=== PATIENT | female | born 1960 | race Caucasian/White ===

== ENCOUNTER → 2019-10-15 11:59 | Outpatient (BNVA) | payer MEDICAID, SELFPAY | PROVIDERS: Family Provider Family Medicine; PCP Family Medicine; Visit Provider Specialist | DX: G43.711 Chronic migraine without aura, intractable, with status migrainosus (principal); Z87.891 Personal history of nicotine dependence | CPT/HCPCS: 64615; 96372; J0585; J1885 ==

== ENCOUNTER 2019-10-28 08:12 | Day surgery (SDC) | payer MEDICAID, SELFPAY ==
[2019-10-27 13:31] VITALS: BMI 39.8
--- NOTE | 2019-10-28 08:26 | ANES.PREANE2 ---
Pre-Anesthetic Assessment Pre-Anesthetic Assessment: Height/Weight: Height 1.6 m Weight 102.058 kg Preop Diagnosis: screeening colonscopy Proposed Procedure: Operation Date: 10/28/19 08:45 Proposed Procedures p Colonoscopy(Not Applicable) - Zan Verma MD Last Intake: 23:00 Social: Packs per day: 1 Pack years: 40 Comment: qyut 7 y Exam: Pre-Anes Outpt Exam: alert, oriented x 3, clear to auscultation bilaterally and regular rate & rhythm Airway: Submandibular: WNL Cervical ROM: Other MP: 1 Dentition: False and Partials Pulmonary: Pulmonary: Asthma Comments: breathing feels good, last use of inhaler 2 weeks ago CV/HEM: Comments: stress test '10 equivocal, cath negative for obstructive lesion, stable angina : Comments: frequency, urgency GI: GI: GERD Comments: controlled with omeprazole Metabolic: Metabolic: Thyroid Comments: replacement 5y without recent change Musc/skel: Musc/skel: Lower Back Pain Comments: right radiculopathy Neuropsych: Neuropsych: Bipolar, Depression and AGARWAL Anesthetic Plan: ASA status: 3 Anesthesia: MAC PFSH Anesthesia PFSH: Social History Smoking and tobacco status: former smoker Second hand smoke exposure: No (quit smoking 7 years ago) Alcohol intake: never Lives independently: Yes Household members: none Current occupational status: disabled History of recent travel: No Data Anesthesia Cardiac Studies: No Data to Display
[2019-10-28 08:57] VITALS: BP 122/73; PULSE 93; RESP 18; TEMP 37; O2SAT 93
[2019-10-28] MEDS: sodium chloride 0.9% 1,000 ML 30 ML (09:02)
--- NOTE | 2019-10-28 09:13 | PM.HPUD ---
H&P update H&P Update: DATE OF SURGERY/PROCEDURE: 10/28/19 DATE H&P PERFORMED: 10/21/19 H&P UPDATE INFORMATION: H&P completed within last 30 days and No changes to prior documentation PREOP DIAGNOSIS: Screening colonoscopy PRIMARY INDICATION FOR PROCEDURE: The same. PLANNED PROCEDURE: Operation Date: 10/28/19 08:45 Proposed Procedures p Colonoscopy(Not Applicable) - Zan Verma MD Full H&P Perinent History: Medical/Surgical History: Medical History (Updated 10/22/19 @ 10:43 by Zan Verma MD) Bipolar 2 disorder (Acute) Borderline personality disorder (Acute) Chronic migraine without aura, intractable, with status migrainosus (Inactive) GERD (gastroesophageal reflux disease) (Acute) Hyperlipidemia (Acute) Hypothyroid (Acute) PTSD (post-traumatic stress disorder) (Acute) Family History: Family History (Updated 10/21/19 @ 15:54 by TALON Burch) Father Bleeding disorder CAD (coronary artery disease) Other Diabetes Hypertension Denies family history of Anesthesia complication Social History: Social History Smoking and tobacco status: former smoker Second hand smoke exposure: No (quit smoking 7 years ago) Alcohol intake: never Lives independently: Yes Household members: none Current occupational status: disabled History of recent travel: No
--- NOTE | 2019-10-28 09:29 | ANE.PACU2 ---
 Inpatient post-anesthesia follow up: Airway intact: Yes Vital signs: Temperature 98.6 F Pulse Rate 93 Respiratory Rate 18 Blood Pressure 122/73 Pulse Oximetry 93 Oxygen Delivery Me thod Room Air Oxygen Flow Rate Fraction of Inspir ed Oxygen Hydration adequate: Yes Nausea and vomiting: No Pain level: 2 Mental status: Baseline
[2019-10-28 09:31] VITALS: BP 108/77; PULSE 86; RESP 16; TEMP 36.5; O2SAT 93
[2019-10-28 09:39] VITALS: BP 110/62; PULSE 84; RESP 18; O2SAT 93
== END 2019-10-28 09:49 | disposition home or self-care (01) ==
PROVIDERS: Family Provider Family Medicine; PCP Family Medicine; Visit Provider Surgery
PROC: 0DJD8ZZ Inspection of Lower Intestinal Tract, Via Natural or Artificial Opening Endoscopic (ICD-10-PCS; CPT 45378; principal; 2019-10-28 08:45)
DX: Z12.11 Encounter for screening for malignant neoplasm of colon (principal); K21.9 Gastro-esophageal reflux disease without esophagitis; E78.5 Hyperlipidemia, unspecified; E03.9 Hypothyroidism, unspecified; Z82.49 Family history of ischemic heart disease and other diseases of the circulatory system; Z83.3 Family history of diabetes mellitus; Z87.891 Personal history of nicotine dependence; K57.30 Diverticulosis of large intestine without perforation or abscess without bleeding
CPT/HCPCS: 12345; 45378; J2704; J7030

== ENCOUNTER → 2019-11-12 07:47 | Outpatient (BNVA) | payer MEDICAID, SELFPAY | PROVIDERS: Family Provider Family Medicine; PCP Family Medicine; Visit Provider Nurse Practitioner Psychiatric/Mental Health | DX: F25.0 Schizoaffective disorder, bipolar type (principal); F43.12 Post-traumatic stress disorder, chronic; F40.01 Agoraphobia with panic disorder; Z63.4 Disappearance and death of family member | CPT/HCPCS: 99214 ==

== ENCOUNTER → 2019-11-23 13:43 | Outpatient (BNVA) | payer MEDICAID, SELFPAY | PROVIDERS: Family Provider Family Medicine; PCP Family Medicine; Visit Provider Counselor Professional | DX: F25.0 Schizoaffective disorder, bipolar type (principal); F43.12 Post-traumatic stress disorder, chronic; F40.01 Agoraphobia with panic disorder; Z63.4 Disappearance and death of family member | CPT/HCPCS: 90834 ==

== ENCOUNTER → 2019-11-30 08:50 | Outpatient (BNVA) | payer MEDICAID, SELFPAY | PROVIDERS: Family Provider Family Medicine; PCP Family Medicine; Visit Provider Nurse Practitioner Psychiatric/Mental Health | DX: F25.0 Schizoaffective disorder, bipolar type (principal); F43.12 Post-traumatic stress disorder, chronic; F40.01 Agoraphobia with panic disorder; Z63.4 Disappearance and death of family member | CPT/HCPCS: 99214 ==

== ENCOUNTER → 2019-12-11 08:27 | Outpatient (BNVA) | payer MEDICAID, SELFPAY | PROVIDERS: Family Provider Family Medicine; PCP Family Medicine; Visit Provider Counselor Professional | DX: Z63.4 Disappearance and death of family member (principal); F40.01 Agoraphobia with panic disorder; F43.12 Post-traumatic stress disorder, chronic; F25.0 Schizoaffective disorder, bipolar type | CPT/HCPCS: 90832; 90834 ==

== ENCOUNTER → 2019-12-15 08:09 | Outpatient (BNVA) | payer MEDICAID, SELFPAY | PROVIDERS: Family Provider Family Medicine; PCP Family Medicine; Visit Provider Counselor Professional | DX: Z63.4 Disappearance and death of family member (principal); F40.01 Agoraphobia with panic disorder; F43.12 Post-traumatic stress disorder, chronic; F25.0 Schizoaffective disorder, bipolar type; F43.10 Post-traumatic stress disorder, unspecified | CPT/HCPCS: 90834 ==

== ENCOUNTER → 2019-12-23 08:05 | Outpatient (BNVA) | payer MEDICAID, SELFPAY | PROVIDERS: Family Provider Family Medicine; PCP Family Medicine; Visit Provider Counselor Professional | DX: F40.01 Agoraphobia with panic disorder (principal); Z63.4 Disappearance and death of family member; F43.12 Post-traumatic stress disorder, chronic; F25.0 Schizoaffective disorder, bipolar type | CPT/HCPCS: 90834 ==

== ENCOUNTER → 2019-12-31 08:13 | Outpatient (BNVA) | payer MEDICAID, SELFPAY | PROVIDERS: Family Provider Family Medicine; PCP Family Medicine; Visit Provider Counselor Professional | DX: Z63.4 Disappearance and death of family member (principal); F40.01 Agoraphobia with panic disorder; F43.12 Post-traumatic stress disorder, chronic; F25.0 Schizoaffective disorder, bipolar type | CPT/HCPCS: 90832 ==

== ENCOUNTER → 2020-01-11 08:27 | Outpatient (BNVA) | payer MEDICAID, SELFPAY | PROVIDERS: Family Provider Family Medicine; PCP Family Medicine; Visit Provider Counselor Professional | DX: Z63.4 Disappearance and death of family member (principal); F40.01 Agoraphobia with panic disorder; F43.12 Post-traumatic stress disorder, chronic; F25.0 Schizoaffective disorder, bipolar type | CPT/HCPCS: 90834 ==

== ENCOUNTER → 2020-01-14 08:46 | Outpatient (BNVA) | payer MEDICAID, SELFPAY | PROVIDERS: Family Provider Family Medicine; PCP Family Medicine; Visit Provider Specialist | DX: G43.711 Chronic migraine without aura, intractable, with status migrainosus (principal); F43.12 Post-traumatic stress disorder, chronic; Z87.891 Personal history of nicotine dependence | CPT/HCPCS: 64615; J0585 ==

== ENCOUNTER → 2020-01-18 08:44 | Outpatient (BNVA) | payer MEDICAID, SELFPAY | PROVIDERS: Family Provider Family Medicine; PCP Family Medicine; Visit Provider Counselor Professional | DX: Z63.4 Disappearance and death of family member (principal); F40.01 Agoraphobia with panic disorder; F43.12 Post-traumatic stress disorder, chronic; F25.0 Schizoaffective disorder, bipolar type | CPT/HCPCS: 90834 ==

== ENCOUNTER → 2020-01-27 08:48 | Outpatient (BNVA) | payer MEDICAID, SELFPAY | PROVIDERS: Family Provider Family Medicine; Visit Provider Counselor Professional | DX: Z63.4 Disappearance and death of family member (principal); F40.01 Agoraphobia with panic disorder; F43.12 Post-traumatic stress disorder, chronic; F25.0 Schizoaffective disorder, bipolar type | CPT/HCPCS: 90834 ==

== ENCOUNTER → 2020-02-01 07:39 | Outpatient (BNVA) | payer MEDICAID, SELFPAY | PROVIDERS: Family Provider Family Medicine; Visit Provider Nurse Practitioner Psychiatric/Mental Health | DX: F25.0 Schizoaffective disorder, bipolar type (principal); F43.12 Post-traumatic stress disorder, chronic; F40.01 Agoraphobia with panic disorder; Z63.4 Disappearance and death of family member; F33.2 Major depressive disorder, recurrent severe without psychotic features; Z79.899 Other long term (current) drug therapy | CPT/HCPCS: 80053; 80061; 83036; 83735; 85025; 99213 ==

== ENCOUNTER → 2020-02-15 08:28 | Outpatient (BNVA) | payer MEDICAID, SELFPAY | PROVIDERS: Family Provider Family Medicine; Visit Provider Counselor Professional | DX: Z63.4 Disappearance and death of family member (principal); F40.01 Agoraphobia with panic disorder; F43.12 Post-traumatic stress disorder, chronic; F25.0 Schizoaffective disorder, bipolar type | CPT/HCPCS: 90834 ==

== ENCOUNTER 2020-02-18 09:50 | Outpatient (CLI) | payer MEDICAID, SELFPAY ==
--- NOTE | 2020-02-18 09:56 | MM_ITS ---
WS: [id number] BILATERAL SCREENING DIGITAL MAMMOGRAM WITH CAD HISTORY: SCREENING COMPARISON: 04/27/2016 and 06/27/2012 Bilateral CC and MLO views submitted. Computer aided detection analyzed. Breast composition: There are scattered areas of fibroglandular density. No suspicious masses, microc alcifications or architectural distortion. Benign calcifications in each breast. MM/[place] [id number] IMPRESSION: BI-RADS: 2-Benign FOLLOW UP: 1 Year Follow-up
== END 2020-02-18 09:51 | disposition home or self-care (01) ==
LOC: RADSHAW 09:52
PROVIDERS: PCP Internal Medicine; Visit Provider Internal Medicine
DX: Z12.31 Encounter for screening mammogram for malignant neoplasm of breast (principal)
CPT/HCPCS: 77067

== ENCOUNTER 2020-03-04 07:41 | Outpatient (CLI) | payer MEDICAID, SELFPAY ==
--- NOTE | 2020-03-04 08:09 | MR_ITS ---
WS: [id number] INDICATION: Tarsal tunnel syndrome TECHNIQUE: MR of the left foot without gadolinium enhancement. Sagittal PD, sagittal STIR, sagittal T 1, axial T1 and PD T2 and STIR imaging. Coronal PD and T2 imaging. FINDINGS: No evidence of space-occupying lesion in the tarsal tunnel. No evidence of ganglion cyst or soft tissue mass. Normal visualized posterior tibial nerve and neurovascular bundle. Tiny amount of tenosynovitis along the flexor hallucis longus. Small amount of tenosynovitis tibialis posterior and flexor digitorum longus. Distal Achilles is normal in appearance. Normal peroneal tendons. Normal extensor compartment tendons. Tiny ankle effusion. Normal tibiotalar joint. Normal medial and lateral malleolus. Talar dome is normal. No evidence of av ascular necrosis. Mild pes planus. Prominent plantar calcaneal spurring. Normal plantar aponeurosis. MR/MR foot LT wo con* [id number] IMPRESSION: 1. No evidence of space-occupying mass or ganglion cyst within the tarsal tunn el. 2. Normal posterior tibial nerve and neurovascular bundle. 3. Small amount of tenosynovitis along the tibialis posterior and flexor tendo ns. 4. Mild pes planus with prominent plantar calcaneal spurring. 5. Normal plantar aponeurosis.
== END 2020-03-04 07:42 | disposition home or self-care (01) ==
LOC: RADWPI 07:43
PROVIDERS: Family Provider Internal Medicine; PCP Internal Medicine; Visit Provider Podiatrist Foot & Ankle Surgery
DX: G57.52 Tarsal tunnel syndrome, left lower limb (principal); M65.872 Other synovitis and tenosynovitis, left ankle and foot; M21.42 Flat foot [pes planus] (acquired), left foot; M77.32 Calcaneal spur, left foot
CPT/HCPCS: 73718

== ENCOUNTER → 2020-04-07 08:23 | Outpatient (BNVA) | payer MEDICAID, SELFPAY | PROVIDERS: Family Provider Family Medicine; PCP Family Medicine; Visit Provider Specialist | DX: G43.711 Chronic migraine without aura, intractable, with status migrainosus (principal) | CPT/HCPCS: 64615; J0585 ==

== ENCOUNTER → 2020-04-25 08:07 | Outpatient (BNVA) | payer MEDICAID, SELFPAY | PROVIDERS: Family Provider Family Medicine; PCP Family Medicine; Visit Provider Nurse Practitioner Psychiatric/Mental Health | DX: F25.0 Schizoaffective disorder, bipolar type (principal); F43.12 Post-traumatic stress disorder, chronic; F40.01 Agoraphobia with panic disorder; Z63.4 Disappearance and death of family member | CPT/HCPCS: 96372; 99213 ==

== ENCOUNTER 2020-05-15 14:03 | Observation (INO) | payer MEDICAID, SELFPAY ==
[2020-05-15 14:07] VITALS: BMI 40.7
--- NOTE | 2020-05-15 14:27 | CTR_ITS ---
PROCEDURE INFORMATION: Exam: CT Cervical Spine Without Contrast Exam date and time: 05/15/2020 2:55 PM Age: 59 years old Clinical indication: Injury or trauma; Fall; Initial encounter; Blunt trauma; Patient HX: Stood up - fell down hitting coffee table; Additional info: Fall, weakness TECHNIQUE: Imaging protocol: Computed tomography images of the cervical spine without contrast. Radiation optimization: All CT scans at this facility use at least one of these dose optimization techniques: automated exposure control; mA and/or kV adjustment per patient size (includes targeted exams where dose is matched to clinical indication); or iterative reconstruction. COMPARISON: MRI Cervical Spine w/o* [id number] 06/04/2014 3:50 PM RADIATION DOSE METRICS: Total DLP (mGy-cm): 898.56 FINDINGS: Vertebrae: Bilateral temporomandibular joint primary osteoarthritis. Discs/Spinal canal/Neural foramina: Mild right C3-C4 primary facet osteoarthritis. Moderately severe left, severe right C5-C6 and C5-C6 neural foraminal narrowing. Soft tissues: Unremarkable. Sinuses: Mild posterior right sphenoid sinus mucosal thickening. Trachea: C5-6 and C6-7 degenerative disc disease with moderate spondylosis. Thyroid: Small bilateral thyroid lobes (status post ablative therapy?). Lungs: Right apical pulmonary subsegmental atelectasis/scarring. CT/CT cervical spin wo con* [id number] IMPRESSION: 1. Degenerative changes as above. 2. No acute cervical spinal bony injury identified. 3. Incidental paranasal sinus mucosal disease as above. Radiation Dose CTDIVOL = (mGy): DLP = 898.56 (mGy-cm)
--- NOTE | 2020-05-15 14:28 | CTR_ITS ---
PROCEDURE INFORMATION: Exam: CT Head Without Contrast Exam date and time: 05/15/2020 2:55 PM Age: 59 years old Clinical indication: Injury or trauma; Fall; Initial encounter; Blunt trauma (contusions or hematomas); Consciousness not specified; Patient HX: Stood up - fell down hitting coffee table unk loc; Additional info: Fall, weakness TECHNIQUE: Imaging protocol: Computed tomography of the head without contrast. Radiation optimization: All CT scans at this facility use at least one of these dose optimization techniques: automated exposure control; mA and/or kV adjustment per patient size (includes targeted exams where dose is matched to clinical indication); or iterative reconstruction. COMPARISON: No relevant prior studies available. RADIATION DOSE METRICS: Total DLP (mGy-cm): 779.58 FINDINGS: Brain: Normal. No hemorrhage. Unremarkable white matter. No mass effect. Ventricles: Normal. No ventriculomegaly. Bones/joints: Unremarkable. No acute fracture. Sinuses: Visualized sinuses are unremarkable. No fluid levels. Mastoid air cells: Visualized mastoid air cells are well aerated. Orbits: Bilateral prior cataract surgery with lens replacements. Vasculature: Atherosclerotic calcifications are present involving the carotid artery siphons bilaterally. Soft tissues: Unremarkable. CT/CT head wo con* [id number] IMPRESSION: No acute intracranial injury identified. Radiation Dose CTDIVOL = (mGy): DLP = 779.58 (mGy-cm)
--- NOTE | 2020-05-15 14:29 | XRR_ITS ---
PROCEDURE INFORMATION: Exam: XR Chest, 1 View Exam date and time: 05/15/2020 3:10 PM Age: 59 years old Clinical indication: Other: Weakness TECHNIQUE: Imaging protocol: XR of the chest Views: 1 view. COMPARISON: CR Chest 2 views* [id number] 09/01/2016 10:46 AM FINDINGS: Lungs: The lungs are clear bilaterally. Pulmonary vasculature within normal limits. Pleural space: No visible pneumothorax or pleural effusion. Heart/Mediastinum: Cardiomediastinal silhouette contour within normal limits. Bones/joints: No emergent findings identified. XR/XR chest 1V portable [id number] IMPRESSION: 1. No radiographic findings of acute cardiopulmonary disease.
[2020-05-15 14:31] VITALS: BP 131/69; PULSE 109; RESP 16; TEMP 37; O2SAT 93
[2020-05-15 14:46] LABS: Basophils # 0.1 10^3/uL (0.0-0.1); Basophils % 0.6 %; Eosinophils # 0.3 10^3/uL (0.0-0.8); Hematocrit 42.2 % (37.0-47.0); Hemoglobin 13.1 g/dL (11.5-15.3); Lymphocytes # 2.2 10^3/uL (0.8-4.8); Lymphocytes % 25.3 %; Mean Corpuscular Hemoglobin 28.7 pg (28.0-34.0); Mean Corpuscular Volume 92.5 fL (81-99); Monocytes # 0.7 10^3/uL (0.2-0.9); Monocytes % 7.8 %; Neutrophils # 5.27 10^3/uL (1.8-7.7); Neutrophils % 61.5 %; Nucleated Red Blood Cells % 0 %; Platelet Count 349 10^3/cmm (130-400); Red Blood Count 4.56 10^6/uL (4.1-5.3); Red Cell Distribution Width 14.2 % (12.1-15.1); White Blood Count 8.6 10^3/uL (4.0-10.0)
[2020-05-15 14:58] LABS: INR 1.06 (0.8-1.2)
[2020-05-15 15:07] LABS: Lactic Sepsis W/Reflex 1.2 mmol/L (0.5-2.2)
[2020-05-15 15:08] LABS: Alanine Aminotransferase 32 U/L (0-33); Albumin Level 3.9 g/dL (3.5-5.2); Alkaline Phosphatase 132 IU/L (35-105); Anion Gap 13.2 (5-19); Aspartate Amino Transferase 19 U/L (0-32); Blood Urea Nitrogen 9 mg/dL (8-23); Calcium 9.8 mg/dL (8.5-10.5); Carbon Dioxide 26 mmol/L (22-29); Chloride 102 mmol/L (98-107); Globulin 3.1 g/dL (1.3-4.6); Glomerular Filtration Rate 73.2 mL/min (90-130); Glucose 127 mg/dL (65-115); Osmolality Calculated 282 mOsm/kg (285-295); Potassium 4.2 mmol/L (3.5-5.1); Sodium 137 mmol/L (136-145); Total Bilirubin 0.3 mg/dL (0.15-1.2)
--- NOTE | 2020-05-15 17:03 | ED_ITS ---
Documented by User: Kiana Beckham MD 05/18/20 18:26 HPI - Altered Mental Status General: Chief Complaint: Altered Mental Status Stated Complaint: HEADACHE; WEAKNESS Time Seen by Provider: 05/15/20 14:10 History of Present Illness: HPI narrative: This patient is a 59-year-old female who presents today with dizziness and a fall. She said she has had dizziness for 2 days. She also feels extremely weak. Today she was going to a nswer the door and became dizzy. She stumbled and fell against her coffee table. She hit her head and her shoulder. She thinks that she had a loss of consciousness. She thinks she fell because of the dizziness. She denies chest pain or palpitations. She says that she is so weak she cannot move her arms or legs. She is complaining of pain in her head and neck. She has pain that goes down into the right arm. She denies history of stroke. She does have a history of hypothyroidism and psychiatric disorder. She has chronic migraines treated with Botox. She notes that she was started on gabapentin about a month ago and the dose has been recently increased. complaint: weakness (Since falling and hitting her head) Onset (ago): day(s) (Dizzy for 2 days, gradually increasing weakness to the point where she cannot move today) Severity: moderate Associated symptoms: Reports no associated symptoms Review of Systems General: Reports: 10 or more systems reviewed and unremarkable except in HPI and below Const: Reports: fatigue; Denies: fever(s), chills or malaise Eyes: Denies: change in vision ENMT: Denies: odynophagia Card: Denies: chest pain or swelling of feet/ankles Resp: Denies: dyspnea, productive cough or non-productive cough GI: Denies: abdominal pain, nausea or vomiting : Denies: flank pain or difficulty voiding Musc: Denies: neck pain or back pain Skin/Breast: Denies: rash Neuro: Reports: headache(s), weakness in extremities, difficulty walking and dizziness; Denies: numbness in extremities Panchito/Lymph: Denies: easy bruising or easy bleeding PFSH ED PFSH: Medical History Bereavement Bipolar 2 disorder Borderline personality disorder Chronic migraine without aura, intractable, with status migrainosus Chronic post-traumatic stress disorder GERD (gastroesophageal reflux disease) Hyperlipidemia Hypothyroid Panic disorder with agoraphobia PTSD (post-traumatic stress disorder) Schizoaffective disorder, bipolar type Tarsal tunnel syndrome, left lower limb Surgical History H/O arthroscopic knee surgery History of appendectomy History of arthroscopy of left shoulder History of bilateral tubal ligation Family History Father Bleeding disorder CAD (coronary artery disease) Other Diabetes Hypertension Denies family history of Anesthesia complication Social History Smoking and tobacco status: former smoker Second hand smoke exposure: No (quit smoking 7 years ago) Alcohol intake: never Lives independently: Yes Household members: none Current occupational status: disabled History of recent travel: No Physical Exam Const: COMMON NORMALS: no acute distress and patient oriented x3 GENERAL APPEARANCE: cooperative and lethargic ORIENTATION/CONSCIOUSNESS: Yes oriented to person, Yes oriented to place, Yes oriented to time and Yes lethargic HENMT: HEAD & SCALP: normal to inspection FACE & SINUS: normal facial exam Eye: GENERAL EYE: appearance normal, both eyes and all related structures Neck/C-Spine: COMMON NORMALS: supple, no meningeal signs and no JVD Chest: COMMONS NORMALS: normal inspection of the chest Resp: COMMON NORMALS: normal respiratory effort, No use of accessory muscles and clear to auscultation bilaterally AUSCULTATION: clear to auscultation bilaterally Cardio: COMMON NORMALS: no JVD, regular rate, regular rhythm and No murmurs present (Cardio) RATE: regular rate RHYTHM: regular rhythm GI: COMMON NORMALS: Normal to inspection, nondistended, normoactive bowel sounds present, Soft to palpation and non-tender INSPECTION: Yes normal to inspection AUSCULTATION: Yes normoactive bowel sounds PALPATION: Yes Soft to palpation Back/Pelvis: COMMON NORMALS: thoracic and lumbar spine normal to inspection Extremity: COMMON NORMALS: normal to inspection Neuro: COMMON NORMALS: patient oriented x3 and no focal motor deficits SENSORIUM/ORIENTATION: Yes oriented to person, Yes oriented to place, Yes oriented to time and Yes lethargic MENINGEAL SIGNS: Yes no meningeal signs CRANIAL NERVES: Yes CN normal except as noted GAIT: Yes Unable to assess gait SENSORY EXAM: Yes sensory level loss detected (Below the knee Sensation decreased bilaterally) MOTOR EXAM: 5/5 motor strength present throughout (Patient says that she is unable to move her arms or legs. She can wiggle her toes and fingers. This remained unchanged) Psych: COMMON NORMALS: mental status grossly normal, cooperative and normal affect Skin: COMMON NORMALS: no rashes or lesions noted and turgor normal GENERAL SKIN EXAM: no rashes or lesions noted and turgor normal Course ED course: This patient fell after a few days of dizziness. She has been on increasing doses of gabapentin and this could be the cause of her dizziness. She has had a neck pain after the fall but CT head and neck were negative for acute injury. Her exam is not really anatomical considering her weakness. She was able to sit up but feels like she cannot move her arms or legs. I do not think this could be a stroke given the distribution of her symptoms and preservation of vision, speech, swallowing. She may need to be admitted due to her dizziness. She does have a psychiatric history and is on multiple medications that potentially could cause dizziness. Reevaluation(s): Reevaluation #1: I called Dr. Eason for admission for this patient. As he has another admission and is close to shift change he asked me to wait for Dr. Granado. I will pass her over to Dr. Ponce to complete the admission. Vital Signs: Vital signs: Vital Signs Temperature 98.5 F 05/17/20 09:34 Pulse Rate 85 05/17/20 09:34 Respiratory Rate 18 05/17/20 09:34 Blood Pressure 136/84 05/17/20 09:34 Pulse Oximetry 94 05/17/20 09:34 MDM - Altered Mental Status Lab Data: Labs: Lab Results 05/15/20 05/15/20 05/15/20 Range/Units 14:39 14:39 14:39 WBC 8.6 (4.0-10.0) 10^3/ uL RBC 4.56 (4.1-5.3) 10^6/u L Hgb 13.1 (11.5-15.3) g/dL Hct 42.2 (37.0-47.0) % MCV 92.5 (81-99) fL MCH 28.7 (28.0-34.0) pg MCHC 31.0 (30.0-36.0) g/dL RDW 14.2 (12.1-15.1) % Plt Count 349 (130-400) 10^3/c mm MPV 9.0 (7.4-10.4) fL Neut % (Auto) 61.5 % Lymph % (Auto) 25.3 % [place] % (Auto) 7.8 % Eos % (Auto) 4.0 % Baso % (Auto) 0.6 % Neut # (Auto) 5.27 (1.8-7.7) 10^3/u L Lymph # (Auto) 2.2 (0.8-4.8) 10^3/u L [place] # (Auto) 0.7 (0.2-0.9) 10^3/u L Eos # (Auto) 0.3 (0.0-0.8) 10^3/u L Baso # (Auto) 0.1 (0.0-0.1) 10^3/u L Nucleated RBC % (a uto) 0 % Nucleated RBCs # 0.0 /100WBC PT (12.1-14.9) SECO NDS INR (0.8-1.2) D-Dimer (0-0.59) ug/mIFE U Sodium 137 (136-145) mmol/L Potassium 4.2 (3.5-5.1) mmol/L Chloride 102 (98-107) mmol/L Carbon Dioxide 26 (22-29) mmol/L Anion Gap 13.2 (5-19) BUN 9 (8-23) mg/dL Creatinine 0.8 (0.5-0.9) mg/dL GFR Calculation 73.2 L (90-130) mL/min Glucose 127 H (65-115) mg/dL Calculated Osmolal ity 282 L (285-295) mOsm/k g Lactic Acid 1.2 (0.5-2.2) mmol/L Calcium 9.8 (8.5-10.5) mg/dL Total Bilirubin 0.3 (0.15-1.2) mg/dL AST 19 (0-32) U/L ALT 32 (0-33) U/L Alkaline Phosphata se 132 H (35-105) IU/L Total Protein 7.0 (6.6-8.7) g/dL Albumin 3.9 (3.5-5.2) g/dL Globulin 3.1 (1.3-4.6) g/dL TSH (0.27-4.20) uIU/ mL Urine Color (Yellow) Urine Appearance (CLEAR) Urine pH (5-7) Ur Specific Gravit y (1.005-1.030) Urine Protein (Negative) Urine Glucose (UA) (Normal) Urine Ketones (Negative) Urine Blood (Negative) Urine Nitrate (Negative) Urine Bilirubin (NEGATIVE) Urine Urobilinogen (Negative) mg/dL Ur Leukocyte Alethea ase (Negative) 05/15/20 05/15/20 05/15/20 Range/Units 14:39 14:39 14:39 WBC (4.0-10.0) 10^3/ uL RBC (4.1-5.3) 10^6/u L Hgb (11.5-15.3) g/dL Hct (37.0-47.0) % MCV (81-99) fL MCH (28.0-34.0) pg MCHC (30.0-36.0) g/dL RDW (12.1-15.1) % Plt Count (130-400) 10^3/c mm MPV (7.4-10.4) fL Neut % (Auto) % Lymph % (Auto) % [place] % (Auto) % Eos % (Auto) % Baso % (Auto) % Neut # (Auto) (1.8-7.7) 10^3/u L Lymph # (Auto) (0.8-4.8) 10^3/u L [place] # (Auto) (0.2-0.9) 10^3/u L Eos # (Auto) (0.0-0.8) 10^3/u L Baso # (Auto) (0.0-0.1) 10^3/u L Nucleated RBC % (a uto) % Nucleated RBCs # /100WBC PT 14.20 (12.1-14.9) SECO NDS INR 1.06 (0.8-1.2) D-Dimer 0.73 H (0-0.59) ug/mIFE U Sodium (136-145) mmol/L Potassium (3.5-5.1) mmol/L Chloride (98-107) mmol/L Carbon Dioxide (22-29) mmol/L Anion Gap (5-19) BUN (8-23) mg/dL Creatinine (0.5-0.9) mg/dL GFR Calculation (90-130) mL/min Glucose (65-115) mg/dL Calculated Osmolal ity (285-295) mOsm/k g Lactic Acid (0.5-2.2) mmol/L Calcium (8.5-10.5) mg/dL Total Bilirubin (0.15-1.2) mg/dL AST (0-32) U/L ALT (0-33) U/L Alkaline Phosphata se (35-105) IU/L Total Protein (6.6-8.7) g/dL Albumin (3.5-5.2) g/dL Globulin (1.3-4.6) g/dL TSH 1.61 (0.27-4.20) uIU/ mL Urine Color (Yellow) Urine Appearance (CLEAR) Urine pH (5-7) Ur Specific Gravit y (1.005-1.030) Urine Protein (Negative) Urine Glucose (UA) (Normal) Urine Ketones (Negative) Urine Blood (Negative) Urine Nitrate (Negative) Urine Bilirubin (NEGATIVE) Urine Urobilinogen (Negative) mg/dL Ur Leukocyte Alethea ase (Negative) 05/15/20 Range/Units 16:00 WBC (4.0-10.0) 10^3/ uL RBC (4.1-5.3) 10^6/u L Hgb (11.5-15.3) g/dL Hct (37.0-47.0) % MCV (81-99) fL MCH (28.0-34.0) pg MCHC (30.0-36.0) g/dL RDW (12.1-15.1) % Plt Count (130-400) 10^3/c mm MPV (7.4-10.4) fL Neut % (Auto) % Lymph % (Auto) % [place] % (Auto) % Eos % (Auto) % Baso % (Auto) % Neut # (Auto) (1.8-7.7) 10^3/u L Lymph # (Auto) (0.8-4.8) 10^3/u L [place] # (Auto) (0.2-0.9) 10^3/u L Eos # (Auto) (0.0-0.8) 10^3/u L Baso # (Auto) (0.0-0.1) 10^3/u L Nucleated RBC % (a uto) % Nucleated RBCs # /100WBC PT (12.1-14.9) SECO NDS INR (0.8-1.2) D-Dimer (0-0.59) ug/mIFE U Sodium (136-145) mmol/L Potassium (3.5-5.1) mmol/L Chloride (98-107) mmol/L Carbon Dioxide (22-29) mmol/L Anion Gap (5-19) BUN (8-23) mg/dL Creatinine (0.5-0.9) mg/dL GFR Calculation (90-130) mL/min Glucose (65-115) mg/dL Calculated Osmolal ity (285-295) mOsm/k g Lactic Acid (0.5-2.2) mmol/L Calcium (8.5-10.5) mg/dL Total Bilirubin (0.15-1.2) mg/dL AST (0-32) U/L ALT (0-33) U/L Alkaline Phosphata se (35-105) IU/L Total Protein (6.6-8.7) g/dL Albumin (3.5-5.2) g/dL Globulin (1.3-4.6) g/dL TSH (0.27-4.20) uIU/ mL Urine Color Straw (Yellow) Urine Appearance Clear (CLEAR) Urine pH 6.5 (5-7) Ur Specific Gravit y 1.005 (1.005-1.030) Urine Protein Neg (Negative) Urine Glucose (UA) Norm (Normal) Urine Ketones Negative (Negative) Urine Blood Neg (Negative) Urine Nitrate Negative (Negative) Urine Bilirubin Neg (NEGATIVE) Urine Urobilinogen Norm (Negative) mg/dL Ur Leukocyte Alethea ase Negative (Negative) Discharge Plan Discharge Admit Provider: Badlev Granado Condition: Stable Discharge Orders: Discharge Order (Routine); Ordered 05/17/20 Ordered By: Eleanor Lockhart Discharge Diet: Regular Discharge Activity: Increase activity as tolerated Discharge Date/Time: 05/15/20 20:24 Coding Level of Care Code ED Director Of Placement for Chg Fwd Exam Comprehensive Documented by User: Addison Ponce, 05/15/20 19:55 HPI - Altered Mental Status General: Chief Complaint: Altered Mental Status Stated Complaint: HEADACHE; WEAKNESS Time Seen by Provider: 05/15/20 14:10 PFSH ED PFSH: Medical History Bereavement Bipolar 2 disorder Borderline personality disorder Chronic migraine without aura, intractable, with status migrainosus Chronic post-traumatic stress disorder GERD (gastroesophageal reflux disease) Hyperlipidemia Hypothyroid Panic disorder with agoraphobia PTSD (post-traumatic stress disorder) Schizoaffective disorder, bipolar type Tarsal tunnel syndrome, left lower limb Surgical History H/O arthroscopic knee surgery History of appendectomy History of arthroscopy of left shoulder History of bilateral tubal ligation Family History Father Bleeding disorder CAD (coronary artery disease) Other Diabetes Hypertension Denies family history of Anesthesia complication Social History Smoking and tobacco status: former smoker Second hand smoke exposure: No (quit smoking 7 years ago) Alcohol intake: never Lives independently: Yes Household members: none Current occupational status: disabled History of recent travel: No Course Vital Signs: Vital signs: Vital Signs Temperature 98.5 F 05/17/20 09:34 Pulse Rate 85 05/17/20 09:34 Respiratory Rate 18 05/17/20 09:34 Blood Pressure 136/84 05/17/20 09:34 Pulse Oximetry 94 05/17/20 09:34 MDM - Altered Mental Status MDM Narrative: Medical decision making narrative: 59-year-old female checked out to me by Dr. Beckham at shift change. I spoke to Dr. Granado about this patient. He is willing to take the admission. She will be observed on the floor. Lab Data: Labs: Lab Results 05/15/20 05/15/20 05/15/20 Range/Units 14:39 14:39 14:39 WBC 8.6 (4.0-10.0) 10^3/ uL RBC 4.56 (4.1-5.3) 10^6/u L Hgb 13.1 (11.5-15.3) g/dL Hct 42.2 (37.0-47.0) % MCV 92.5 (81-99) fL MCH 28.7 (28.0-34.0) pg MCHC 31.0 (30.0-36.0) g/dL RDW 14.2 (12.1-15.1) % Plt Count 349 (130-400) 10^3/c mm MPV 9.0 (7.4-10.4) fL Neut % (Auto) 61.5 % Lymph % (Auto) 25.3 % [place] % (Auto) 7.8 % Eos % (Auto) 4.0 % Baso % (Auto) 0.6 % Neut # (Auto) 5.27 (1.8-7.7) 10^3/u L Lymph # (Auto) 2.2 (0.8-4.8) 10^3/u L [place] # (Auto) 0.7 (0.2-0.9) 10^3/u L Eos # (Auto) 0.3 (0.0-0.8) 10^3/u L Baso # (Auto) 0.1 (0.0-0.1) 10^3/u L Nucleated RBC % (a uto) 0 % Nucleated RBCs # 0.0 /100WBC PT (12.1-14.9) SECO NDS INR (0.8-1.2) D-Dimer (0-0.59) ug/mIFE U Sodium 137 (136-145) mmol/L Potassium 4.2 (3.5-5.1) mmol/L Chloride 102 (98-107) mmol/L Carbon Dioxide 26 (22-29) mmol/L Anion Gap 13.2 (5-19) BUN 9 (8-23) mg/dL Creatinine 0.8 (0.5-0.9) mg/dL GFR Calculation 73.2 L (90-130) mL/min Glucose 127 H (65-115) mg/dL Calculated Osmolal ity 282 L (285-295) mOsm/k g Lactic Acid 1.2 (0.5-2.2) mmol/L Calcium 9.8 (8.5-10.5) mg/dL Total Bilirubin 0.3 (0.15-1.2) mg/dL AST 19 (0-32) U/L ALT 32 (0-33) U/L Alkaline Phosphata se 132 H (35-105) IU/L Total Protein 7.0 (6.6-8.7) g/dL Albumin 3.9 (3.5-5.2) g/dL Globulin 3.1 (1.3-4.6) g/dL TSH (0.27-4.20) uIU/ mL Urine Color (Yellow) Urine Appearance (CLEAR) Urine pH (5-7) Ur Specific Gravit y (1.005-1.030) Urine Protein (Negative) Urine Glucose (UA) (Normal) Urine Ketones (Negative) Urine Blood (Negative) Urine Nitrate (Negative) Urine Bilirubin (NEGATIVE) Urine Urobilinogen (Negative) mg/dL Ur Leukocyte Alethea ase (Negative) 05/15/20 05/15/20 05/15/20 Range/Units 14:39 14:39 14:39 WBC (4.0-10.0) 10^3/ uL RBC (4.1-5.3) 10^6/u L Hgb (11.5-15.3) g/dL Hct (37.0-47.0) % MCV (81-99) fL MCH (28.0-34.0) pg MCHC (30.0-36.0) g/dL RDW (12.1-15.1) % Plt Count (130-400) 10^3/c mm MPV (7.4-10.4) fL Neut % (Auto) % Lymph % (Auto) % [place] % (Auto) % Eos % (Auto) % Baso % (Auto) % Neut # (Auto) (1.8-7.7) 10^3/u L Lymph # (Auto) (0.8-4.8) 10^3/u L [place] # (Auto) (0.2-0.9) 10^3/u L Eos # (Auto) (0.0-0.8) 10^3/u L Baso # (Auto) (0.0-0.1) 10^3/u L Nucleated RBC % (a uto) % Nucleated RBCs # /100WBC PT 14.20 (12.1-14.9) SECO NDS INR 1.06 (0.8-1.2) D-Dimer 0.73 H (0-0.59) ug/mIFE U Sodium (136-145) mmol/L Potassium (3.5-5.1) mmol/L Chloride (98-107) mmol/L Carbon Dioxide (22-29) mmol/L Anion Gap (5-19) BUN (8-23) mg/dL Creatinine (0.5-0.9) mg/dL GFR Calculation (90-130) mL/min Glucose (65-115) mg/dL Calculated Osmolal ity (285-295) mOsm/k g Lactic Acid (0.5-2.2) mmol/L Calcium (8.5-10.5) mg/dL Total Bilirubin (0.15-1.2) mg/dL AST (0-32) U/L ALT (0-33) U/L Alkaline Phosphata se (35-105) IU/L Total Protein (6.6-8.7) g/dL Albumin (3.5-5.2) g/dL Globulin (1.3-4.6) g/dL TSH 1.61 (0.27-4.20) uIU/ mL Urine Color (Yellow) Urine Appearance (CLEAR) Urine pH (5-7) Ur Specific Gravit y (1.005-1.030) Urine Protein (Negative) Urine Glucose (UA) (Normal) Urine Ketones (Negative) Urine Blood (Negative) Urine Nitrate (Negative) Urine Bilirubin (NEGATIVE) Urine Urobilinogen (Negative) mg/dL Ur Leukocyte Alethea ase (Negative) 05/15/ Range/Units 16:00 WBC (4.0-10.0) 10^3/ uL RBC (4.1-5.3) 10^6/u L Hgb (11.5-15.3) g/dL Hct (37.0-47.0) % MCV (81-99) fL MCH (28.0-34.0) pg MCHC (30.0-36.0) g/dL RDW (12.1-15.1) % Plt Count (130-400) 10^3/c mm MPV (7.4-10.4) fL Neut % (Auto) % Lymph % (Auto) % [place] % (Auto) % Eos % (Auto) % Baso % (Auto) % Neut # (Auto) (1.8-7.7) 10^3/u L Lymph # (Auto) (0.8-4.8) 10^3/u L [place] # (Auto) (0.2-0.9) 10^3/u L Eos # (Auto) (0.0-0.8) 10^3/u L Baso # (Auto) (0.0-0.1) 10^3/u L Nucleated RBC % (a uto) % Nucleated RBCs # /100WBC PT (12.1-14.9) SECO NDS INR (0.8-1.2) D-Dimer (0-0.59) ug/mIFE U Sodium (136-145) mmol/L Potassium (3.5-5.1) mmol/L Chloride (98-107) mmol/L Carbon Dioxide (22-29) mmol/L Anion Gap (5-19) BUN (8-23) mg/dL Creatinine (0.5-0.9) mg/dL GFR Calculation (90-130) mL/min Glucose (65-115) mg/dL Calculated Osmolal ity (285-295) mOsm/k g Lactic Acid (0.5-2.2) mmol/L Calcium (8.5-10.5) mg/dL Total Bilirubin (0.15-1.2) mg/dL AST (0-32) U/L ALT (0-33) U/L Alkaline Phosphata se (35-105) IU/L Total Protein (6.6-8.7) g/dL Albumin (3.5-5.2) g/dL Globulin (1.3-4.6) g/dL TSH (0.27-4.20) uIU/ mL Urine Color Straw (Yellow) Urine Appearance Clear (CLEAR) Urine pH 6.5 (5-7) Ur Specific Gravit y 1.005 (1.005-1.030) Urine Protein Neg (Negative) Urine Glucose (UA) Norm (Normal) Urine Ketones Negative (Negative) Urine Blood Neg (Negative) Urine Nitrate Negative (Negative) Urine Bilirubin Neg (NEGATIVE) Urine Urobilinogen Norm (Negative) mg/dL Ur Leukocyte Alethea ase Negative (Negative) Discharge Plan Discharge Admit Provider: Baldev Granado Condition: Stable Discharge Orders: Discharge Order (Routine); Ordered 05/17/20 Ordered By: Eleanor Lockhart Discharge Diet: Regular Discharge Activity: Increase activity as tolerated Discharge Date/Time: 05/15/20 20:24 Coding Level of Care Code ED Director Of Placement for [place] Fwd Exam Comprehensive
[2020-05-15] MEDS: meclizine 25 mg tablet PO (17:07)
[2020-05-15] MEDS: sodium chloride 0.9% 1,000 ML 999 ML IV (17:07)
[2020-05-15 17:31] LABS: Add Urine Microscopic? NO
[2020-05-15 17:32] LABS: Thyroid Stimulating Hormone 1.61 uIU/mL (0.27-4.20)
[2020-05-15 17:34] LABS: Bilirubin Urine Neg (NEGATIVE); Blood Urine Neg (Negative); Glucose Urine UA Norm (Normal); Ketones Urine Negative (Negative); Leukocyte Esterase Urine Negative (Negative); Nitrate Urine Negative (Negative); Protein Urine Neg (Negative); Specific Gravity, Urine 1.005 (1.005-1.030); Urine Appearance Clear (CLEAR); Urine Color Straw (Yellow); Urobilinogen Urine Norm (Negative); pH Urine 6.5 (5-7)
[2020-05-15 17:37] VITALS: BP 106/62; BP 117/78; BP 118/74; PULSE 102; PULSE 106; PULSE 110
[2020-05-15 19:00] VITALS: BP 138/58; PULSE 93; RESP 20; O2SAT 92
--- NOTE | 2020-05-15 19:31 | PC.NURSE ---
ASSUMED CARE OF PT AT 1900. PT UP TO COMMODE AT THIS TIME WITH ONE ASSIST. TOLERATES WELL.
--- NOTE | 2020-05-15 19:32 | PM.HP ---
Providers/Chief Complaint Chief Complaint: HEADACHE; WEAKNESS History of Present Illness Elaine Montano is a 59 year old female who presented to the hospital with chief complaint of syncopal event. Patient is stating that this morning she was going towards her front door when she felt nauseous and had 1 syncopal event, she is not sure for how long she stayed on the floor, when she got up she called EMS. She did not experience chest pain, palpitations, recent diarrhea, vomiting, shortness of breath. Patient is endorsing that recently her antipsychotics and anxiolytics medications have been adjusted and few of the medications have been added. She is feeling very tired and lethargic right now to think about the name of the medications. Today when she fell she hit her head and shoulder on the coffee table. She did not notice any weakness of arms or leg but endorsing generalized fatigue and myalgia. No recent fever. She has been compliant with her medications. She is getting Botox injections for chronic migraines. Recently she has started gabapentin and dose has been increased to 900 mg. Patient is stating that she gets home health services every day but manages to carry out her daily activities. She is denying any history of DE, stroke, CHF, coronary disease or previous syncopal events. Diagnostics in the ER revealed normal CBC, BMP, normal hemodynamics, patient did not reveal any acute pathology, urinalysis unremarkable, she is afebrile, heart rate 90, sinus rhythm, she has been given normal saline 1 L and meclizine 25 mg in the ER Review of Systems Const: Reports: body aches and fatigue; Denies: fever(s) or chills Eyes: Denies: change in vision ENMT: Denies: throat pain Card: Reports: lightheadedness; Denies: chest pain, palpitations, edema, swelling of feet/ankles, dyspnea on exertion or orthopnea Resp: Denies: dyspnea GI: Denies: abdominal pain, nausea or vomiting : Denies: flank pain Musc: Denies: neck pain Skin/Breast: Denies: rash Neuro: Denies: headache(s) Psych: Reports: anxiety and depression Endo: Denies: polyuria Panchito/Lymph: Denies: easy bruising All/Imm: Denies: urticaria Medications/Allergies Home Medications Medication Instructions Recorded Confirmed Last Taken Type albuterol sulfate 2.5 mg INHALATION Q4H PRN 10/07/19 05/15/20 10/26/19 History ipratropium 20 mcg-albuterol 100 1 puff INHALATION Q6H 10/07/19 05/15/20 Unknown History mcg/actuation mist for inhalation loratadine 10 mg capsule 10 mg PO DAILY 10/20/19 05/15/20 10/27/19 History nitroglycerin 0.4 mg sublingual 0.4 mg SUBLINGUAL Q5M PRN tab 10/20/19 05/15/20 Unknown History tablet omeprazole 40 mg capsule,delayed 40 mg PO DAILY 10/20/19 05/15/20 10/27/19 History release onabotulinumtoxinA 100 unit See Rx Instructions .ROUTE 10/20/19 05/15/20 10/13/19 History solution for injection .COMPLEX each paliperidone palm (3-month) 546 546 mg IM .Q3rprsmg #1.75 ml 11/12/19 05/15/20 Unknown Rx mg/1.75 mL intramuscular syringe atorvastatin 40 mg tablet 40 mg PO DAILY 90 Days #90 tab 12/18/19 05/15/20 Unknown Rx levothyroxine 100 mcg capsule 100 mcg PO DAILY #30 cap 12/18/19 05/15/20 Unknown Rx gabapentin 300 mg capsule 300 mg PO TID 30 Days #90 cap 04/14/20 05/15/20 Unknown Rx benztropine 1 mg tablet 1 mg PO BID #60 tab 04/25/20 05/15/20 Unknown Rx clonazepam 0.5 mg tablet 0.5 mg PO TID #90 tab 04/25/20 05/15/20 Unknown Rx lamotrigine 200 mg tablet 200 mg PO BID #60 tab 04/25/20 05/15/20 Unknown Rx paliperidone 6 mg tablet,extended 6 mg PO QAM PRN #30 tab 04/25/20 05/15/20 Unknown Rx release 24 hr Tylenol Arthritis Pain 650 mg PO PRN 05/15/20 05/15/20 Unknown History mirtazapine 45 mg PO BEDTIME 05/15/20 05/15/20 Unknown History sulfamethoxazole-trimethoprim 1 tab PO BID 05/15/20 05/15/20 Unknown History Allergies Allergy/AdvReac Type Severity Reaction Status Date / Time codeine Allergy rash Verified 04/14/20 13:04 Penicillins Allergy rash Verified 04/14/20 13:04 Tetanus Vaccines and Toxoid Allergy rash Verified 04/14/20 13:04 Seafood Allergy shimp Uncoded 01/14/20 13:45 PFSH Acute PFSH: Medical History Bereavement Bipolar 2 disorder Borderline personality disorder Chronic migraine without aura, intractable, with status migrainosus Chronic post-traumatic stress disorder GERD (gastroesophageal reflux disease) Hyperlipidemia Hypothyroid Panic disorder with agoraphobia PTSD (post-traumatic stress disorder) Schizoaffective disorder, bipolar type Tarsal tunnel syndrome, left lower limb Surgical History H/O arthroscopic knee surgery History of appendectomy History of arthroscopy of left shoulder History of bilateral tubal ligation Family History Father Bleeding disorder CAD (coronary artery disease) Other Diabetes Hypertension Denies family history of Anesthesia complication Social History Smoking and tobacco status: former smoker Second hand smoke exposure: No (quit smoking 7 years ago) Alcohol intake: never Lives independently: Yes Household members: none Current occupational status: disabled History of recent travel: No Vitals/I&O/Wt Last Vital Signs Temp 98.6 F 05/15/20 14:31 Pulse 93 05/15/20 19:00 Resp 20 H 05/15/20 19:00 BP 138/58 05/15/20 19:00 Pulse Ox 92 05/15/20 19:00 Weight last 48 hrs Weight 104.326 kg Physical Exam Narrative: EXAM NARRATIVE: elderly female was injured lethargic and tired in her bed Sinus rhythm heart rate 90 Systolic blood pressure in the 140s blood pressure S1, S2 no tachycardia heart failure Abdomen distended, visceral obesity, nontender, soft Neurologically no focal exam Lower extremity no edema gangrene ulcer Extremely tired and lethargic No neurological deficit EOMI, PERRLA Depressed mood Data : 05/15/20 14:39 05/15/20 14:39 A&P Assessment and plan (1) Syncope: Status: Acute (2) Polypharmacy: Status: Acute (3) Chronic migraine without aura, intractable, with status migrainosus: Status: Acute (4) Chronic post-traumatic stress disorder: Status: Chronic Additional A&P Information Syncopal event Currently heart rate in 90s, sinus rhythm, systolic blood pressure in normal range No active chest pain, no strokelike symptoms, very tired and lethargic TSH normal urine analysis normal No previous history of DE, CHF or stroke or syncopal events, last A1c 6, lactic acid 1.2, glucose 127 I do suspect polypharmacy to be the cause of the syncopal event, I would hold her antipsychotics and anxiolytics at this time, she has been taking benzodiazepine and mirtazapine's along with gabapentin which can cause sedation and dizziness We will follow-up with echo in the morning to rule out wall motion abnormality, will request baseline troponin Physical therapy to see her in the morning Polypharmacy: Currently review her antipsychotics and anxiolytics in a.m. especially the one with sedating side effect to avoid recurrent symptoms PTSD, migraine Currently following up with [facility] and Dr. Bennett for Botox injections respectively No acute decompensation Full code DVT prophylaxis Lovenox Cardiac diet Attestations Medical Necessity Statement*: Anticipating discharge in less than 48 hours currently need echo to rule out wall motion abnormality to rule out the cause of syncopal event most likely this is polypharmacy related Time Spent in Patient Care: (>than 50% of time spent in counselling and/or direct pt care on unit). 35mins Coding Level of Care Code Acute Smelting Engineer for Samaria Israeld Diagnoses Syncope R55 Polypharmacy Z79.899 Chronic migraine without aura, intractable, with status migrainosus G43.711 Chronic post-traumatic stress disorder F43.12
[2020-05-15 20:41] VITALS: BP 124/67; PULSE 87; RESP 17; TEMP 36.7; O2SAT 92
[2020-05-15] MEDS: enoxaparin 40 mg/0.4 mL Syringe SUBCUT (21:00)
[2020-05-15] MEDS: sodium chloride 0.9% 1,000 ML 75 ML IV (21:00)
[2020-05-15 21:35] LABS: D Dimer 0.73 ug/mIFEU (0-0.59)
[2020-05-15 22:09] LABS: Troponin T (5th) Once 10 ng/L (0-10)
[2020-05-16] VITALS: BP 117/81; PULSE 86; RESP 18; TEMP 36.8; O2SAT 91
[2020-05-16 04:00] VITALS: BP 114/69; PULSE 85; RESP 18; TEMP 36.6; O2SAT 92
[2020-05-16 04:36] LABS: Blood Urea Nitrogen 9 mg/dL (8-23); Calcium 9.4 mg/dL (8.5-10.5); Carbon Dioxide 28 mmol/L (22-29); Chloride 106 mmol/L (98-107); Glomerular Filtration Rate 73.2 mL/min (90-130); Glucose 115 mg/dL (65-115); Osmolality Calculated 291 mOsm/kg (285-295); Sodium 142 mmol/L (136-145)
--- NOTE | 2020-05-16 07:00 | ECG_ITS ---
[facility] Test Date: 2020-05-15 Pat Name: Elaine Montano Department: Room: 250 Gender: Female [employer]: : 1960 Requested By: Baldev Granado Order Number: [id number] Annita MD: Estefania Garcia M.D. Measurements Intervals [place] Rate: 87 P: 41 MA: 163 QRS: 31 QRSD: 94 T: 3 QT: 354 QTc: 427 Interpretive Statements SINUS RHYTHM NONSPECIFIC T-WAVE ABNORMALITY INTERPRETATION BASED ON A DEFAULT AGE OF 40 YEARS Compared to ECG 02/05/2018 15:07:46 Possible ischemia no longer present T-wave abnormality still present Electronically Signed On 05-16-2020 0:44:27 CDT by Estefania Garcia M.D. [id number] f
[2020-05-16 07:42] VITALS: BP 133/83; PULSE 78; RESP 18; TEMP 36.6; O2SAT 92
[2020-05-16] MEDS: atorvastatin 40 mg Tablet PO (09:59)
[2020-05-16] MEDS: lamoTRIgine 100 mg Tablet 200 MG PO ×2 (09:59→17:02)
[2020-05-16] MEDS: levothyroxine 100 mcg Tablet PO (09:59)
[2020-05-16] MEDS: pantoprazole DR 40 mg Tablet PO (10:00)
[2020-05-16 11:20] VITALS: BP 138/81; PULSE 71; RESP 22; TEMP 36.4; O2SAT 94
[2020-05-16] MEDS: sodium chloride 0.9% 1,000 ML 75 ML IV (11:24)
[2020-05-16 15:24] VITALS: BP 140/85; PULSE 79; RESP 18; TEMP 36.6; O2SAT 96
[2020-05-16 19:30] VITALS: BP 136/77; PULSE 86; RESP 22; TEMP 36.5; O2SAT 94
--- NOTE | 2020-05-16 20:37 | USCV_ITS ---
Elaine Montano Age: 59 Gender: F : 1960 Exam Date: 05/16/2020 13:15 Ordering Phys: Baldev Granado MD Technologist: Orion Pinto [place] [facility] [place]: syncope BP: 142 / 84 HR: 87 Rhythm: Sinus Technical Quality: Fair MEASUREMENTS (Male / Female) Normal Values 2D ECHO LV Diastolic Diameter PLAX 3.7 cm 4.2 - 5.9 / 3.9 - 5.3 cm LV Systolic Diameter PLAX 2.6 cm IVS Diastolic Thickness 0.8 cm 0.6 - 1.0 / 0.6 - 0.9 cm IVS Systolic Thickness 1.3 cm LVPW Diastolic Thickness 1.2 cm 0.6 - 1.0 / 0.6 - 0.9 cm LVPW Systolic Thickness 1.3 cm LVOT Diameter 2.0 cm LV Ejection Fraction 2D Teich 57.0 % LV Ejection Fraction MOD 2C 74.7 % LV Ejection Fraction 2C AL 74.3 % LA Diameter 4.0 cm LA Width 4.8 cm LA Height 5.4 cm RA Width 4.0 cm RA Height 4.3 cm Aorta at Sinotubular Diameter 0.7 cm M-MODE LV Diastolic Diameter MM 5.0 cm 4.2 - 5.9 / 3.9 - 5.3 cm LV Systolic Diameter MM 3.2 cm LV Ejection Fraction MM Teich 65.0 % IVS Diastolic Thickness MM 1.0 cm 0.6 - 1.0 / 0.6 - 0.9 cm IVS Systolic Thickness MM 1.3 cm LVPW Diastolic Thickness MM 1.1 cm 0.6 - 1.0 / 0.6 - 0.9 cm LVPW Systolic Thickness MM 1.4 cm RV Diastolic Diameter MM 1.7 cm Aortic Annulus Diameter 3.0 cm LA Ao Ratio MM 1.3 MV E Point Septal Separation 0.8 cm DOPPLER AV Peak Velocity 155.0 cm/s LVOT Peak Velocity 106.0 cm/s AV Area Cont Eq vti 1.9 cm squared AV Area Cont Eq pk 2.3 cm squared MV Area PHT 5.6 cm squared Mitral E to A Ratio 1.0 MV E' Velocity 13.0 cm/s Mitral E to MV E' Ratio 8.7 Mitral E to LV E' Lateral Ratio 7.0 Mitral E to LV E' Septal Ratio 11.6 TR Peak Velocity 251.0 cm/s TR Peak Gradient 25.1 mmHg TV Peak E Velocity 146.0 cm/s Right Atrial Pressure 3.0 mmHg Pulmonary Artery Systolic Pressu 28.2 mmHg PV Peak Velocity 86.0 cm/s FINDINGS Left Ventricle Normal left ventricular size, systolic function and wall thickness, with no regional wall motion abnormalities. Left ventricular ejection fraction is estimated at 60 %. Normal diastolic function. Right Ventricle Normal right ventricular size and systolic function. Right ventricular systolic pressure 28.2 mmHg. Right Atrium Right atrium not well visualized. Left Atrium Mildly increased left atrial size. Mitral Valve Structurally normal mitral valve. Trace mitral valve regurgitation. Aortic Valve Structurally normal trileaflet aortic valve. No aortic valve stenosis. No aortic valve regurgitation. Tricuspid Valve Structurally normal tricuspid valve. No tricuspid valve stenosis. Trace tricuspid valve regurgitation. Pulmonic Valve Pulmonic valve not well visualized. Trace pulmonary valve regurgitation. Pericardium No pericardial effusion. Aorta Normal size aortic root and proximal ascending aorta. CONCLUSIONS 1. Normal left ventricular size, systolic function and wall thickness, with no regional wall motion abnormalities. Left ventricular ejection fraction is estimated at 60 %. Normal diastolic function. 2. Normal right ventricular size and systolic function. 3. No significant valvular abnormality. 4. Pulmonary artery pressure estimated at 28 mm Hg. 5. No prior similar studies to compare. Kalyani Camacho MD (Electronically Signed) Final Date: 16 May 2020 21:00 S
[2020-05-16] MEDS: enoxaparin 40 mg/0.4 mL Syringe SUBCUT (20:57)
--- NOTE | 2020-05-16 21:08 | P.PN_ITS ---
Subjective Subjective: Interval history: Chart reviewed, resting comfortably in recliner by bedside, no complaints currently. Reports that she would like to be discharged tomorrow before noon when transportation is available for her. Medications: Reviewed: Yes Medication Review Details: Active Medications Generic Name Dose Route Start Last Admin Trade Name Freq PRN Reason Stop Dose Admin Acetaminophen 650 mg 05/15/20 20:37 Tylenol PO PRN PRN PRN Albuterol Sulfate 2.5 mg 05/15/20 20:37 Albuterol INHALATION Q4H.RESPIRATORY P RN unknown Albuterol/Ipratrop ium 1 puff 05/15/20 20:37 Combivent Respim at INHALATION Q6H DELPHINE Atorvastatin Calci um 40 mg 05/16/20 09:00 05/16/20 09:59 Lipitor PO 40 mg DAILY DELPHINE Administration Enoxaparin Sodium 40 mg 05/15/20 21:00 05/16/20 20:57 Lovenox SUBCUT 40 mg Q24H DELPHINE Administration Sodium Chloride 1,000 mls @ 75 ml s/hr 05/15/20 20:37 05/16/20 20:57 Sodium Chloride 0.9% IV Not Given .[id number] DELPHINE Lamotrigine 200 mg 05/16/20 09:00 05/16/20 17:02 Lamictal PO 200 mg BID DELPHINE Administration Levothyroxine Sodi um 100 mcg 05/16/20 09:00 05/16/20 09:59 Synthroid PO 100 mcg DAILY DELPHINE Administration Pantoprazole Sodiu m 40 mg 05/16/20 09:00 05/16/20 10:00 Protonix PO 40 mg DAILY DELPHINE Administration codeine Allergy (Verified 04/14/20 13:04) rash Penicillins Allergy (Verified 04/14/20 13:04) rash Tetanus Vaccines and Toxoid Allergy (Verified 04/14/20 13:04) rash Seafood Allergy (Uncoded 01/14/20 13:45) shimp Vitals/I&O/Wt Last Vital Signs Temp 97.7 F 05/16/20 19:30 Pulse 86 05/16/20 19:30 Resp 22 H 05/16/20 19:30 BP 136/77 05/16/20 19:30 Pulse Ox 94 05/16/20 19:30 05/16/20 05/16/20 05/16/20 06:59 14:59 22:59 Intake Total 1480 / 1480 240 / 1720 Output Total 600 / 600 1800 / 2400 Balance 880 / 880 -1560 / -680 Weight last 48 hrs Weight 104.326 kg Physical Exam Const: COMMON NORMALS: no acute distress, patient oriented x3 and alert GENERAL APPEARANCE: cooperative and comfortable NUTRITIONAL APPEARANCE: obese morbidly obese ORIENTATION/CONSCIOUSNESS: Yes awake HENMT: COMMON NORMALS: normocephalic, atraumatic, hearing grossly normal bilaterally and moist oral mucous membranes HEAD & SCALP: normocephalic and atraumatic Eye: COMMON NORMALS: Equal, round and reactive pupils present, EOMs intact bilaterally and conjunctivae normal CONJUNCTIVA: Yes conjunctivae normal PUPIL: Yes Equal, round and reactive pupils present Neck/C-Spine: COMMON NORMALS: full ROM GENERAL: Yes normal visual inspection and Yes trachea midline Resp: COMMON NORMALS: normal respiratory effort, No retractions, No use of accessory muscles and clear to auscultation bilaterally EFFORT & INSPECTION: Yes able to speak in complete sentences, Yes symmetric chest movement and No tachypneic AUSCULTATION: clear to auscultation bilaterally Cardio: COMMON NORMALS: regular rate, regular rhythm, S1 normal heart sound present, S2 normal heart sound present and No murmurs present (Cardio) RATE: regular rate RHYTHM: regular rhythm HEART SOUNDS: S1 normal heart sound present and S2 normal heart sound present GI: COMMON NORMALS: Normal to inspection, nondistended, normoactive bowel sounds present, Soft to palpation and non-tender PALPATION: Yes Soft to palpation Extremity: COMMON NORMALS: normal to inspection, full ROM and no clubbing, cyanosis or edema; negative for no pedal edema Neuro: COMMON NORMALS: patient oriented x3, moves all extremities, no focal motor deficits, no sensory deficits noted and gait normal SENSORIUM/ORIENTATION: Yes alert Psych: COMMON NORMALS: mental status grossly normal, Normal thought process present, cooperative, normal affect and speech normal SPEECH: Yes normal speech THOUGHT PROCESS: Normal thought process present Skin: COMMON NORMALS: no rashes or lesions noted, no jaundice, no petechiae and no mottling GENERAL SKIN EXAM: no rashes or lesions noted Data : 05/15/20 14:39 05/16/20 03:21 A&P Assessment and plan (1) Syncope: -Unclear etiology but suspicious for polypharmacy as she is on anxiolytic, antipsychotics which may precipitate sedation; meds on hold -Vital signs stable, continue to monitor -Telemetry monitoring -CT head unremarkable; noted DJD on CT C-spine -Chest x-ray negative -Echo: EF=60%, no RWMA, trace MR, trace TR, trace MA -gentle IVF hydration, good oral intake so d/c -PT evaluation appreciated; discharge home recommended Status: Acute Qualifiers: Syncope type: unspecified Qualified Code(s): R55 - Syncope and collapse (2) Chronic migraine without aura, intractable, with status migrainosus: -pain control as needed Status: Chronic (3) PTSD (post-traumatic stress disorder): Status: Chronic (4) Polypharmacy: -as noted above Status: Acute Additional A&P Information -Hypothyroidism: on levothyroxine -Morbid obesity: BMI-41 kg/m2 -cardiac diet as tolerated -GI ppx with PPI -DVT ppx with Lovenox -Dispo: home; has in-home services -Code status: FULL code Attestations Medical Necessity Statement*: Patient requires hospitalization for continued monitoring of hemodynamic status, gradual resumption of home medications in anticipation of discharge. Time Spent in Patient Care: Greater than 35 minutes (>than 50% of time spent in counselling and/or direct pt care on unit) . Coding Level of Care Code Acute Compensation Vice President for Samaria Canas Diagnoses Syncope R55 Syncope type: unspecified Chronic migraine without aura, intractable, with status migrainosus G43.711 PTSD (post-traumatic stress disorder) F43.10 Polypharmacy Z79.899
[2020-05-17] VITALS: BP 125/65; PULSE 85; RESP 20; TEMP 36.7; O2SAT 92
[2020-05-17 04:00] VITALS: BP 106/71; PULSE 80; RESP 18; TEMP 36.6; O2SAT 91
[2020-05-17 07:00] VITALS: BP 136/84; PULSE 85; RESP 18; TEMP 36.9; O2SAT 94
[2020-05-17] MEDS: pantoprazole DR 40 mg Tablet PO (08:53)
[2020-05-17] MEDS: gabapentin 300 mg Capsule PO (08:53)
[2020-05-17] MEDS: atorvastatin 40 mg Tablet PO (08:53)
[2020-05-17] MEDS: lamoTRIgine 100 mg Tablet 200 MG PO (08:53)
[2020-05-17] MEDS: benztropine 1 mg Tablet PO (08:53)
[2020-05-17] MEDS: levothyroxine 100 mcg Tablet PO (08:53)
--- NOTE | 2020-05-17 09:09 | PM.DCS ---
Discharge Providers Date of Admission: 05/15/20 19:37 Date of Discharge: May 17, 2020 Attending Provider at Admission: Baldev Granado MD Attending Provider at Discharge: Eleanor Lockhart MD Consults: None Primary Care Provider: Rayne Bowers Diagnoses at Discharge Discharge Diagnosis (1) Syncope: Status: Acute Problem details: -Unclear etiology but suspicious for polypharmacy as she is on anxiolytic, antipsychotics which may precipitate sedation; meds on hold -Vital signs stable, continue to monitor -Telemetry monitoring -CT head unremarkable; noted DJD on CT C-spine -Chest x-ray negative -Echo: EF=60%, no RWMA, trace MR, trace TR, trace LA -gentle IVF hydration, good oral intake so d/c -PT evaluation appreciated; discharge home recommended Qualifiers: Syncope type: unspecified Qualified Code(s): R55 - Syncope and collapse (2) Chronic migraine without aura, intractable, with status migrainosus: Status: Chronic Problem details: -pain control as needed -continue to follow up with Dr. Bennett for Botox injections (3) PTSD (post-traumatic stress disorder): Status: Chronic Problem details: -continue to f/u at [facility] (4) Polypharmacy: Status: Acute Other Information Additional DC diagnoses/information: -Hypothyroidism: on levothyroxine -Morbid obesity: BMI-41 kg/m2 Reason for Visit Reason for Visit: HEADACHE; WEAKNESS Hospital Course Hospital Course: Patient was admitted to the medical surgical floor and placed on telemetry monitoring secondary to syncopal event that she had had prior to admission. Work-up including labs, imaging were negative, and she has had no syncopal or presyncopal episodes while hospitalized. Vital signs have been stable and she has been maintained on room air. Echo was done with noted ejection fraction of 60% with minimal valvular abnormalities as noted above. She was evaluated by physical therapy particularly due to concern for complaints of weakness and cleared for discharge home. She is to follow-up with her primary care provider within 1 week and to continue to follow-up with Dr. Bennett and at the behavioral health clinic. There is concern for potential polypharmacy having contributed to her syncopal episodes as she is on multiple antipsychotics and anxiolytics. Will defer decision on appropriate adjustment versus discontinuation of some of these agents to her behavioral health clinic provider. She has been voiding appropriately and tolerating oral intake without difficulty. She will be discharged home today with continued in-home services. She is counseled on need to seek medical attention should any of her symptoms recur. Discharge Summary: -Patient to follow-up with her primary care provider within 1 week -Patient to continue to follow-up with Dr. Bennett and at the behavioral health clinic as scheduled Physical Exam Const: COMMON NORMALS: no acute distress, patient oriented x3 and alert GENERAL APPEARANCE: cooperative and comfortable NUTRITIONAL APPEARANCE: obese morbidly obese ORIENTATION/CONSCIOUSNESS: Yes awake HENMT: COMMON NORMALS: normocephalic, atraumatic, hearing grossly normal bilaterally and moist oral mucous membranes HEAD & SCALP: normocephalic and atraumatic Eye: COMMON NORMALS: Equal, round and reactive pupils present, EOMs intact bilaterally and conjunctivae normal CONJUNCTIVA: Yes conjunctivae normal PUPIL: Yes Equal, round and reactive pupils present Neck/C-Spine: COMMON NORMALS: full ROM GENERAL: Yes normal visual inspection and Yes trachea midline Resp: COMMON NORMALS: normal respiratory effort, No retractions, No use of accessory muscles and clear to auscultation bilaterally EFFORT & INSPECTION: Yes able to speak in complete sentences, Yes symmetric chest movement and No tachypneic AUSCULTATION: clear to auscultation bilaterally Cardio: COMMON NORMALS: regular rate, regular rhythm, S1 normal heart sound present, S2 normal heart sound present and No murmurs present (Cardio) RATE: regular rate RHYTHM: regular rhythm HEART SOUNDS: S1 normal heart sound present and S2 normal heart sound present GI: COMMON NORMALS: Normal to inspection, nondistended, normoactive bowel sounds present, Soft to palpation and non-tender PALPATION: Yes Soft to palpation Extremity: COMMON NORMALS: normal to inspection, full ROM and no clubbing, cyanosis or edema; negative for no pedal edema Neuro: COMMON NORMALS: patient oriented x3, moves all extremities, no focal motor deficits, no sensory deficits noted and gait normal SENSORIUM/ORIENTATION: Yes alert Psych: COMMON NORMALS: mental status grossly normal, Normal thought process present, cooperative, normal affect and speech normal SPEECH: Yes normal speech THOUGHT PROCESS: Normal thought process present Skin: COMMON NORMALS: no rashes or lesions noted, no jaundice, no petechiae and no mottling GENERAL SKIN EXAM: no rashes or lesions noted Discharge Data Data Completed and Pending: Completed Studies During Hospitalization Category Date Time Status CT cervical spin wo con* 87090 Urge nt Cat Scan 05/15/20 14:[address] head wo con* 7 0450 Stat Cat Scan 05/15/20 14:28 Completed XR chest 1V mary ble [id number] Stat Exams 05/15/20 14:29 Completed CV echo complete* [id number] Routine Ultrasound 05/16/20 20:37 Completed Vitals: Last Vital Signs Temp 98.5 F 05/17/20 07:00 Pulse 85 05/17/20 07:00 Resp 18 05/17/20 07:00 BP 136/84 05/17/20 07:00 Pulse Ox 94 05/17/20 07:00 Discharge Plan Discharge Patient Disposition: Home Condition: Stable Prescriptions: Continued Combivent Respimat 20-100 mcg/actuation mist 1 puff INHALATION Q6H RF: 0 albuterol sulfate 2.5 mg /3 mL (0.083 %) solution for nebulization 2.5 mg INHALATION Q4H PRN (Reason: unknown) RF: 0 gabapentin 300 mg capsule 300 mg PO TID 30 Days Qty: 90 RF: 0 Invega Trinza 546 mg/1.75 mL syringe 546 mg IM .[id number] Qty: 1.75 RF: 8 loratadine 10 mg capsule 10 mg PO DAILY RF: 0 omeprazole 40 mg capsule,delayed release(DR/EC) 40 mg PO DAILY RF: 0 nitroglycerin 0.4 mg tablet, sublingual 0.4 mg SUBLINGUAL Q5M PRN (Reason: unknown) RF: 0 Botox 100 unit recon soln See Rx Instructions .ROUTE .COMPLEX RF: 0 benztropine 1 mg tablet 1 mg PO BID Qty: 60 RF: 4 clonazepam 0.5 mg tablet 0.5 mg PO TID Qty: 90 RF: 3 lamotrigine [Lamictal] 200 mg tablet 200 mg PO BID Qty: 60 RF: 4 paliperidone [Invega] 6 mg tablet extended release 24hr 6 mg PO QAM PRN (Reason: psychosis) Qty: 30 RF: 2 levothyroxine 100 mcg capsule 100 mcg PO DAILY Qty: 30 RF: 1 atorvastatin 40 mg tablet 40 mg PO DAILY 90 Days Qty: 90 RF: 1 Tylenol Arthritis Pain 650 mg tablet extended release 650 mg PO PRN RF: 0 Discontinued sulfamethoxazole-trimethoprim 800-160 mg tablet 1 tab PO BID RF: 0 No Action mirtazapine 45 mg tablet 45 mg PO BEDTIME RF: 0 Discharge Orders: Discharge Order (Routine); Ordered 05/17/20 Ordered By: Eleanor Lockhart Referrals: Rayne Bowers FNP [Referring] - 4-7 days (Post hospital discharge follow up) Discharge Diet: Regular Discharge Activity: Increase activity as tolerated Discharge Attestations Time Spent in Discharge Care*: less than 30 min Specific Discharge Activities: Specific discharge activities: educating patient, discussing with casework specialist/social workers/dc planners, documenting/other paperwork and evaluating patient/reviewing data Status at Discharge: Cognitive status at discharge: cognitively intact, Behavioral status at discharge: cooperative, Functional status at discharge: independent ambulation Overall status at discharge: patient is progressing back to baseline Quality Metrics Clinical Quality Measures During this hospital stay, did patient experience: None Coding Level of Care Code Acute Stripe Matcher for g Fwd Diagnoses Syncope R55 Syncope type: unspecified Chronic migraine without aura, intractable, with status migrainosus G43.711 PTSD (post-traumatic stress disorder) F43.10 Polypharmacy Z79.899
[2020-05-17 09:34] VITALS: BP 136/84; PULSE 85; RESP 18; TEMP 36.9; O2SAT 94
== END 2020-05-17 10:45 | disposition home or self-care (01) ==
LOC: ER 19:31 → MEDSURG 20:01
PROVIDERS: Emergency Medicine; Admitting Provider Internal Medicine; Visit Provider Family Medicine
DX: R55 Syncope and collapse (principal); G43.711 Chronic migraine without aura, intractable, with status migrainosus; E78.5 Hyperlipidemia, unspecified; F43.12 Post-traumatic stress disorder, chronic; Z79.899 Other long term (current) drug therapy; Z87.891 Personal history of nicotine dependence; Z88.0 Allergy status to penicillin; Z88.5 Allergy status to narcotic agent
CPT/HCPCS: 12345; 36415; 70450; 71045; 72125; 80048; 80053; 81003; 83605; 84443; 84484; 85025; 85378; 85610; 93005; 93306; 96360; 96361; 96372; 97116; 97161; 99283; 99285; G0378; J1650; J7030; J8597

== ENCOUNTER → 2020-07-19 07:31 | Outpatient (BNVA) | payer MEDICAID, SELFPAY | PROVIDERS: Visit Provider Nurse Practitioner Psychiatric/Mental Health | DX: F25.0 Schizoaffective disorder, bipolar type (principal); F43.12 Post-traumatic stress disorder, chronic; F40.01 Agoraphobia with panic disorder; Z63.4 Disappearance and death of family member | CPT/HCPCS: 96372; 99214 ==

== ENCOUNTER 2020-07-24 02:45 | Emergency (ER) | payer MEDICAID, SELFPAY ==
[2020-07-24 02:52] VITALS: BP 113/81; PULSE 96; RESP 16; TEMP 36.8; O2SAT 94; BMI 40.7
--- NOTE | 2020-07-24 02:57 | XRR_ITS ---
PROCEDURE INFORMATION: Exam: XR Right Forearm Exam date and time: 07/24/2020 3:20 AM Age: 59 years old Clinical indication: Injury or trauma; Fall; Blunt trauma (contusions or hematomas); Arm, lower; Right; Additional info: Fall/injury TECHNIQUE: Imaging protocol: XR Right forearm. Views: 2 views. COMPARISON: No relevant prior studies available. FINDINGS: Bones/joints: Normal. Soft tissues: Normal. XR/XR forearm RT 2V [id number] IMPRESSION: No acute findings.
--- NOTE | 2020-07-24 02:57 | XRR_ITS ---
PROCEDURE INFORMATION: Exam: XR Right Elbow Exam date and time: 07/24/2020 3:20 AM Age: 59 years old Clinical indication: Injury or trauma; Fall; Blunt trauma (contusions or hematomas); Elbow; Right; Additional info: Fall/injury TECHNIQUE: Imaging protocol: XR Right elbow. Views: 3 or more views. COMPARISON: No relevant prior studies available. FINDINGS: Bones/joints: Normal. Soft tissues: Normal. XR/XR elbow RT min 3V* [id number] IMPRESSION: No acute findings.
--- NOTE | 2020-07-24 02:57 | XRR_ITS ---
PROCEDURE INFORMATION: Exam: XR Right Wrist Exam date and time: 07/24/2020 3:20 AM Age: 59 years old Clinical indication: Injury or trauma; Fall; Blunt trauma (contusions or hematomas); Wrist; Right; Additional info: Fall/injury TECHNIQUE: Imaging protocol: XR Right wrist. Views: 3 or more views. COMPARISON: CR Wrist 3 views, RIGHT* [id number] 02/04/2019 1:32 PM FINDINGS: Bones/joints: Normal. Soft tissues: Normal. XR/XR wrist RT min 3V* 11439 IMPRESSION: No acute findings.
--- NOTE | 2020-07-24 02:57 | XRR_ITS ---
PROCEDURE INFORMATION: Exam: XR Right Shoulder Exam date and time: 07/24/2020 3:24 AM Age: 59 years old Clinical indication: Injury or trauma; Fall; Blunt trauma (contusions or hematomas); Shoulder; Right; Additional info: Fall/injury TECHNIQUE: Imaging protocol: XR Right shoulder. Views: 2 or more views. COMPARISON: No relevant prior studies available. FINDINGS: Bones/joints: Normal. Soft tissues: Normal. XR/XR shoulder RT min 2V* [id number] IMPRESSION: No acute findings.
--- NOTE | 2020-07-24 02:59 | W.ED.FALL ---
HPI - Fall General: Chief Complaint: Fall Stated Complaint: fall, extremity injury, right arm Time Seen by Provider: 07/24/20 02:56 Source: patient Mode of arrival: ambulatory Limitations: no limitations History of Present Illness: HPI Narrative: Elaine is a very nice 59-year-old female who comes in complaining of right arm pain after falling. She had a mechanical fall at home and took injury to her right shoulder, right elbow, right forearm and right wrist. Patient denies any injury to her head or neck. She denies numbness or weakness of her hand. He just has pain of the right arm. She denies being on any blood thinners or injury. Associated symptoms-after fall: Denies abdominal pain, chest pain, confusion, difficulty walking, headache(s), hematuria, lightheadedness, neck pain or vertigo Review of Systems Const: Denies: fever(s), chills, body aches, fatigue, malaise or diaphoresis Eyes: Denies: change in vision, blurry vision, photophobia, eye discomfort, eye discharge, eye redness or yellow eyes ENMT: Denies: throat pain, odynophagia, hoarseness, swelling of lips/tongue, ear or mastoid pain, ear discharge, change in hearing or nasal discharge Card: Denies: chest pain, palpitations, irregular heart rhythm, edema, lightheadedness, syncope, pre-syncope, dyspnea on exertion or orthopnea Resp: Denies: dyspnea, productive cough, non-productive cough, wheezing, hemoptysis or chest congestion GI: Denies: abdominal pain, nausea, vomiting, hematemesis, coffee ground emesis, heartburn, diarrhea, constipation, GI cramping, hematochezia or melena : Denies: flank pain, dysuria, urinary frequency, urinary urgency or hematuria Musc: Reports: extremity pain; Denies: neck pain, back pain, extremity swelling, joint pain, joint swelling, joint redness, joint warmth or joint stiffness Skin/Breast: Denies: rash, pruritus, erythema, skin pain or skin tenderness Neuro: Denies: headache(s), numbness in extremities, weakness in extremities, sensory changes, lack of coordination, difficulty walking, dizziness, vertigo, confusion, Slurred speech present or seizure-like activity Panchito/Lymph: Denies: easy bruising, easy bleeding, petechiae, purpura or enlarged lymph nodes All/Imm: Denies: urticaria, throat swelling, tongue swelling, facial swelling or acute wheezing PFSH ED PFSH: Medical History Bereavement Bipolar 2 disorder Borderline personality disorder Chronic migraine without aura, intractable, with status migrainosus Chronic migraine without aura, intractable, with status migrainosus -pain control as needed -continue to follow up with Dr. Bennett for Botox injections Chronic post-traumatic stress disorder GERD (gastroesophageal reflux disease) Hyperlipidemia Hypothyroid Panic disorder with agoraphobia PTSD (post-traumatic stress disorder) -continue to f/u at [facility] [place] Schizoaffective disorder, bipolar type Tarsal tunnel syndrome, left lower limb Surgical History H/O arthroscopic knee surgery History of appendectomy History of arthroscopy of left shoulder History of bilateral tubal ligation Family History Father Bleeding disorder CAD (coronary artery disease) Other Diabetes Hypertension Denies family history of Anesthesia complication Social History Smoking and tobacco status: former smoker Second hand smoke exposure: No (quit smoking 7 years ago) Alcohol intake: never Lives independently: Yes Household members: none Current occupational status: disabled History of recent travel: No Physical Exam Const: COMMON NORMALS: no acute distress, patient oriented x3, no limitations and alert GENERAL APPEARANCE: cooperative HENMT: COMMON NORMALS: normocephalic, atraumatic, external ears normal, EAC's normal and Normal external nose present HEAD & SCALP: normal to inspection, normocephalic and atraumatic FACE & SINUS: normal facial exam and face symmetric NOSE: Normal external nose present and Normal nares present EXTERNAL EAR: Yes external ears normal EXTERNAL AUDITORY CANAL: EAC's normal MOUTH: Normal oral and palatal mucosa present, lip normal and tongue normal Eye: COMMON NORMALS: Equal, round and reactive pupils present and conjunctivae normal GENERAL EYE: appearance normal, both eyes and all related structures ALIGNMENT: Yes alignment normal PERIORBITAL: periorbital findings normal EYELID: eyelids normal CONJUNCTIVA: Yes conjunctivae normal SCLERA: sclerae normal PUPIL: Yes Equal, round and reactive pupils present Neck/C-Spine: COMMON NORMALS: full ROM, no lymphadenopathy, supple, no meningeal signs and no JVD GENERAL: Yes normal visual inspection and Yes trachea midline Chest: COMMONS NORMALS: normal inspection of the chest and normal palpation of entire chest wall Resp: COMMON NORMALS: normal respiratory effort, No retractions, No use of accessory muscles and clear to auscultation bilaterally EFFORT & INSPECTION: Yes able to speak in complete sentences and Yes symmetric chest movement AUSCULTATION: clear to auscultation bilaterally, no crackles, no rales, no rhonchi and no wheezes Cardio: COMMON NORMALS: no JVD, regular rate, regular rhythm, S1 normal heart sound present and S2 normal heart sound present RATE: regular rate RHYTHM: regular rhythm HEART SOUNDS: S1 normal heart sound present, S2 normal heart sound present, no click, no gallops, no murmurs and no rubs GI: COMMON NORMALS: Soft to palpation and No hepatosplenomegaly present PALPATION: Yes Soft to palpation, No Tenderness to palpation present (GI), No Guarding due to palpation present (GI), No Rigid due to palpation, Yes No hepatosplenomegaly present, No Hernia present, No Palpable mass present and No Pulsatile mass present : COMMON NORMALS: Yes no CVA tenderness BLADDER/KIDNEY EXAM: Yes no CVA tenderness EXTERNAL FEMALE EXAM: No Hernia present Back/Pelvis: COMMON NORMALS: no CVA tenderness, thoracic and lumbar spine normal to inspection, no thoracic nor lumbar tenderness and thoraco-lumbar ROM normal Extremity: COMMON NORMALS: capillary refill normal, no joint enlargement, no clubbing, cyanosis or edema and no calf tenderness NARRATIVE EXTREMITY EXAM: Right upper extremity with tenderness to palpation at the shoulder no and wrist. Mild contusions noted. Neurovascular intact distal. Neuro: COMMON NORMALS: patient oriented x3, CN's II-XII intact bilaterally, moves all extremities, no focal motor deficits and no sensory deficits noted SENSORIUM/ORIENTATION: Yes alert MENINGEAL SIGNS: Yes no meningeal signs SPEECH: speech normal Psych: COMMON NORMALS: mental status grossly normal, Normal thought process present, cooperative, normal affect, speech normal and activity/motor behavior normal SPEECH: Yes normal speech THOUGHT PROCESS: Normal thought process present Skin: COMMON NORMALS: no rashes or lesions noted, turgor normal, no jaundice, no petechiae and no mottling GENERAL SKIN EXAM: no rashes or lesions noted and turgor normal Course Vital Signs: Vital signs: Vital Signs Temperature 98.3 F 07/24/20 02:52 Pulse Rate 96 07/24/20 02:52 Respiratory Rate 16 07/24/20 02:52 Blood Pressure 113/81 07/24/20 02:52 Pulse Oximetry 94 07/24/20 02:52 MDM - Fall MDM Narrative: Medical decision making narrative: Patient's x-rays were negative for any acute fracture. Her wrist did look suspicious to me so I had the radiologist look at this but felt there was no acute findings. The patient is point tender at the wrist so I am going to go ahead and splint her as a precaution and have her use a sling until she can be reevaluated by Dr. Sanders. I will give her instructions on how to treat her pain at home and medicine until she can be seen by Dr. Sanders. Imaging Data^: XR Right Shoulder: Attestation: I personally reviewed and interpreted this imaging study as follows: My impression: No acute fractures dislocations XR Right Elbow: Attestation: I personally reviewed and interpreted this imaging study as follows: My impression: No acute fractures or dislocations XR Right Forearm: Attestation: I personally reviewed and interpreted this imaging study as follows: My impression: No acute fractures or dislocations XR Right Wrist: Radiologist's impression: [address] [address] XRay Report Signed Patient: Elaine Montano Unit #: [id number] : 1960 Age/Sex: 59 / F ADM Date: 07/24/20 Loc: ER Room/Bed: Attending Dr: Ordering Provider/Ordering MD: Snow Hunter DO Date of Service: 07/24/20 Procedure(s): XR wrist RT min 3V* [id number] Accession Number(s): [id number] Report Number: [id number] PROCEDURE INFORMATION: Exam: XR Right Wrist Exam date and time: 07/24/2020 3:20 AM Age: 59 years old Clinical indication: Injury or trauma; Fall; Blunt trauma (contusions or hematomas); Wrist; Right; Additional info: Fall/injury TECHNIQUE: Imaging protocol: XR Right wrist. Views: 3 or more views. COMPARISON: CR Wrist 3 views, RIGHT* [id number] 02/04/2019 1:32 PM FINDINGS: Bones/joints: Normal. Soft tissues: Normal. XR/XR wrist RT min 3V* 11312 IMPRESSION: No acute findings. Dictated By: Elaine Boogie Signed By: Elaine Boogie Signed Date/Time: 07/24/20354 DD/ 3 Discharge Plan Discharge Patient Disposition: Home Clinical Impression: Contusion Qualifiers: Encounter type: initial encounter Contusion area: wrist Laterality: right Qualified Code(s): S60.211A - Contusion of right wrist, initial encounter Condition: Stable Prescriptions: [place] 5-325 mg tablet 1 tab PO Q6H PRN (Reason: pain) 5 Days Qty: 12 RF: 0 No Action Combivent Respimat 20-100 mcg/actuation mist 1 puff INHALATION Q6H RF: 0 albuterol sulfate 2.5 mg /3 mL (0.083 %) solution for nebulization 2.5 mg INHALATION Q4H PRN (Reason: unknown) RF: 0 gabapentin 300 mg capsule 300 mg PO TID 30 Days Qty: 90 RF: 0 Invega Trinza 546 mg/1.75 mL syringe 546 mg IM .[id number] Qty: 1.75 RF: 8 loratadine 10 mg capsule 10 mg PO DAILY RF: 0 omeprazole 40 mg capsule,delayed release(DR/EC) 40 mg PO DAILY RF: 0 nitroglycerin 0.4 mg tablet, sublingual 0.4 mg SUBLINGUAL Q5M PRN (Reason: unknown) RF: 0 Botox 100 unit recon soln See Rx Instructions .ROUTE .COMPLEX RF: 0 clonazepam 0.5 mg tablet 0.5 mg PO TID Qty: 90 RF: 3 benztropine 1 mg tablet 1 mg PO BID Qty: 60 RF: 4 lamotrigine [Lamictal] 200 mg tablet 200 mg PO BID Qty: 60 RF: 4 mirtazapine [Remeron] 30 mg tablet 30 mg PO .bedtime Qty: 30 RF: 3 paliperidone [Invega] 3 mg tablet extended release 24hr 3 mg PO DAILY PRN (Reason: psychosis) Qty: 30 RF: 3 levothyroxine 100 mcg capsule 100 mcg PO DAILY Qty: 30 RF: 1 atorvastatin 40 mg tablet 40 mg PO DAILY 90 Days Qty: 90 RF: 1 Tylenol Arthritis Pain 650 mg tablet extended release 650 mg PO PRN RF: 0 Discharge Orders: Discharge Order (Routine); Ordered 07/24/20 Ordered By: Snow Hunter Referrals: Eva Velazquez MD [Physician] - 1-3 days Discharge Diet: Usual diet Discharge Activity: Limit activity as instructed Patient Instructions: Contusion in Adults (ED) Activity Restrictions/Additional Instructions: Please return to the ER immediately for any of the signs or symptoms listed on your discharge instruction sheets, worsening/changing of your symptoms, you are not getting better as quickly as expected, or for ANY other cause or concerns. Use your splint and sling until seen and evaluated by Dr. Velazquez. If your pain worsens or you develop numbness, tingling or weakness of your hand please return to the ER immediately. You can use ice packs to the outside of your splint and wrapping for 20 minutes at a time up to 6 times a day as needed for pain. A injury missed by x-ray is still possible so be certain to follow-up with Dr. Velazquez as directed. Coding Level of Care Code ED Offshore [employer] Turbine Technician for Samaria Canas Exam Comprehensive
[2020-07-24] MEDS: ibuprofen 200 mg Tablet 400 MG PO (04:36)
[2020-07-24 04:55] VITALS: BP 121/76; PULSE 84; O2SAT 95
--- NOTE | 2020-07-25 09:50 | DCPLANNER ---
audio visual manager had message to schedule a follow up appointment for patient with ortho. audio visual manager called the ortho clinic, spoke with Pat, gave clinic patients information. audio visual manager was told that patients information would be printed and reviewed. Clinic will call patient with appointment information.
--- NOTE | 2020-07-28 15:39 | DCPLANNER ---
Patient had a follow up appointment scheduled for 07.28.20 with ortho - patient did attend appointment.
== END 2020-07-24 04:55 | disposition home or self-care (01) ==
PROVIDERS: Emergency Provider Emergency Medicine
DX: S60.211A Contusion of right wrist, initial encounter (principal); E78.5 Hyperlipidemia, unspecified; Z87.891 Personal history of nicotine dependence; W19.XXXA Unspecified fall, initial encounter
CPT/HCPCS: 12345; 29125; 73030; 73080; 73090; 73110; 99281; 99283

== ENCOUNTER → 2020-07-25 08:24 | Outpatient (BNVA) | payer MEDICAID, SELFPAY | PROVIDERS: Visit Provider Counselor Professional | DX: F25.0 Schizoaffective disorder, bipolar type (principal); F40.01 Agoraphobia with panic disorder; Z63.4 Disappearance and death of family member | CPT/HCPCS: 90832 ==

== ENCOUNTER → 2020-07-28 09:55 | Outpatient (BNVA) | payer MEDICAID, SELFPAY | PROVIDERS: Referring Provider Emergency Medicine; Visit Provider Specialist | DX: G43.711 Chronic migraine without aura, intractable, with status migrainosus (principal); Z87.891 Personal history of nicotine dependence; S69.91XA Unspecified injury of right wrist, hand and finger(s), initial encounter; S59.901A Unspecified injury of right elbow, initial encounter; W19.XXXA Unspecified fall, initial encounter | CPT/HCPCS: 64615; 73080; 73110; J0585 ==

== ENCOUNTER → 2020-08-01 08:23 | Outpatient (BNVA) | payer MEDICAID, SELFPAY | PROVIDERS: Visit Provider Counselor Professional | DX: F40.01 Agoraphobia with panic disorder (principal); Z63.4 Disappearance and death of family member; F25.0 Schizoaffective disorder, bipolar type | CPT/HCPCS: 90832 ==

== ENCOUNTER → 2020-08-08 13:21 | Outpatient (BNVA) | payer MEDICAID, SELFPAY | PROVIDERS: Visit Provider Specialist | DX: S49.91XA Unspecified injury of right shoulder and upper arm, initial encounter (principal); M25.531 Pain in right wrist; X58.XXXA Exposure to other specified factors, initial encounter | CPT/HCPCS: 73080; 73110 ==

== ENCOUNTER → 2020-09-05 12:51 | Outpatient (BNVA) | payer MEDICAID, SELFPAY | PROVIDERS: Visit Provider Counselor Professional | DX: F40.01 Agoraphobia with panic disorder (principal); Z63.4 Disappearance and death of family member; F25.0 Schizoaffective disorder, bipolar type | CPT/HCPCS: 90832 ==

== ENCOUNTER 2020-09-23 20:21 | Emergency (ER) | payer MEDICAID, SELFPAY ==
[2020-09-23 20:40] VITALS: BP 132/84; PULSE 86; RESP 18; TEMP 36.3; O2SAT 96; BMI 40.7
--- NOTE | 2020-09-23 22:46 | W.ED.EXTPRO ---
HPI - Extremity Problem General: Chief complaint: Extremity Injury, Lower Stated complaint: right hip pain Time Seen by Provider: 09/23/20 22:42 Source: patient Mode of arrival: ambulatory Limitations: no limitations History of Present Illness: HPI Narrative: Patient comes in with low back pain going into the right hip and down her right leg. Patient also reports some numbness in the lower extremity. Patient appears well. Patient appears no acute distress. Patient denies any problems with bowel or bladder. Patient denies any fever. Review of Systems General: Reports: 10 or more systems reviewed and unremarkable except in HPI and below Musc: Reports: other (Right hip with radiation of pain down the right leg.) PFS ED PFS: Medical History (Updated 09/23/20 @ 22:52 by KATHY Fontanez) Bereavement Bipolar 2 disorder Borderline personality disorder Chronic migraine without aura, intractable, with status migrainosus Chronic migraine without aura, intractable, with status migrainosus -pain control as needed -continue to follow up with Dr. Bennett for Botox injections Chronic post-traumatic stress disorder GERD (gastroesophageal reflux disease) Hyperlipidemia Hypothyroid Panic disorder with agoraphobia PTSD (post-traumatic stress disorder) -continue to f/u at [facility] [place] Schizoaffective disorder, bipolar type Tarsal tunnel syndrome, left lower limb Surgical History H/O arthroscopic knee surgery History of appendectomy History of arthroscopy of left shoulder History of bilateral tubal ligation Family History Father Bleeding disorder CAD (coronary artery disease) Other Diabetes Hypertension Denies family history of Anesthesia complication Social History Smoking and tobacco status: former smoker Second hand smoke exposure: No (quit smoking 7 years ago) Alcohol intake: never Lives independently: Yes Household members: none Current occupational status: disabled History of recent travel: No Physical Exam Const: COMMON NORMALS: no acute distress and patient oriented x3 GENERAL APPEARANCE: cooperative HENMT: COMMON NORMALS: normocephalic and Normal external nose present HEAD & SCALP: normal to inspection and normocephalic NOSE: Normal external nose present MOUTH: Normal oral and palatal mucosa present Eye: GENERAL EYE: appearance normal, both eyes and all related structures Neck/C-Spine: COMMON NORMALS: full ROM Chest: COMMONS NORMALS: normal inspection of the chest Resp: COMMON NORMALS: normal respiratory effort EFFORT & INSPECTION: Yes able to speak in complete sentences Cardio: COMMON NORMALS: regular rate and regular rhythm RATE: regular rate RHYTHM: regular rhythm GI: COMMON NORMALS: non-tender Back/Pelvis: OTHER: L5-S1 lumbar tenderness with muscle pain on the right side and muscle tightness. Positive leg lift test on the right. Extremity: COMMON NORMALS: normal to inspection Neuro: COMMON NORMALS: patient oriented x3 and moves all extremities Psych: COMMON NORMALS: mental status grossly normal and cooperative Skin: COMMON NORMALS: no rashes or lesions noted GENERAL SKIN EXAM: no rashes or lesions noted Course Vital Signs: Vital signs: Vital Signs Temperature 97.3 F L 09/23/20 20:40 Pulse Rate 80 09/23/20 22:47 Respiratory Rate 18 09/23/20 22:47 Blood Pressure 127/70 09/23/20 22:47 Pulse Oximetry 96 09/23/20 22:47 MDM - Extremity (Nontraumatic) MDM Narrative: Medical decision making narrative: Patient comes in with right lower extremity pain and discomfort. Patient reports it starts at her hip and radiates all the way down her leg. Patient is able ambulate with some discomfort. Exam notes muscle tenderness and L5-S1 vertebral tenderness. Differential diagnosis includes sciatica, intervertebral disc disease, facet arthropathy. Reviewed exam with patient with recommendations for treatment of acute on chronic back pain. Patient reported understanding and agreed to plan. Discharge Plan Discharge Patient Disposition: Home Clinical Impression: Sciatica Qualifiers: Laterality: right Qualified Code(s): M54.31 - Sciatica, right side Condition: Stable Prescriptions: New hydrocodone-acetaminophen 5-325 mg tablet 1 tab PO Q8H PRN (Reason: pain) Qty: 10 RF: 0 celecoxib 200 mg capsule 200 mg PO BID Qty: 20 RF: 0 No Action Combivent Respimat 20-100 mcg/actuation mist 1 puff INHALATION Q6H RF: 0 albuterol sulfate 2.5 mg /3 mL (0.083 %) solution for nebulization 2.5 mg INHALATION Q4H PRN (Reason: unknown) RF: 0 gabapentin 300 mg capsule 300 mg PO TID 30 Days Qty: 90 RF: 0 loratadine 10 mg capsule 10 mg PO DAILY RF: 0 omeprazole 40 mg capsule,delayed release(DR/EC) 40 mg PO DAILY RF: 0 nitroglycerin 0.4 mg tablet, sublingual 0.4 mg SUBLINGUAL Q5M PRN (Reason: unknown) RF: 0 Botox 100 unit recon soln See Rx Instructions .ROUTE .COMPLEX RF: 0 clonazepam 0.5 mg tablet 0.5 mg PO TID Qty: 90 RF: 3 paliperidone [Invega] 3 mg tablet extended release 24hr 3 mg PO DAILY PRN (Reason: psychosis) Qty: 30 RF: 3 levothyroxine 100 mcg capsule 100 mcg PO DAILY Qty: 30 RF: 1 atorvastatin 40 mg tablet 40 mg PO DAILY 90 Days Qty: 90 RF: 1 lamotrigine [Lamictal] 200 mg tablet 200 mg PO BID Qty: 60 RF: 4 mirtazapine [Remeron] 30 mg tablet 30 mg PO .bedtime Qty: 30 RF: 4 propranolol 10 mg tablet 10 mg PO DAILY Qty: 30 RF: 3 Invega Trinza 546 mg/1.75 mL syringe 546 mg IM .[id number] Qty: 1.75 RF: 8 Tylenol Arthritis Pain 650 mg tablet extended release 650 mg PO PRN RF: 0 Discharge Orders: Discharge ED (Routine); Ordered 09/23/20 Ordered By: Arian Knowles Referrals: Shannan Novoa DO [Primary Care Provider] - Discharge Diet: Usual diet Discharge Activity: Increase activity as tolerated Patient Instructions: Back Pain (ED) Activity Restrictions/Additional Instructions: Activity as tolerated. Gentle stretching and range of motion exercises. Drink plenty of fluids. Follow-up with primary care for further care. Return to the emergency department for new concerns. Coding Level of Care Code ED Transportation Planner for Samaria Canas Exam Comprehensive
[2020-09-23 22:47] VITALS: BP 127/70; PULSE 80; RESP 18; O2SAT 96
[2020-09-23] MEDS: orphenadrine 30 mg/mL Inj 2 mL 60 MG IM (22:56)
[2020-09-23] MEDS: ketorolac 30 mg/mL INJ IM (22:57)
[2020-09-23 23:10] VITALS: BP 119/69; PULSE 79; RESP 16; O2SAT 96
== END 2020-09-23 23:09 | disposition home or self-care (01) ==
PROVIDERS: Emergency Provider Nurse Practitioner Family; PCP Internal Medicine
DX: M54.31 Sciatica, right side (principal)
CPT/HCPCS: 12345; 96372; 99281; 99283; J1885; J2360

== ENCOUNTER → 2020-09-29 09:46 | Outpatient (BNVA) | payer MEDICAID, SELFPAY | PROVIDERS: PCP Internal Medicine; Visit Provider Specialist | DX: R68.89 Other general symptoms and signs (principal); R56.9 Unspecified convulsions; G43.711 Chronic migraine without aura, intractable, with status migrainosus; Z87.891 Personal history of nicotine dependence | CPT/HCPCS: 95816 ==

== ENCOUNTER → 2020-10-12 08:50 | Outpatient (BNVA) | payer MEDICAID, SELFPAY | PROVIDERS: PCP Internal Medicine; Visit Provider Nurse Practitioner Psychiatric/Mental Health | DX: F25.0 Schizoaffective disorder, bipolar type (principal); F43.12 Post-traumatic stress disorder, chronic; F40.01 Agoraphobia with panic disorder; Z63.4 Disappearance and death of family member; G24.9 Dystonia, unspecified; G25.71 Drug induced akathisia | CPT/HCPCS: 96372; 99214 ==

== ENCOUNTER → 2020-10-20 15:35 | Outpatient (BNVA) | payer MEDICAID, SELFPAY | PROVIDERS: PCP Internal Medicine; Visit Provider Specialist | DX: G43.711 Chronic migraine without aura, intractable, with status migrainosus (principal); Z87.891 Personal history of nicotine dependence | CPT/HCPCS: 64615; J0585 ==

== ENCOUNTER → 2020-11-02 07:19 | Outpatient (BNVA) | payer MEDICAID, SELFPAY | PROVIDERS: PCP Internal Medicine; Visit Provider Nurse Practitioner Psychiatric/Mental Health | DX: F25.0 Schizoaffective disorder, bipolar type (principal); F43.12 Post-traumatic stress disorder, chronic; F40.01 Agoraphobia with panic disorder; Z63.4 Disappearance and death of family member; G24.9 Dystonia, unspecified; Z79.899 Other long term (current) drug therapy; G25.71 Drug induced akathisia | CPT/HCPCS: 99215 ==

== ENCOUNTER → 2020-11-30 07:20 | Outpatient (BNVA) | payer MEDICAID, SELFPAY | PROVIDERS: PCP Internal Medicine; Visit Provider Nurse Practitioner Psychiatric/Mental Health | DX: F25.0 Schizoaffective disorder, bipolar type (principal); F43.12 Post-traumatic stress disorder, chronic; F40.01 Agoraphobia with panic disorder; Z63.4 Disappearance and death of family member; G24.9 Dystonia, unspecified; G25.71 Drug induced akathisia | CPT/HCPCS: 99214 ==

== ENCOUNTER 2020-12-08 15:21 | Outpatient (CLI) | payer MEDICAID, SELFPAY ==
--- NOTE | 2020-12-08 | XR_ITS ---
WS: [id number] Exam: XR shoulder RT min 2V* [id number] Date/Time of Exam: 12/08/2020 3:48 PM Reason For Exam: SHOULDER PAIN Comparison 07/24/2020. The projections of the shoulder reveal no fractures, anomalies, soft tissue swelling, or calcificatio ns. There is normal bony alignment. No irregularity of the bony architecture is noted. XR/XR shoulder RT min 2V* [id number] IMPRESSION: Negative right shoulder.
== END 2020-12-08 15:22 | disposition home or self-care (01) ==
PROVIDERS: PCP Internal Medicine; Visit Provider Nurse Practitioner Family
DX: M25.511 Pain in right shoulder (principal)
CPT/HCPCS: 73030

== ENCOUNTER → 2020-12-13 08:46 | Outpatient (BNVA) | payer MEDICAID, SELFPAY | PROVIDERS: PCP Internal Medicine; Visit Provider Counselor Professional | DX: F25.0 Schizoaffective disorder, bipolar type (principal); F40.01 Agoraphobia with panic disorder; Z63.4 Disappearance and death of family member; F43.12 Post-traumatic stress disorder, chronic; G25.71 Drug induced akathisia | CPT/HCPCS: 90832 ==

== ENCOUNTER → 2020-12-27 09:44 | Outpatient (BNVA) | payer MEDICAID, SELFPAY | PROVIDERS: PCP Internal Medicine; Visit Provider Counselor Professional | DX: F25.0 Schizoaffective disorder, bipolar type (principal); F40.01 Agoraphobia with panic disorder; Z63.4 Disappearance and death of family member; F43.12 Post-traumatic stress disorder, chronic; G25.71 Drug induced akathisia | CPT/HCPCS: 90832 ==

== ENCOUNTER → 2021-01-12 08:16 | Outpatient (BNVA) | payer MEDICAID, SELFPAY | PROVIDERS: PCP Internal Medicine; Visit Provider Nurse Practitioner Psychiatric/Mental Health | DX: F25.0 Schizoaffective disorder, bipolar type (principal); F40.01 Agoraphobia with panic disorder; F43.12 Post-traumatic stress disorder, chronic; G24.9 Dystonia, unspecified; Z79.899 Other long term (current) drug therapy; Z63.4 Disappearance and death of family member; G25.71 Drug induced akathisia | CPT/HCPCS: 99214 ==

== ENCOUNTER → 2021-01-17 11:28 | Outpatient (BNVA) | payer MEDICAID, SELFPAY | PROVIDERS: PCP Internal Medicine; Visit Provider Counselor Professional | DX: F25.0 Schizoaffective disorder, bipolar type (principal); F40.01 Agoraphobia with panic disorder; Z63.4 Disappearance and death of family member; F43.12 Post-traumatic stress disorder, chronic; G25.71 Drug induced akathisia | CPT/HCPCS: 90834; 80053; 80061; 83036 ==

== ENCOUNTER → 2021-01-19 12:18 | Outpatient (BNVA) | payer MEDICAID, SELFPAY | PROVIDERS: PCP Internal Medicine; Visit Provider Specialist | DX: G43.711 Chronic migraine without aura, intractable, with status migrainosus (principal); Z87.891 Personal history of nicotine dependence | CPT/HCPCS: 64615; J0585 ==

== ENCOUNTER → 2021-02-09 07:55 | Outpatient (BNVA) | payer MEDICAID, SELFPAY | PROVIDERS: PCP Internal Medicine; Visit Provider Nurse Practitioner Psychiatric/Mental Health | DX: F25.0 Schizoaffective disorder, bipolar type (principal); F43.12 Post-traumatic stress disorder, chronic; F40.01 Agoraphobia with panic disorder; G24.9 Dystonia, unspecified; Z79.899 Other long term (current) drug therapy; G25.71 Drug induced akathisia; Z63.4 Disappearance and death of family member | CPT/HCPCS: 99214 ==

== ENCOUNTER 2021-02-22 16:36 | Emergency (ER) | payer MEDICAID, SELFPAY ==
[2021-02-22 17:10] VITALS: BP 133/78; PULSE 79; RESP 18; TEMP 36.3; O2SAT 94; BMI 41.3
--- NOTE | 2021-02-22 18:30 | ECG_ITS ---
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 Measurements Intervals [place] Rate: 70 P: 7 [place]: 149 QRS: 24 QRSD: 90 T: -1 QT: 392 QTc: 423 Interpretive Statements SINUS RHYTHM ST DEVIATION AND MODERATE T-WAVE ABNORMALITY, CONSIDER ANTERIOR ISCHEMIA [-0.1+ mV T WAVE IN V3/V4] Compared to ECG 05/15/2020 21:43:04 Possible ischemia now present T-wave abnormality still present Electronically Signed On 02-23-2021 17:06:12 CDT by Ronny Hebert M.D. [id number]
--- NOTE | 2021-02-22 18:30 | XRR_ITS ---
PROCEDURE INFORMATION: Exam: XR Chest Exam date and time: 02/22/2021 6:31 PM Age: 60 years old Clinical indication: Shortness of breath; Additional info: Cp TECHNIQUE: Imaging protocol: XR of the chest. Views: 1 view. COMPARISON: CR XR chest 1V portable [id number] 05/15/2020 2:42 PM FINDINGS: Lungs: Unremarkable. No consolidation. Pleural spaces: Unremarkable. No pleural effusion. No pneumothorax. Heart/Mediastinum: Unremarkable. No cardiomegaly. Bones/joints: Unremarkable. XR/XR chest 1V portable [id number] IMPRESSION: No acute findings.
--- NOTE | 2021-02-22 18:51 | ED_ITS ---
HPI - General Adult General: Chief complaint: General Medical Stated complaint: panic attack Time Seen by Provider: 02/22/21 18:37 Source: patient Mode of arrival: ambulatory Limitations: no limitations History of Present Illness: HPI narrative: 60-year-old female states that today at 2 she believes she had an anxiety attack. States she started having very fast breathing and palpitations and started having sweating and chest pain. States she had many panic attacks in the past and states this is very similar. States she went to come up just to make sure her heart was okay. States her symptoms are since resolved and she has no chest pain currently. She states she does have a migraine headache and has a history of migraines. Her headaches a 5 out of 10. Denies any cough or fever. Associated symptoms: Reports chest pain and dyspnea; Deny headache(s), nausea, rash or vomiting Review of Systems Const: Denies: fever(s), chills, body aches or change in appetite Eyes: Denies: blurry vision or eye discomfort ENMT: Denies: throat pain or dental pain Card: Reports: chest pain Resp: Reports: dyspnea GI: Denies: abdominal pain, nausea, vomiting or diarrhea : Denies: dysuria Musc: Denies: neck pain or back pain Skin/Breast: Denies: rash Neuro: Denies: headache(s) Psych: Reports: anxiety Panchito/Lymph: Denies: easy bruising All/Imm: Denies: urticaria PFSH ED PFSH: Medical History Bereavement Borderline personality disorder Chronic migraine without aura, intractable, with status migrainosus Chronic migraine without aura, intractable, with status migrainosus -pain control as needed -continue to follow up with Dr. Bennett for Botox injections Chronic post-traumatic stress disorder Drug induced akathisia GERD (gastroesophageal reflux disease) Hyperlipidemia Hypothyroid Panic disorder with agoraphobia PTSD (post-traumatic stress disorder) -continue to f/u at [facility] Schizoaffective disorder, bipolar type Tarsal tunnel syndrome, left lower limb Surgical History H/O arthroscopic knee surgery History of appendectomy History of arthroscopy of left shoulder History of bilateral tubal ligation Family History Father Bleeding disorder CAD (coronary artery disease) Other Diabetes Hypertension Denies family history of Anesthesia complication Social History Smoking and tobacco status: former smoker Second hand smoke exposure: No (quit smoking 7 years ago) Alcohol intake: never Lives independently: Yes Household members: none Current occupational status: disabled History of recent travel: No Physical Exam Const: COMMON NORMALS: no acute distress, patient oriented x3 and healthy appearing HENMT: COMMON NORMALS: normocephalic and atraumatic HEAD & SCALP: normocephalic and atraumatic Eye: COMMON NORMALS: Equal, round and reactive pupils present and EOMs intact bilaterally PUPIL: Yes Equal, round and reactive pupils present Neck/C-Spine: COMMON NORMALS: full ROM and supple Chest: COMMONS NORMALS: normal inspection of the chest and normal palpation of entire chest wall Resp: COMMON NORMALS: normal respiratory effort, No retractions, No use of accessory muscles and clear to auscultation bilaterally AUSCULTATION: clear to auscultation bilaterally Cardio: COMMON NORMALS: regular rate, regular rhythm and No murmurs present (Cardio) RATE: regular rate RHYTHM: regular rhythm GI: COMMON NORMALS: Normal to inspection, nondistended, normoactive bowel sounds present, Soft to palpation, non-tender and no masses PALPATION: Yes Soft to palpation Extremity: COMMON NORMALS: normal to inspection and full ROM Neuro: COMMON NORMALS: patient oriented x3, moves all extremities and no focal motor deficits Psych: COMMON NORMALS: mental status grossly normal, Normal thought process present and cooperative THOUGHT PROCESS: Normal thought process present Skin: COMMON NORMALS: no rashes or lesions noted and no wounds GENERAL SKIN EXAM: no rashes or lesions noted Course Vital Signs: Vital signs: Vital Signs Temperature 97.3 F L 02/22/21 17:10 Pulse Rate 79 02/22/21 17:10 Respiratory Rate 18 02/22/21 17:10 Blood Pressure 133/78 02/22/21 17:10 Pulse Oximetry 94 02/22/21 17:10 MDM - General Adult MDM Narrative: Medical decision making narrative: Patient presents with an anxiety attack. Patient's blood work including troponin here negative. She has no signs of acute coronary syndrome or pulmonary embolism. She is stable for discharge and is to follow-up with PCP and return if worsening. Lab Data: Labs: Lab Results 02/22/21 02/22/21 02/22/21 Range/Units 18:43 18:43 18:43 WBC 8.3 (4.0-10.0) 10^3/ uL RBC 4.95 (4.1-5.3) 10^6/u L Hgb 14.3 (11.5-15.3) g/dL Hct 44.3 (37.0-47.0) % MCV 89.5 (81-99) fL MCH 28.9 (28.0-34.0) pg MCHC 32.3 (30.0-36.0) g/dL RDW 14.3 (12.1-15.1) % Plt Count 345 (130-400) 10^3/c mm MPV 9.0 (7.4-10.4) fL Neut % (Auto) 61.3 % Lymph % (Auto) 26.6 % [place] % (Auto) 8.2 % Eos % (Auto) 2.5 % Baso % (Auto) 1.0 % Neut # (Auto) 5.11 (1.8-7.7) 10^3/u L Lymph # (Auto) 2.2 (0.8-4.8) 10^3/u L [place] # (Auto) 0.7 (0.2-0.9) 10^3/u L Eos # (Auto) 0.2 (0.0-0.8) 10^3/u L Baso # (Auto) 0.1 (0.0-0.1) 10^3/u L Nucleated RBC % (a uto) 0 % Nucleated RBCs # 0.0 /100WBC Sodium 137 (136-145) mmol/L Potassium 4.0 (3.5-5.1) mmol/L Chloride 97 L (98-107) mmol/L Carbon Dioxide 30 H (22-29) mmol/L Anion Gap 14.0 (5-19) BUN 7 L (8-23) mg/dL Creatinine 0.6 (0.5-0.9) mg/dL GFR Calculation 101.6 (90-130) mL/min Glucose 101 (65-115) mg/dL Calculated Osmolal ity 282 L (285-295) mOsm/k g Calcium 9.4 (8.5-10.5) mg/dL Total Bilirubin 0.2 (0.15-1.2) mg/dL AST 22 (0-32) U/L ALT 27 (0-33) U/L Alkaline Phosphata se 125 H (35-105) IU/L Troponin T Baselin e 6 (0-10) ng/L Total Protein 6.8 (6.6-8.7) g/dL Albumin 4.1 (3.5-5.2) g/dL Globulin 2.7 (1.3-4.6) g/dL Imaging Data^: CXR: Attestation: I personally reviewed and interpreted this imaging study as follows: Radiologist's impression: [address] [address] XRay Report Signed Patient: Elaine Montano Unit #: [id number] : 1960 Age/Sex: 60 / F ADM Date: 02/22/21 Loc: ER Room/Bed: Attending Dr: Ordering Provider/Ordering MD: Gilles Reyes MD Date of Service: 02/22/21 Procedure(s): XR chest 1V portable [id number] Accession Number(s): [id number] Report Number: [id number] PROCEDURE INFORMATION: Exam: XR Chest Exam date and time: 02/22/2021 6:31 PM Age: 60 years old Clinical indication: Shortness of breath; Additional info: Cp TECHNIQUE: Imaging protocol: XR of the chest. Views: 1 view. COMPARISON: CR XR chest 1V portable [id number] 05/15/2020 2:42 PM FINDINGS: Lungs: Unremarkable. No consolidation. Pleural spaces: Unremarkable. No pleural effusion. No pneumothorax. Heart/Mediastinum: Unremarkable. No cardiomegaly. Bones/joints: Unremarkable. XR/XR chest 1V portable [id number] IMPRESSION: No acute findings. EKG Data^: EKG 1: Attestation: I personally reviewed and interpreted this EKG as follows: EKG interpretation date: 02/22/21 EKG interpretation time: 19:13 Interpretation: nsr hr [address] or t wave abnormalities qrs 90 qtc 412 Computer generated interpretation: Chest X-Ray 02/22/21 18:30 IMPRESSION: No acute findings. Discharge Plan Discharge Patient Disposition: Home Clinical Impression: Anxiety attack Condition: Stable Prescriptions: No Action Combivent Respimat 20-100 mcg/actuation mist 1 puff INHALATION Q6H RF: 0 loratadine 10 mg capsule 10 mg PO DAILY RF: 0 omeprazole 40 mg capsule,delayed release(DR/EC) 40 mg PO DAILY RF: 0 nitroglycerin 0.4 mg tablet, sublingual 0.4 mg SUBLINGUAL Q5M PRN (Reason: Chest Pain) RF: 0 clonazepam 0.5 mg tablet 0.25 mg PO TID Qty: 45 RF: 1 atorvastatin 40 mg tablet 40 mg PO DAILY 90 Days Qty: 90 RF: 1 acetaminophen [Tylenol Arthritis Pain] 650 mg tablet extended release 650 mg PO PRN RF: 0 levothyroxine 125 mcg tablet 125 mcg PO DAILY RF: 0 benztropine 1 mg tablet 1 mg PO BEDTIME RF: 0 Lamictal 200 mg tablet 200 mg PO BID RF: 0 haloperidol 1 mg tablet 1 mg PO DAILY RF: 0 propranolol 10 mg tablet 10 mg PO DAILY RF: 0 Remeron 30 mg tablet 30 mg PO BEDTIME RF: 0 Pristiq 50 mg tablet extended release 24 hr 50 mg PO DAILY RF: 0 Discharge Orders: Discharge ED (Routine); Ordered 02/22/21 Ordered By: Gilles Reyes Referrals: Shannan Novoa DO [Primary Care Provider] - 1-3 days Discharge Diet: Advance as tolerated Discharge Activity: Resume usual activity Patient Instructions: Anxiety (ED) Coding Level of Care Code ED Inspector Cold Working for Dilang Fwd Exam Comprehensive
[2021-02-22] MEDS: ketorolac 30 mg/mL INJ 15 MG IVP (19:04)
[2021-02-22 19:19] LABS: Basophils # 0.1 10^3/uL (0.0-0.1); Eosinophils # 0.2 10^3/uL (0.0-0.8); Eosinophils % 2.5 %; Hematocrit 44.3 % (37.0-47.0); Hemoglobin 14.3 g/dL (11.5-15.3); Lymphocytes # 2.2 10^3/uL (0.8-4.8); Lymphocytes % 26.6 %; Mean Corpuscular HGB Conc 32.3 g/dL (30.0-36.0); Mean Corpuscular Hemoglobin 28.9 pg (28.0-34.0); Mean Corpuscular Volume 89.5 fL (81-99); Monocytes # 0.7 10^3/uL (0.2-0.9); Monocytes % 8.2 %; Neutrophils # 5.11 10^3/uL (1.8-7.7); Neutrophils % 61.3 %; Nucleated Red Blood Cells % 0 %; Platelet Count 345 10^3/cmm (130-400); Red Blood Count 4.95 10^6/uL (4.1-5.3); Red Cell Distribution Width 14.3 % (12.1-15.1); White Blood Count 8.3 10^3/uL (4.0-10.0)
[2021-02-22 19:55] LABS: Troponin(5th) Baseline 6 ng/L (0-10)
[2021-02-22 19:57] LABS: Alanine Aminotransferase 27 U/L (0-33); Albumin Level 4.1 g/dL (3.5-5.2); Alkaline Phosphatase 125 IU/L (35-105); Aspartate Amino Transferase 22 U/L (0-32); Blood Urea Nitrogen 7 mg/dL (8-23); Calcium 9.4 mg/dL (8.5-10.5); Carbon Dioxide 30 mmol/L (22-29); Chloride 97 mmol/L (98-107); Globulin 2.7 g/dL (1.3-4.6); Glomerular Filtration Rate 101.6 mL/min (90-130); Glucose 101 mg/dL (65-115); Osmolality Calculated 282 mOsm/kg (285-295); Sodium 137 mmol/L (136-145); Total Bilirubin 0.2 mg/dL (0.15-1.2); Total Protein 6.8 g/dL (6.6-8.7)
[2021-02-22 21:14] VITALS: BP 105/73; PULSE 69; RESP 17; TEMP 36.3; O2SAT 94
== END 2021-02-22 21:16 | disposition home or self-care (01) ==
PROVIDERS: Emergency Provider Emergency Medicine; PCP Internal Medicine
DX: F41.9 Anxiety disorder, unspecified (principal); E78.5 Hyperlipidemia, unspecified; Z87.891 Personal history of nicotine dependence
CPT/HCPCS: 71045; 80053; 84484; 85025; 93005; 96374; 99283; J1885

== ENCOUNTER → 2021-03-28 09:45 | Outpatient (BNVA) | payer MEDICAID, SELFPAY | PROVIDERS: PCP Internal Medicine; Visit Provider Nurse Practitioner Psychiatric/Mental Health | DX: F25.0 Schizoaffective disorder, bipolar type (principal); F40.01 Agoraphobia with panic disorder; G24.9 Dystonia, unspecified; Z79.899 Other long term (current) drug therapy; Z63.4 Disappearance and death of family member; F43.12 Post-traumatic stress disorder, chronic | CPT/HCPCS: 99214 ==

== ENCOUNTER → 2021-04-13 12:36 | Outpatient (BNVA) | payer MEDICAID, SELFPAY | PROVIDERS: PCP Internal Medicine; Visit Provider Specialist | DX: G43.709 Chronic migraine without aura, not intractable, without status migrainosus (principal); Z87.891 Personal history of nicotine dependence | CPT/HCPCS: 64615; J0585 ==

== ENCOUNTER 2021-04-18 14:02 | Outpatient (CLI) | payer MEDICAID, SELFPAY ==
--- NOTE | 2021-04-18 14:23 | XR_ITS ---
WS: [id number] Pelvis, AP view, AP views of both hips, 04/18/2021 Clinical Data: FALL, CONCERN FOR FRACTURE Comparison: Pelvis and right hip, 08/14/2017. Findings: No fractures or dislocations are seen. The SI joints and pubic symphysis are intact. The soft tissues are not remarkable. There are spurs of both femoral heads. There is a small right acetabular lip. XR/XR pelvis min 3V [id number] Impression: 1. Negative for hip fracture. 2. Minimal osteoarthritic change of both hips.
== END 2021-04-18 14:03 | disposition home or self-care (01) ==
PROVIDERS: PCP Internal Medicine; Visit Provider Internal Medicine
DX: S79.912A Unspecified injury of left hip, initial encounter (principal); S79.911A Unspecified injury of right hip, initial encounter; W19.XXXA Unspecified fall, initial encounter
CPT/HCPCS: 72190

== ENCOUNTER → 2021-04-20 09:52 | Outpatient (BNVA) | payer MEDICAID, SELFPAY | PROVIDERS: PCP Internal Medicine; Visit Provider Nurse Practitioner Psychiatric/Mental Health | DX: F25.0 Schizoaffective disorder, bipolar type (principal); F40.01 Agoraphobia with panic disorder; G24.9 Dystonia, unspecified; Z79.899 Other long term (current) drug therapy; Z63.4 Disappearance and death of family member; F43.12 Post-traumatic stress disorder, chronic | CPT/HCPCS: 99214 ==

== ENCOUNTER → 2021-05-18 08:44 | Outpatient (BNVA) | payer MEDICAID, SELFPAY | PROVIDERS: PCP Internal Medicine; Visit Provider Nurse Practitioner Psychiatric/Mental Health | DX: F43.12 Post-traumatic stress disorder, chronic (principal); F25.0 Schizoaffective disorder, bipolar type; F40.01 Agoraphobia with panic disorder; G24.9 Dystonia, unspecified; Z79.899 Other long term (current) drug therapy; Z63.4 Disappearance and death of family member | CPT/HCPCS: 99214 ==

== ENCOUNTER 2021-06-15 22:17 | Emergency (ER) | payer MEDICAID, SELFPAY ==
[2021-06-15 22:26] VITALS: BP 146/84; PULSE 89; RESP 18; TEMP 36.8; O2SAT 96; BMI 42.0
--- NOTE | 2021-06-15 22:35 | XRR_ITS ---
PROCEDURE INFORMATION: Exam: XR Left Shoulder Exam date and time: 06/15/2021 10:35 PM Age: 60 years old Clinical indication: Injury or trauma; Fall; Blunt trauma (contusions or hematomas); Shoulder; Left; Additional info: Fall injury TECHNIQUE: Imaging protocol: XR Left shoulder. Views: 2 or more views. COMPARISON: CR XR chest 1V portable [id number] 02/22/2021 6:39 PM FINDINGS: Bones/joints: Normal. Soft tissues: Normal. XR/XR shoulder LT min 2V* [id number] IMPRESSION: Negative for fracture or dislocation
--- NOTE | 2021-06-15 23:10 | ED_ITS ---
HPI - Fall General: Chief Complaint: Fall Stated Complaint: Left shoulder pain Time Seen by Provider: 06/15/21 23:10 History of Present Illness: HPI Narrative: 60-year-old female comes in today with complaints of left shoulder pain. Patient states that she was stepping down off a chair and lost her balance causing her to reach out and grab a hold of the chair. Patient reports pulling of the left shoulder when she grabbed a hold of the chair. Patient reports pain and discomfort to the left shoulder. Patient denied falling and landing on the shoulder. Review of Systems General: Reports: 10 or more systems reviewed and unremarkable except in HPI and below Musc: Reports: other (Left shoulder pain) PFS ED PFSH: Medical History (Updated 06/15/21 @ 23:30 by KATHY Fontanez) Bereavement Borderline personality disorder Chronic migraine without aura, intractable, with status migrainosus Chronic migraine without aura, intractable, with status migrainosus -pain control as needed -continue to follow up with Dr. Bennett for Botox injections Chronic post-traumatic stress disorder GERD (gastroesophageal reflux disease) Hyperlipidemia Hypothyroid Panic disorder with agoraphobia Psychiatric care PTSD (post-traumatic stress disorder) -continue to f/u at [facility] [place] Schizoaffective disorder, bipolar type Tarsal tunnel syndrome, left lower limb Surgical History H/O arthroscopic knee surgery History of appendectomy History of arthroscopy of left shoulder History of bilateral tubal ligation Family History Father Bleeding disorder CAD (coronary artery disease) Other Diabetes Hypertension Denies family history of Anesthesia complication Social History Smoking and tobacco status: former smoker Second hand smoke exposure: No (quit smoking 7 years ago) Alcohol intake: never Lives independently: Yes Household members: none Current occupational status: disabled History of recent travel: No Physical Exam Const: COMMON NORMALS: no acute distress and patient oriented x3 GENERAL APPEARANCE: cooperative HENMT: COMMON NORMALS: normocephalic and Normal external nose present HEAD & SCALP: normal to inspection and normocephalic NOSE: Normal external nose present Eye: GENERAL EYE: appearance normal, both eyes and all related structures Neck/C-Spine: COMMON NORMALS: full ROM Chest: COMMONS NORMALS: normal inspection of the chest Resp: COMMON NORMALS: normal respiratory effort EFFORT & INSPECTION: Yes able to speak in complete sentences Cardio: COMMON NORMALS: regular rate and regular rhythm RATE: regular rate RHYTHM: regular rhythm GI: COMMON NORMALS: non-tender Back/Pelvis: COMMON NORMALS: thoracic and lumbar spine normal to inspection Extremity: NARRATIVE EXTREMITY EXAM: Patient anterior joint tenderness of the left shoulder. No drop-off is noted. Passive range of motion is reduced with abduction. Distal pulses and sensation is intact. Neuro: COMMON NORMALS: patient oriented x3 and moves all extremities Psych: COMMON NORMALS: mental status grossly normal and cooperative Skin: COMMON NORMALS: no rashes or lesions noted GENERAL SKIN EXAM: no rashes or lesions noted Course Vital Signs: Vital signs: Vital Signs Temperature 98.3 F 06/15/21 22:26 Pulse Rate 89 06/15/21 22:26 Respiratory Rate 18 06/15/21 22:26 Blood Pressure 146/84 06/15/21 22:26 Pulse Oximetry 96 06/15/21 22:26 MDM - Fall MDM Narrative: Medical decision making narrative: Patient comes in for injury to the left shoulder. On exam patient has tenderness in the anterior left shoulder. Distal pulses and sensation is intact. Passive range of motion is intact. But some decreased abduction is noted. Differential diagnosis includes dislocation, fracture, sprain. X-ray noted no signs of fracture dislocation. Suspect sprain of the shoulder area. Recommend patient use shoulder as tolerated and follow-up with primary care or service desk specialist for further evaluation or treatment. Discharge Plan Discharge Patient Disposition: Home Clinical Impression: Left shoulder strain Qualifiers: Encounter type: initial encounter Qualified Code(s): S46.912A - Strain of unspecified muscle, fascia and tendon at shoulder and upper arm level, left arm, initial encounter Condition: Stable Prescriptions: New hydrocodone-acetaminophen 5-325 mg tablet 1 tab PO Q6H PRN (Reason: pain) Qty: 10 RF: 0 No Action benztropine 0.5 mg tablet 0.5 mg PO .bedtime Qty: 30 RF: 3 lorazepam [Ativan] 1 mg tablet 1 mg PO BID PRN (Reason: anxiety) Qty: 60 RF: 1 propranolol 10 mg tablet 10 mg PO BID Qty: 60 RF: 3 lamotrigine [Lamictal] 100 mg tablet 100 mg PO DIRECTED Qty: 90 RF: 3 Remeron 30 mg tablet 30 mg PO .9 pm Qty: 30 RF: 3 paliperidone [Invega] 3 mg tablet extended release 24hr 3 mg PO .evening Qty: 30 RF: 3 paliperidone [Invega] 6 mg tablet extended release 24hr 6 mg PO QAM Qty: 30 RF: 3 loratadine 10 mg capsule 10 mg PO DAILY RF: 0 omeprazole 40 mg capsule,delayed release(DR/EC) 40 mg PO DAILY RF: 0 nitroglycerin 0.4 mg tablet, sublingual 0.4 mg SUBLINGUAL Q5M PRN (Reason: Chest Pain) RF: 0 albuterol sulfate 90 mcg/actuation HFA aerosol inhaler 2 puff inhalation Q6H PRNRF: 0 Breo Ellipta 100-25 mcg/dose blister with device 1 inh inhalation DAILY RF: 0 atorvastatin 40 mg tablet 40 mg PO DAILY 90 Days Qty: 90 RF: 1 acetaminophen [Tylenol Arthritis Pain] 650 mg tablet extended release 650 mg PO PRN RF: 0 levothyroxine 125 mcg tablet 125 mcg PO DAILY RF: 0 Discharge Orders: Discharge ED (Routine); Ordered 06/15/21 Ordered By: Arian Knowles Referrals: Shannan Novoa DO [Primary Care Provider] - Discharge Diet: Usual diet Discharge Activity: Increase activity as tolerated Patient Instructions: Shoulder Sprain (ED), Opioid Safety Activity Restrictions/Additional Instructions: Activity as tolerated. Use ice to the shoulder for pain and discomfort. Use shoulder as much as tolerated. Take Tylenol to help control pain. Use hydrocodone for breakthrough pain. Drink plenty of water with medication. Follow-up with primary care for further instruction. Coding Level of Care Code ED Box Liner for Samaria Canas
[2021-06-15] MEDS: HYDROcodone-acetaminophen 5-325 mg Tablet 1 TAB PO (23:50)
== END 2021-06-15 23:52 | disposition home or self-care (01) ==
PROVIDERS: Emergency Provider Nurse Practitioner Family; PCP Internal Medicine
DX: S46.912A Strain of unspecified muscle, fascia and tendon at shoulder and upper arm level, left arm, initial encounter (principal); E78.5 Hyperlipidemia, unspecified; Z87.891 Personal history of nicotine dependence; X50.9XXA Other and unspecified overexertion or strenuous movements or postures, initial encounter
CPT/HCPCS: 73030; 99283

== ENCOUNTER → 2021-06-22 08:24 | Outpatient (BNVA) | payer MEDICAID, SELFPAY | PROVIDERS: PCP Internal Medicine; Visit Provider Nurse Practitioner Psychiatric/Mental Health | DX: F25.0 Schizoaffective disorder, bipolar type (principal); F40.01 Agoraphobia with panic disorder; G24.9 Dystonia, unspecified; Z63.4 Disappearance and death of family member; Z79.899 Other long term (current) drug therapy; F43.12 Post-traumatic stress disorder, chronic | CPT/HCPCS: 99214 ==

== ENCOUNTER → 2021-07-06 12:00 | Outpatient (BNVA) | payer MEDICAID, SELFPAY | PROVIDERS: PCP Internal Medicine; Visit Provider Specialist | DX: G43.711 Chronic migraine without aura, intractable, with status migrainosus (principal); Z87.891 Personal history of nicotine dependence | CPT/HCPCS: 64615; J0585 ==

== ENCOUNTER → 2021-08-15 09:32 | Outpatient (BNVA) | payer MEDICAID, SELFPAY | PROVIDERS: PCP Internal Medicine; Visit Provider Nurse Practitioner Psychiatric/Mental Health | DX: F25.0 Schizoaffective disorder, bipolar type (principal); F40.01 Agoraphobia with panic disorder; F43.12 Post-traumatic stress disorder, chronic; Z63.4 Disappearance and death of family member; G25.71 Drug induced akathisia | CPT/HCPCS: 99214 ==

== ENCOUNTER 2021-09-19 18:37 | Emergency (ER) | payer MEDICAID, SELFPAY ==
--- NOTE | 2021-09-19 18:45 | XRR_ITS ---
PROCEDURE INFORMATION: Exam: XR Left Knee Exam date and time: 09/19/2021 6:45 PM Age: 60 years old Clinical indication: Injury or trauma; Fall; Blunt trauma; Knee; Left; Additional info: Fall and hurt knee TECHNIQUE: Imaging protocol: XR Left knee. Views: 3 views. COMPARISON: No relevant prior studies available. FINDINGS: Bones/joints: The linear lucency at the medial aspect of the medial tibial plateau, a nondisplaced intra-articular fracture cannot be ruled out. Small osteophytes at the medial compartment. No dislocation. Normal bone mineralization. No joint effusion. Joint spaces are maintained. Soft tissues: No soft tissue swelling. No radiopaque foreign body. XR/XR knee LT 3V* [id number] IMPRESSION: 1. The linear lucency at the medial aspect of the medial tibial plateau, a nondisplaced intra-articular fracture cannot be ruled out. Followup imaging recommended in 7-14 days if clinical concern for fracture persists. 2. Incidental/nonacute findings are listed in the report.
[2021-09-19 18:47] VITALS: BP 140/83; PULSE 92; RESP 16; TEMP 36.6; O2SAT 93
--- NOTE | 2021-09-19 19:09 | ECG_ITS ---
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 Measurements Intervals [place] Rate: 81 P: PA: QRS: 27 QRSD: 95 T: 0 QT: 391 QTc: 456 Interpretive Statements POSSIBLE ATRIAL FLUTTER ST DEVIATION AND MODERATE T-WAVE ABNORMALITY, CONSIDER ANTERIOR ISCHEMIA [-0.1+ mV T-WAVE IN V3/V4] INTERPTETATION LIMITED BY ARTIFACT Compared to ECG 02/22/2021 19:13:53 Sinus rhythm no longer present T-wave abnormality still present Possible ischemia still present Electronically Signed On 09-20-2021 5:28:12 TOP CARRIER by Kalyani Camacho M.D. [id number]
[2021-09-19 20:20] VITALS: BP 126/77; PULSE 83; RESP 20; O2SAT 96
--- NOTE | 2021-09-19 20:57 | ED_ITS ---
HPI - General Adult General: Chief complaint: Syncope Stated complaint: fall hurt lt knee Time Seen by Provider: 09/19/21 20:18 History of Present Illness: HPI narrative: HPI: [60]yo patient w/ hx of prediabetes, smoking, hypothyrodisim presenting to the ED after an episode of syncope at 3pm today. Patient was playing with her dog when she felt lightheaded leaned forward and fell onto her left knee. The entire episode was witnessed by patient's mother. Patient tell me that she had associated lightheadedness nausea and shortness of breath prior to the incident. Patient denies any headache and tells me that her mother witnessed the whole episode tonight that she had any head injury. Patient currently denies any post-ictal confusion, tongue biting or bladder/bowel incontinence. Patient denies any prior hx of syncope in the past. No associated symptoms of chest pain, shortness of breath, palpitations or focal weakness right before the incident. No family hx of sudden cardiac or unexplained . Patient is complaining of left knee pain. Patient has not been ambulating bear weight on left knee Onset: 3pm today Duration: ongoing Location: home Severity: moderate Review of Systems Narrative: Constitutional: No fever, no chills. HEENT: No vision changes CV: No chest pain, no palpitations PULM: No productive cough, +dyspnea. GI: No abdominal pain, +N/-V/-D. : No Dysuria MSKEL: No muscle pain, +L knee pain SKIN: No new rashes, no lesions. NEURO: No headache, no focal weakness. +syncope x 1 episode HEME: No visible bruises PSYCH: Normal mood PFSH ED PFSH: Medical History (Updated 09/19/21 @ 21:05 by Jerman Ramon MD) Bereavement Borderline personality disorder Chronic migraine without aura, intractable, with status migrainosus Chronic migraine without aura, intractable, with status migrainosus -pain control as needed -continue to follow up with Dr. Bennett for Botox injections Chronic post-traumatic stress disorder GERD (gastroesophageal reflux disease) Hyperlipidemia Hypothyroid Panic disorder with agoraphobia Psychiatric care PTSD (post-traumatic stress disorder) -continue to f/u at [facility] Schizoaffective disorder, bipolar type Tarsal tunnel syndrome, left lower limb Surgical History H/O arthroscopic knee surgery History of appendectomy History of arthroscopy of left shoulder History of bilateral tubal ligation Family History Father Bleeding disorder CAD (coronary artery disease) Other Diabetes Hypertension Denies family history of Anesthesia complication Social History Smoking and tobacco status: former smoker Second hand smoke exposure: No (quit smoking 7 years ago) Alcohol intake: never Lives independently: Yes Household members: none Current occupational status: disabled History of recent travel: No Physical Exam Narrative: EXAM NARRATIVE: Head: Atraumatic Eyes: PERRL, conjunctiva without injection, eyes tracking ENT: Mucous membrane moist NECK: Supple without lymphadenopathy LUNGS: LCTAB CV: RRR ABDOMEN: Soft, nontender in all quadrants, no guarding or rebound tenderness, no CVA or flank tenderness bilaterally EXTREMITY: + Limited range of motion of the left knee,+ mildly swollen left knee, 2+ DP/PT pulses on the left side. Neurovascular exam intact on the left leg. SKIN: No rash or erythema NEURO: Mental status: A/Ox3 CN II-XII tested and intact. Sensation intact to sharp/dull differentiation in all extremities. Motor: Normal tone and bulk. No abnormal movements appreciated. No pronator drift. Strength tested and 5/5 in bilateral wrist flexion/extension, elbow flexion/extension, shoulder abduction, straight leg raise, knee flexion/extension, ankle dorsiflexion/plantarflexion. Patient ambulates with a steady gait. Coordination: Finger to nose and heel to cervantes testing intact bilaterally. PSYCH: Cooperative mood and affect Course Vital Signs: Vital signs: Vital Signs Temperature 97.9 F 09/19/21 18:47 Pulse Rate 83 09/19/21 20:20 Respiratory Rate 20 H 09/19/21 20:20 Blood Pressure 126/77 09/19/21 20:20 Pulse Oximetry 96 09/19/21 20:20 MDM - General Adult MDM Narrative: Medical decision making narrative: [60]yo patient w/ hx of prediabetes, smoking, HTN presenting to the ED with Syncope. +dyspnea and nausea. HDS Neuro intact. +L knee decreased ROM, TTP and swelling. Neurovascular exam intact in the LLE. Given history, exam and workup, presentation not consistent with seizures given a short time course, no postictal state, no seizure activity. Low suspicion for acute neurologic catastrophes to include ICH given lack of trauma, risk factors for bleeding diathesis, or neurogenic causes of syncope. Low suspicion for vascular catastrophes to include PE, thoracic aortic dissection, AAA rupture. Presentation not consistent with acute life threatening arrhythmia, structural heart disease, electrical conduction abnormalities, or ACS. Workup: CBC, BMP, Troponin x 2, EKG x 2, XR knee, dimer Intervention: Serial reevaluation, telemetry, PO challenge Findings: EKG: No e/o STEMI. Atrial flutter at 4:1 with R of 81, no ST-T wave changes, no ectopy XR knee showed possible articular fracture. CT of the knee did not show any focal fracture. Initial troponin of 7, pending repeat. Case signed out to Dr. Jerez at shift change. Lab Data: Labs: Lab Results 09/19/21 09/19/21 09/19/21 20:53 20:53 20:53 WBC 9.8 10^3/uL 10^3/ uL (4.0-10.0) RBC 4.81 10^6/uL 10^6 /uL (4.1-5.3) Hgb 13.8 g/dL g/dL (11.5-15.3) Hct 43.3 % % (37.0-47.0) MCV 90.0 fl fl (81-99) MCH 28.7 pg pg (28.0-34.0) MCHC 31.9 g/dL g/dL (30.0-36.0) RDW 14.3 % % (12.1-15.1) Plt Count 316 10^3/cmm 10^3 /cmm (130-400) MPV 9.3 fL fL (7.4-10.4) Neut % (Auto) 65.7 % % Lymph % (Auto) 24.6 % % [place] % (Auto) 6.5 % % Eos % (Auto) 2.3 % % Baso % (Auto) 0.6 % % Neut # (Auto) 6.42 10^3/uL 10^3 /uL (1.8-7.7) Lymph # (Auto) 2.4 10^3/uL 10^3/ uL (0.8-4.8) [place] # (Auto) 0.6 10^3/uL 10^3/ uL (0.2-0.9) Eos # (Auto) 0.2 10^3/uL 10^3/ uL (0.0-0.8) Baso # (Auto) 0.1 10^3/uL 10^3/ uL (0.0-0.1) Nucleated RBC % (a uto) 0 % % Nucleated RBCs # 0.0 /100WBC /100W BC Sodium 138 mmol/L mmol/L (136-145) Potassium 4.0 mmol/L mmol/L (3.5-5.1) Chloride 102 mmol/L mmol/L (98-107) Carbon Dioxide 23 mmol/L mmol/L (22-29) Anion Gap 17.0 (5-19) BUN 8 mg/dL mg/dL (8-23) Creatinine 0.6 mg/dL mg/dL (0.5-0.9) GFR Calculation 101.6 mL/min mL/m in (90-130) Glucose 141 mg/dL H mg/dL (65-115) Calculated Osmolal ity 287 mOsm/kg mOsm/ kg (285-295) Calcium 8.8 mg/dL mg/dL (8.5-10.5) Total Bilirubin 0.2 mg/dL mg/dL (0.15-1.2) AST 16 U/L U/L (0-32) ALT 21 U/L U/L (0-33) Alkaline Phosphata se 113 IU/L H IU/L (35-105) Troponin T Baselin e 6 ng/L ng/L (0-10) Total Protein 6.0 g/dL L g/dL (6.6-8.7) Albumin 4.0 g/dL g/dL (3.5-5.2) Globulin 2.0 g/dL g/dL (1.3-4.6) Imaging Data^: Other Imaging: Radiologist's impression: [place] [address] [id number] Scan ReportSigned Patient: Cruz Montano #: [id number]: 1960Acct#:[id number]/Sex: 60 / FADM Date: 09/19/21Loc: ERRoom/Bed:Attending Dr: Ordering Provider/Ordering MD: Jerman Ramon MD Date of Service: 09/19/21 Procedure(s): CT knee LT wo con* [id number] Accession Number(s): [id number] Report Number: [id number] PROCEDURE INFORMATION: Exam: CT Left Lower Extremity Without Contrast, Knee Exam date and time: 09/19/2021 9:06 PM Age: 60 years old Clinical indication: Injury or trauma; Fall; Blunt trauma; Left; Patient HX: Patient fell this evening landing on knee. C/O pain and walking difficulty. ; Additional info: Eval for intraarticular injury TECHNIQUE: Imaging protocol: CT of the Left lower extremity without contrast was performed. Exam focused on the knee. Sagittal and coronal reformatted images were created and reviewed. Radiation optimization: All CT scans at this facility use at least one of these dose optimization techniques: automated exposure control; mA and/or kV adjustment per patient size (includes targeted exams where dose is matched to clinical indication); or iterative reconstruction. COMPARISON: CR (LOW EXM, ) 09/19/2021 7:10 PM RADIATION DOSE METRICS: Total DLP (mGy-cm): 302.39 FINDINGS: Bones/joints: Small osteophytes at the patellofemoral and medial compartments. Moderate loss of joint space height at the medial compartment. No acute fracture. No dislocation. Normal bone mineralization. No joint effusion. Soft tissues: Mild subcutaneous edema anterior to the knee. No radiopaque foreign body. CT/CT knee LT wo con* [id number] IMPRESSION: 1. Mild subcutaneous edema anterior to the knee. 2. No acute fracture. 3. Zuov-bb-kzzbrglz degenerative changes at the left knee. Dictated By:Karla Pardo MDSigned By:Karla Pardo MDSigned Date/Time:09/19/212204DD/ 05 Discharge Plan Discharge Clinical Impression: Syncope and collapse Condition: Stable Prescriptions: No Action propranolol 10 mg tablet 10 mg PO BID Qty: 60 RF: 3 paliperidone [Invega] 3 mg tablet extended release 24hr 3 mg PO .evening Qty: 30 RF: 3 paliperidone [Invega] 6 mg tablet extended release 24hr 6 mg PO QAM Qty: 30 RF: 3 loratadine 10 mg capsule 10 mg PO DAILY RF: 0 omeprazole 40 mg capsule,delayed release(DR/EC) 40 mg PO DAILY RF: 0 nitroglycerin 0.4 mg tablet, sublingual 0.4 mg SUBLINGUAL Q5M PRN (Reason: Chest Pain) RF: 0 albuterol sulfate 90 mcg/actuation HFA aerosol inhaler 2 puff inhalation Q6H PRNRF: 0 lorazepam [Ativan] 1 mg tablet 1 mg PO BID PRN (Reason: anxiety) Qty: 60 RF: 1 Remeron 30 mg tablet 30 mg PO .9 pm Qty: 30 RF: 3 lamotrigine [Lamictal] 200 mg tablet 200 mg PO BID Qty: 60 RF: 3 benztropine 1 mg tablet 1 mg PO BID Qty: 60 RF: 1 Spiriva Respimat 1.25 mcg/actuation mist 2 puff inhalation DAILY RF: 0 atorvastatin 40 mg tablet 40 mg PO DAILY 90 Days Qty: 90 RF: 1 acetaminophen [Tylenol Arthritis Pain] 650 mg tablet extended release 650 mg PO PRN RF: 0 levothyroxine 125 mcg tablet 125 mcg PO DAILY RF: 0 hydrocodone-acetaminophen 5-325 mg tablet 1 tab PO Q6H PRN (Reason: pain) Qty: 10 RF: 0 Discharge Diet: Advance as tolerated Discharge Activity: Resume usual activity Patient Instructions: Fractures, Syncope (ED), Knee Pain (ED) Activity Restrictions/Additional Instructions: Our lead case manager will have you follow-up with Orthopedics for knee fracture in the next few days. You would be expected to have a phone call with our lead case manager who will put you on the schedule. Coding Level of Care Code ED Conference Center Coordinator for Samaria Canas
[2021-09-19 21:01] LABS: Basophils # 0.1 10^3/uL (0.0-0.1); Basophils % 0.6 %; Eosinophils # 0.2 10^3/uL (0.0-0.8); Eosinophils % 2.3 %; Hematocrit 43.3 % (37.0-47.0); Hemoglobin 13.8 g/dL (11.5-15.3); Lymphocytes # 2.4 10^3/uL (0.8-4.8); Lymphocytes % 24.6 %; Mean Corpuscular HGB Conc 31.9 g/dL (30.0-36.0); Mean Corpuscular Hemoglobin 28.7 pg (28.0-34.0); Mean Platelet Volume 9.3 fL (7.4-10.4); Monocytes # 0.6 10^3/uL (0.2-0.9); Monocytes % 6.5 %; Neutrophils # 6.42 10^3/uL (1.8-7.7); Neutrophils % 65.7 %; Nucleated Red Blood Cells % 0 %; Platelet Count 316 10^3/cmm (130-400); Red Blood Count 4.81 10^6/uL (4.1-5.3); Red Cell Distribution Width 14.3 % (12.1-15.1); White Blood Count 9.8 10^3/uL (4.0-10.0)
--- NOTE | 2021-09-19 21:06 | CTR_ITS ---
PROCEDURE INFORMATION: Exam: CT Left Lower Extremity Without Contrast, Knee Exam date and time: 09/19/2021 9:06 PM Age: 60 years old Clinical indication: Injury or trauma; Fall; Blunt trauma; Left; Patient HX: Patient fell this evening landing on knee. C/O pain and walking difficulty. ; Additional info: Eval for intraarticular injury TECHNIQUE: Imaging protocol: CT of the Left lower extremity without contrast was performed. Exam focused on the knee. Sagittal and coronal reformatted images were created and reviewed. Radiation optimization: All CT scans at this facility use at least one of these dose optimization techniques: automated exposure control; mA and/or kV adjustment per patient size (includes targeted exams where dose is matched to clinical indication); or iterative reconstruction. COMPARISON: CR (LOW EXM, ) 09/19/2021 7:10 PM RADIATION DOSE METRICS: Total DLP (mGy-cm): 302.39 FINDINGS: Bones/joints: Small osteophytes at the patellofemoral and medial compartments. Moderate loss of joint space height at the medial compartment. No acute fracture. No dislocation. Normal bone mineralization. No joint effusion. Soft tissues: Mild subcutaneous edema anterior to the knee. No radiopaque foreign body. CT/CT knee LT wo con* [id number] IMPRESSION: 1. Mild subcutaneous edema anterior to the knee. 2. No acute fracture. 3. Unjz-eb-qdlaphte degenerative changes at the left knee.
--- NOTE | 2021-09-19 21:09 | ECG_ITS ---
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 Measurements Intervals [place] Rate: 85 P: 17 FL: 162 QRS: 16 QRSD: 84 T: -12 QT: 364 QTc: 435 Interpretive Statements SINUS RHYTHM ST DEVIATION AND MODERATE T-WAVE ABNORMALITY, CONSIDER ANTERIOR ISCHEMIA [-0.1+ mV T-WAVE IN V3/V4] Compared to ECG 02/22/2021 19:13:53 No significant changes Electronically Signed On 09-20-2021 5:33:30 MANAGER PHOTO by Kalyani Camacho M.D. [id number]
[2021-09-19 21:35] LABS: Alanine Aminotransferase 21 U/L (0-33); Alkaline Phosphatase 113 IU/L (35-105); Aspartate Amino Transferase 16 U/L (0-32); Blood Urea Nitrogen 8 mg/dL (8-23); Calcium 8.8 mg/dL (8.5-10.5); Carbon Dioxide 23 mmol/L (22-29); Chloride 102 mmol/L (98-107); Glomerular Filtration Rate 101.6 mL/min (90-130); Glucose 141 mg/dL (65-115); Osmolality Calculated 287 mOsm/kg (285-295); Sodium 138 mmol/L (136-145); Total Bilirubin 0.2 mg/dL (0.15-1.2)
[2021-09-19 21:36] LABS: Troponin(5th) Baseline 6 ng/L (0-10)
[2021-09-19] MEDS: acetaminophen 500 mg Tablet PO (23:04)
[2021-09-19] MEDS: sodium chloride 0.9% 1,000 ML 999 ML IV (23:05)
[2021-09-19 23:08] VITALS: BP 119/54; PULSE 77; RESP 19; O2SAT 94
[2021-09-19 23:17] LABS: D Dimer 0.42 ug/mIFEU (0-0.59)
[2021-09-19 23:22] LABS: Troponin 5 2HR Delta 0 ABS# (0-10)
[2021-09-19 23:27] VITALS: BP 110/66; BP 122/66; BP 130/78; PULSE 80; PULSE 84
[2021-09-20 02:22] VITALS: BP 112/54; PULSE 72; RESP 18; O2SAT 92
--- NOTE | 2021-09-20 13:22 | DCPLANNER ---
Addendum entered by Kristy Naranjo 10/19/21 17:32: Patient had a follow up appointment scheduled for 09.27.21 with [facility] -patient did attend appointment. Original Note: investment manager had message to schedule a follow up appointment for patient with [facility]. investment manager called [facility], spoke with Danyell Prescott, gave clinic patients information. A follow up appointment was scheduled for Saturday, September 27, 2021 at 12:[address] Hayden. investment manager called patient and gave patient the appointment information.
== END 2021-09-20 02:27 | disposition home or self-care (01) ==
PROVIDERS: Emergency Medicine; Emergency Provider Emergency Medicine
DX: R55 Syncope and collapse (principal); Z87.891 Personal history of nicotine dependence; K21.9 Gastro-esophageal reflux disease without esophagitis; E78.5 Hyperlipidemia, unspecified; E03.9 Hypothyroidism, unspecified; G43.909 Migraine, unspecified, not intractable, without status migrainosus
CPT/HCPCS: 36415; 73562; 73700; 80053; 84484; 85025; 85378; 93005; 96360; 99284; J7030

== ENCOUNTER → 2021-09-26 07:58 | Outpatient (BNVA) | payer MEDICAID, SELFPAY | PROVIDERS: Visit Provider Nurse Practitioner Psychiatric/Mental Health | DX: F25.0 Schizoaffective disorder, bipolar type (principal); F40.01 Agoraphobia with panic disorder; F43.12 Post-traumatic stress disorder, chronic; Z63.4 Disappearance and death of family member; G25.71 Drug induced akathisia | CPT/HCPCS: 99214 ==

== ENCOUNTER 2021-09-27 16:14 | Outpatient (CLI) | payer MEDICAID, SELFPAY ==
--- NOTE | 2021-09-27 16:22 | XR_ITS ---
WS: [id number] XR knee LT 3V* [id number] REASON FOR EXAM: LT. KNEE PAIN FINDINGS: No fracture or focal bone lesion. Mild to moderate narrowing of the medial knee joint space with mild subchondral sclerosis in the suba rticular medial tibial plateau with small marginal osteophytes. Mild narrowing of the lateral knee joint space. Mild narrowing of the patellofemoral joint space. XR/XR knee LT 3V* [id number] IMPRESSION: Mild/moderate changes of osteoarthritis left knee.
== END 2021-09-27 16:15 | disposition home or self-care (01) ==
LOC: RAD 16:18
PROVIDERS: PCP Family Medicine; Visit Provider Family Medicine
DX: M17.12 Unilateral primary osteoarthritis, left knee (principal)
CPT/HCPCS: 73562

== ENCOUNTER → 2021-09-28 11:47 | Outpatient (BNVA) | payer MEDICAID, SELFPAY | PROVIDERS: PCP Family Medicine; Visit Provider Specialist | DX: R55 Syncope and collapse (principal); G43.711 Chronic migraine without aura, intractable, with status migrainosus | CPT/HCPCS: 64615; 99212; 99214; J0585 ==

== ENCOUNTER 2021-11-16 13:35 | Outpatient (CLI) | payer MEDICAID, SELFPAY ==
--- NOTE | 2021-11-16 14:15 | USCV_ITS ---
Elaine Montano Age: 60 Gender: F : 1960 Exam Date: 11/16/2021 13:52 Ordering Phys: Ronny Hebert M.D ([email or web address]) Technologist: Yuridia Espino [place] [facility] [place]: SY[place]OPE EPISODES BP: / HR: 75 Rhythm: Sinus Technical Quality: Adequate MEASUREMENTS (Male / Female) Normal Values 2D ECHO LV Diastolic Diameter PLAX 4.0 cm 4.2 - 5.9 / 3.9 - 5.3 cm LV Systolic Diameter PLAX 3.2 cm LV Chamber Size 4.2 cm IVS Diastolic Thickness 0.9 cm 0.6 - 1.0 / 0.6 - 0.9 cm IVS Systolic Thickness 1.6 cm LVPW Diastolic Thickness 1.0 cm 0.6 - 1.0 / 0.6 - 0.9 cm LVPW Systolic Thickness 1.4 cm RV Chamber Size 3.2 cm LVOT Diameter 2.0 cm LV Ejection Fraction 2D Teich 24.5 % LV Ejection Fraction MOD 2C 53.1 % LV Ejection Fraction 2C AL 49.6 % LA Diameter 3.9 cm LA Width 3.3 cm LA Height 5.2 cm RA Width 4.6 cm RA Height 3.8 cm Aorta at Sinotubular Diameter 2.9 cm M-MODE Aortic Annulus Diameter 3.0 cm LA Ao Ratio MM 1.5 MV E Point Septal Separation 0.5 cm DOPPLER AV Peak Velocity 145.0 cm/s LVOT Peak Velocity 85.0 cm/s AV Area Cont Eq vti 2.0 cm squared AV Area Cont Eq pk 1.9 cm squared MV Area PHT 4.6 cm squared Mitral E to A Ratio 1.2 MV E' Velocity 45.5 cm/s Mitral E to MV E' Ratio 8.1 Mitral E to LV E' Lateral Ratio 8.1 Mitral E to LV E' Septal Ratio 8.2 TR Peak Velocity 281.3 cm/s TR Peak Gradient 31.6 mmHg TR Mean Velocity 227.5 cm/s TR Mean Gradient 22.1 mmHg TR Velocity Time Integral 93.8 cm TV Peak E Velocity 68.0 cm/s Right Atrial Pressure 3.0 mmHg Pulmonary Artery Systolic Pressu 34.6 mmHg PV Peak Velocity 79.0 cm/s RV Acceleration Time 0.1 s RV Ejection Time 0.4 s RV AcT/ET 0.2 FINDINGS Left Ventricle Normal left ventricular size. LV systolic function is borderline normal with EF of 50-55%. No regional wall motion abnormalities. Normal diastolic filling pattern. Right Ventricle The right ventricle is normal in size and function. Right Atrium The right atrium is normal in size. Left Atrium The left atrium is normal in size. Mitral Valve Structurally normal mitral valve without significant stenosis or prolapse. There is no mitral regurgitation. Aortic Valve Structurally normal aortic valve without significant sclerosis or stenosis. There is no aortic regurgitation. Tricuspid Valve Structurally normal tricuspid valve without significant stenosis. Mild tricuspid regurgitation. Pulmonary artery systolic pressure is normal. Pulmonic Valve Structurally normal pulmonic valve without significant stenosis. There is mild pulmonic regurgitation. Pericardium Normal pericardium without effusion. Aorta Normal ascending aorta dimension. CONCLUSIONS LV systolic function is normal with EF of 50-55% Normal diastolic function Mild tricuspid regurgitation Mild pulmonic regurgitation Compared to prior echocardiogram from 05/16/2020, no significant changes are noted Ronny Hebert MD (Electronically Signed) Final Date: 18 November 2021 23:43 S
== END 2021-11-16 13:36 | disposition home or self-care (01) ==
LOC: RAD 13:36
PROVIDERS: PCP Family Medicine; Visit Provider Internal Medicine
DX: R55 Syncope and collapse (principal); I07.1 Rheumatic tricuspid insufficiency
CPT/HCPCS: 93306

== ENCOUNTER 2021-11-16 14:19 | Emergency (ER) | payer MEDICAID, SELFPAY ==
[2021-11-16 14:30] VITALS: BP 130/79; PULSE 74; RESP 14; TEMP 36.3; O2SAT 93; BMI 42.0
--- NOTE | 2021-11-16 15:19 | XR_ITS ---
WS: [id number] Right femur and thigh, AP and lateral views, 11/16/2021 Clinical Data: fall Comparison: None. Findings: No fractures or dislocations are seen. The soft tissues are normal. The visualized knee shows no abno rmalities. There is minimal osteoarthritis of the right hip. XR/XR femur RT min 2V* [id number] Impression: Negative right femur and thigh.
--- NOTE | 2021-11-16 15:19 | XR_ITS ---
WS: [id number] Right knee, 3 views, 11/16/2021 Clinical Data: fall Comparison: None. Findings: No fractures or dislocations are seen. The joint spaces are normal. The patella is intact. The soft t issues are unremarkable. XR/XR knee RT 3V* [id number] Impression: Negative right knee. Kellgren-Paul Classification: grade 0 (none): definite absence of x-ray lauri nges of osteoarthritis
--- NOTE | 2021-11-16 15:20 | W.ED.FALL ---
Documented by User: KATHY Ellis 11/16/21 16:35 HPI - Fall General: Chief Complaint: Fall Stated Complaint: fall Time Seen by Provider: 11/16/21 15:24 History of Present Illness: Patient presents to the ER with complaint that she had a syncopal episode when she got out of car to air upper tire and fell and she went to cardiology had her echocardiogram done and they sent over here because of her leg pain. Says that her right femur and right knee hurt after the fall has abrasion to the knee into her hand. Denies any chest pain shortness of breath nausea vomiting or fever. Associated symptoms-after fall: Denies abdominal pain, chest pain or headache(s) Review of Systems Const: Denies: fever(s), chills or body aches Eyes: Denies: eye discomfort ENMT: Denies: throat pain Card: Denies: chest pain Resp: Denies: dyspnea GI: Denies: abdominal pain, nausea or vomiting Musc: Reports: extremity pain (Right femur and right knee is tender has an abrasion right hand right knee) Skin/Breast: Denies: rash Neuro: Reports: other (Had syncopal episode when she went to air the tire her up of car.); Denies: headache(s) Psych: Denies: depression or suicidal ideation PFSH ED PFSH: Medical History Bereavement Borderline personality disorder Chronic migraine without aura, intractable, with status migrainosus Chronic migraine without aura, intractable, with status migrainosus -pain control as needed -continue to follow up with Dr. Bennett for Botox injections Chronic post-traumatic stress disorder GERD (gastroesophageal reflux disease) Hyperlipidemia Hypothyroid Panic disorder with agoraphobia Psychiatric care PTSD (post-traumatic stress disorder) -continue to f/u at [facility] Schizoaffective disorder, bipolar type Tarsal tunnel syndrome, left lower limb Surgical History H/O arthroscopic knee surgery History of appendectomy History of arthroscopy of left shoulder History of bilateral tubal ligation Family History Father Bleeding disorder CAD (coronary artery disease) Other Diabetes Hypertension Denies family history of Anesthesia complication Social History Second hand smoke exposure: No (quit smoking 7 years ago) Alcohol intake: never Lives independently: Yes Household members: none Current occupational status: disabled History of recent travel: No Physical Exam Const: COMMON NORMALS: no acute distress, patient oriented x3 and alert HENMT: COMMON NORMALS: normocephalic and external ears normal HEAD & SCALP: normocephalic EXTERNAL EAR: Yes external ears normal Eye: COMMON NORMALS: EOMs intact bilaterally Neck/C-Spine: COMMON NORMALS: no JVD Resp: COMMON NORMALS: normal respiratory effort and No use of accessory muscles Cardio: COMMON NORMALS: no JVD GI: INSPECTION: Yes normal to inspection Extremity: COMMON NORMALS: full ROM RIGHT LOWER EXTREMITY: Yes upper leg (Tenderness to lower femur no swelling) and Yes knee joint (Abrasion skin no swelling) Neuro: COMMON NORMALS: patient oriented x3 SENSORIUM/ORIENTATION: Yes alert Psych: COMMON NORMALS: mental status grossly normal Skin: COMMON NORMALS: no rashes or lesions noted GENERAL SKIN EXAM: no rashes or lesions noted Course Vital Signs: Vital signs: Vital Signs Temperature 97.4 F L 11/16/21 14:30 Pulse Rate 72 11/16/21 15:40 Respiratory Rate 16 11/16/21 15:40 Blood Pressure 130/79 11/16/21 15:40 Pulse Oximetry 95 11/16/21 15:40 MDM - Fall Lab Data : 11/16/21 17:25 11/16/21 17:25 Radiology Impressions Femur X-Ray 11/16/21 15:19 Impression: Negative right femur and thigh. Knee X-Ray 11/16/21 15:19 Impression: Negative right knee. Kellgren-Paul Classification: grade 0 (none): definite absence of x-ray changes of osteoarthritis Laboratory Results WBC 9.4 10^3/uL (4.0-10.0) 11/16/21 17:25 RBC 5.00 10^6/uL (4.1-5.3) 11/16/21 17:25 Hgb 14.5 g/dL (11.5-15.3) 11/16/21 17:25 Hct 46.5 % (37.0-47.0) 11/16/21 17:25 MCV 93.0 fl (81-99) 11/16/21 17:25 MCH 29.0 pg (28.0-34.0) 11/16/21 17: MCHC 31.2 g/dL (30.0-36.0) 11/16/21 17:25 RDW 14.4 % (12.1-15.1) 11/16/21 17: Plt Count 343 10^3/cmm (130-400) 11/16/21 17:25 MPV 9.5 fL (7.4-10.4) 11/16/21 17:25 Neut % (Auto) 63.1 % 11/16/21 17: Lymph % (Auto) 25.1 % 11/16/21 17:25 [place] % (Auto) 7.3 % 11/16/21 17:25 Eos % (Auto) 3.2 % 11/16/21 17:25 Baso % (Auto) 1.0 % 11/16/21: Neut # (Auto) 5.90 10^3/uL (1.8-7.7) 11/16/21 17:25 Lymph # (Auto) 2.4 10^3/uL (0.8-4.8) 11/16/21 17:25 [place] # (Auto) 0.7 10^3/uL (0.2-0.9) 11/16/21 17:25 Eos # (Auto) 0.3 10^3/uL (0.0-0.8) 11/16/21: Baso # (Auto) 0.1 10^3/uL (0.0-0.1) 11/16/21 17:25 Nucleated RBC % (auto) 0 % 11/16/21: Nucleated RBCs # 0.0 /100WBC 11/16/21 17:25 Sodium 137 mmol/L (136-145) 11/16/21 17:25 Potassium 4.3 mmol/L (3.5-5.1) 11/16/21 17:25 Chloride 101 mmol/L (98-107) 11/16/21 17:25 Carbon Dioxide 23 mmol/L (22-29) 11/16/21 17:25 Anion Gap 17.3 (5-19) 11/16/21 17:25 BUN 7 mg/dL (8-23) L 11/16/21 17:25 Creatinine 0.6 mg/dL (0.5-0.9) 11/16/21 17:25 GFR Calculation 101.6 mL/min (90-130) 11/16/21 17:25 Glucose 97 mg/dL (65-115) 11/16/21 17:25 Calculated Osmolality 282 mOsm/kg (285-295) L 11/16/21 17:25 Calcium 10.0 mg/dL (8.5-10.5) 11/16/21 17:25 Total Bilirubin 0.4 mg/dL (0.15-1.2) 11/16/21 17:25 AST 23 U/L (0-32) 11/16/21 17:25 ALT 26 U/L (0-33) 11/16/21 17:25 Alkaline Phosphatase 142 IU/L (35-105) H 11/16/21 17:25 Troponin T Gen 5 ng/L 6 ng/L (0-10) 11/16/21 17:25 Total Protein 7.0 g/dL (6.6-8.7) 11/16/21 17:25 Albumin 4.3 g/dL (3.5-5.2) 11/16/21 17:25 Globulin 2.7 g/dL (1.3-4.6) 11/16/21 17:25 EKG Data EKG 1: Computer generated interpretation: Normal sinus rhythm, ventricular rate 78 bpm PA interval 145 ms QRS duration 94 ms QT is 382 ms read at 1625 Discharge Plan Discharge Patient Disposition: Home Clinical Impression: Episode of syncope Qualifiers: Syncope type: vasovagal syncope Qualified Code(s): R55 - Syncope and collapse Condition: Stable Prescriptions: No Action loratadine 10 mg capsule 10 mg PO DAILY 0RF omeprazole 40 mg capsule,delayed release(DR/EC) 40 mg PO DAILY 0RF nitroglycerin 0.4 mg tablet, sublingual 0.4 mg SUBLINGUAL Q5M PRN (Reason: Chest Pain) 0RF Rx Instructions: as directed upto 3 albuterol sulfate 90 mcg/actuation HFA aerosol inhaler 2 puff inhalation Q6H PRN0RF Spiriva Respimat 1.25 mcg/actuation mist 2 puff inhalation DAILY 0RF propranolol 10 mg tablet 10 mg PO BID Qty: 60 6RF Rx Instructions: Take one tablet every morning and every evening paliperidone [Invega] 6 mg tablet extended release 24hr 6 mg PO QAM Qty: 30 6RF Rx Instructions: Take one tablet every morning paliperidone [Invega] 3 mg tablet extended release 24hr 3 mg PO .evening Qty: 30 6RF Rx Instructions: Take one tablet in evening Remeron 30 mg tablet 30 mg PO .9 pm Qty: 30 6RF Rx Instructions: Take one tablet at 9 pm lamotrigine [Lamictal] 200 mg tablet 200 mg PO BID Qty: 60 6RF Rx Instructions: Take one tablet twice per day benztropine 1 mg tablet 1 mg PO BID Qty: 60 6RF Rx Instructions: Take one tablet twice per day atorvastatin 40 mg tablet 40 mg PO DAILY 90 Days Qty: 90 1RF lorazepam [Ativan] 1 mg tablet 1 mg PO BID PRN (Reason: anxiety) Qty: 60 1RF Rx Instructions: Take one tablet twice per day as needed for severe anxiety acetaminophen [Tylenol Arthritis Pain] 650 mg tablet extended release 650 mg PO PRN 0RF levothyroxine 125 mcg tablet 125 mcg PO DAILY 0RF Discharge Orders: Discharge ED (Routine); Ordered 11/16/21 Ordered By: Yovanny Rico Referrals: Mark Bennett MD [Primary Care Provider] - Discharge Diet: Regular Discharge Activity: Increase activity as tolerated Patient Instructions: Syncope (ED) Activity Restrictions/Additional Instructions: Follow-up with medical provider as directed in 5 to 7 days for reevaluation. Continue taking all home medications as previously prescribed. Return to the ER or your medical provider if condition worsens. Please read and understand discharge instructions. Thank you for choosing [facility] for your healthcare needs today. Please realize this is an emergency room and that we are providing you with a medical screening exam and this may not be complete and all inclusive of all the testing and or work up that you may need to determine your ailment or severity of your illness. It is very important that you follow up as instructed or that you return to the Emergency Department should you have concerns or if your condition changes or worsens in any way. Coding Level of Care Code ED Fire Captain Marine for Chg Fwd Exam Comprehensive Documented by User: BRANDON Pham 11/17/21 00:49 HPI - Fall General: Chief Complaint: Fall Stated Complaint: fall Time Seen by Provider: 11/16/21 15:24 PFSH ED PFSH: Medical History Bereavement Borderline personality disorder Chronic migraine without aura, intractable, with status migrainosus Chronic migraine without aura, intractable, with status migrainosus -pain control as needed -continue to follow up with Dr. Bennett for Botox injections Chronic post-traumatic stress disorder GERD (gastroesophageal reflux disease) Hyperlipidemia Hypothyroid Panic disorder with agoraphobia Psychiatric care PTSD (post-traumatic stress disorder) -continue to f/u at [facility] Schizoaffective disorder, bipolar type Tarsal tunnel syndrome, left lower limb Surgical History H/O arthroscopic knee surgery History of appendectomy History of arthroscopy of left shoulder History of bilateral tubal ligation Family History Father Bleeding disorder CAD (coronary artery disease) Other Diabetes Hypertension Denies family history of Anesthesia complication Social History Second hand smoke exposure: No (quit smoking 7 years ago) Alcohol intake: never Lives independently: Yes Household members: none Current occupational status: disabled History of recent travel: No Course Vital Signs: Vital signs: Vital Signs Temperature 97.4 F L 11/16/21 14:30 Pulse Rate 72 11/16/21 15:40 Respiratory Rate 16 11/16/21 15:40 Blood Pressure 130/79 11/16/21 15:40 Pulse Oximetry 95 11/16/21 15:40 MDM - Fall Medical Decision Making Patient is a 60-year-old female comes to the ED after having a syncopal episode. She is also reporting some right leg pain as well. Roshan Molina performed the initial history physical exam and labs/imaging up. I took over patient care at 5 PM and we are just waiting on some lab work to come back. Vitals stable. EKG showed normal sinus rhythm with no acute findings. CBC and CMP were unremarkable. Troponin negative. X-ray of right femur and right knee showed no acute fractures or findings. Patient was diagnosed with a syncopal episode and discharged home. She was told to follow-up with her PCP in the next 3 to 5 days for reevaluation. Return to ED precautions given. Patient understood and agreed with plan. Lab Data I reviewed the patient's lab results. : 11/16/21 17:25 11/16/21 17:25 Radiology Impressions Femur X-Ray 11/16/21 15:19 Impression: Negative right femur and thigh. Knee X-Ray 11/16/21 15:19 Impression: Negative right knee. Kellgren-Paul Classification: grade 0 (none): definite absence of x-ray changes of osteoarthritis Laboratory Results WBC 9.4 10^3/uL (4.0-10.0) 11/16/21 17:25 RBC 5.00 10^6/uL (4.1-5.3) 11/16/21 17:25 Hgb 14.5 g/dL (11.5-15.3) 11/16/21 17:25 Hct 46.5 % (37.0-47.0) 11/16/21 17:25 MCV 93.0 fl (81-99) 11/16/21 17:25 MCH 29.0 pg (28.0-34.0) 11/16/21 17: MCHC 31.2 g/dL (30.0-36.0) 11/16/21 17:25 RDW 14.4 % (12.1-15.1) 11/16/21 17:25 Plt Count 343 10^3/cmm (130-400) 11/16/21 17:25 MPV 9.5 fL (7.4-10.4) 11/16/21 17:25 Neut % (Auto) 63.1 % 11/16/21 17:25 Lymph % (Auto) 25.1 % 11/16/21 17:25 [place] % (Auto) 7.3 % 11/16/21 17:25 Eos % (Auto) 3.2 % 11/16/21 17:25 Baso % (Auto) 1.0 % 11/16/21 17:25 Neut # (Auto) 5.90 10^3/uL (1.8-7.7) 11/16/21 17:25 Lymph # (Auto) 2.4 10^3/uL (0.8-4.8) 11/16/21 17:25 [place] # (Auto) 0.7 10^3/uL (0.2-0.9) 11/16/21 17:25 Eos # (Auto) 0.3 10^3/uL (0.0-0.8) 11/16/21 17:25 Baso # (Auto) 0.1 10^3/uL (0.0-0.1) 11/16/21 17:25 Nucleated RBC % (auto) 0 % 11/16/21 17:25 Nucleated RBCs # 0.0 /100WBC 11/16/21 17:25 Sodium 137 mmol/L (136-145) 11/16/21 17:25 Potassium 4.3 mmol/L (3.5-5.1) 11/16/21 17:25 Chloride 101 mmol/L (98-107) 11/16/21 17:25 Carbon Dioxide 23 mmol/L (22-29) 11/16/21 17:25 Anion Gap 17.3 (5-19) 11/16/21 17:25 BUN 7 mg/dL (8-23) L 11/16/21 17:25 Creatinine 0.6 mg/dL (0.5-0.9) 11/16/21 17:25 GFR Calculation 101.6 mL/min (90-130) 11/16/21 17:25 Glucose 97 mg/dL (65-115) 11/16/21 17:25 Calculated Osmolality 282 mOsm/kg (285-295) L 11/16/21 17:25 Calcium 10.0 mg/dL (8.5-10.5) 11/16/21 17:25 Total Bilirubin 0.4 mg/dL (0.15-1.2) 11/16/21 17:25 AST 23 U/L (0-32) 11/16/21 17:25 ALT 26 U/L (0-33) 11/16/21 17:25 Alkaline Phosphatase 142 IU/L (35-105) H 11/16/21 17:25 Troponin T Gen 5 ng/L 6 ng/L (0-10) 11/16/21 17:25 Total Protein 7.0 g/dL (6.6-8.7) 11/16/21 17:25 Albumin 4.3 g/dL (3.5-5.2) 11/16/21 17:25 Globulin 2.7 g/dL (1.3-4.6) 11/16/21 17:25 Discharge Plan Discharge Patient Disposition: Home Clinical Impression: Episode of syncope Qualifiers: Syncope type: vasovagal syncope Qualified Code(s): R55 - Syncope and collapse Condition: Stable Prescriptions: No Action loratadine 10 mg capsule 10 mg PO DAILY 0RF omeprazole 40 mg capsule,delayed release(DR/EC) 40 mg PO DAILY 0RF nitroglycerin 0.4 mg tablet, sublingual 0.4 mg SUBLINGUAL Q5M PRN (Reason: Chest Pain) 0RF Rx Instructions: as directed upto 3 albuterol sulfate 90 mcg/actuation HFA aerosol inhaler 2 puff inhalation Q6H PRN0RF Spiriva Respimat 1.25 mcg/actuation mist 2 puff inhalation DAILY 0RF propranolol 10 mg tablet 10 mg PO BID Qty: 60 6RF Rx Instructions: Take one tablet every morning and every evening paliperidone [Invega] 6 mg tablet extended release 24hr 6 mg PO QAM Qty: 30 6RF Rx Instructions: Take one tablet every morning paliperidone [Invega] 3 mg tablet extended release 24hr 3 mg PO .evening Qty: 30 6RF Rx Instructions: Take one tablet in evening Remeron 30 mg tablet 30 mg PO .9 pm Qty: 30 6RF Rx Instructions: Take one tablet at 9 pm lamotrigine [Lamictal] 200 mg tablet 200 mg PO BID Qty: 60 6RF Rx Instructions: Take one tablet twice per day benztropine 1 mg tablet 1 mg PO BID Qty: 60 6RF Rx Instructions: Take one tablet twice per day atorvastatin 40 mg tablet 40 mg PO DAILY 90 Days Qty: 90 1RF lorazepam [Ativan] 1 mg tablet 1 mg PO BID PRN (Reason: anxiety) Qty: 60 1RF Rx Instructions: Take one tablet twice per day as needed for severe anxiety acetaminophen [Tylenol Arthritis Pain] 650 mg tablet extended release 650 mg PO PRN 0RF levothyroxine 125 mcg tablet 125 mcg PO DAILY 0RF Discharge Orders: Discharge ED (Routine); Ordered 11/16/21 Ordered By: Yovanny Rico Referrals: Mark Bennett MD [Primary Care Provider] - Discharge Diet: Regular Discharge Activity: Increase activity as tolerated Patient Instructions: Syncope (ED) Activity Restrictions/Additional Instructions: Follow-up with medical provider as directed in 5 to 7 days for reevaluation. Continue taking all home medications as previously prescribed. Return to the ER or your medical provider if condition worsens. Please read and understand discharge instructions. Thank you for choosing [facility] for your healthcare needs today. Please realize this is an emergency room and that we are providing you with a medical screening exam and this may not be complete and all inclusive of all the testing and or work up that you may need to determine your ailment or severity of your illness. It is very important that you follow up as instructed or that you return to the Emergency Department should you have concerns or if your condition changes or worsens in any way. Coding Level of Care Code ED Fire Captain Marine for Dilang Fwd Exam Comprehensive
[2021-11-16 15:40] VITALS: BP 130/79; PULSE 72; RESP 16; O2SAT 95
--- NOTE | 2021-11-16 15:50 | ECG_ITS ---
[facility] Test Date: 2021-11-16 Pat Name: Elaine Montano Department: Room: Gender: Female Accounts Payable Lead: : 1960 Requested By: Roshan Casas Order Number: [id number] Annita MD: Estefania Garcia M.D. Measurements Intervals [place] Rate: 78 P: -11 DC: 145 QRS: -6 QRSD: 94 T: -19 QT: 382 QTc: 436 Interpretive Statements SINUS RHYTHM Compared to ECG 09/19/2021 20:18:22 T-wave abnormality no longer present Possible ischemia no longer present Electronically Signed On 11-16-2021 17:48:11 SLIDE FASTENERS INSPECTOR by Estefania Garcia M.D. [id number]
[2021-11-16 17:43] LABS: Basophils # 0.1 10^3/uL (0.0-0.1); Eosinophils # 0.3 10^3/uL (0.0-0.8); Eosinophils % 3.2 %; Hematocrit 46.5 % (37.0-47.0); Hemoglobin 14.5 g/dL (11.5-15.3); Lymphocytes # 2.4 10^3/uL (0.8-4.8); Lymphocytes % 25.1 %; Mean Corpuscular HGB Conc 31.2 g/dL (30.0-36.0); Mean Platelet Volume 9.5 fL (7.4-10.4); Monocytes # 0.7 10^3/uL (0.2-0.9); Monocytes % 7.3 %; Neutrophils % 63.1 %; Nucleated Red Blood Cells % 0 %; Platelet Count 343 10^3/cmm (130-400); Red Cell Distribution Width 14.4 % (12.1-15.1); White Blood Count 9.4 10^3/uL (4.0-10.0)
[2021-11-16 18:04] LABS: Troponin T (5th) Once 6 ng/L (0-10)
[2021-11-16 18:07] LABS: Alanine Aminotransferase 26 U/L (0-33); Albumin Level 4.3 g/dL (3.5-5.2); Alkaline Phosphatase 142 IU/L (35-105); Anion Gap 17.3 (5-19); Aspartate Amino Transferase 23 U/L (0-32); Blood Urea Nitrogen 7 mg/dL (8-23); Carbon Dioxide 23 mmol/L (22-29); Chloride 101 mmol/L (98-107); Globulin 2.7 g/dL (1.3-4.6); Glomerular Filtration Rate 101.6 mL/min (90-130); Glucose 97 mg/dL (65-115); Osmolality Calculated 282 mOsm/kg (285-295); Potassium 4.3 mmol/L (3.5-5.1); Sodium 137 mmol/L (136-145); Total Bilirubin 0.4 mg/dL (0.15-1.2)
== END 2021-11-16 18:38 | disposition home or self-care (01) ==
PROVIDERS: Nurse Practitioner Family; Emergency Provider Physician Assistant; PCP Family Medicine
DX: R55 Syncope and collapse (principal); E78.5 Hyperlipidemia, unspecified; Z87.891 Personal history of nicotine dependence
CPT/HCPCS: 73552; 73562; 80053; 84484; 85025; 93005; 99283

== ENCOUNTER 2021-12-05 06:35 | Outpatient (CLI) | payer MEDICAID, SELFPAY ==
[2021-12-05 06:55] VITALS: BMI 42.0
--- NOTE | 2021-12-05 06:56 | NMCV_ITS ---
NM garcía perf SPECT r/s* [id number] Elaine Montano Age: 60 Gender: F : 1960 Exam Date: 12/05/2021 07:55 Ordering Phys: Ronny Hebert M.D ([email or web address]) Technologist: AC Noland Exam Location: [facility] Indications: SYNCOPE STRESS TEST [facility] IMAGE PROTOCOL Rest/Stress 1 Lexiscan Day Radiopharmaceutical Dose (mCi) Administration Site Administered by Rest: Tc-99m 10.8 IV AC Cardenas Sestamibi Stress:Tc-99m 32.5 IV AC Cardenas Sestamibi Rest: 05-Dec-2021 60 Discovery 630 Stress: 05-Dec-2021 30 Discovery 630 0.4mg Lexiscan. Images obtained in supine and prone position. SPECT RESULTS Technical Quality: Excellent Raw Data Analysis: Normal Image Corrections: No attenuation or motion correction applied Summed Stress Score: 5 Summed Rest Score: 3 Summed Difference Score: 4 PERFUSION FINDINGS There is a moderate sized, partially reversible perfusion defect seen in the apical, apical inferior and apical lateral mcclendon. This is consistent with small sized prior infarct with significant tamar-infarct ischemia in these territories FUNCTIONAL RESULTS (calculated via Gated SPECT) Stress Image LV EF (%): 72 Stress EDV (mL):95 TID: 1.14 Stress ESV (mL):27 FUNCTIONAL FINDINGS: There is normal left ventricular systolic function. IMPRESSIONS 1. Abnormal myocardial perfusion imaging with small sized infarct with significant tamar-infarct ischemia seen in the apical, apical lateral and apical inferior mcclendon. 2. LV systolic function is normal Ronny Hebert MD (Electronically Signed) Final Date: 07 December 2021 12:03 S
--- NOTE | 2021-12-05 06:56 | ECG_ITS ---
[facility] Test Date: 2021-12-05 Pat Name: Elaine Montano Department: Room: Gender: Female Pants Cutter: Gertrudemiguel Ricon : 1960 Requested By: Ronny Hebert Order Number: [id number] Annita MD: Ronny Hebert M.D. Interpretive Statements NAME OF STUDY: LEXISCAN SESTAMIBI STRESS TEST INDICATION: [chronic dyspnea, ] Procedure: At the baseline, the blood pressure was 120/74mmHg with a heart rate of 66 bpm. The electrocardiogram showed normal sinus rhythm, normal axis with normal ST and T's. The Lexiscan was infused over a period of 20 seconds. A total of 0.4 mg of Lexiscan was infused. The stress phase was continued for a total of 5 minutes. Heart rate was at the end of stress phase was 81 bpm and a blood pressure of 120/74 mmHg. The EKG at the peak infusion revealed since normal sinus rhythm with no significant ST-T wave changes. PVCs were noted Sestamibi was injected 20 seconds after the Lexiscan infusion. Blood pressure at the end of recovery phase was 117/81 mmHg with a heart rate of 75 bpm. Conclusion: 1. Normal EKG response to Lexiscan infusion 2. No Lexiscan induced chest pain or cardiac arrhythmia. 3. Normal blood pressure and heart rate response. 4. Sestamibi/sestamibi perfusion scan pending; see separate report. Electronically Signed On 12-23-2021 13:09:48 CDT by Ronny Hebert M.D. [id number]
[2021-12-05] MEDS: regadenoson 0.4 Mg/5 ml Syringe IVP (08:28)
[2021-12-05 08:49] VITALS: BP 117/81; PULSE 73
== END 2021-12-05 06:36 | disposition home or self-care (01) ==
LOC: CDL 06:35
PROVIDERS: PCP Family Medicine; Visit Provider Internal Medicine
DX: R06.09 Other forms of dyspnea (principal); R06.02 Shortness of breath
CPT/HCPCS: 78452; A9500; J2785

== ENCOUNTER → 2021-12-18 07:26 | Outpatient (BNVA) | payer MEDICAID, SELFPAY | PROVIDERS: PCP Family Medicine; Visit Provider Nurse Practitioner Psychiatric/Mental Health | DX: F25.0 Schizoaffective disorder, bipolar type (principal); F40.01 Agoraphobia with panic disorder; Z63.4 Disappearance and death of family member; F43.12 Post-traumatic stress disorder, chronic; G25.71 Drug induced akathisia | CPT/HCPCS: 99214 ==

== ENCOUNTER → 2021-12-21 11:32 | Outpatient (BNVA) | payer MEDICAID, SELFPAY | PROVIDERS: PCP Family Medicine; Visit Provider Specialist | DX: G43.711 Chronic migraine without aura, intractable, with status migrainosus (principal); Z87.891 Personal history of nicotine dependence | CPT/HCPCS: 64615; 99213; J0585 ==

== ENCOUNTER → 2021-12-27 13:20 | Outpatient (BNVA) | payer MEDICAID, SELFPAY | PROVIDERS: PCP Family Medicine; Visit Provider Internal Medicine | DX: R55 Syncope and collapse (principal); E78.5 Hyperlipidemia, unspecified; R07.9 Chest pain, unspecified; R94.39 Abnormal result of other cardiovascular function study; Z87.891 Personal history of nicotine dependence; I25.2 Old myocardial infarction | CPT/HCPCS: 99214; 99215 ==

== ENCOUNTER 2022-01-16 07:26 | Outpatient (CLI) | payer MEDICAID, SELFPAY ==
[2022-01-11 15:43] LABS: Basophils # 0.1 10^3/uL (0.0-0.1); Eosinophils # 0.5 10^3/uL (0.0-0.8); Eosinophils % 4.6 %; Hematocrit 42.7 % (37.0-47.0); Hemoglobin 13.4 g/dL (11.5-15.3); Lymphocytes # 2.3 10^3/uL (0.8-4.8); Lymphocytes % 22.5 %; Mean Corpuscular HGB Conc 31.4 g/dL (30.0-36.0); Mean Corpuscular Hemoglobin 28.7 pg (28.0-34.0); Mean Corpuscular Volume 91.4 fl (81-99); Mean Platelet Volume 9.4 fL (7.4-10.4); Monocytes # 0.7 10^3/uL (0.2-0.9); Monocytes % 7.4 %; Neutrophils # 6.41 10^3/uL (1.8-7.7); Nucleated Red Blood Cells % 0 %; Platelet Count 337 10^3/cmm (130-400); Red Blood Count 4.67 10^6/uL (4.1-5.3); Red Cell Distribution Width 14.1 % (12.1-15.1)
[2022-01-11 16:08] LABS: Blood Urea Nitrogen 8 mg/dL (8-23); Calcium 9.7 mg/dL (8.5-10.5); Carbon Dioxide 29 mmol/L (22-29); Chloride 103 mmol/L (98-107); Glomerular Filtration Rate 101.3 mL/min (90-130); Glucose 117 mg/dL (65-115); Osmolality Calculated 293 mOsm/kg (285-295); Sodium 142 mmol/L (136-145)
[2022-01-11 17:48] LABS: Prothrombin Time (Patient) 13.9 Seconds (12.0-15.1)
[2022-01-11 17:49] LABS: INR 1.04 (0.83-1.21)
[2022-01-16] VITALS (27 sets, daily range): BP systolic 112–164; BP diastolic 72–99; PULSE 84–100; RESP 16–26; TEMP 36.8; O2SAT 88–94; BMI 40.8
--- NOTE | 2022-01-16 07:30 | XACV_ITS ---
Exam Room: 2 Ht: 157 cm Wt: 101 kg BSA: 2.16 m2 Gender: Female : 1960 Any Known Allergies: Other Exam Priority: Routine Procedure(s): Procedure Description: Diagnostic procedure Procedure Description: Left Heart Catheterization Procedure Description: Coronary Angiography Diagnostic Cath Status: Elective Diagnostic Findings * INDICATION: Chest pain/ abnormal stress test. * No significant disease noted in the Left Main, Left Anterior Descending, Right, or Circumflex coronary arteries. * Coronary angiography shows right dominance. Conclusions 1. No significant disease noted in the Left Main, Left Anterior Descending, Right, or Circumflex coronary arteries. Recommendations * Aggressive risk factor modification. * Outpatient cardiology follow up in 4 weeks. Interventional RX Recommendation: medical therapy and/or counseling Diagnostic RX Recommendation: medical therapy and/or counseling Pressures Phase:Rest AO : 138 / 74 ( 107 ) @ 10:37:00 AM 139 / 78 ( 108 ) @ 10:37:00 AM LV : 145 / -12 / 13 @ 10:36:00 AM 145 / -12 / 12 @ 10:36:00 AM 144 / -11 / 14 @ 10:37:00 AM Valves Phase:DefaultPhase AV : 6.0 @ 9:48:09 AM AV Mean Gradient: 14.0 @ 9:48:09 AM Clinical Evaluation EBL: 5mL-10mL Procedural Details Procedure Consent Obtained. Pre-Procedure Time Out. Identified patient by full name and date of as verbalized by the patient/guarantor. Does the consent match the physician's order: Yes. Accurate & Complete Informed Consent: Yes. Inpatient/Outpatient History & Physical on Chart: Yes. If H&P is completed, is and addenduem needed: No; If yes, is the addendum complete: No. Visualize and Verify Site with Patient/Guarantor: N/A. Relevant Radiology Images available: No. The risks, benefits, and alternatives of sedation and/or procedure were discussed by physician. The patient agrees to continue. Procedure started. 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 Chest Pain Symptom Assessment: Typical Angina Symptoms. Correct patient, site and procedure confirmed by cath team. Current diagnosis: Chest Pain. PERRLA. Strong, equal hand braille and talking books clerk bilaterally. Lungs clear x 5 lobes. IV Site on Arrival: 20 gauge in the left anticubital. IV Fluids: 0.9% NaCl at KVO. 0 mL infused prior to director of cardiac cath lab. Pre Procedural Pulses: bilateral radial was 2+. Pre Procedural Pulses: bilateral posterior tibial was 2+. Pre Procedural Pulses: bilateral dorsalis pedis was 3+. Oxygen started at 2liters/min via nasal canula. Physician notified. Physician arrived. right radial was prepped with chloroprep then draped in the usual sterile fashion. right groin was prepped with chloroprep then draped in the usual sterile fashion. Baseline sample Acquired. HR: 88 BPM. Equipment: 6F - Radial. Heparinized Saline (2 units/mL), 1000 mL bag. ACIST Manifold Kit Model BT 2000. Physician scrubbed in. Immediate Pre-Procedure Time Out. Correct Patient: Yes; Correct Procedure: Yes; Correct Site: Yes; Correct Patient Position: Yes; Correct Supplies: Yes; Dried Flammable Prep: Yes; Blood Products Available: No;. Lidocaine 1% infiltrated to the right radial. Arterial access obtained. A 5 hong konger TIG catheter in over wire. Multiple views taken of right coronary artery. Catheter removed over the glidewire. A 5 hong konger JL3.5 catheter in over glidewire. Catheter removed over the glide wire. A 5 hong konger JL4 catheter in over wire. Unable to engage , catheter removed over the glide wire. 6 hong konger XB 3 guide catheter was inserted over the wire. Guide catheter out over glidewire. Unable to engage catheter for angiography of left coronaries. Lidocaine 1% infiltrated to the right groin. Equipment: 6F - Femoral. Arterial access obtained with micropuncture set. A 5 hong konger JL4 catheter in over standard wire. Multiple views taken of left coronary artery. Catheter removed over the standard wire. Wire out. A 5 hong konger Angled Pig catheter in over wire. EDP Sample taken: LV 145/-13,13; HR: 88 BPM; SpO2: Off%. Pullback taken: LV 144/-12,14; AO 138/74(107); Mean: 14mmHg, Peak to Peak: 6mmHg, SEP: 23sec/min; HR: 88 BPM; SpO2: 90%. Catheter removed over the standard wire. A Right femoral angiogram was performed to determine safe placement of closure device. A Angio-Seal VIP ([place]) was successful obtaining hemostatsis at the Right Femoral artery insertion site, EXP 09-15-22. Lot # [id number]. PERRLA. Strong, equal hand braille and talking books clerk bilaterally. No VTE prophylaxis required. Post Procedure: Pulses reassessed and unchanged. Medication's Wasted: Nitro = 49.8 mg. Medication's Wasted: Lidocaine 1% = 2 mL. Medication's Wasted: Heparin = 1000 unit. Post-op diagnosis: Non-obstructive CAD. Complications: None. Estimated blood loss: 5mL-10mL. Responsiveness - Normal response to verbal stimuli; alert and oriented, PERRLA. Airway - Unaffected, no intervention required; spontaneous ventilation. Circulation: W/N/L, pulses unchanged. Nausea/Vomiting: No. A TR Band was successful obtaining hemostatsis at the Right Radial artery insertion site. Procedure completed. Patient transferred by bed to ICU. Access Site Site: Right Radial artery Sheath Size: 6 Fr Hemostasis Method: TR Band Hemostasis Success: Successful Site: Right Femoral artery Sheath Size: 6 Fr Hemostasis Method: Angio-Seal VIP ([place]) Hemostasis Success: Successful Procedure Medications Start: 8:53 AM Stop: 8:53 AM Medication: Versed Amount: 1 mg Route: I.V. Start: 8:53 AM Stop: 8:53 AM Medication: Fentanyl Amount: 50 mcg Route: I.V. Start: 9:01 AM Stop: 9:01 AM Medication: Nitrogylcerin Amount: 200 mcg Route: I.A. Start: 9:03 AM Stop: 9:03 AM Medication: Heparin Amount: 5000 units Route: I.V. Start: 9:09 AM Stop: 9:09 AM Medication: Versed Amount: 1 mg Route: I.V. Start: 9:16 AM Stop: 9:16 AM Medication: Fentanyl Amount: 25 mcg Route: I.V. Start: 9:19 AM Stop: 9:19 AM Medication: Versed Amount: 1 mg Route: I.V. Start: 9:39 AM Stop: 9:39 AM Medication: Fentanyl Amount: 25 mcg Route: I.V. I, the attending physician, have reviewed and verified all procedure medications. Yes, all medications given per verbal order History/Risk Factors Hypertension: Yes Dyslipidemia: No Peripheral Arterial Disease (PAD): No Myocardial Infarction (NE): No Obesity: No Renal Disease: No Prior Interventions PCI: No CABG: No Valve Surgery: No Report Signatures Finalized by Ronny Hebert MD on 01/27/2022 10:51 PM
[2022-01-16] MEDS: diphenhydrAMINE 50 mg Capsule PO (08:02)
--- NOTE | 2022-01-16 08:43 | W.PM.OPSUD ---
Surgery/Procedure H&P Update DATE OF PROCEDURE: January 16, 2022 DATE H&P PERFORMED: 12/27/21 H&P UPDATE INFORMATION: I have reviewed H&P completed within last 30 days, I have examined patient prior to procedure and No changes to prior documentation PREOP DIAGNOSIS: Chest pain/ abnormal stress test PRIMARY INDICATION FOR PROCEDURE: Chest pain/ abnormal stress test PLANNED PROCEDURE: Operation Date: 01/16/22 08:30 Proposed Procedures p Cardiac Catheterization(Left) - Ronny Hebert M.D Possible percutaneous coronary intervention PATIENT REASSESSED PRIOR TO SEDATION, WITH NO CHANGE NOTED: Yes PHYSICAL EXAM: alert, oriented x 3, clear to auscultation bilaterally and regular rate & rhythm AIRWAY EVAL/ANESTHESIA PLAN: ASA III, Monitored Anesthesia, Local Anesthesia, Risks, benefits & alternatives of sedation and/or procedure discussed and Patient agrees to continue as planned
[2022-01-16] MEDS: sodium chloride 0.9% 1,000 ML 50 ML IV (09:55)
--- NOTE | 2022-01-16 14:35 | PC.NURSE ---
1421 TR band removed. Site cleaned and covered with gauze and clear dressing. No bleeding noted. Pt instructions given to monitor and to not use limb to help self up. Groin site, c/d/i. No issues noted. Pt ambulated approx 100ft throughout unit. Tolerated well. Will monitor.
--- NOTE | 2022-01-16 16:14 | PC.NURSE ---
Groin site visualized, no hematoma noted. Pt taken to ER entrance to waiting vehicle. No issues noted.
== END 2022-01-16 16:12 | disposition home or self-care (01) ==
LOC: CCL 07:28 → ICU 09:55
PROVIDERS: PCP Family Medicine; Visit Provider Internal Medicine
DX: R07.89 Other chest pain (principal); R94.39 Abnormal result of other cardiovascular function study; I10 Essential (primary) hypertension; E78.5 Hyperlipidemia, unspecified; R73.03 Prediabetes; R55 Syncope and collapse; R60.0 Localized edema; K21.9 Gastro-esophageal reflux disease without esophagitis; E03.9 Hypothyroidism, unspecified; Z82.49 Family history of ischemic heart disease and other diseases of the circulatory system; Z83.3 Family history of diabetes mellitus; Z87.891 Personal history of nicotine dependence
CPT/HCPCS: 36415; 80048; 85025; 85610; 93452; 93458; 96360; 99152; 99153; C1760; C1769; C1887; C1894; J1644; J2250; J3010; J3490; J7030; Q0163; Q9967

== ENCOUNTER → 2022-01-30 10:22 | Outpatient (BNVA) | payer MEDICAID, SELFPAY | PROVIDERS: PCP Family Medicine; Visit Provider Nurse Practitioner Family | DX: Z09 Encounter for follow-up examination after completed treatment for conditions other than malignant neoplasm (principal); R55 Syncope and collapse; Z87.891 Personal history of nicotine dependence | CPT/HCPCS: 80048; 99213; 99214 ==

== ENCOUNTER → 2022-03-09 09:28 | Outpatient (BNVA) | payer MEDICAID, SELFPAY | PROVIDERS: PCP Family Medicine; Visit Provider Internal Medicine | DX: R00.2 Palpitations (principal); E78.5 Hyperlipidemia, unspecified; Z87.891 Personal history of nicotine dependence | CPT/HCPCS: 99213; 99214 ==

== ENCOUNTER → 2022-03-15 11:59 | Outpatient (BNVA) | payer MEDICAID, SELFPAY | PROVIDERS: PCP Family Medicine; Visit Provider Specialist | DX: G43.711 Chronic migraine without aura, intractable, with status migrainosus (principal) | CPT/HCPCS: 64615; J0585 ==

== ENCOUNTER 2022-03-22 19:56 | Emergency (ER) | payer MEDICAID, SELFPAY ==
[2022-03-22 20:00] VITALS: BP 125/68; PULSE 89; RESP 18; TEMP 36.9; O2SAT 95
--- NOTE | 2022-03-22 23:03 | XRR_ITS ---
PROCEDURE INFORMATION: Exam: XR Left Shoulder Exam date and time: 03/22/2022 11:50 PM Age: 61 years old Clinical indication: Injury or trauma; Fall; Blunt trauma (contusions or hematomas); Shoulder; Patient HX: Patient tripped at home and fell onto left arm. C/O choulder, elbow, and wrist pain with reduced rom. TECHNIQUE: Imaging protocol: Radiologic exam of the Left shoulder. Views: 2 or more views. COMPARISON: CR XR shoulder LT min 2V* [id number] 06/15/2021 11:03 PM FINDINGS: Bones/joints: There is stable widening the left acromioclavicular joint. Soft tissues: Normal. XR/XR shoulder LT min 2V* [id number] IMPRESSION: There are no acute osseous findings.
--- NOTE | 2022-03-22 23:03 | XRR_ITS ---
PROCEDURE INFORMATION: Exam: XR Left Wrist Exam date and time: 03/22/2022 11:50 PM Age: 61 years old Clinical indication: Injury or trauma; Fall; Blunt trauma (contusions or hematomas); Patient HX: Patient tripped at home and fell onto left arm. C/O choulder, elbow, and wrist pain with reduced rom. TECHNIQUE: Imaging protocol: Radiologic exam of the Left wrist. Views: 3 or more views. COMPARISON: No relevant prior studies available. FINDINGS: Bones/joints: There is sclerosis and some scalloping the distal left radial articular surface compatible with osteoarthritic changes. There is an ulna positive deformity present. Soft tissues: Normal. XR/XR wrist LT min 3V* [id number] IMPRESSION: There are no acute osseous findings.
--- NOTE | 2022-03-22 23:03 | XRR_ITS ---
PROCEDURE INFORMATION: Exam: XR Left Elbow Exam date and time: 03/22/2022 11:50 PM Age: 61 years old Clinical indication: Injury or trauma; Fall; Blunt trauma (contusions or hematomas); Patient HX: Patient tripped at home and fell onto left arm. C/O choulder, elbow, and wrist pain with reduced rom. TECHNIQUE: Imaging protocol: Radiologic exam of the Left elbow. Views: 3 or more views. COMPARISON: CR XR shoulder LT min 2V* [id number] 06/15/2021 11:03 PM FINDINGS: Bones/joints: Normal. Soft tissues: Normal. XR/XR elbow LT min 3V* [id number] IMPRESSION: No acute findings.
--- NOTE | 2022-03-22 23:22 | ED_ITS ---
HPI - Extremity Problem General: Chief complaint: Extremity Injury, Upper Stated complaint: Fall/left arm injury Time Seen by Provider: 03/22/22 23:22 History of Present Illness: 61-year-old female comes in today for complaints of pain to the left upper extremity after tripping over some shoes last night and landing on her side. Patient was able to get up on the floor last night but throughout the day she has had worsening pain and discomfort. Patient does have some bruising to the arm. Patient appears nontoxic. Patient does appear in moderate pain. Associated symptoms: Deny chest pain Review of Systems General: Reports: 10 or more systems reviewed and unremarkable except in HPI and below Card: Denies: chest pain Resp: Denies: dyspnea Musc: Reports: extremity pain Neuro: Denies: headache(s) PFSH ED PFSH: Medical History Bereavement Borderline personality disorder Chronic migraine without aura, intractable, with status migrainosus Chronic migraine without aura, intractable, with status migrainosus -pain control as needed -continue to follow up with Dr. Bennett for Botox injections Chronic post-traumatic stress disorder GERD (gastroesophageal reflux disease) Hyperlipidemia Hypothyroid Panic disorder with agoraphobia Psychiatric care PTSD (post-traumatic stress disorder) -continue to f/u at [facility] Schizoaffective disorder, bipolar type Tarsal tunnel syndrome, left lower limb Surgical History H/O arthroscopic knee surgery History of appendectomy History of arthroscopy of left shoulder History of bilateral tubal ligation Family History Father Bleeding disorder CAD (coronary artery disease) Other Diabetes Hypertension Denies family history of Anesthesia complication Social History Smoking and tobacco status: former smoker Second hand smoke exposure: No (quit smoking 7 years ago) Alcohol intake: never Lives independently: Yes Household members: none Current occupational status: disabled History of recent travel: No Physical Exam Const: COMMON NORMALS: alert HENMT: COMMON NORMALS: normocephalic HEAD & SCALP: normocephalic Neck/C-Spine: COMMON NORMALS: full ROM CERVICAL SPINE: No Cervical spine tenderness Resp: COMMON NORMALS: normal respiratory effort and clear to auscultation bilaterally AUSCULTATION: clear to auscultation bilaterally Cardio: COMMON NORMALS: regular rate and regular rhythm RATE: regular rate RHYTHM: regular rhythm Back/Pelvis: THORACIC SPINE/UPPER BACK: No thoracic spinal tenderness LUMBAR SPINE/LOWER BACK: No lumbar spinal tenderness Extremity: LEFT UPPER EXTREMITY: Yes shoulder joint (Anterior tenderness decreased range of motion) Left shoulder joint: Yes inspection, Yes palpation and Yes ROM, Yes elbow joint (Decreased range of motion and tenderness) Left elbow: Yes inspection, Yes palpation, Yes ROM and Yes neurovascular exam and Yes wrist (Mild swelling, decreased range of motion, tenderness) Left wrist: Yes inspection, Yes palpation and Yes ROM Neuro: SENSORIUM/ORIENTATION: Yes alert Course Vital Signs: Vital signs: Vital Signs Temperature 98.5 F 03/22/22 20:00 Pulse Rate 89 03/22/22 20:00 Respiratory Rate 18 03/22/22 20:00 Blood Pressure 125/68 03/22/22 20:00 Pulse Oximetry 95 03/22/22 20:00 MDM - Extremity (Nontraumatic) Medical Decision Making 61-year-old female comes in today for complaints of pain to the left upper extremity. On exam patient has tenderness to the wrist elbow and shoulder on the left side. Patient has decreased range of motion, distal pulses and sensation are intact. Differential diagnosis includes fracture, sprain, contusion, dislocation. X-rays of the shoulder, wrist, elbow indicated no fractures or dislocation. Radiology will review those. Patient was given a dose of hydrocodone for her pain. Patient was recommended to use extremity gently over the next few days and increase activity as tolerated. Recommended follow-up with primary care next week. Return to ER for new concerns or worsening symptoms. Discharge Plan Discharge Patient Disposition: Home Clinical Impression: Fall Qualifiers: Encounter type: initial encounter Qualified Code(s): W19.XXXA - Unspecified fall, initial encounter Injury of left upper extremity Qualifiers: Encounter type: initial encounter Qualified Code(s): S49.92XA - Unspecified injury of left shoulder and upper arm, initial encounter Condition: Stable Prescriptions: New hydrocodone-acetaminophen 5-325 mg tablet 1 tab PO Q8H PRN (Reason: pain (scale score 7-10)) Qty: 7 0RF No Action Spiriva Respimat 1.25 mcg/actuation mist 2 puff inhalation DAILY 0RF clobetasol 0.05 % cream 1 applic topical BID Qty: 45 2RF Rx Instructions: Apply twice daily to affected area saturday through saturday until follow up clobetasol 0.05 % solution 1 applic topical DAILY Qty: 50 3RF Rx Instructions: Apply a few drops to itchy areas on scalp as needed propranolol 10 mg tablet 10 mg PO BID Qty: 60 6RF Rx Instructions: Take one tablet every morning and every evening paliperidone [Invega] 3 mg tablet extended release 24hr 3 mg PO .evening Qty: 30 6RF Rx Instructions: Take one tablet in evening paliperidone [Invega] 6 mg tablet extended release 24hr 6 mg PO QAM Qty: 30 6RF Rx Instructions: Take one tablet every morning Remeron 30 mg tablet 30 mg PO .9 pm Qty: 30 6RF Rx Instructions: Take one tablet at 9 pm lamotrigine [Lamictal] 200 mg tablet 200 mg PO BID Qty: 60 6RF Rx Instructions: Take one tablet twice per day benztropine 1 mg tablet 1 mg PO BID Qty: 60 6RF Rx Instructions: Take one tablet twice per day loratadine 10 mg capsule 10 mg PO DAILY 0RF omeprazole 40 mg capsule,delayed release(DR/EC) 40 mg PO DAILY 0RF nitroglycerin 0.4 mg tablet, sublingual 0.4 mg SUBLINGUAL Q5M PRN (Reason: Chest Pain) 0RF Rx Instructions: as directed upto 3 albuterol sulfate 90 mcg/actuation HFA aerosol inhaler 2 puff inhalation Q6H PRN (Reason: Shortness Of Breath) 0RF Botox 100 unit recon soln intradermal . q 3 month 0RF aspirin 81 mg tablet,delayed release (DR/EC) 81 mg PO DAILY Qty: 90 3RF atorvastatin 40 mg tablet 40 mg PO DAILY 90 Days Qty: 90 1RF lorazepam [Ativan] 1 mg tablet 1 mg PO BID PRN (Reason: anxiety) Qty: 60 1RF Rx Instructions: Take one tablet twice per day as needed for severe anxiety acetaminophen [Tylenol Arthritis Pain] 650 mg tablet extended release 650 mg PO PRN 0RF levothyroxine 125 mcg tablet 125 mcg PO DAILY 0RF Discharge Orders: Discharge ED (Routine); Ordered 03/23/22 Ordered By: Arian Knowles Referrals: Mark Bennett MD [Primary Care Provider] - Discharge Diet: Usual diet Discharge Activity: Increase activity as tolerated Patient Instructions: Musculoskeletal Pain (ED), Opioid Safety Activity Restrictions/Additional Instructions: Increase activity as tolerated. Gentle stretching and range of motion exercises. Drink plenty of water with medication. Use acetaminophen and ibuprofen to control pain. Use hydrocodone for severe pain. Follow-up with primary care in 3 to 5 days for recheck. Return to ER for new concerns. Stand Alone Forms: Work/School Release Coding Level of Care Code ED Generator Operator Straight Bevel Gear for Samaria Canas
[2022-03-22] MEDS: HYDROcodone-acetaminophen 5-325 mg Tablet 1 TAB PO (23:45)
[2022-03-23 01:02] VITALS: BP 125/68; PULSE 89; RESP 18; TEMP 36.9; O2SAT 95
== END 2022-03-23 01:03 | disposition home or self-care (01) ==
PROVIDERS: Emergency Provider Nurse Practitioner Family; PCP Family Medicine
DX: S49.92XA Unspecified injury of left shoulder and upper arm, initial encounter (principal); W01.0XXA Fall on same level from slipping, tripping and stumbling without subsequent striking against object, initial encounter
CPT/HCPCS: 73030; 73080; 73110; 99283

== ENCOUNTER 2022-04-17 15:14 | Outpatient (CLI) | payer MEDICAID, SELFPAY ==
--- NOTE | 2022-04-17 15:40 | XRR_ITS ---
PROCEDURE INFORMATION: Exam: XR Left Shoulder Exam date and time: 04/17/2022 3:40 PM Age: 61 years old Clinical indication: Pain and injury or trauma; Fall; Blunt trauma (contusions or hematomas); Left; Injury date: Couple of weeks ago; Prior surgery; Surgery type: Lt shoulder scope; Additional info: Left shoulder pain TECHNIQUE: Imaging protocol: Radiologic exam of the Left shoulder. Views: 2 or more views. COMPARISON: CR (CHEST, ) 03/22/2022 11:50 PM, left shoulder radiographs 02/27/2018 FINDINGS: Bones/joints: Osseous structures are intact. Negative for fracture or dislocation. Redemonstrated sequela of distal left clavicular resection with widening of the acromioclavicular joint space. Soft tissues: Normal. XR/XR shoulder LT min 2V* [id number] IMPRESSION: No acute findings.
== END 2022-04-17 15:15 | disposition home or self-care (01) ==
PROVIDERS: PCP Family Medicine; Visit Provider Family Medicine
DX: M25.512 Pain in left shoulder (principal)
CPT/HCPCS: 73030

== ENCOUNTER → 2022-05-04 06:47 | Outpatient (BNVA) | payer MEDICAID, SELFPAY | PROVIDERS: PCP Family Medicine; Visit Provider Student in an Organized Health Care Education/Training Program | DX: M75.82 Other shoulder lesions, left shoulder (principal); M75.42 Impingement syndrome of left shoulder | CPT/HCPCS: 20610; 99203; J1040 ==

== ENCOUNTER → 2022-06-07 12:08 | Outpatient (BNVA) | payer MEDICAID, SELFPAY | PROVIDERS: PCP Family Medicine; Visit Provider Specialist | DX: G43.711 Chronic migraine without aura, intractable, with status migrainosus (principal) | CPT/HCPCS: 64615; J0585 ==

== ENCOUNTER → 2022-06-22 06:53 | Outpatient (BNVA) | payer MEDICAID, SELFPAY | PROVIDERS: PCP Family Medicine; Visit Provider Student in an Organized Health Care Education/Training Program | DX: M75.102 Unspecified rotator cuff tear or rupture of left shoulder, not specified as traumatic (principal) | CPT/HCPCS: 99213 ==

== ENCOUNTER → 2022-07-16 10:39 | Outpatient (BNVA) | payer MEDICAID, SELFPAY | PROVIDERS: PCP Family Medicine; Visit Provider Nurse Practitioner Psychiatric/Mental Health | DX: Z79.899 Other long term (current) drug therapy (principal); F25.0 Schizoaffective disorder, bipolar type; F40.01 Agoraphobia with panic disorder; Z63.4 Disappearance and death of family member; F43.12 Post-traumatic stress disorder, chronic | CPT/HCPCS: 80053; 80061; 83036 ==

== ENCOUNTER 2022-07-30 10:25 | Outpatient (CLI) | payer MEDICAID, SELFPAY ==
--- NOTE | 2022-07-30 10:46 | CT_ITS ---
WS: [id number] LDCT LUNG CANCER SCREENING TECHNIQUE: Noncontrast CT of the chest with coronal and sagittal reformatted images. CLINICAL INFORMATION: HX OF TOBACCO USE COMPARISON: None. DLP: 75.77 mGy.cm DIvol: Mean CTDIvol: 1.60 (mGy) All CT scans at [facility] use at least one of these dose optimization techniques: automat ed exposure control; mA and/or kV adjustment per patient size (includes targeted exams where dose is matched to clinical indication); or iterative reconstruction. FINDINGS: Both lungs are well aerated. Slight bibasilar atelectasis. No suspicious pulmonary parenchy mal opacities. Normal caliber thoracic aorta. No mediastinal or hilar lymphadenopathy. No axillary lymphadenopathy. Cholecystectomy clips. Small esophageal hiatal hernia with herniation of omental fat. Fatty atrophy o f the pancreas. Adrenal glands are normal. CT/CT lung screening [id number] IMPRESSION: LUNG-RADS: 1-Negative FOLLOW UP: 12 Month: Continue annual screening with LDCT
== END 2022-07-30 10:26 | disposition home or self-care (01) ==
PROVIDERS: PCP Family Medicine; Visit Provider Family Medicine
DX: Z12.2 Encounter for screening for malignant neoplasm of respiratory organs (principal); Z87.891 Personal history of nicotine dependence
CPT/HCPCS: 71271; 80053; 80061; 83036

== ENCOUNTER 2022-08-07 11:15 | Emergency (ER) | payer MEDICAID, SELFPAY ==
[2022-08-07 11:16] VITALS: BP 153/85; PULSE 78; RESP 22; TEMP 36.8; O2SAT 92; BMI 40.6
[2022-08-07 11:20] VITALS: BP 137/70; PULSE 72; O2SAT 97
--- NOTE | 2022-08-07 11:27 | ECG_ITS ---
[facility] Test Date: 2022-08-07 Pat Name: Elaine Montano Department: Room: Gender: Female Nurse First Aid: : 1960 Requested By: Cesar Ansari Order Number: [id number] Annita MD: Estefania Garcia M.D. Measurements Intervals [place] Rate: 72 P: 50 PA: 173 QRS: 35 QRSD: 86 T: 5 QT: 376 QTc: 412 Interpretive Statements SINUS RHYTHM NONSPECIFIC ST & T-WAVE ABNORMALITY Compared to ECG 11/16/2021 16:23:27 T-wave abnormality now present Electronically Signed On 08-07-2022 20:36:02 MAINTENANCE SHOP CLERK by Estefania Garcia M.D. [email or web address]
--- NOTE | 2022-08-07 11:50 | W.ED.CHESTPA ---
HPI - Chest Pain General: Chief Complaint: Chest Pain Stated Complaint: Chest Pain Time Seen by Provider: 08/07/22 11:25 History of Present Illness: 61-year-old female reports that she has a history of dizzy spells. She says they are worse when she moves her head around or changes position such as standing or walking. Today she was going to an appointment and got out of the car and developed dizziness. She made her way into the building with some difficulty. She reports that she continued to have dizziness and this gave her a panic attack . She then developed some chest pressure. EMS was called and brought the patient here. The patient prefers to lay still with her eyes closed. She says these dizzy spells happen intermittently but she does not have anything to treat them. She still feels a little bit anxious but thinks that part of it is getting better. She denies any focal numbness or weakness but says her legs feel like they are rubbery. She reports no visual deficit with acuity but says it seems hard to focus her eyes because it makes her more dizzy. She had not had anything to eat or drink yet this morning. Vitals for EMS were blood pressure 125/71, heart rate 70, respiratory rate 20, SPO2 95%. Glucose was not tested to my knowledge. Patient denies any medication changes. Associated symptoms: Deny abdominal pain, dyspnea, fever(s), syncope or vomiting Review of Systems General: Reports: 10 or more systems reviewed and unremarkable except in HPI and below Const: Denies: fever(s) or chills Card: Denies: syncope Resp: Denies: dyspnea, productive cough or non-productive cough GI: Denies: abdominal pain, vomiting or diarrhea : Denies: flank pain or dysuria Skin/Breast: Denies: rash or sores Neuro: Denies: headache(s) PFS ED PFSH: Medical History (Updated 08/07/22 @ 13:32 by Cesar Ansari MD) Borderline personality disorder Chronic migraine without aura, intractable, with status migrainosus Chronic migraine without aura, intractable, with status migrainosus -pain control as needed -continue to follow up with Dr. Bennett for Botox injections Chronic post-traumatic stress disorder GERD (gastroesophageal reflux disease) Hyperlipidemia Hypothyroid Panic disorder with agoraphobia Psychiatric care PTSD (post-traumatic stress disorder) -continue to f/u at [facility] Schizoaffective disorder, bipolar type Subacromial impingement of left shoulder Tarsal tunnel syndrome, left lower limb Tendinitis of left rotator cuff Surgical History H/O arthroscopic knee surgery History of appendectomy History of arthroscopy of left shoulder History of bilateral tubal ligation Family History Father Bleeding disorder CAD (coronary artery disease) Other Diabetes Hypertension Denies family history of Anesthesia complication Social History Smoking and tobacco status: never smoked Second hand smoke exposure: No (quit smoking 7 years ago) Alcohol intake: never Lives independently: Yes Household members: none Current occupational status: disabled History of recent travel: No Physical Exam Const: COMMON NORMALS: no limitations, alert and well nourished EXAM LIMITATIONS: no altered mental status GENERAL APPEARANCE: cooperative, well kempt and well developed ORIENTATION/CONSCIOUSNESS: Yes awake, Yes oriented to person, Yes oriented to place and Yes oriented to time; not confused HENMT: COMMON NORMALS: normocephalic, atraumatic, external ears normal and Normal external nose present HEAD & SCALP: normal to inspection, normocephalic and atraumatic FACE & SINUS: face symmetric NOSE: Normal external nose present EXTERNAL EAR: Yes external ears normal MOUTH: lip normal; no muffled voice Eye: COMMON NORMALS: conjunctivae normal GENERAL EYE: appearance normal, both eyes and all related structures PERIORBITAL: periorbital findings normal EYELID: eyelids normal CONJUNCTIVA: Yes conjunctivae normal CORNEA: Yes corneas normal EOM: Yes Nystagmus present (Patient has some right beating nystagmus when attempting to follow my finge) Nystagmus Noted: negative pendular, positive horizontal, negative vertical, negative rotary or positive with right lateral gaze Neck/C-Spine: COMMON NORMALS: no meningeal signs and no JVD GENERAL: Yes normal visual inspection and Yes trachea midline Resp: COMMON NORMALS: normal respiratory effort, No use of accessory muscles and clear to auscultation bilaterally EFFORT & INSPECTION: Yes able to speak in complete sentences and Yes symmetric chest movement AUSCULTATION: clear to auscultation bilaterally Cardio: COMMON NORMALS: no JVD, regular rate and regular rhythm RATE: regular rate RHYTHM: regular rhythm PERIPHERAL PULSES: radial pulses present GI: COMMON NORMALS: Soft to palpation INSPECTION: Yes normal to inspection PALPATION: Yes Soft to palpation, No Tenderness to palpation present (GI) and No Guarding due to palpation present (GI) Extremity: COMMON NORMALS: normal to inspection Neuro: COMMON NORMALS: moves all extremities, no focal motor deficits and no sensory deficits noted SENSORIUM/ORIENTATION: Yes alert, Yes oriented to person, Yes oriented to place and Yes oriented to time MENINGEAL SIGNS: Yes no meningeal signs CRANIAL NERVES: Yes HiNTS Head impulse: normal Nystagmus: unidirectional Skew: normal MOTOR EXAM: Pronator motor function not present, no asterixis and Tremors during motor activity present (resting tremor, RUE > LUE) OTHER: Both LEs are generally weak, symmetric Psych: COMMON NORMALS: mental status grossly normal, Normal thought process present, cooperative, normal affect and speech normal APPEARANCE: Yes well kempt SPEECH: Yes normal speech THOUGHT PROCESS: Normal thought process present Skin: COMMON NORMALS: no rashes or lesions noted and no jaundice GENERAL SKIN EXAM: no rashes or lesions noted Course Vital Signs: Vital signs: Vital Signs Temperature 98.2 F 08/07/22 11:16 Pulse Rate 72 08/07/22 12:00 Respiratory Rate 22 H 08/07/22 11:16 Blood Pressure 127/93 08/07/22 12:00 Pulse Oximetry 97 08/07/22 12:00 Oxygen Delivery Me thod 08/07/22 12:00 Oxygen Flow Rate 2 08/07/22 12:00 MDM - Chest Pain Medical Decision Making Patient's primary concern is the dizziness. The HiNTs exam is suggestive of peripheral etiology. Will give small dose benzo and some antivert, give 1L of NS (decreased skin turgor). Will go ahead and check ekg and a trop, lytes, glucose, hgb, platelets as well. Patient's work-up was unremarkable. Normal white count, hemoglobin, platelets, troponin, electrolytes, glucose, urine analysis. patient was given 1 L of fluid and some Antivert. She subjectively feels much better. Her vitals have been stable. I noted that the patient is on multiple medications, including multiple psychiatric medications. Many of these drugs are dirty meaning that they have effects on multiple receptors and neurotransmitters. She already undoubtably has some anticholinergic antihistamine effects with her medication, including benztropine. However, she wants something to help with her intermittent dizziness. We will try her with a scopolamine patch. I would like for her to follow-up outpatient. I do not think this represents an underlying infection, CVA, or primary cardiac etiology. She feels that her legs are no longer as weak and she is willing and able to ambulate at this time. Lab Data 08/07/22 12:09 08/07/22 12:09 Laboratory Results WBC 7.6 10^3/uL (4.0-10.0) 08/07/22 12:09 RBC 4.62 10^6/uL (4.1-5.3) 08/07/22 12:09 Hgb 13.8 g/dL (11.5-15.3) 08/07/22 12:09 Hct 43.9 % (37.0-47.0) 08/07/22 12:09 MCV 95.0 fl (81-99) 08/07/22 12:09 MCH 29.9 pg (28.0-34.0) 08/07/22 12:09 MCHC 31.4 g/dL (30.0-36.0) 08/07/22 12:09 RDW 14.4 % (12.1-15.1) 08/07/22 12:09 Plt Count 290 10^3/cmm (130-400) 08/07/22 12:09 MPV 9.6 fL (7.4-10.4) 08/07/22 12:09 Neut % (Auto) 58.8 % 08/07/22 12:09 Lymph % (Auto) 27.2 % 08/07/22 12:09 [place] % (Auto) 8.2 % 08/07/22 12:09 Eos % (Auto) 4.1 % 08/07/22 12:09 Baso % (Auto) 1.2 % 08/07/22 12:09 Neut # (Auto) 4.46 10^3/uL (1.8-7.7) 08/07/22 12:09 Lymph # (Auto) 2.1 10^3/uL (0.8-4.8) 08/07/22 12:09 [place] # (Auto) 0.6 10^3/uL (0.2-0.9) 08/07/22 12:09 Eos # (Auto) 0.3 10^3/uL (0.0-0.8) 08/07/22 12:09 Baso # (Auto) 0.1 10^3/uL (0.0-0.1) 08/07/22 12:09 Nucleated RBC % (auto) 0 % 08/07/22 12:09 Nucleated RBCs # 0.0 /100WBC 08/07/22 12:09 Sodium 139 mmol/L (136-145) 08/07/22 12:09 Potassium 4.4 mmol/L (3.5-5.1) 08/07/22 12:09 Chloride 103 mmol/L (98-107) 08/07/22 12:09 Carbon Dioxide 26 mmol/L (22-29) 08/07/22 12:09 Anion Gap 14.4 (5-19) 08/07/22 12:09 BUN 10 mg/dL (8-23) 08/07/22 12:09 Creatinine 0.8 mg/dL (0.5-0.9) 08/07/22 12:09 GFR Calculation 72.7 mL/min (90-130) L 08/07/22 12:09 Glucose 121 mg/dL (65-115) H 08/07/22 12:09 Calculated Osmolality 288 mOsm/kg (285-295) 08/07/22 12:09 Calcium 9.5 mg/dL (8.5-10.5) 08/07/22 12:09 Troponin T Baseline 7 ng/L (0-10) 08/07/22 12:09 Urine Color Straw (Yellow) 08/07/22 12:43 Urine Appearance Clear (CLEAR) 08/07/22 12:43 Urine pH 7 (5-7) 08/07/22 12:43 Ur Specific [place] 1.005 (1.005-1.030) 08/07/22 12:43 Urine Protein Neg (Negative) 08/07/22 12:43 Urine Glucose (UA) Norm (Normal) 08/07/22 12:43 Urine Ketones Negative (Negative) 08/07/22 12:43 Urine Blood Neg (Negative) 08/07/22 12:43 Urine Nitrate Negative (Negative) 08/07/22 12:43 Urine Bilirubin Neg (Negative) 08/07/22 12:43 Urine Urobilinogen Neg mg/dL (Negative) 08/07/22 12:43 Ur Leukocyte Esterase Negative (Negative) 08/07/22 12:43 EKG Data EKG 1: Interpretation: Sinus rhythm at a rate of 72 bpm, normal axis, wandering baseline, there appears to be some ST depression in lead III and as well as V3, V4, V5. T wave inversion V3 and some flattening laterally. This EKG is abnormal however when compared to November 2021 it is unchanged. Discharge Plan Discharge Patient Disposition: Home Clinical Impression: Vertigo, Atypical chest pain Condition: Stable Prescriptions: New Transderm-Scop 1 mg over 3 days patch 3 day 1 patch transdermal Q72H PRN (Reason: vertigo) Qty: 4 0RF No Action Spiriva Respimat 1.25 mcg/actuation mist 2 puff inhalation DAILY loratadine 10 mg capsule 10 mg PO DAILY omeprazole 40 mg capsule,delayed release(DR/EC) 40 mg PO DAILY nitroglycerin 0.4 mg tablet, sublingual 0.4 mg SUBLINGUAL Q5M PRN (Reason: Chest Pain) Rx Instructions: as directed upto 3 albuterol sulfate 90 mcg/actuation HFA aerosol inhaler 2 puff inhalation Q6H PRN (Reason: Shortness Of Breath) lamotrigine [Lamictal] 200 mg tablet 200 mg PO BID Qty: 60 6RF Rx Instructions: Take one tablet twice per day propranolol 10 mg tablet 10 mg PO BID Qty: 60 6RF Rx Instructions: Take one tablet every morning and every evening paliperidone [Invega] 6 mg tablet extended release 24hr 6 mg PO DAILY PRN (Reason: psychosis) Qty: 30 3RF Rx Instructions: Take one tablet daily as needed for break thru symptoms of psychosis Invega Sustenna 234 mg/1.5 mL syringe 234 mg IM Q30D Qty: 1.5 3RF Rx Instructions: To receive on 07/18/22 at 1130 am Botox 100 unit recon soln 100 unit intradermal Q90D aspirin 81 mg tablet,delayed release (DR/EC) 81 mg PO DAILY Qty: 90 3RF atorvastatin 40 mg tablet 40 mg PO DAILY 90 Days Qty: 90 1RF benztropine 1 mg tablet 1 mg PO BID Qty: 60 6RF Rx Instructions: Take one tablet twice per day clobetasol 0.05 % cream 1 applic topical BID Qty: 45 2RF Rx Instructions: Apply twice daily to affected area saturday through saturday until follow up lorazepam [Ativan] 1 mg tablet 1 mg PO BID PRN (Reason: anxiety) Qty: 60 1RF Rx Instructions: Take one tablet twice per day as needed for severe anxiety acetaminophen [Tylenol Arthritis Pain] 650 mg tablet extended release 650 mg PO DAILY levothyroxine 125 mcg tablet 125 mcg PO DAILY Remeron 30 mg tablet 30 mg PO BEDTIME fluticasone propionate 50 mcg/actuation [place],Suspension 2 spray INTRANASAL DAILY PRN (Reason: Nasal Congestion) Rx Instructions: administer into each nostril Discharge Orders: Discharge ED (Routine); Ordered 08/07/22 Ordered By: Cesar Ansari Referrals: Mark Bennett MD [Primary Care Provider] - 1 week (vertigo; many meds, tried scopolamine patch, please re-eval) Discharge Diet: Advance as tolerated Discharge Activity: Increase activity as tolerated Patient Instructions: Vertigo (ED), Dizziness (ED) Activity Restrictions/Additional Instructions: Please read all discharge instructions and abide by recommendations and return precautions. Make an appointment to follow-up with your primary care doctor in 5-7 days for follow-up. Return to ER if getting worse or other emergent symptoms. Coding Level of Care Code ED [employer] for Samaria Canas Exam Comprehensive
[2022-08-07] MEDS: ALPRAZolam 0.5 mg Tablet PO (11:52)
[2022-08-07] MEDS: meclizine 25 mg tablet PO (11:53)
[2022-08-07] MEDS: sodium chloride 0.9% 1,000 ML 999 ML IV (11:53)
[2022-08-07 12:00] VITALS: BP 127/93; PULSE 72; O2SAT 97
[2022-08-07 12:19] LABS: Basophils # 0.1 10^3/uL (0.0-0.1); Basophils % 1.2 %; Eosinophils # 0.3 10^3/uL (0.0-0.8); Eosinophils % 4.1 %; Hematocrit 43.9 % (37.0-47.0); Hemoglobin 13.8 g/dL (11.5-15.3); Lymphocytes # 2.1 10^3/uL (0.8-4.8); Lymphocytes % 27.2 %; Mean Corpuscular HGB Conc 31.4 g/dL (30.0-36.0); Mean Corpuscular Hemoglobin 29.9 pg (28.0-34.0); Mean Platelet Volume 9.6 fL (7.4-10.4); Monocytes # 0.6 10^3/uL (0.2-0.9); Monocytes % 8.2 %; Neutrophils # 4.46 10^3/uL (1.8-7.7); Neutrophils % 58.8 %; Nucleated Red Blood Cells % 0 %; Platelet Count 290 10^3/cmm (130-400); Red Blood Count 4.62 10^6/uL (4.1-5.3); Red Cell Distribution Width 14.4 % (12.1-15.1); White Blood Count 7.6 10^3/uL (4.0-10.0)
[2022-08-07 12:39] LABS: Blood Urea Nitrogen 10 mg/dL (8-23); Calcium 9.5 mg/dL (8.5-10.5); Carbon Dioxide 26 mmol/L (22-29); Chloride 103 mmol/L (98-107); Glomerular Filtration Rate 72.7 mL/min (90-130); Glucose 121 mg/dL (65-115); Osmolality Calculated 288 mOsm/kg (285-295); Sodium 139 mmol/L (136-145)
[2022-08-07 12:41] LABS: Anion Gap 14.4 (5-19); Potassium 4.4 mmol/L (3.5-5.1)
[2022-08-07 12:43] LABS: Troponin(5th) Baseline 7 ng/L (0-10)
[2022-08-07 12:48] LABS: Add Urine Microscopic? NO; Charge for UA Resulting for Rev
[2022-08-07 12:51] LABS: Bilirubin Urine Neg (Negative); Blood Urine Neg (Negative); Glucose Urine UA Norm (Normal); Ketones Urine Negative (Negative); Leukocyte Esterase Urine Negative (Negative); Nitrate Urine Negative (Negative); Protein Urine Neg (Negative); Specific Gravity, Urine 1.005 (1.005-1.030); Urine Appearance Clear (CLEAR); Urine Color Straw (Yellow); Urobilinogen Urine Neg (Negative); pH Urine 7 (5-7)
[2022-08-07] MEDS: scopolamine 1.5 Patch 1 PATCH TRANSDERMA (13:45)
== END 2022-08-07 13:55 | disposition home or self-care (01) ==
PROVIDERS: Emergency Provider Emergency Medicine; PCP Family Medicine
DX: R07.89 Other chest pain (principal); R42 Dizziness and giddiness; Z79.82 Long term (current) use of aspirin; Z87.891 Personal history of nicotine dependence; E78.5 Hyperlipidemia, unspecified
CPT/HCPCS: 36415; 80048; 81003; 84484; 85025; 93005; 96360; 99285; J7030; J8597

== ENCOUNTER → 2022-08-30 11:38 | Outpatient (BNVA) | payer MEDICAID, SELFPAY | PROVIDERS: PCP Family Medicine; Visit Provider Specialist | DX: G43.711 Chronic migraine without aura, intractable, with status migrainosus (principal) | CPT/HCPCS: 64615; 95911; J0585 ==

== ENCOUNTER 2022-09-04 09:35 | Outpatient (CLI) | payer MEDICAID, SELFPAY ==
--- NOTE | 2022-09-04 09:30 | MR_ITS ---
WS: [id number] MRI LEFT SHOULDER NONCONTRAST TECHNIQUE: Sagittal T2, coronal T1, T2 and proton density imaging. Axial gradient PDE imaging. CLINICAL INFORMATION: Shoulder pain COMPARISON: MRI 2018 FINDINGS: Prior resection of the distal clavicle. Subacromial space is well-preserved. Minimal subacromial spur ring. Mild tendinopathy distal supraspinatus. Supraspinatus tendon is intact. Normal infraspinatus. N ormal teres minor. Subchondral cystic change along the greater tuberosity. Distal subscapularis is intact. Tiny biceps tendon difficult to visualize in the proximal bicipital g roove. This is similar to previous. Intra-articular biceps tendon is tiny and difficult to visualize. Degenerative fraying glenoid labrum. Normal bone marrow signal in the bony glenoid. No acute fractur es. MR/MR shoulder LT wo con* [id number] IMPRESSION: 1. Resection of the distal clavicle is new compared to previous. Subacromial s pace is preserved. 2. Mild tendinopathy distal supraspinatus. Rotator cuff is intact. 3. Tiny biceps tendon difficult to visualize in the proximal bicipital groove. This is unchanged from previous. Tiny intra-articular biceps tendon difficult to visualize. 4. Degenerative fraying of the glenoid labrum. 5. Degenerative cystic change greater tuberosity. No acute fractures. 6. No other significant interval changes.
== END 2022-09-04 09:36 | disposition home or self-care (01) ==
LOC: RAD 09:36
PROVIDERS: PCP Family Medicine; Visit Provider Student in an Organized Health Care Education/Training Program
DX: M75.42 Impingement syndrome of left shoulder (principal); M75.82 Other shoulder lesions, left shoulder
CPT/HCPCS: 73221; 99213

== ENCOUNTER 2022-09-10 12:49 | Emergency (ER) | payer MEDICAID, SELFPAY ==
[2022-09-10 14:29] VITALS: BP 123/72; PULSE 80; RESP 18; TEMP 36.4; O2SAT 95; BMI 42.0
--- NOTE | 2022-09-10 16:27 | XRR_ITS ---
PROCEDURE INFORMATION: Exam: XR Right Ribs with PA Chest Exam date and time: 09/10/2022 4:29 PM Age: 61 years old Clinical indication: Patient HX: Right-sided anterior chest wall pain. Patient reports she was bending over into the equipment washer to pull clothing out. The clothing was stuck on the agitator. She reports she felt a popping sensation and her pain is increased since Saturday. ; Additional info: Right side anterior chest wall pain TECHNIQUE: Imaging protocol: Radiologic exam of the Right ribs with PA chest. Views: 3 views COMPARISON: CT lung screening [id number] 07/30/2022 10:50 AM FINDINGS: Lungs: Unremarkable. No consolidation. Pleural spaces: Unremarkable. No pleural effusion. No pneumothorax. Heart/Mediastinum: Unremarkable. No cardiomegaly. Bones/joints: Unremarkable. XR/XR ribs RT mn 3V w [id number] IMPRESSION: 1. No acute finding noted. 2. The right rib series shows no definite or displaced fracture. If pain persists, consider need for chest CT. Certainly no flail chest is present. No evidence of pneumothorax. 3. Absent gallbladder. Partially imaged constipation.
--- NOTE | 2022-09-10 16:29 | W.ED.GENADLT ---
HPI - General Adult General: Chief complaint: General Medical Stated complaint: rib pain Time Seen by Provider: 09/10/22 16:04 History of Present Illness: Patient is a 61-year-old female that presents to the emergency department with complaints of right-sided anterior chest wall pain. Patient reports she was bending over into the blanket washer to pull clothing out. The clothing was stuck on the agitator. She reports she felt a popping sensation and her pain is increased since Saturday. Patient denies any shortness of breath but does report difficulty finding a comfortable position. Patient is taken ibuprofen without relief. Associated symptoms: Deny chest pain, confusion, dyspnea, headache(s), malaise, nausea, rash, palpitations or vomiting Review of Systems General: Reports: 10 or more systems reviewed and unremarkable except in HPI and below Const: Denies: fever(s), chills, change in appetite, change in weight, fatigue or malaise Eyes: Denies: change in vision, eye discomfort, eye discharge or eye redness ENMT: Denies: throat pain, enlarged tonsils, odynophagia, hoarseness, ear or mastoid pain, ear discharge, change in hearing, tinnitus, nasal discharge, nasal congestion, post nasal drip or sinus pain Card: Denies: chest pain, palpitations, irregular heart rhythm, edema, dyspnea on exertion, orthopnea or leg pain with exertion Resp: Denies: dyspnea, productive cough, non-productive cough, wheezing, stridor or chest congestion GI: Denies: abdominal pain, nausea, vomiting, dysphagia, diarrhea, constipation, bloating, GI cramping or hematochezia : Denies: flank pain, difficulty voiding, dysuria, urinary frequency, urinary urgency, urinary hesitancy, oliguria or hematuria Musc: Denies: neck pain, back pain, extremity pain, joint pain, joint swelling, joint redness, joint warmth or muscle weakness Skin/Breast: Denies: rash, pruritus, erythema, photosensitivity or new lesions Neuro: Denies: headache(s), numbness in extremities, weakness in extremities, sensory changes, lack of coordination, difficulty walking, frequent falls, dizziness, confusion, Slurred speech present, difficulty communicating thoughts, seizure-like activity or involuntary movements Endo: Denies: polyuria, polydipsia or tired all the time Panchito/Lymph: Denies: easy bruising or easy bleeding PFSH ED PFSH: Medical History Borderline personality disorder Chronic migraine without aura, intractable, with status migrainosus Chronic migraine without aura, intractable, with status migrainosus -pain control as needed -continue to follow up with Dr. Bennett for Botox injections Chronic post-traumatic stress disorder GERD (gastroesophageal reflux disease) Hyperlipidemia Hypothyroid Panic disorder with agoraphobia Psychiatric care PTSD (post-traumatic stress disorder) -continue to f/u at [facility] Schizoaffective disorder, bipolar type Subacromial impingement of left shoulder Tarsal tunnel syndrome, left lower limb Tendinitis of left rotator cuff Surgical History H/O arthroscopic knee surgery History of appendectomy History of arthroscopy of left shoulder History of bilateral tubal ligation Family History Father Bleeding disorder CAD (coronary artery disease) Other Diabetes Hypertension Denies family history of Anesthesia complication Social History Smoking and tobacco status: never smoked Second hand smoke exposure: No (quit smoking 7 years ago) Alcohol intake: never Lives independently: Yes Household members: none Current occupational status: disabled History of recent travel: No Physical Exam Const: COMMON NORMALS: no acute distress, average body habitus, patient oriented x3, no limitations, healthy appearing, alert and well nourished GENERAL APPEARANCE: cooperative, comfortable and well developed; not in distress and not anxious ORIENTATION/CONSCIOUSNESS: Yes awake, Yes oriented to person, Yes oriented to place and Yes oriented to time HENMT: COMMON NORMALS: normocephalic, atraumatic, hearing grossly normal bilaterally, external ears normal, EAC's normal, TM's normal bilaterally, Normal external nose present and Normal nasal mucous membranes and turbinates present HEAD & SCALP: normal to inspection, normocephalic and atraumatic FACE & SINUS: normal facial exam and face symmetric NOSE: Normal external nose present, Normal nares present and Normal nasal mucous membranes and turbinates present GENERAL EAR: hearing not grossly impaired EXTERNAL EAR: Yes external ears normal and Yes no periauricular adenopathy EXTERNAL AUDITORY CANAL: EAC's normal TYMPANIC MEMBRANE: TM's normal bilaterally MOUTH: Normal oral and palatal mucosa present, lip normal, tongue normal and Normal salivary glands and ducts present THROAT: posterior oropharynx normal, tonsils normal and uvula midline Eye: COMMON NORMALS: Equal, round and reactive pupils present, EOMs intact bilaterally, conjunctivae normal, no scleral icterus and no papilledema GENERAL EYE: appearance normal, both eyes and all related structures ALIGNMENT: Yes alignment normal PERIORBITAL: periorbital findings normal EYELID: eyelids normal CONJUNCTIVA: Yes conjunctivae normal PUPIL: Yes Equal, round and reactive pupils present DIRECT OPHTHALMOSCOPY: Yes no papilledema Neck/C-Spine: COMMON NORMALS: full ROM, supple, no meningeal signs and no JVD GENERAL: Yes normal visual inspection CERVICAL SPINE: Yes cervical ROM normal Lymph: LYMPHATIC: no lymphadenopathy noted Chest: COMMONS NORMALS: normal inspection of the chest Breast/axilla inspection: Yes no chest deformity, asymmetry, normal contours, no nodules, masses, tenderness Resp: COMMON NORMALS: normal respiratory effort, No retractions, No use of accessory muscles and clear to auscultation bilaterally EFFORT & INSPECTION: Yes able to speak in complete sentences, Yes symmetric chest movement, No abnormal respiratory pattern, No tachypneic and No respiratory distress AUSCULTATION: clear to auscultation bilaterally Cardio: COMMON NORMALS: no JVD, regular rate, regular rhythm and Peripheral pulses 2+ throughout RATE: regular rate RHYTHM: regular rhythm PERIPHERAL PULSES: Peripheral pulses 2+ throughout GI: COMMON NORMALS: Normal to inspection, nondistended, normoactive bowel sounds present, Soft to palpation and non-tender INSPECTION: Yes normal to inspection PALPATION: Yes Soft to palpation : COMMON NORMALS: Yes no CVA tenderness BLADDER/KIDNEY EXAM: Yes no CVA tenderness and Yes CVA tenderness Back/Pelvis: COMMON NORMALS: no CVA tenderness, thoracic and lumbar spine normal to inspection, no thoracic nor lumbar tenderness, thoraco-lumbar ROM normal and straight leg raise negative bilaterally GENERAL BACK: Yes CVA tenderness and No ecchymosis THORACIC SPINE/UPPER BACK: Yes normal to inspection LUMBAR SPINE/LOWER BACK: Yes normal to inspection and Yes straight leg raise negative bilaterally Extremity: COMMON NORMALS: normal to inspection, full ROM and capillary refill normal GENERAL: Yes normal exam except as noted Neuro: COMMON NORMALS: patient oriented x3 SENSORIUM/ORIENTATION: Yes alert, Yes oriented to person, Yes oriented to place and Yes oriented to time MENINGEAL SIGNS: Yes no meningeal signs Psych: COMMON NORMALS: mental status grossly normal, Normal thought process present, cooperative, normal affect, speech normal and activity/motor behavior normal SPEECH: Yes normal speech THOUGHT PROCESS: Normal thought process present Skin: COMMON NORMALS: no rashes or lesions noted, no wounds, turgor normal, no jaundice, no petechiae and no mottling GENERAL SKIN EXAM: no rashes or lesions noted and turgor normal Course Vital Signs: Vital signs: Vital Signs Temperature 97.6 F 09/10/22 14:29 Pulse Rate 80 09/10/22 14:29 Respiratory Rate 18 09/10/22 14:29 Blood Pressure 123/72 09/10/22 14:29 Pulse Oximetry 95 09/10/22 14:29 Oxygen Delivery Me thod 09/10/22 14:29 MDM - General Adult Medical Decision Making Patient was evaluated in the emergency department today for complaints of right anterior chest wall pain. Pain is reproducible. She denies any radiation of pain. Denies any shortness of breath or difficulty breathing. I obtained a XR ribs for evaluation of potential rib fractures. I treated her pain with Toradol. Patient tolerated well discharged home with diclofenac prescription Differential Diagnosis Rib fracture, pleural effusion, contusion, ecchymosis Lab Data Radiology Impressions Ribs X-Ray 09/10/22 16:27 IMPRESSION: 1. No acute finding noted. 2. The right rib series shows no definite or displaced fracture. If pain persists, consider need for chest CT. Certainly no flail chest is present. No evidence of pneumothorax. 3. Absent gallbladder. Partially imaged constipation. Discharge Plan Discharge Patient Disposition: Home Clinical Impression: Acute chest wall pain Condition: Stable Prescriptions: New diclofenac sodium 50 mg tablet,delayed release (DR/EC) 50 mg PO BID Qty: 20 0RF No Action Spiriva Respimat 1.25 mcg/actuation mist 2 puff inhalation DAILY loratadine 10 mg capsule 10 mg PO DAILY omeprazole 40 mg capsule,delayed release(DR/EC) 40 mg PO DAILY nitroglycerin 0.4 mg tablet, sublingual 0.4 mg SUBLINGUAL Q5M PRN (Reason: Chest Pain) Rx Instructions: as directed upto 3 albuterol sulfate 90 mcg/actuation HFA aerosol inhaler 2 puff inhalation Q6H PRN (Reason: Shortness Of Breath) paliperidone [Invega] 6 mg tablet extended release 24hr 6 mg PO DAILY PRN (Reason: psychosis) Qty: 30 3RF Rx Instructions: Take one tablet daily as needed for break thru symptoms of psychosis lamotrigine [Lamictal] 200 mg tablet 200 mg PO BID Qty: 60 6RF Rx Instructions: Take one tablet twice per day Remeron 30 mg tablet 30 mg PO BEDTIME Qty: 30 6RF Rx Instructions: Take one tablet at bedtime propranolol 10 mg tablet 10 mg PO BID Qty: 60 6RF Rx Instructions: Take one tablet every morning and every evening Invega Sustenna 234 mg/1.5 mL syringe 234 mg IM Q30D Qty: 1.5 6RF Botox 100 unit recon soln 100 unit intradermal Q90D aspirin 81 mg tablet,delayed release (DR/EC) 81 mg PO DAILY Qty: 90 3RF atorvastatin 40 mg tablet 40 mg PO DAILY 90 Days Qty: 90 1RF clobetasol 0.05 % cream 1 applic topical BID Qty: 45 2RF Rx Instructions: Apply twice daily to affected area saturday through saturday until follow up lorazepam [Ativan] 1 mg tablet 1 mg PO BID PRN (Reason: anxiety) Qty: 60 1RF Rx Instructions: Take one tablet twice per day as needed for severe anxiety acetaminophen [Tylenol Arthritis Pain] 650 mg tablet extended release 650 mg PO DAILY levothyroxine 125 mcg tablet 125 mcg PO DAILY fluticasone propionate 50 mcg/actuation [place],Suspension 2 spray INTRANASAL DAILY PRN (Reason: Nasal Congestion) Rx Instructions: administer into each nostril Transderm-Scop 1 mg over 3 days patch 3 day 1 patch transdermal Q72H PRN (Reason: vertigo) Qty: 4 0RF Discharge Orders: Discharge ED (Routine); Ordered 09/10/22 Ordered By: Hossein Villa Referrals: Mark Bennett MD [Primary Care Provider] - Discharge Diet: Advance as tolerated Discharge Activity: Resume usual activity Patient Instructions: Opioid Safety, Pain Management Coding Level of Care Code ED Manager Publishing for Chg Fwd History Problem Focused Exam Problem Focused Medical Decision Making Straight Forward
[2022-09-10] MEDS: ketorolac 30 mg/mL INJ IM (16:52)
== END 2022-09-10 17:42 | disposition home or self-care (01) ==
PROVIDERS: Emergency Provider Nurse Practitioner; PCP Family Medicine
DX: R07.89 Other chest pain (principal); Z79.82 Long term (current) use of aspirin; Z87.891 Personal history of nicotine dependence; E78.5 Hyperlipidemia, unspecified
CPT/HCPCS: 71101; 96372; 99284; J1885

== ENCOUNTER → 2022-09-24 12:48 | Outpatient (BNVA) | payer MEDICAID, SELFPAY | PROVIDERS: PCP Family Medicine; Visit Provider Student in an Organized Health Care Education/Training Program | DX: M75.42 Impingement syndrome of left shoulder (principal); M75.82 Other shoulder lesions, left shoulder; M75.22 Bicipital tendinitis, left shoulder | CPT/HCPCS: 99214 ==

== ENCOUNTER 2022-10-23 10:41 | Day surgery (SDC) | payer MEDICAID, SELFPAY ==
[2022-10-18 08:43] VITALS: BMI 42.0
[2022-10-23] VITALS (8 sets, daily range): BP systolic 107–138; BP diastolic 63–96; PULSE 83–100; RESP 16–20; TEMP 36.1–36.7; O2SAT 94–97
--- NOTE | 2022-10-23 11:06 | W.PM.OPSUD ---
Surgery/Procedure H&P Update DATE OF PROCEDURE: October 23, 2022 DATE H&P PERFORMED: 09/24/22 CHANGES TO PREVIOUS DOCUMENTATION: None. On examination she does have bicipital groove pain as well as positive speeds examination today. Does have residual rotator cuff weakness on examination and positive Phillips impingement. Plan will be for left shoulder diagnostic and surgical arthroscopy with possible rotator cuff repair, possible biceps tenotomy and subacromial decompression. Patient understands and agrees with current plan. All questions have been answered at this time. She understands her risk benefits complication alternatives to surgical treatment options she agrees to proceed with surgery. PREOP DIAGNOSIS: Left shoulder rotator cuff tendinitis possible tear, biceps tendinitis PRIMARY INDICATION FOR PROCEDURE: Left shoulder rotator cuff tendinitis with possible tear, long head of biceps tendinitis, subacromial impingement. PLANNED PROCEDURE: Operation Date: 10/23/22 12:20 Proposed Procedures p Left shoulder Diagnostic and surgical arthroscopy 48844 and possible rotator cuff repair 12167,M75.42(Left) - DO yoanna Song Rotator Cuff Repair - Arthroscopy(Left) - Isai Rico DO
[2022-10-23] MEDS: sodium chloride 0.9% 1,000 ML 30 ML IV (11:19)
[2022-10-23] MEDS: acetaminophen 1,000 MG/100 ML PIGGYBACK 400 MG IV (11:19)
[2022-10-23] MEDS: ketorolac 30 mg/mL INJ IVP (11:20)
--- NOTE | 2022-10-23 11:36 | ANES.PREANE2 ---
Pre-Anesthetic Assessment Height/Weight: Height 1.57 m Weight 104.326 kg Temp Pulse Resp BP Pulse Ox O2 Del Method 97.2 F L 83 16 138/96 95 10/23/22 11:01 10/23/22 11:01 10/23/22 11:01 10/23/22 11:01 10/23/22 11:01 10/23/22 11:01 Preop Diagnosis: Left shoulder rotator cuff tendinitis possible tear, biceps tendinitis Operation Date: 10/23/22 12:20 Proposed Procedures p Left shoulder Diagnostic and surgical arthroscopy 26359 and possible rotator cuff repair 46600,M75.42(Left) - Isai Rico DO s Rotator Cuff Repair - Arthroscopy(Left) - Isai Rico DO Familial anesthetic complications: PONV Was Beta Estefania taken within 24 hours: Yes Was Clonidine taken within 24 hours: N/A Last intake: Intake Last Liquid Date 10/22/22 Last Liquid Time 21:00 Last Solid Date 10/22/22 Last Solid Time 18:00 Social No alcohol and No tobacco former smoker Exam alert, oriented x 3, clear to auscultation bilaterally and regular rate & rhythm Airway Mallampati: Class III Dentition: full Pulmonary Asthma GI Gastroesophageal Reflux Disease Metabolic Hyperlipidemia, Morbid Obesity and Thyroid Disease Neuropsych Seizure Anesthetic Plan ASA status: 3 Anesthesia: General and Regional (specify below) Risk of > 500 ml blood loss (7ml/kg in children): No Medications/Allergies Home Medications Medication Instructions Recorded Confirmed Last Taken Type loratadine 10 mg capsule 10 mg PO DAILY 10/20/19 10/23/22 10/22/22 History nitroglycerin 0.4 mg sublingual 0.4 mg sublingual Q5M PRN Chest 10/20/19 10/18/22 Unknown History tablet Pain omeprazole 40 mg capsule,delayed 40 mg PO DAILY 10/20/19 10/23/22 10/22/22 History release acetaminophen 650 mg 650 mg PO PRN 05/15/20 10/18/22 10/08/22 History tablet,extended release (Tylenol Arthritis Pain) atorvastatin 40 mg tablet 40 mg PO DAILY 90 days #90 tabs 05/27/20 10/23/22 10/22/22 Rx levothyroxine 125 mcg tablet 125 mcg PO DAILY 02/22/21 10/23/22 10/22/22 History albuterol sulfate 90 mcg/actuation 2 puff inhalation Q6H PRN 05/17/21 10/23/22 10/19/22 History aerosol inhaler Shortness Of Breath tiotropium bromide 1.25 2 puff inhalation DAILY 12/05/21 10/23/22 10/22/22 History mcg/actuation mist for inhalation (Spiriva Respimat) aspirin 81 mg tablet,delayed 81 mg PO DAILY #90 tabs 12/27/21 10/23/22 10/11/22 Rx release onabotulinumtoxinA 100 unit 100 unit intradermal Q90D 12/27/21 10/23/22 08/13/22 History solution for injection (Botox) fluticasone propionate 50 2 spray intranasal DAILY PRN Nasal 08/07/22 10/18/22 10/08/22 History mcg/actuation nasal Congestion spray,suspension lamotrigine 200 mg tablet 200 mg PO DIRECTED #60 tabs 10/22/22 10/23/22 10/22/22 Rx (Lamictal) lorazepam 1 mg tablet (Ativan) 1 mg PO BID PRN anxiety #60 tabs 10/22/22 10/23/22 10/21/22 Rx mirtazapine 30 mg tablet (Remeron) 30 mg PO .8 pm #30 tabs 10/22/22 10/23/22 10/22/22 Rx paliperidone 6 mg tablet,extended 6 mg PO DAILY PRN psychosis #30 10/22/22 10/23/22 Unknown Rx release 24 hr (Invega) tabs paliperidone palmitate 234 mg/1.5 234 mg (1.5 mL) IM Q30D #1.5 mL 10/22/22 10/23/22 10/18/22 Rx mL intramuscular syringe (Invega Sustenna) propranolol 10 mg tablet 10 mg PO BID #60 tabs 10/22/22 10/23/22 10/23/22 Rx Allergies Allergy/AdvReac Type Severity Reaction Status Date / Time iodine Allergy Severe Anaphylaxis Verified 10/23/22 10:52 codeine Allergy Intermediate rash Verified 10/23/22 10:52 gabapentin [From Neurontin] Allergy Intermediate dizziness Verified 10/23/22 10:52 Penicillins Allergy Intermediate rash Verified 10/23/22 10:52 Tetanus Vaccines and Toxoid Allergy Intermediate rash Verified 10/23/22 10:52 Seafood Allergy Severe Anaphylaxis Uncoded 10/23/22 10:52 Current Medications Generic Name Dose Route Start Last Admin Trade Name Owen PRN Reason Stop Dose Admin Sodium Chloride 1,000 mls @ 30 mls/hr 10/23/22 11:00 10/23/22 11:19 Sodium Chloride 0.9% IV 10/24/22 10:59 30 mls/hr .Q24H DELPHINE Administration PFSH Anesthesia Medical History (Updated 09/28/22 @ 23:26 by Isai Rico DO) Biceps tendinitis of shoulder Borderline personality disorder Chronic migraine without aura, intractable, with status migrainosus Chronic migraine without aura, intractable, with status migrainosus -pain control as needed -continue to follow up with Dr. Bennett for Botox injections Chronic post-traumatic stress disorder GERD (gastroesophageal reflux disease) Hyperlipidemia Hypothyroid Panic disorder with agoraphobia Psychiatric care PTSD (post-traumatic stress disorder) -continue to f/u at [facility] Schizoaffective disorder, bipolar type Subacromial impingement of left shoulder Tarsal tunnel syndrome, left lower limb Tendinitis of left rotator cuff Surgical History H/O arthroscopic knee surgery History of appendectomy History of arthroscopy of left shoulder History of bilateral tubal ligation Family History Father Bleeding disorder CAD (coronary artery disease) Other Diabetes Hypertension Denies family history of Anesthesia complication Social History Smoking and tobacco status: never smoked Second hand smoke exposure: No (quit smoking 7 years ago) Alcohol intake: never Lives independently: Yes Household members: none Current occupational status: disabled History of recent travel: No Data Anesthesia Cardiac Studies: Echocardiogram 11/16/21 Echocardiogram Ultrasound 05/16/20 Sestamibi Stress Test (Cardiology) 12/05/21 Cardiac Event Monitor 09/28/21
--- NOTE | 2022-10-23 11:38 | ANES.PROC ---
Anesthesia Procedures Procedure/Date: 10/23/22 Nerve Block ^: Nerve Block 1: Main Anesthesia: general anesthesia Time Out Performed: Yes Consent: requested by attending/covering physician, from patient, from other, risks and benefits reviewed and patient agrees to proceed Nerve block location: interscalene (L) Anesthesia monitors applied: pulse oximetry, EKG, BP cuff and oxygen Nerve block position: semi sitting Anesthetic Used: ropivicaine 0.5% (20 ml) and with decadron (4 mg) Ultrasound used to: visualize and ID brachial plexus and visualize and ID interscalene groove Nerve Stimulator Used?: No Interscalene/Femoral BLK: 2 stimuplex 22 g needle used for position and inplane approach, visualize local anesthetic spread and no vascular puncture identified Injection: neg aspiration of heme Patient Tolerated Procedure: well Complications: none
[2022-10-23] MEDS: clindamycin 600 MG/50 ML PREMIX 100 MG IV (11:40)
--- NOTE | 2022-10-23 13:53 | P.OP_ITS ---
Brief Operative Note Date of procedure: 10/23/22 Pre-op diagnosis: Left shoulder rotator cuff tendinitis with possible tear, long head of rose Post-op diagnosis: same (Long head of biceps tendinitis, subacromial impingement) Procedure Done: Left shoulder diagnostic and surgical arthroscopy with biceps tenotomy Left shoulder diagnostic and surgical arthroscopy with labral debridement Left shoulder diagnostic and surgical arthroscopy with subacromial decompression /bursectomy Surgeon: Isai Rico Estimated blood loss (mL): 10 Complications: None Post-op Plan: Patient taken to PACU in stable condition recovering well. Placed in a simple sling. Dressing clean dry and intact. Will receive appropriate discharge ins tructions as well as pain medication postoperatively. She will follow-up with me in the office in 2 weeks. Patient understands agrees current plan. All questions answered. Contact the office for any questions or concerns. Condition: stable Disposition: same day Coding Level of Care Code Acute Code for Samaria Fwnathaly
--- NOTE | 2022-10-23 13:53 | PM.PACU ---
PACU note Narrative: Patient taken to PACU in stable condition recovering well. Dressing on in place clean dry and intact to the left shoulder. Simple sling on in place. Distal pulses palpable. Patient still sedated from anesthesia unable to assess motor or sensory. Exam: somnolent, arousable Disposition: discharged
--- NOTE | 2022-10-23 13:54 | P.OP_ITS ---
Operative Report Date of procedure: October 23, 2022 Pre-op diagnosis: Preop Diagnosis Left shoulder rotator cuff tendinitis possible tear, biceps tendinitis Post-op diagnosis: Left shoulder rotator cuff tendinitis with subacromial impingement, biceps tendinitis, circumferential labral tearing Procedure done: Left shoulder diagnostic and surgical arthroscopy with biceps tenotomy Left shoulder diagnostic and surgical arthroscopy with labral debridement Left shoulder diagnostic and surgical arthroscopy with subacromial decompression/bursectomy Surgeon: Isai Rico DO Estimated blood loss: 10 mL IV fluids: 600 mL Complications: None Condition: stable Disposition: same day Brief History: Patient's established patient with me in the outpatient setting has been worked up for left shoulder pain and weakness. Patient subsequently was being treated for subacromial impingement and rotator cuff tendinitis treated conservatively with corticosteroid injection as well as therapy exercising. She has regained her range of motion and her pains improved however she does continue to have noticeable residual weakness on physical examination particularly testing of the supraspinatus tendon. Received a corticosteroid injection and did provide significant relief but is slowly began to wear off and she does still have some trouble with her rotator cuff strength. We ordered an MRI and her results were: IMPRESSION: ? 1.? Resection of the distal clavicle is new compared to previous. Subacromial space is preserved. 2.? Mild tendinopathy distal supraspinatus. Rotator cuff is intact. 3.? Tiny biceps tendon difficult to visualize in the proximal bicipital groove. This is unchanged from previous. Tiny intra-articular biceps tendon difficult to visualize. 4.? Degenerative fraying of the glenoid labrum. 5.? Degenerative cystic change greater tuberosity. No acute fractures. 6.? No other significant interval changes. Given her MRI findings show she has an intact rotator cuff tear we talked about nonoperative and operative intervention. At this point time she has not responded to where she would like to be with her corticosteroid injection and therapy and at this point time we talked about performing diagnostic and surgical arthroscopy of the left shoulder with possible biceps tenotomy as well as subacromial decompression and obviously evaluate the rotator cuff integrity. She understands that this procedure does not guarantee that we will completely fix or resolve all of her issues pertaining to pain worse rotator cuff weakness but ultimately this time through shared decision making we both agree this is likely her next best step. Detail the risk benefits complication alternatives surgical nonsurgical treatment options. Understanding risk of surgery she elects to proceed with surgery. All questions answered. Procedure: Patient was seen and evaluated in the preoperative holding area. Consent was reviewed and signed with patient. All questions answered at this time. Correct extremity was marked. Seen evaluated by Anesthesia Department once cleared for surgery she was taken back to the operative suite. Patient then was transported onto the OR table she underwent anesthesia per the anesthesia department once appropriately anesthetized she was appropriately positioned beanbag and lateral decubitus position with the left shoulder up with plan for lateral decubitus pos itioning for shoulder arthroscopy. Free hanging suspension will set up at the end of the bed with plan for free hanging weight traction. Once appropriately positioned all bony prominences well-padded patient was appropriately secured to the bed the left upper extremity subsequently was prepped and draped in standard orthopedic fashion. A final timeout performed. Patient received appropriate pr eoperative antibiotics. A standard diagnostic and surgical arthroscopy was performed of the left shoulder. I started with my posterior portal as my arthroscopic viewing portal. After small stab incision arthroscope trocar was introduced into the glenohumeral joint. Then visualized the glenohumeral joint. Grade 1-2 chondromalacia was noted of the glenohumeral joint. No significant arthritic c hanges at this point time. Next I had visualization of the subscapularis which was intact. The labrum had circumferential fraying and tearing most pronounced on the inferior and superior aspects of the labrum. Next I visualized the long head of the biceps tendon which had significant fraying of the superior labrum. I then established my anterior working portal with spinal needle outside in merle hnique. Small stab incision blunt trocar and introduced arthroscopic shaver to debride the joint. Utilizing the arthroscopic shaver I then debrided the labrum circumferentially and then switched to a thermal wand and annealed to complete my labral debridement. I then utilizing the thermal wand evaluated the integrity of the biceps tendon which had noticeable inflammation as I pulled this into the joint from the bicipital groove as well as there was significant fraying and tearing of the superior labrum that had noticeable instability. Decision was made at this time to perform a biceps tenotomy which was completed utilizing thermal wand removing this from the base of the superior aspect of the labrum as it inserts. This then was released and retracted to the intertubercular groove. Next I then visualized the undersurface of the rotator cuff. No rotator cuff tear was noted there was negative escape bubble sign as bubbles were noted underneath the rotator cuff consistent with no rotator cuff tear. This completed my work in the glenohumeral joint I then switched to subacromial space. I established my lateral working portal with a small stab incision blunt trocar I then centralized to the subacromial space and then introduced thermal wand and performed a bursectomy of the undersurface of the acromion. I identified the anterior border and the lateral border and worked this posteriorly. This cleared off all the debris and scar tissue on the undersurface of the acromion. I took this all the way to the AC joint which is already been appropriately resected from previous surgery. I then introduced the arthroscopic shaver and performed an extensive bursectomy of the subacromial space. This allowed direct visualization of the rotator cuff tendon which was then taken through thorough range of motion internal and external and was probed extensively and found to have no evidence of rotator cuff tear and this was then subsequently left alone. Patient did have significant inflammation of the bursa as well as anterior spur on the undersurface of the acromion and subsequently a subacromial decompression and acromioplasty was performed with arthroscopic bur shaver. This was done from the lateral portal and then I subsequently switched my arthroscopic viewing portal laterally and worked from the posterior portal to make sure smooth acromioplasty was then subsequently performed to have no further causes for impingement. Final images were then taken I then visualized the rotator cuff from the lateral portal and again no rotator cuff tear was appreciated. This completed our work within the shoulder. All fluid was withdrawn from the joint. All instruments were withdrawn. Portal sites were closed with interrupted nylon suture. Xeroform 4 x 4's ABD and tape applied to the left shoulder simple sling applied. Patient then awakened from anesthesia and taken to PACU in stable condition. Disposition: Patient taken back in stable condition recovering well. Will receive appropriate discharge instructions as well as pain medication postoperatively. She will follow-up with me in the office in 2 weeks. Patient understands agrees with current plan. All questions answered. She has any questions can contact the office.
[2022-10-23] MEDS: ondansetron 2 mg/ML SDV 2 mL 4 MG IVP (14:03)
--- NOTE | 2022-10-23 16:09 | ANE.PACU2 ---
Inpatient post-anesthesia follow up: Airway intact: Yes Vital signs: Temperature 98 F Pulse Rate 88 Respiratory Rate 18 Blood Pressure 109/68 Pulse Oximetry 94 Oxygen Delivery Me thod Room Air Oxygen Flow Rate 6 Fraction of Inspir ed Oxygen Hydration adequate: Yes Nausea and vomiting: No Pain level: 1 Mental status: Baseline
== END 2022-10-23 14:50 | disposition home or self-care (01) ==
PROVIDERS: PCP Family Medicine; Visit Provider Student in an Organized Health Care Education/Training Program
PROC: (CPT 29805; principal; 2022-10-23 11:50)
PROC: (CPT 23430; 2022-10-23 11:50)
PROC: (CPT 23405; 2022-10-23 11:50)
DX: M75.42 Impingement syndrome of left shoulder (principal); M75.82 Other shoulder lesions, left shoulder; M75.22 Bicipital tendinitis, left shoulder; K21.9 Gastro-esophageal reflux disease without esophagitis; E78.5 Hyperlipidemia, unspecified; E03.9 Hypothyroidism, unspecified; Z79.82 Long term (current) use of aspirin; E66.01 Morbid (severe) obesity due to excess calories; Z68.41 Body mass index [BMI] 40.0-44.9, adult
CPT/HCPCS: 23405; 29828; J0131; J1100; J1200; J1885; J2250; J2370; J2405; J2704; J2795; J3010; J3490; J7030

== ENCOUNTER → 2022-10-30 07:55 | Outpatient (BNVA) | payer MEDICAID, SELFPAY | PROVIDERS: PCP Family Medicine; Visit Provider Nurse Practitioner Family | DX: Z48.89 Encounter for other specified surgical aftercare (principal) | CPT/HCPCS: 99024 ==

== ENCOUNTER → 2022-11-07 07:42 | Outpatient (BNVA) | payer MEDICAID, SELFPAY | PROVIDERS: PCP Family Medicine; Visit Provider Nurse Practitioner Family | DX: Z48.89 Encounter for other specified surgical aftercare (principal) | CPT/HCPCS: 99024 ==

== ENCOUNTER → 2022-11-22 09:40 | Outpatient (BNVA) | payer MEDICAID, SELFPAY | PROVIDERS: PCP Family Medicine; Visit Provider Specialist | DX: G43.711 Chronic migraine without aura, intractable, with status migrainosus (principal) | CPT/HCPCS: 64615; J0585 ==

== ENCOUNTER → 2022-12-05 08:12 | Outpatient (BNVA) | payer MEDICAID, SELFPAY | PROVIDERS: PCP Family Medicine; Visit Provider Nurse Practitioner Family | DX: Z48.89 Encounter for other specified surgical aftercare (principal) | CPT/HCPCS: 99024; 99213 ==

== ENCOUNTER → 2022-12-07 09:07 | Outpatient (BNVA) | payer MEDICAID, SELFPAY | PROVIDERS: PCP Family Medicine; Visit Provider Internal Medicine | DX: R00.2 Palpitations (principal); E78.5 Hyperlipidemia, unspecified | CPT/HCPCS: 99213 ==

== ENCOUNTER 2023-02-22 09:00 | Outpatient (CLI) | payer MEDICAID, SELFPAY ==
--- NOTE | 2023-02-22 09:11 | MM_ITS ---
WS: [id number] Bilateral screening 3D tomosynthesis digital mammogram, 02/22/2023 Clinical Data: SCREENING Comparison: 02/18/2020, 04/27/2016, 09/04/2012, 03/16/2009. Findings: The breast parenchymal pattern shows fibroglandular tissue. No spiculated masses or clustered calcifi cations are seen. There are no secondary signs of carcinoma. There are lymph nodes in both axilla. MM/[place] [id number] Impression: 1. Negative bilateral mammogram unchanged. 2. Recommend annual screening mammograms. BIRADS: 1-Negative FOLLOW UP: 1 Year Follow-up The CAD engineering drawings checker was used.
== END 2023-02-22 09:01 | disposition home or self-care (01) ==
LOC: RAD 09:01
PROVIDERS: PCP Family Medicine; Visit Provider Family Medicine
DX: Z12.31 Encounter for screening mammogram for malignant neoplasm of breast (principal)
CPT/HCPCS: 77063; 77067

== ENCOUNTER → 2023-02-28 11:58 | Outpatient (BNVA) | payer MEDICAID, SELFPAY | PROVIDERS: PCP Family Medicine; Visit Provider Specialist | DX: G43.711 Chronic migraine without aura, intractable, with status migrainosus (principal) | CPT/HCPCS: 64615; J0585 ==

== ENCOUNTER 2023-04-23 20:00 | Outpatient (CLI) | payer MEDICAID, SELFPAY | END 2023-04-23 20:01 | disposition home or self-care (01) | LOC: SLEEP 04-24 05:08 | PROVIDERS: PCP Family Medicine; Visit Provider Family Medicine | DX: G47.33 Obstructive sleep apnea (adult) (pediatric) (principal) | CPT/HCPCS: 95810 ==

== ENCOUNTER 2023-04-25 15:37 | Emergency (ER) | payer MEDICAID, SELFPAY ==
[2023-04-25 16:42] VITALS: BMI 41.3
[2023-04-25 17:08] VITALS: BP 124/82; PULSE 86; RESP 18; TEMP 36.4; O2SAT 93
--- NOTE | 2023-04-25 17:18 | XRR_ITS ---
PROCEDURE INFORMATION: Exam: XR Right Hand Exam date and time: 04/25/2023 5:56 PM Age: 62 years old Clinical indication: Injury or trauma; Fall; Additional info: Injury, fall TECHNIQUE: Imaging protocol: Radiologic exam of the right hand. Views: 3 or more views. COMPARISON: CR XR wrist RT min 3V* [id number] 07/24/2020 3:06 AM FINDINGS: Bones/joints: Stable healed fracture of the distal fifth metacarpal with volar angulation of the distal fracture fragment (Boxer's fracture). Soft tissues: Normal. XR/XR hand RT min 3V* [id number] IMPRESSION: Stable healed fracture of the distal fifth metacarpal with volar angulation of the distal fracture fragment (Boxer's fracture).
--- NOTE | 2023-04-25 17:19 | W.ED.EXTPRO ---
HPI - Extremity Problem General: Chief complaint: Extremity Injury, Upper Stated complaint: hurt hand Time Seen by Provider: 04/25/23 17:18 History of Present Illness: 62-year-old female that was taking care of her grandchild when she tripped over her causing her to fall and strike her hand against a wooden table. Patient has bruising to the dorsal right hand. Patient has decreased range of motion due to swelling. Patient denies any other injuries or loss of consciousness. Patient appears nontoxic. Patient appears in mild pain. Associated symptoms: Deny chest pain Review of Systems General: Reports: 10 or more systems reviewed and unremarkable except in HPI and below Card: Denies: chest pain Resp: Denies: dyspnea GI: Denies: nausea or vomiting : Denies: difficulty voiding Musc: Reports: extremity pain (Right dorsal hand) and extremity swelling PFS ED PFSH: Medical History Biceps tendinitis of shoulder Borderline personality disorder Chronic migraine without aura, intractable, with status migrainosus Chronic migraine without aura, intractable, with status migrainosus -pain control as needed -continue to follow up with Dr. Bennett for Botox injections Chronic post-traumatic stress disorder GERD (gastroesophageal reflux disease) Hyperlipidemia Hypothyroid Panic disorder with agoraphobia Psychiatric care PTSD (post-traumatic stress disorder) -continue to f/u at [facility] Schizoaffective disorder, bipolar type Subacromial impingement of left shoulder Tarsal tunnel syndrome, left lower limb Tendinitis of left rotator cuff Surgical History H/O arthroscopic knee surgery History of appendectomy History of arthroscopy of left shoulder History of bilateral tubal ligation Family History Father Bleeding disorder CAD (coronary artery disease) Other Diabetes Hypertension Denies family history of Anesthesia complication Social History Smoking and tobacco status: never smoked Second hand smoke exposure: No (quit smoking 7 years ago) Alcohol intake: never Substance/Drug Use: never Lives independently: Yes Household members: none Current occupational status: disabled Physical Exam Const: COMMON NORMALS: alert HENMT: COMMON NORMALS: atraumatic and Normal external nose present HEAD & SCALP: atraumatic NOSE: Normal external nose present Neck/C-Spine: COMMON NORMALS: full ROM Chest: COMMONS NORMALS: normal inspection of the chest Resp: COMMON NORMALS: normal respiratory effort Cardio: COMMON NORMALS: regular rate and regular rhythm RATE: regular rate RHYTHM: regular rhythm GI: COMMON NORMALS: Soft to palpation and non-tender PALPATION: Yes Soft to palpation Back/Pelvis: COMMON NORMALS: thoracic and lumbar spine normal to inspection Extremity: RIGHT UPPER EXTREMITY: Yes hand & digits (Swelling and bruising to the right dorsal hand. Distal cap refill is intac) Right hand and digits: Yes inspection, Yes palpation and Yes ROM exam Neuro: SENSORIUM/ORIENTATION: Yes alert Skin: COMMON NORMALS: turgor normal GENERAL SKIN EXAM: turgor normal Course Vital Signs: Vital signs: Vital Signs Temperature 97.6 F 04/25/23 18:26 Pulse Rate 86 04/25/23 18:26 Respiratory Rate 18 04/25/23 18:26 Blood Pressure 124/82 04/25/23 18:26 Pulse Oximetry 93 04/25/23 18:26 Oxygen Delivery Me thod Room Air 04/25/23 17:08 MDM - Extremity (Nontraumatic) Medical Decision Making 62-year-old female comes in today for evaluation of injury to the right dorsal hand. On exam cap refill is intact to right hand, dorsal bruising and swelling is noted.. Respirations are even lungs are clear to auscultation. Vital signs are normal. Differential diagnosis includes fracture, contusion, sprain. X-ray of the hand noted a old fracture of the fifth metacarpal but no signs of new injuries. Reviewed exam with patient recommended treatment for contusion/hematoma of the dorsal hand with Michael wrap and ice packs. Patient reported understanding of care plan and need for follow-up or return to the ER. Lab Data Radiology Impressions Hand X-Ray 04/25/23 17:18 IMPRESSION: Stable healed fracture of the distal fifth metacarpal with volar angulation of the distal fracture fragment (Boxer's fracture). Discharge Plan Discharge Patient Disposition: Home Clinical Impression: Contusion of hand Qualifiers: Encounter type: initial encounter Laterality: right Qualified Code(s): S60.221A - Contusion of right hand, initial encounter Condition: Stable Prescriptions: No Action Spiriva Respimat 1.25 mcg/actuation mist 2 puff inhalation DAILY omeprazole 40 mg capsule,delayed release(DR/EC) 40 mg PO DAILY nitroglycerin 0.4 mg tablet, sublingual 0.4 mg SUBLINGUAL Q5M PRN (Reason: Chest Pain) Rx Instructions: as directed upto 3 albuterol sulfate 90 mcg/actuation HFA aerosol inhaler 2 puff inhalation Q6H PRN (Reason: Shortness Of Breath) Botox 100 unit recon soln 100 unit intradermal Q90D Rx Instructions: due next week levocetirizine [Xyzal] 5 mg tablet 5 mg PO DAILY Remeron 30 mg tablet 30 mg PO BEDTIME Qty: 30 6RF Rx Instructions: Take one tablet at bedtime lamotrigine [Lamictal] 200 mg tablet 200 mg PO DIRECTED Qty: 60 6RF Rx Instructions: Take one tablet in am and atbedtime ondansetron HCl 4 mg tablet 4 mg PO DAILY Qty: 14 1RF Rx Instructions: As needed nausea propranolol 10 mg tablet 10 mg PO BID Qty: 60 6RF Rx Instructions: Take one tablet every morning and every evening Invega Sustenna 234 mg/1.5 mL syringe 234 mg IM Q30D Qty: 1.5 6RF paliperidone [Invega] 6 mg tablet extended release 24 hr 12 mg PO DAILY PRN (Reason: psychosis) Qty: 60 3RF Rx Instructions: Take two tablets daily as needed for break thru symptoms of psychosis atorvastatin 40 mg tablet 40 mg PO DAILY 90 Days Qty: 90 1RF aspirin 81 mg tablet,delayed release (DR/EC) 81 mg PO DAILY Qty: 90 3RF lorazepam [Ativan] 1 mg tablet 1 mg PO BID PRN (Reason: anxiety) Qty: 60 1RF Rx Instructions: Take one tablet twice per day as needed for severe anxiety levothyroxine 125 mcg tablet 125 mcg PO DAILY fluticasone propionate 50 mcg/actuation [place],Suspension 2 spray INTRANASAL DAILY PRN (Reason: Nasal Congestion) Rx Instructions: administer into each nostril Discharge Orders: Discharge ED (Routine); Ordered 04/25/23 Ordered By: Arian Knowles Referrals: Mark Bennett MD [Primary Care Provider] - Discharge Diet: Usual diet Discharge Activity: Increase activity as tolerated Patient Instructions: Hematoma (ED) Activity Restrictions/Additional Instructions: Elevate hand. Use ice pack to the dorsal hand to help with swelling. Elastic wrap for further swelling and comfort. Use acetaminophen or ibuprofen for pain. Follow-up with primary care for further instructions. Return to ER for new concerns. Coding Level of Care Code ED Smooth Plater for Samaria Canas
[2023-04-25 18:26] VITALS: BP 124/82; PULSE 86; RESP 18; TEMP 36.4; O2SAT 93
== END 2023-04-25 18:30 | disposition home or self-care (01) ==
PROVIDERS: Emergency Provider Nurse Practitioner Family; PCP Family Medicine
DX: S60.221A Contusion of right hand, initial encounter (principal); Z79.82 Long term (current) use of aspirin; Z87.891 Personal history of nicotine dependence; E78.5 Hyperlipidemia, unspecified; W01.190A Fall on same level from slipping, tripping and stumbling with subsequent striking against furniture, initial encounter
CPT/HCPCS: 73130; 99283

== ENCOUNTER → 2023-05-30 14:27 | Outpatient (BNVA) | payer MEDICAID, SELFPAY | PROVIDERS: PCP Family Medicine; Visit Provider Specialist | DX: G43.711 Chronic migraine without aura, intractable, with status migrainosus (principal) | CPT/HCPCS: 64615; J0585 ==

== ENCOUNTER → 2023-07-08 11:12 | Outpatient (BNVA) | payer MEDICAID, SELFPAY | PROVIDERS: PCP Family Medicine; Visit Provider Nurse Practitioner Psychiatric/Mental Health | DX: F25.0 Schizoaffective disorder, bipolar type (principal); Z79.899 Other long term (current) drug therapy; F60.3 Borderline personality disorder; F40.01 Agoraphobia with panic disorder; F43.12 Post-traumatic stress disorder, chronic | CPT/HCPCS: 80053; 80061; 83036 ==

== ENCOUNTER 2023-07-13 13:58 | Emergency (ER) | payer MEDICAID, SELFPAY ==
--- NOTE | 2023-07-13 14:02 | ED_ITS ---
HPI - Fall General: Chief Complaint: Extremity Injury, Upper Stated Complaint: fall, left wrist and elbow injury Time Seen by Provider: 07/13/23 14:02 History of Present Illness: 62-year-old female comes in today with fall injury. Patient states that she had tripped over her own feet, falling and then catching herself with outstretched arms. Patient reports pain and discomfort to the left wrist and elbow. No obvious deformity is noted. Mild swelling is noted to the wrist. Associated symptoms-after fall: Denies chest pain or headache(s) Review of Systems General: Reports: 10 or more systems reviewed and unremarkable except in HPI and below Const: Denies: fever(s) Card: Denies: chest pain Resp: Denies: dyspnea GI: Denies: vomiting : Denies: difficulty voiding Musc: Reports: extremity pain and extremity swelling Neuro: Denies: headache(s) PFS ED PFSH: Medical History Biceps tendinitis of shoulder Borderline personality disorder Chronic migraine without aura, intractable, with status migrainosus Chronic migraine without aura, intractable, with status migrainosus -pain control as needed -continue to follow up with Dr. Bennett for Botox injections Chronic post-traumatic stress disorder GERD (gastroesophageal reflux disease) Hyperlipidemia Hypothyroid Panic disorder with agoraphobia Psychiatric care PTSD (post-traumatic stress disorder) -continue to f/u at [facility] Schizoaffective disorder, bipolar type Subacromial impingement of left shoulder Tarsal tunnel syndrome, left lower limb Tendinitis of left rotator cuff Surgical History H/O arthroscopic knee surgery History of appendectomy History of arthroscopy of left shoulder History of bilateral tubal ligation Family History Father Bleeding disorder CAD (coronary artery disease) Other Diabetes Hypertension Denies family history of Anesthesia complication Social History Smoking and tobacco/nicotine status: never used tobacco/nicotine Second hand smoke exposure: No (quit smoking 7 years ago) Alcohol intake: never Substance/Drug Use: never Lives independently: Yes Household members: none Current occupational status: disabled Physical Exam Const: COMMON NORMALS: alert HENMT: COMMON NORMALS: normocephalic HEAD & SCALP: normocephalic Neck/C-Spine: COMMON NORMALS: full ROM Chest: COMMONS NORMALS: normal inspection of the chest Resp: COMMON NORMALS: normal respiratory effort Cardio: COMMON NORMALS: regular rate and regular rhythm RATE: regular rate RHYTHM: regular rhythm GI: COMMON NORMALS: non-tender Back/Pelvis: COMMON NORMALS: thoracic and lumbar spine normal to inspection Extremity: LEFT UPPER EXTREMITY: Yes elbow joint (Decreased range of motion due to pain, no swelling or dislocation) and Yes wrist (Swelling noted, decreased range of motion due to pain, no dislocation) Left wrist: Yes neuro vascular exam Neuro: SENSORIUM/ORIENTATION: Yes alert Skin: COMMON NORMALS: turgor normal GENERAL SKIN EXAM: turgor normal Course Vital Signs: Vital signs: Vital Signs Temperature 98 F 07/13/23 14:10 Pulse Rate 81 07/13/23 14:10 Respiratory Rate 18 07/13/23 14:10 Blood Pressure 114/85 07/13/23 14:10 Pulse Oximetry 96 07/13/23 14:10 Oxygen Delivery Me thod Room Air 07/13/23 14:10 MDM - Fall Medical Decision Making 62-year-old female comes in today for evaluation of injuries to the left wrist and elbow. Patient had tripped and fallen at home. On exam patient has normal sensation and helpful pulses distal to injury. Cap refill is intact. Patient has some mild swelling and tenderness to the joint lines of the wrist. Decreased range of motion of the wrist and elbow on the left upper extremity due to pain and discomfort. Differential diagnosis includes but not limited to fracture, sprain, contusion, dislocation. X-ray of the left wrist and elbow showed no sign of fracture. Recommended follow-up with primary care in 1 week for recheck. Return to ED for new concerns. Patient reported understanding and agreed to plan. Patient was placed in an elastic wrap for comfort with further instruction for f/u or return to ER. Lab Data Radiology Impressions Elbow X-Ray 07/13/23 14:05 IMPRESSION: No acute findings. Wrist X-Ray 07/13/23 14:05 IMPRESSION: No acute findings. All radiology interpretation(s) finalized by discharge Discharge Plan Discharge Patient Disposition: Home Clinical Impression: Fall from slip, trip, or stumble Qualifiers: Encounter type: initial encounter Qualified Code(s): W01.0XXA - Fall on same level from slipping, tripping and stumbling without subsequent striking against object, initial encounter Left wrist sprain Qualifiers: Encounter type: initial encounter Qualified Code(s): S63.502A - Unspecified sprain of left wrist, initial encounter Condition: Stable Prescriptions: No Action Spiriva Respimat 1.25 mcg/actuation mist 2 puff inhalation DAILY omeprazole 40 mg capsule,delayed release(DR/EC) 40 mg PO DAILY nitroglycerin 0.4 mg tablet, sublingual 0.4 mg SUBLINGUAL Q5M PRN (Reason: Chest Pain) Rx Instructions: as directed upto 3 albuterol sulfate 90 mcg/actuation HFA aerosol inhaler 2 puff inhalation Q6H PRN (Reason: Shortness Of Breath) lamotrigine [Lamictal] 200 mg tablet 200 mg PO DIRECTED Qty: 60 6RF Rx Instructions: Take one tablet in am and atbedtime Remeron 30 mg tablet 30 mg PO BEDTIME Qty: 30 6RF Rx Instructions: Take one tablet at bedtime propranolol 10 mg tablet 10 mg PO TID Qty: 90 3RF Rx Instructions: Take one tablet three times per day benztropine 0.5 mg tablet 0.5 mg PO BID Qty: 60 2RF Rx Instructions: Take one tablet twice per day Botox 100 unit recon soln 100 unit intradermal Q90D Rx Instructions: due next week levocetirizine [Xyzal] 5 mg tablet 5 mg PO DAILY ondansetron HCl 4 mg tablet 4 mg PO DAILY Qty: 14 1RF Rx Instructions: As needed nausea Invega Sustenna 234 mg/1.5 mL syringe 234 mg IM Q30D Qty: 1.5 6RF paliperidone [Invega] 6 mg tablet extended release 24 hr 12 mg PO DAILY PRN (Reason: psychosis) Qty: 60 3RF Rx Instructions: Take two tablets daily as needed for break thru symptoms of psychosis Botox 100 unit recon soln 155 unit SUBCUT ONCE Qty: 2 0RF atorvastatin 40 mg tablet 40 mg PO DAILY 90 Days Qty: 90 1RF aspirin 81 mg tablet,delayed release (DR/EC) 81 mg PO DAILY Qty: 90 3RF lorazepam [Ativan] 1 mg tablet 1 mg PO BID PRN (Reason: anxiety) Qty: 60 1RF Rx Instructions: Take one tablet twice per day as needed for severe anxiety levothyroxine 125 mcg tablet 125 mcg PO DAILY fluticasone propionate 50 mcg/actuation [place],Suspension 2 spray INTRANASAL DAILY PRN (Reason: Nasal Congestion) Rx Instructions: administer into each nostril Discharge Orders: Discharge ED (Routine); Ordered 07/13/23 Ordered By: Arian Knowles Referrals: Mark Bennett MD [Primary Care Provider] - Discharge Diet: Usual diet Discharge Activity: Increase activity as tolerated Patient Instructions: Musculoskeletal Pain (ED) Activity Restrictions/Additional Instructions: Wear elastic bandage for comfort. Use acetaminophen and/or ibuprofen as needed for pain. Use ice packs for further pain relief. Follow-up with primary care in 5 to 7 days for recheck. If pain persists or does not improved after 5 days I would recommend a repeat x-ray. Coding Level of Care Code ED Site Worker for Samaria Canas
--- NOTE | 2023-07-13 14:05 | XRR_ITS ---
PROCEDURE INFORMATION: Exam: XR Left Elbow Exam date and time: 07/13/2023 2:19 PM Age: 62 years old Clinical indication: Injury or trauma; Fall; Swelling (edema); Left; Patient HX: Lt elbow/wrist pain post foosh TECHNIQUE: Imaging protocol: Radiologic exam of the left elbow. Views: 3 or more views. COMPARISON: No relevant prior studies available. FINDINGS: Bones/joints: Negative for acute bony abnormality. Soft tissues: Normal. XR/XR elbow LT min 3V* [id number] IMPRESSION: No acute findings.
--- NOTE | 2023-07-13 14:05 | XRR_ITS ---
PROCEDURE INFORMATION: Exam: XR Left Wrist Exam date and time: 07/13/2023 2:19 PM Age: 62 years old Clinical indication: Injury or trauma; Fall; Patient HX: Lt elbow/wrist pain post foosh TECHNIQUE: Imaging protocol: Radiologic exam of the left wrist. Views: 3 or more views. COMPARISON: No relevant prior studies available. FINDINGS: Bones/joints: Negative for acute bony abnormality. Soft tissues: Normal. XR/XR wrist LT min 3V* [id number] IMPRESSION: No acute findings.
[2023-07-13 14:10] VITALS: BP 114/85; PULSE 81; RESP 18; TEMP 36.6; O2SAT 96; BMI 31.8
--- NOTE | 2023-07-13 14:14 | PC.NURSE ---
PATIENT REFUSING PAIN MEDS.
== END 2023-07-13 15:17 | disposition home or self-care (01) ==
PROVIDERS: Emergency Provider Nurse Practitioner Family; PCP Family Medicine
DX: S63.502A Unspecified sprain of left wrist, initial encounter (principal); Z79.82 Long term (current) use of aspirin; Z87.891 Personal history of nicotine dependence; E78.5 Hyperlipidemia, unspecified; W01.0XXA Fall on same level from slipping, tripping and stumbling without subsequent striking against object, initial encounter
CPT/HCPCS: 73080; 73110; 99283

== ENCOUNTER → 2023-07-24 11:12 | Outpatient (BNVA) | payer MEDICAID, SELFPAY | PROVIDERS: PCP Family Medicine; Visit Provider Podiatrist Foot & Ankle Surgery | DX: M72.2 Plantar fascial fibromatosis | CPT/HCPCS: 73630; 99213 ==

== ENCOUNTER 2023-08-01 08:15 | Outpatient (CLI) | payer MEDICAID, SELFPAY ==
--- NOTE | 2023-08-01 08:21 | CT_ITS ---
WS: [id number] LDCT LUNG CANCER SCREENING TECHNIQUE: Noncontrast CT of the chest with coronal and sagittal reformatted images. CLINICAL INFORMATION: HX OF TOBACCO USE COMPARISON: 07/30/2022 DLP: 142.67 mGy.cm DIvol: Mean CTDIvol: 4.20 (mGy) All CT scans at [facility] use at least one of these dose optimization techniques: automat ed exposure control; mA and/or kV adjustment per patient size (includes targeted exams where dose is matched to clinical indication); or iterative reconstruction. FINDINGS: Lungs are well aerated. Bibasilar atelectasis. No acute pulmonary infiltrates. Normal caliber thoracic aorta. No mediastinal or hilar lymphadenopathy. No axillary lymphadenopathy. Cholecystectomy clips. Small esophageal hiatal hernia with herniation of omental fat. Fatty atrophy of the pancreas. Adrenal glands are normal. IMPRESSION: CT/CT lung screening [id number] LUNG-RADS: 1-Negative FOLLOW UP: 12 Month: Continue annual screening with LDCT
== END 2023-08-01 08:16 | disposition home or self-care (01) ==
LOC: RAD 08:15
PROVIDERS: PCP Family Medicine; Visit Provider Family Medicine
DX: Z12.2 Encounter for screening for malignant neoplasm of respiratory organs (principal); Z87.891 Personal history of nicotine dependence
CPT/HCPCS: 71271

== ENCOUNTER → 2023-08-22 12:32 | Outpatient (BNVA) | payer MEDICAID, SELFPAY | PROVIDERS: PCP Family Medicine; Visit Provider Specialist | DX: G43.711 Chronic migraine without aura, intractable, with status migrainosus (principal); G24.01 Drug induced subacute dyskinesia | CPT/HCPCS: 64615; 64643; 99214; J0585 ==

== ENCOUNTER 2023-08-28 11:31 | Outpatient (CLI) | payer MEDICAID, SELFPAY ==
--- NOTE | 2023-08-28 11:42 | XR_ITS ---
WS: [id number] Exam: XR hip RT 2-3V wo/w pel* [id number] Date/Time of Exam: 08/28/2023 11:43 AM Reason For Exam: PAIN IN R HIP Comparison 11/16/2021. No fracture or dislocation. Minimal degenerative change of the acetabulum. The joint spaces relativel y well-preserved. Normal soft tissues. IMPRESSION: 1. Minimal degenerative change of the acetabular rim. No fracture or other significant finding. Stabl e since prior study.
== END 2023-08-28 11:32 | disposition home or self-care (01) ==
LOC: RAD 11:32
PROVIDERS: PCP Family Medicine; Visit Provider Family Medicine
DX: M25.551 Pain in right hip (principal); M72.2 Plantar fascial fibromatosis
CPT/HCPCS: 73502; 99213

== ENCOUNTER 2023-10-18 18:08 | Emergency (ER) | payer MEDICAID, SELFPAY ==
[2023-09-12 12:17] VITALS: BP 119/77; BMI 41.3
[2023-10-18 18:09] VITALS: BP 132/78; PULSE 73; RESP 18; TEMP 36.8; O2SAT 93; BMI 40.7
--- NOTE | 2023-10-18 18:33 | ECG_ITS ---
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 Measurements Intervals [place] Rate: 74 P: 23 [place]: 164 QRS: 31 QRSD: 86 T: 10 QT: 367 QTc: 409 Interpretive Statements SINUS RHYTHM NONSPECIFIC ST & T-WAVE ABNORMALITY Compared to ECG 08/07/2022 11:24:14 No significant changes Electronically Signed On 10-19-2023 23:13:05 [employer] SUPERVISOR by Ronny Hebert M.D. [id number]
--- NOTE | 2023-10-18 18:33 | XRR_ITS ---
PROCEDURE INFORMATION: Exam: XR Chest Exam date and time: 10/18/2023 6:53 PM Age: 62 years old Clinical indication: Patient HX: Weakness; Dizziness; Low o2 sat TECHNIQUE: Imaging protocol: Radiologic exam of the chest. Views: 1 view. COMPARISON: CT lung screening [id number] 08/01/2023 8:32 AM FINDINGS: Lungs: Bilaterally low lung volumes similar to 08/01/2023 CT likely contributed to by the body habitus. Minimal left basilar streak atelectasis. Pleural spaces: Unremarkable. No pleural effusion. No pneumothorax. Heart/Mediastinum: Magnified by portable technique, likely within normal limits. No mediastinal widening. Bones/joints: Unremarkable. XR/XR chest 1V portable [id number] IMPRESSION: Relatively low lung volumes similar to prior imaging. Minor left basilar streak atelectasis.
--- NOTE | 2023-10-18 18:42 | ED_ITS ---
HPI - Dizziness 2 General: Chief Complaint: Dizziness Stated Complaint: weakness Time Seen by Provider: 10/18/23 18:33 History of Present Illness: HPI Narrative: Patient presents to the ER with complaints of dizziness and weakness starting about 11:00 today. Patient says it just has progressed and is getting worse. Patient states she has had this before multiple times but never quite this bad. Patient says she eat to the point that she cannot ambulate to the bathroom safely. Patient does wear 4 L of oxygen at all times. Patient denies any chest pain coughs colds fevers chills does admit to some nausea. Review of Systems 2 General: Reports: 10 or more systems reviewed and unremarkable except in HPI and below PFSH ED 2 PFSH: Medical History Biceps tendinitis of shoulder Subacromial impingement of left shoulder Tendinitis of left rotator cuff Psychiatric care Chronic migraine without aura, intractable, with status migrainosus -pain control as needed -continue to follow up with Dr. Bennett for Botox injections Panic disorder with agoraphobia Chronic post-traumatic stress disorder Schizoaffective disorder, bipolar type Tarsal tunnel syndrome, left lower limb Hyperlipidemia GERD (gastroesophageal reflux disease) Hypothyroid Borderline personality disorder PTSD (post-traumatic stress disorder) -continue to f/u at [facility] Chronic migraine without aura, intractable, with status migrainosus Surgical History History of bilateral tubal ligation History of appendectomy History of arthroscopy of left shoulder H/O arthroscopic knee surgery Family History Father Bleeding disorder CAD (coronary artery disease) Other Diabetes Hypertension Denies family history of Anesthesia complication Social History Smoking and tobacco/nicotine status: never used tobacco/nicotine Second hand smoke exposure: No (quit smoking 7 years ago) Alcohol intake: never Substance/Drug Use: never Lives independently: Yes Household members: none Current occupational status: disabled Physical Exam 2 Const: COMMON NORMALS: no acute distress, average body habitus, patient oriented x3, no limitations, healthy appearing, alert and well nourished HENMT: COMMON NORMALS: normocephalic, atraumatic, hearing grossly normal bilaterally, external ears normal, Normal external nose present, moist oral mucous membranes and oropharynx normal HEAD & SCALP: normocephalic and atraumatic NOSE: Normal external nose present EXTERNAL EAR: Yes external ears normal Eye: COMMON NORMALS: Equal, round and reactive pupils present, EOMs intact bilaterally, conjunctivae normal and no scleral icterus CONJUNCTIVA: Yes conjunctivae normal PUPIL: Yes Equal, round and reactive pupils present Neck/C-Spine: COMMON NORMALS: no JVD Chest: COMMONS NORMALS: normal inspection of the chest and normal palpation of entire chest wall Resp: COMMON NORMALS: normal respiratory effort, No retractions, No use of accessory muscles and clear to auscultation bilaterally AUSCULTATION: clear to auscultation bilaterally Cardio: COMMON NORMALS: no JVD, regular rate, regular rhythm, S1 normal heart sound present, S2 normal heart sound present, No gallops present (Cardio), No clicks present (Cardio) and No murmurs present (Cardio) RATE: regular rate RHYTHM: regular rhythm HEART SOUNDS: S1 normal heart sound present and S2 normal heart sound present GI: COMMON NORMALS: Normal to inspection, nondistended, normoactive bowel sounds present, Soft to palpation, No hepatosplenomegaly present and no masses PALPATION: Yes Soft to palpation and Yes No hepatosplenomegaly present Neuro: COMMON NORMALS: patient oriented x3 SENSORIUM/ORIENTATION: Yes alert Course 2 Vital Signs: Vital signs: Vital Signs Temperature 98.2 F 10/18/23 18:09 Pulse Rate 74 10/18/23 21:57 Respiratory Rate 18 10/18/23 18:09 Blood Pressure 143/82 10/18/23 21:57 Pulse Oximetry 95 10/18/23 21:57 Oxygen Delivery Me thod Nasal Cannula 10/18/23 20:39 Oxygen Flow Rate 2 10/18/23 20:39 MDM - Dizziness Medical Decision Making Presents today for vertigo and weakness. Patient had lab work done that included CBC CMP TSH magnesium and urinalysis. Urinalysis did show positive for nitrates, leukocyte Estrace, 5-10 white blood cells with 2+ bacteria. Chest x- ray showed similar to prior imaging with streak atelectasis, head CT showed no clear-cut abnormality. Patient is allergic to penicillin. Patient be placed on Bactrim for urinary tract infection and discharged home. Differential Diagnosis Unlikely adverse reaction to drug, benign paroxysmal positional vertigo, orthostatic hypotension, vertebral basilar insufficiency, cerebrovascular accident, acute vestibular neuronitis or transient cerebral ischemia Medical Records I reviewed the patient's medical records. Lab Data I reviewed the patient's lab results. 10/18/23 18:45 10/18/23 18:45 Radiology Impressions Chest X-Ray 10/18/23 18:33 IMPRESSION: Relatively low lung volumes similar to prior imaging. Minor left basilar streak atelectasis. Head CT 10/18/23 19:45 IMPRESSION: 1. No clear-cut acute intracranial abnormality on CT. Further evaluation with MR may be considered if there is persistent suspicion for early stroke or other significant abnormality. 2. Akrl-rq-jujvqphg chronic microvascular cerebral parenchymal changes , increased from 05/15/2020 CT. Laboratory Results WBC 7.31 10^3/uL (3.29-11.43) 10/18/23 18:45 RBC 4.50 10^6/uL (3.85-5.65) 10/18/23 18:45 Hgb 13.30 g/dL (11.27-16.99) 10/18/23 18:45 Hct 41.1 % (36-47) 10/18/23 18:45 MCV 91.3 fl (85-98) 10/18/23 18:45 MCH 29.6 pg (27-33) 10/18/23 18:45 MCHC 32.4 g/dL (30-55) 10/18/23 18:45 RDW 13.3 % (12.1-15.1) 10/18/23 18:45 Plt Count 210 10^3/cmm (157-399) 10/18/23 18:45 MPV 10.0 fL (7.4-10.4) 10/18/23 18:45 Neut % (Auto) 64.9 % 10/18/23 18:45 Lymph % (Auto) 23.7 % 10/18/23 18:45 [place] % (Auto) 5.7 % 10/18/23 18:45 Eos % (Auto) 4.1 % 10/18/23 18:45 Baso % (Auto) 1.2 % 10/18/23 18:45 Neut # (Auto) 4.74 10^3/uL (1.8-7.7) 10/18/23 18:45 Lymph # (Auto) 1.7 10^3/uL (0.8-4.8) 10/18/23 18:45 [place] # (Auto) 0.4 10^3/uL (0.2-0.9) 10/18/23 18:45 Eos # (Auto) 0.3 10^3/uL (0.0-0.8) 10/18/23 18:45 Baso # (Auto) 0.1 10^3/uL (0.0-0.1) 10/18/23 18:45 Nucleated RBC % (auto) 0 % 10/18/23 18:45 Nucleated RBCs # 0.0 /100WBC 10/18/23 18:45 Sodium 138 mmol/L (136-145) 10/18/23 18:45 Potassium 4.4 mmol/L (3.5-5.1) 10/18/23 18:45 Chloride 101 mmol/L (98-107) 10/18/23 18:45 Carbon Dioxide 26 mmol/L (22-29) 10/18/23 18:45 Anion Gap 15.4 (5-19) 10/18/23 18:45 BUN 9 mg/dL (8-23) 10/18/23 18:45 Creatinine 0.6 mg/dL (0.5-0.9) 10/18/23 18:45 GFR Calculation 101.0 mL/min (90-130) 10/18/23 18:45 Glucose 141 mg/dL (65-115) H 10/18/23 18:45 Calculated Osmolality 287 mOsm/kg (285-295) 10/18/23 18:45 Calcium 9.3 mg/dL (8.5-10.5) 10/18/23 18:45 Magnesium 2.0 mg/dL (1.7-2.3) 10/18/23 18:45 Total Bilirubin 0.3 mg/dL (0.15-1.2) 10/18/23 18:45 AST 16 U/L (0-32) 10/18/23 18:45 ALT < 5 U/L (0-33) 10/18/23 18:45 Alkaline Phosphatase 128 U/L (35-105) H 10/18/23 18:45 Total Protein 6.6 g/dL (6.6-8.7) 10/18/23 18:45 Albumin 3.7 g/dL (3.5-5.2) 10/18/23 18:45 Globulin 2.9 g/dL (1.3-4.6) 10/18/23 18:45 TSH 0.41 uIU/mL (0.27-4.20) 10/18/23 18:45 Urine Color Yellow (Yellow) 10/18/23 19:54 Urine Appearance Sl hazy (CLEAR) A 10/18/23 19:54 Urine pH 7 (5-7) 10/18/23 19:54 Ur Specific [place] 1.020 (1.005-1.030) 10/18/23 19:54 Urine Protein 1+ (Negative) H 10/18/23 19:54 Urine Glucose (UA) Trace (Normal) H 10/18/23 19:54 Urine Ketones Negative (Negative) 10/18/23 19:54 Urine Blood 2+ (Negative) H 10/18/23 19:54 Urine Nitrate Positive (Negative) H 10/18/23 19:54 Urine Bilirubin Neg (Negative) 10/18/23 19:54 Urine Urobilinogen Norm mg/dL (Negative) 10/18/23 19:54 Ur Leukocyte Esterase 1+ (Negative) H 10/18/23 19:54 Urine RBC 5-10 /hpf (0-2) H 10/18/23 19:54 Urine WBC 5-10 /hpf (0-5) H 10/18/23 19:54 Ur Squamous Epith Cells 0-4 /hpf (0-5) H 10/18/23 19:54 Amorphous Sediment Trace /hpf 10/18/23 19:54 Urine Bacteria 2+ /hpf (NONE) H 10/18/23 19:54 Urine Mucus Trace /hpf 10/18/23 19:54 All radiology interpretation(s) finalized by discharge EKG Data EKG 1: I personally reviewed and interpreted this EKG as follows: EKG interpretation date: 10/18/23 EKG interpretation time: 18:01 Prior EKG tracings: not available for review Interpretation: EKG shows ventricular rate 85 beats minute, NC interval 164, QRS duration 114, QTc of 458, sinus rhythm, left ventricular hypertrophy EKG 2: I personally reviewed and interpreted this EKG as follows: EKG interpretation date: 10/18/23 EKG interpretation time: 18:47 Prior EKG tracings: available for review Interpretation: Ventricular rate 74 beats a minute, NC interval 164, QRS duration 86, QTc 394, sinus rhythm, nonspecific ST abnormality Discharge Plan Discharge Patient Disposition: Home Clinical Impression: Dizziness Urinary tract infection Qualifiers: Urinary tract infection type: acute cystitis Hematuria presence: with hematuria Qualified Code(s): N30.01 - Acute cystitis with hematuria Condition: Stable Prescriptions: New Bactrim DS 800-160 mg tablet 1 tab PO BID Qty: 14 0RF No Action omeprazole 40 mg capsule,delayed release(DR/EC) 40 mg PO DAILY nitroglycerin 0.4 mg tablet, sublingual 0.4 mg SUBLINGUAL Q5M PRN (Reason: Chest Pain) Rx Instructions: as directed upto 3 albuterol sulfate 90 mcg/actuation HFA aerosol inhaler 2 puff inhalation Q6H PRN (Reason: Shortness Of Breath) Invega Sustenna 234 mg/1.5 mL syringe 234 mg IM Q30D Qty: 1.5 6RF Remeron 30 mg tablet 30 mg PO BEDTIME Qty: 30 6RF Rx Instructions: Take one tablet at bedtime propranolol 10 mg tablet 10 mg PO TID Qty: 90 6RF Rx Instructions: Take one tablet three times per day paliperidone [Invega] 6 mg tablet extended release 24hr 12 mg PO DAILY PRN (Reason: psychosis) Qty: 60 3RF Rx Instructions: Take two tablets daily as needed for break thru symptoms of psychosis benztropine 1 mg tablet 1 mg PO BID Qty: 60 6RF Rx Instructions: Take one tablet twice per day lamotrigine [Lamictal] 200 mg tablet 200 mg PO DIRECTED Qty: 60 6RF Rx Instructions: Take one tablet in am and atbedtime Botox 100 unit recon soln 100 unit intradermal Q90D Rx Instructions: due next week levocetirizine [Xyzal] 5 mg tablet 5 mg PO DAILY Botox 100 unit recon soln 155 unit SUBCUT ONCE Qty: 2 0RF (DME) Night splint to left See Rx Instructions .Route .MEDSUPPLY Qty: 1 0RF Rx Instructions: As directed atorvastatin 40 mg tablet 40 mg PO DAILY 90 Days Qty: 90 1RF aspirin 81 mg tablet,delayed release (DR/EC) 81 mg PO DAILY Qty: 90 3RF carbidopa-levodopa 25-100 mg tablet 1 tab PO TID Qty: 90 5RF lorazepam [Ativan] 1 mg tablet 1 mg PO BID PRN (Reason: anxiety) Qty: 60 1RF Rx Instructions: Take one tablet twice per day as needed for severe anxiety levothyroxine 125 mcg tablet 125 mcg PO DAILY fluticasone propionate 50 mcg/actuation [place],Suspension 2 spray INTRANASAL DAILY PRN (Reason: Nasal Congestion) Rx Instructions: administer into each nostril Discharge Orders: Discharge ED (Routine); Ordered 10/18/23 Ordered By: Patel Damian Referrals: Mark Bennett MD [Primary Care Provider] - 1 week Patient Instructions: Urinary Tract Infection in Older Adults (ED) Activity Restrictions/Additional Instructions: Your evaluation in ER showed you have a urinary tract infection. He will be provided with Bactrim in the ER as well as a prescription to finish out your course. Please drink plenty of fluids to help flush your system out. Please follow-up with your family practice physician within the next 7 to 10 days for further evaluation and treatment. Coding Level of Care Code ED Plastic Surgery Assistant for Samaria Canas
[2023-10-18 18:50] LABS: Basophils # 0.1 10^3/uL (0.0-0.1); Basophils % 1.2 %; Eosinophils # 0.3 10^3/uL (0.0-0.8); Eosinophils % 4.1 %; Hematocrit 41.1 % (36-47); Lymphocytes # 1.7 10^3/uL (0.8-4.8); Lymphocytes % 23.7 %; Mean Corpuscular HGB Conc 32.4 g/dL (30-55); Mean Corpuscular Hemoglobin 29.6 pg (27-33); Mean Corpuscular Volume 91.3 fl (85-98); Monocytes # 0.4 10^3/uL (0.2-0.9); Monocytes % 5.7 %; Neutrophils # 4.74 10^3/uL (1.8-7.7); Neutrophils % 64.9 %; Nucleated Red Blood Cells % 0 %; Platelet Count 210 10^3/cmm (157-399); Red Cell Distribution Width 13.3 % (12.1-15.1); White Blood Count 7.31 10^3/uL (3.29-11.43)
[2023-10-18 19:21] VITALS: BP 142/74; PULSE 72; O2SAT 92
[2023-10-18 19:42] LABS: Alanine Aminotransferase < 5 U/L (0-33); Albumin Level 3.7 g/dL (3.5-5.2); Alkaline Phosphatase 128 U/L (35-105); Blood Urea Nitrogen 9 mg/dL (8-23); Calcium 9.3 mg/dL (8.5-10.5); Carbon Dioxide 26 mmol/L (22-29); Chloride 101 mmol/L (98-107); Globulin 2.9 g/dL (1.3-4.6); Glucose 141 mg/dL (65-115); Osmolality Calculated 287 mOsm/kg (285-295); Sodium 138 mmol/L (136-145); Thyroid Stimulating Hormone 0.41 uIU/mL (0.27-4.20); Total Bilirubin 0.3 mg/dL (0.15-1.2); Total Protein 6.6 g/dL (6.6-8.7)
--- NOTE | 2023-10-18 19:45 | CTR_ITS ---
PROCEDURE INFORMATION: Exam: CT Head Without Contrast Exam date and time: 10/18/2023 7:55 PM Age: 62 years old Clinical indication: Patient HX: Dizziness with general weakness. TECHNIQUE: Imaging protocol: Computed tomography of the head without contrast. Radiation optimization: All CT scans at this facility use at least one of these dose optimization techniques: automated exposure control; mA and/or kV adjustment per patient size (includes targeted exams where dose is matched to clinical indication); or iterative reconstruction. COMPARISON: CT head wo con* [id number] 05/15/2020 2:55 PM RADIATION DOSE METRICS: Total DLP (mGy-cm): 1058.18 FINDINGS: Brain: Normal. No hemorrhage. Unremarkable white matter. No mass effect. Cerebral ventricles: No ventriculomegaly. Paranasal sinuses: Mucosal thickening of the ethmoid air cells. Mild retained secretions in the sphenoid sinus including the pneumatized sphenoid wings. The mastoid air cells are well aerated. Mastoid air cells: See Paranasal sinuses finding. Bones/joints: No acute fracture. Soft tissues: Unremarkable. Other findings: Features of mild to moderate chronic microvascular parenchymal change has increased from 05/15/[address]/CT head wo con* [id number] IMPRESSION: 1. No clear-cut acute intracranial abnormality on CT. Further evaluation with MR may be considered if there is persistent suspicion for early stroke or other significant abnormality. 2. [id number] chronic microvascular cerebral parenchymal changes , increased from 05/15/2020 CT.
[2023-10-18 19:50] LABS: Anion Gap 15.4 (5-19); Aspartate Amino Transferase 16 U/L (0-32); Potassium 4.4 mmol/L (3.5-5.1)
[2023-10-18 20:39] VITALS: BP 138/79; PULSE 74; O2SAT 93
[2023-10-18 20:44] LABS: Add Urine Microscopic? YES
[2023-10-18] MEDS: meclizine 25 mg tablet PO (20:45)
[2023-10-18 20:46] LABS: Bilirubin Urine Neg (Negative); Blood Urine 2+ (Negative); Glucose Urine UA Trace (Normal); Ketones Urine Negative (Negative); Leukocyte Esterase Urine 1+ (Negative); Nitrate Urine Positive (Negative); Protein Urine 1+ (Negative); Urine Appearance SL Hazy (CLEAR); Urine Color Yellow (Yellow); Urobilinogen Urine Norm (Negative); pH Urine 7 (5-7)
[2023-10-18 20:47] LABS: Add Urine Culture? Yes; Amorphous Sediment Urine TRACE /hpf; Bacteria Urine 2+ /hpf; Mucus Urine TRACE /hpf; Squamous Epithelial Cell Urine 0-4 /hpf (0-5)
[2023-10-18] MEDS: sulfamethoxazole-trimeth DS 160-800 mg Tablet 1 TAB PO (21:46)
[2023-10-18 21:57] VITALS: BP 143/82; PULSE 74; O2SAT 95
== END 2023-10-18 21:59 | disposition home or self-care (01) ==
PROVIDERS: Emergency Provider Emergency Medicine; PCP Family Medicine
DX: R42 Dizziness and giddiness (principal); N30.01 Acute cystitis with hematuria; Z79.82 Long term (current) use of aspirin; E78.5 Hyperlipidemia, unspecified
CPT/HCPCS: 70450; 71045; 80053; 81001; 83735; 84443; 85025; 87086; 93005; 99285; J8597

== ENCOUNTER 2023-10-19 11:40 | Emergency (ER) | payer MEDICAID, SELFPAY ==
[2023-09-12 12:17] VITALS: BP 119/77; BMI 41.3
[2023-10-19 11:44] VITALS: BP 132/80; PULSE 70; RESP 18; TEMP 36.5; O2SAT 92; BMI 42.0
--- NOTE | 2023-10-19 12:16 | ED_ITS ---
HPI - Dizziness 2 General: Chief Complaint: Dizziness Stated Complaint: dizzy Time Seen by Provider: 10/19/23 12:16 History of Present Illness: HPI Narrative: 62-year-old female who presents to the e mergency department who was seen here yesterday for complaints of dizziness. She was diagnosed yesterday with urinary tract infection and provided antibiotics she was prescribed Bactrim and states that she has not started taking that today. Patient states that she feels today like the room is spinning she also feels like her right leg is more like jelly and difficult to lift although she is able to lift it without any difficulty in the exam room. She is lying on the exam table and is keeping her eyes closed she states she is not sensitive to light but feels like the room is spinning. She denies nausea or vomiting. Associated symptoms: Reports nausea Review of Systems 2 GI: Reports: nausea Neuro: Reports: weakness in extremities, dizziness and vertigo PFSH ED 2 PFSH: Medical History Biceps tendinitis of shoulder Subacromial impingement of left shoulder Tendinitis of left rotator cuff Psychiatric care Chronic migraine without aura, intractable, with status migrainosus -pain control as needed -continue to follow up with Dr. Bennett for Botox injections Panic disorder with agoraphobia Chronic post-traumatic stress disorder Schizoaffective disorder, bipolar type Tarsal tunnel syndrome, left lower limb Hyperlipidemia GERD (gastroesophageal reflux disease) Hypothyroid Borderline personality disorder PTSD (post-traumatic stress disorder) -continue to f/u at [facility] Chronic migraine without aura, intractable, with status migrainosus Surgical History History of bilateral tubal ligation History of appendectomy History of arthroscopy of left shoulder H/O arthroscopic knee surgery Family History Father Bleeding disorder CAD (coronary artery disease) Other Diabetes Hypertension Denies family history of Anesthesia complication Social History Smoking and tobacco/nicotine status: never used tobacco/nicotine Second hand smoke exposure: No (quit smoking 7 years ago) Alcohol intake: never Substance/Drug Use: never Lives independently: Yes Household members: none Current occupational status: disabled Physical Exam 2 Narrative: EXAM NARRATIVE: Constitutional: the patient appears well nourished and of normal development. Vital signs as documented. No acute distress at present. Alert and oriented-to person, place, time and situation. Head, eyes, ears, nose, mouth, throat: Normocephalic, atraumatic. Pupils-equal, round, reactive to light. No scleral icterus. Normal-appearing external ears. Normal appearing nasal turbinates, no drainage. No obvious oral lesions, posterior oropharynx without erythema or exudates. Neck: Supple, trachea is midline, no lymphadenopathy, no jugular venous distension, thyromegaly, or carotid bruits. Carotid upstrokes are brisk bilaterally. Lungs: clear to auscultation to all lung duncan. Symmetrical rise and fall of chest, no obvious signs of increased work of breathing at present. Cardiac: Regular rate and rhythm, positive S1, S2. No murmurs, rubs or gallops that I can appreciate Abdomen: Soft, non-tender to palpation, normal active bowel sounds to all quadrants. No palpable masses, no organomegaly and abdominal bruits. Extremities: 2+ pulses in the upper extremities that are equal bilaterally, 2+ pulses in the lower extremities that are equal bilaterally. Non-edematous. Moves all extremities well, sensation to all extremities are noted. Skin: Warm, dry, intact. Neuro: Alert and oriented x4, person, place, time and situation. Cranial nerves II through XII are grossly intact, there is no focal neurological deficits that I can appreciate at present. Motor strength in the upper and lower extremities are equal and bilateral 5/5. Psych: Cooperative, calm, normal thought process, appropriate judgment. Back: Symmetrical, no obvious deformity, No CVA tenderness Course 2 Vital Signs: Vital signs: Vital Signs Temperature 97.7 F 10/19/23 11:44 Pulse Rate 72 10/19/23 15:30 Respiratory Rate 18 10/19/23 11:44 Blood Pressure 129/84 10/19/23 15:30 Pulse Oximetry 95 10/19/23 15:30 Oxygen Delivery Me thod Room Air 10/19/23 15:30 MDM - Dizziness Medical Decision Making 61-year-old female seen yesterday here in the ER diagnosed with UTI presents today with vertigo and nausea. I will obtain a CBC, CMP and a CT scan with contrast. The patient did receive a CT head yesterday without contrast with no acute findings. I will provide the patient meclizine and reevaluate. CTA head and neck demonstrates no acute findings. Reevaluation of the patient demonstrates resolution of her nausea and dizziness post Antivert administration. I will discharge home and send a prescription of Antivert to her pharmacy. And advised her to follow-up with her primary care provider. Medical Records I reviewed the patient's medical records. Lab Data I reviewed the patient's lab results. 10/19/23 12:59 10/19/23 12:59 Radiology Impressions Head/Neck CTA 10/19/23 12:42 IMPRESSION: No large vessel stenosis or occlusion. IMPRESSION: No stenosis or occlusion. REFERENCES: NASCET CRITERIA. The degree of stenosis in the cervical segment of the internal carotid artery is based on NASCET criteria. Normal is no stenosis. Mild is less than 50% stenosis. Moderate is 50-69% stenosis. Severe is 70% to 99% stenosis. Total occlusion is no detectable patent lumen. Laboratory Results WBC 9.26 10^3/uL (3.29-11.43) 10/19/23 12:59 RBC 4.64 10^6/uL (3.85-5.65) 10/19/23 12:59 Hgb 13.80 g/dL (11.27-16.99) 10/19/23 12:59 Hct 42.5 % (36-47) 10/19/23 12:59 MCV 91.6 fl (85-98) 10/19/23 12:59 MCH 29.7 pg (27-33) 10/19/23 12:59 MCHC 32.5 g/dL (30-55) 10/19/23 12:59 RDW 13.4 % (12.1-15.1) 10/19/23 12:59 Plt Count 337 10^3/cmm (157-399) D 10/19/23 12:59 MPV 9.7 fL (7.4-10.4) 10/19/23 12:59 Neut % (Auto) 68.8 % 10/19/23 12:59 Lymph % (Auto) 20.6 % 10/19/23 12:59 Wallace % (Auto) 6.6 % 10/19/23 12:59 Eos % (Auto) 3.0 % 10/19/23 12:59 Baso % (Auto) 0.6 % 10/19/23 12:59 Neut # (Auto) 6.36 10^3/uL (1.8-7.7) 10/19/23 12:59 Lymph # (Auto) 1.9 10^3/uL (0.8-4.8) 10/19/23 12:59 Wallace # (Auto) 0.6 10^3/uL (0.2-0.9) 10/19/23 12:59 Eos # (Auto) 0.3 10^3/uL (0.0-0.8) 10/19/23 12:59 Baso # (Auto) 0.1 10^3/uL (0.0-0.1) 10/19/23 12:59 Nucleated RBC % (auto) 0 % 10/19/23 12:59 Nucleated RBCs # 0.0 /100WBC 10/19/23 12:59 Sodium 142 mmol/L (136-145) 10/19/23 12:59 Potassium 4.4 mmol/L (3.5-5.1) 10/19/23 12:59 Chloride 104 mmol/L (98-107) 10/19/23 12:59 Carbon Dioxide 27 mmol/L (22-29) 10/19/23 12:59 Anion Gap 15.4 (5-19) 10/19/23 12:59 BUN 9 mg/dL (8-23) 10/19/23 12:59 Creatinine 0.9 mg/dL (0.5-0.9) 10/19/23 12:59 GFR Calculation 63.2 mL/min (90-130) L 10/19/23 12:59 Glucose 121 mg/dL (65-115) H 10/19/23 12:59 Calculated Osmolality 294 mOsm/kg (285-295) 10/19/23 12:59 Calcium 10.0 mg/dL (8.5-10.5) 10/19/23 12:59 Total Bilirubin 0.4 mg/dL (0.15-1.2) 10/19/23 12:59 AST 19 U/L (0-32) 10/19/23 12:59 ALT < 5 U/L (0-33) 10/19/23 12:59 Alkaline Phosphatase 139 U/L (35-105) H 10/19/23 12:59 Total Protein 7.4 g/dL (6.6-8.7) 10/19/23 12:59 Albumin 4.1 g/dL (3.5-5.2) 10/19/23 12:59 Globulin 3.3 g/dL (1.3-4.6) 10/19/23 12:59 Procalcitonin 0.02 ng/mL (0-0.5) 10/19/23 12:59 All radiology interpretation(s) finalized by discharge Discharge Plan Discharge Patient Disposition: Home Clinical Impression: Vertigo Condition: Stable Prescriptions: New meclizine 25 mg tablet 25 mg PO BID PRN (Reason: dizziness) Qty: 20 0RF No Action omeprazole 40 mg capsule,delayed release(DR/EC) 40 mg PO DAILY nitroglycerin 0.4 mg tablet, sublingual 0.4 mg SUBLINGUAL Q5M PRN (Reason: Chest Pain) Rx Instructions: as directed upto 3 albuterol sulfate 90 mcg/actuation HFA aerosol inhaler 2 puff inhalation Q6H PRN (Reason: Shortness Of Breath) Invega Sustenna 234 mg/1.5 mL syringe 234 mg IM Q30D Qty: 1.5 6RF Remeron 30 mg tablet 30 mg PO BEDTIME Qty: 30 6RF propranolol 10 mg tablet 10 mg PO TID Qty: 90 6RF paliperidone [Invega] 6 mg tablet extended release 24hr 12 mg PO DAILY PRN (Reason: psychosis) Qty: 60 3RF benztropine 1 mg tablet 1 mg PO BID Qty: 60 6RF Botox 100 unit recon soln 100 unit intradermal Q90D levocetirizine [Xyzal] 5 mg tablet 5 mg PO DAILY Botox 100 unit recon soln 155 unit SUBCUT ONCE Qty: 2 0RF (DME) Night splint to left See Rx Instructions .Route .MEDSUPPLY Qty: 1 0RF Rx Instructions: As directed aspirin 81 mg tablet,delayed release (DR/EC) 81 mg PO DAILY Qty: 90 3RF carbidopa-levodopa 25-100 mg tablet 1 tab PO TID Qty: 90 5RF lorazepam [Ativan] 1 mg tablet 1 mg PO BID PRN (Reason: anxiety) Qty: 60 1RF levothyroxine 125 mcg tablet 125 mcg PO DAILY fluticasone propionate 50 mcg/actuation [place],Suspension 2 spray INTRANASAL DAILY PRN (Reason: Nasal Congestion) sulfamethoxazole-trimethoprim [Bactrim DS] 800-160 mg tablet 1 tab PO BID Qty: 14 0RF Tylenol 325 mg Capsule 650 mg PO QID PRN (Reason: Pain) Anoro Ellipta 62.5-25 mcg/actuation blister with device 1 ea INHALATION DAILY atorvastatin 40 mg tablet 40 mg PO QPM Lamictal 200 mg tablet 200 mg PO BID Discharge Orders: Discharge ED (Routine); Ordered 10/19/23 Ordered By: Simone Lima Referrals: Mark Bennett MD [Primary Care Provider] - Discharge Diet: Advance as tolerated Discharge Activity: Resume usual activity Patient Instructions: Opioid Safety, Pain Management Activity Restrictions/Additional Instructions: Activity Restrictions/Additional Instructions: Thank you for choosing [facility] for your healthcare needs today. Please realize that you were seen in the Emergency Department and that we are providing you with an emergency medical screening exam and this may not be a complete and all inclusive of all the testing and or medical work-up that you may need to determine your ailment or severity of your illness. It is very important that you follow-up as instructed with your Primary care provider or Specialist for additional evaluation and to discuss your medical treatment plan. You may return to the Emergency Department should you have concerns or if your condition changes or worsens in any way. Coding Level of Care Code ED Community Health Coordinator for Samaria Canas
--- NOTE | 2023-10-19 12:42 | CTR_ITS ---
PROCEDURE INFORMATION: Exam: CTA Head With Contrast, Arteriography Exam date and time: 10/19/2023 1:31 PM Age: 62 years old Clinical indication: Dizziness and giddiness; Additional info: Right leg weakness/ dizziness, here yesterday for CT head non-con TECHNIQUE: Imaging protocol: Computed tomographic angiography of the head with contrast. Exam focused on the arteries. 3D rendering (Not supervised by radiologist): MIP and/or 3D reconstructed images were created by the technologist. Radiation optimization: All CT scans at this facility use at least one of these dose optimization techniques: automated exposure control; mA and/or kV adjustment per patient size (includes targeted exams where dose is matched to clinical indication); or iterative reconstruction. Contrast material: OMNI 350; Contrast volume: 100 ml; Contrast route: INTRAVENOUS (IV); COMPARISON: CT head wo con* [id number] 10/18/2023 7:55 PM RADIATION DOSE METRICS: Total DLP (mGy-cm): 1083.73 FINDINGS: ANTERIOR CIRCULATION: Right internal carotid artery: Intracranial segment is patent with no significant stenosis. No aneurysm. Right middle cerebral artery: No occlusion or significant stenosis. No aneurysm. Right anterior cerebral artery: No occlusion or significant stenosis. No aneurysm. Left internal carotid artery: Intracranial segment is patent with no significant stenosis. No aneurysm. Left middle cerebral artery: No occlusion or significant stenosis. No aneurysm. Left anterior cerebral artery: No occlusion or significant stenosis. No aneurysm. POSTERIOR CIRCULATION: Right vertebral artery: No occlusion or significant stenosis. No aneurysm. Left vertebral artery: No occlusion or significant stenosis. No aneurysm. Basilar artery: No occlusion or significant stenosis. No aneurysm. Right posterior cerebral artery: No occlusion or significant stenosis. No aneurysm. Left posterior cerebral artery: No occlusion or significant stenosis. No aneurysm. Brain: No definite mass, mass effect, or midline shift. Cerebral ventricles: No ventriculomegaly. Bones/joints: Unremarkable. No acute fracture. Soft tissues: Unremarkable. PROCEDURE INFORMATION: Exam: CTA Neck With Contrast Exam date and time: 10/19/2023 1:31 PM Age: 62 years old Clinical indication: Dizziness and giddiness; Additional info: Right leg weakness/ dizziness, here yesterday for CT head non-con TECHNIQUE: Imaging protocol: Computed tomographic angiography of the neck with contrast. Exam focused on the cervical segments of the vasculature. 3D rendering (Not supervised by radiologist): MIP and/or 3D reconstructed images were created by the technologist. Radiation optimization: All CT scans at this facility use at least one of these dose optimization techniques: automated exposure control; mA and/or kV adjustment per patient size (includes targeted exams where dose is matched to clinical indication); or iterative reconstruction. Contrast material: OMNI 350; Contrast volume: 100 ml; Contrast route: INTRAVENOUS (IV); COMPARISON: CT neck w con* [id number] 03/10/2019 4:18 PM RADIATION DOSE METRICS: Total DLP (mGy-cm): 1083.73 FINDINGS: Right common carotid artery: No stenosis. No dissection or occlusion. Right internal carotid artery: No stenosis of the extracranial segment. No dissection or occlusion. Right external carotid artery: No occlusion or stenosis of the origin. Left common carotid artery: No stenosis. No dissection or occlusion. Left internal carotid artery: No stenosis of the extracranial segment. No dissection or occlusion. Left external carotid artery: No occlusion or stenosis of the origin. Right vertebral artery: No stenosis. No dissection or occlusion. Left vertebral artery: No stenosis. No dissection or occlusion. Soft tissues: Normal. No significant soft tissue swelling. Bones/joints: No acute fracture. CT/CT angio headneck* [id number] IMPRESSION: No large vessel stenosis or occlusion. IMPRESSION: No stenosis or occlusion. REFERENCES: NASCET CRITERIA. The degree of stenosis in the cervical segment of the internal carotid artery is based on NASCET criteria. Normal is no stenosis. Mild is less than 50% stenosis. Moderate is 50-69% stenosis. Severe is 70% to 99% stenosis. Total occlusion is no detectable patent lumen.
[2023-10-19 13:11] LABS: Basophils # 0.1 10^3/uL (0.0-0.1); Basophils % 0.6 %; Eosinophils # 0.3 10^3/uL (0.0-0.8); Hematocrit 42.5 % (36-47); Lymphocytes # 1.9 10^3/uL (0.8-4.8); Lymphocytes % 20.6 %; Mean Corpuscular HGB Conc 32.5 g/dL (30-55); Mean Corpuscular Hemoglobin 29.7 pg (27-33); Mean Corpuscular Volume 91.6 fl (85-98); Mean Platelet Volume 9.7 fL (7.4-10.4); Monocytes # 0.6 10^3/uL (0.2-0.9); Monocytes % 6.6 %; Neutrophils # 6.36 10^3/uL (1.8-7.7); Neutrophils % 68.8 %; Nucleated Red Blood Cells % 0 %; Platelet Count 337 10^3/cmm (157-399); Red Blood Count 4.64 10^6/uL (3.85-5.65); Red Cell Distribution Width 13.4 % (12.1-15.1); White Blood Count 9.26 10^3/uL (3.29-11.43)
[2023-10-19] MEDS: diphenhydrAMINE 50 mg/mL SDV 1mL IVP (13:11)
[2023-10-19] MEDS: hydrocortisone 100 mg/2 mL SDV IVP (13:11)
[2023-10-19 13:17] VITALS: BP 149/90; PULSE 74; O2SAT 94
[2023-10-19] MEDS: meclizine 25 mg tablet PO (13:21)
[2023-10-19 13:32] LABS: Alanine Aminotransferase < 5 U/L (0-33); Albumin Level 4.1 g/dL (3.5-5.2); Alkaline Phosphatase 139 U/L (35-105); Blood Urea Nitrogen 9 mg/dL (8-23); Carbon Dioxide 27 mmol/L (22-29); Chloride 104 mmol/L (98-107); Globulin 3.3 g/dL (1.3-4.6); Glomerular Filtration Rate 63.2 mL/min (90-130); Glucose 121 mg/dL (65-115); Osmolality Calculated 294 mOsm/kg (285-295); Sodium 142 mmol/L (136-145); Total Bilirubin 0.4 mg/dL (0.15-1.2); Total Protein 7.4 g/dL (6.6-8.7)
[2023-10-19 13:36] LABS: Procalcitonin 0.02 ng/mL (0-0.5)
[2023-10-19] MEDS: iohexol 350 mg/mL 500 mL Btl (per mL) IV (13:39)
[2023-10-19 13:49] LABS: Anion Gap 15.4 (5-19); Aspartate Amino Transferase 19 U/L (0-32); Potassium 4.4 mmol/L (3.5-5.1)
[2023-10-19 14:00] VITALS: BP 140/81; PULSE 69; O2SAT 90
[2023-10-19 14:30] VITALS: BP 134/80; PULSE 70; O2SAT 91
[2023-10-19 15:00] VITALS: BP 145/89; PULSE 71; O2SAT 90
[2023-10-19 15:30] VITALS: BP 129/84; PULSE 72; O2SAT 95
== END 2023-10-19 16:10 | disposition home or self-care (01) ==
PROVIDERS: Emergency Provider Internal Medicine; PCP Family Medicine
DX: R42 Dizziness and giddiness (principal); Z79.82 Long term (current) use of aspirin; E78.5 Hyperlipidemia, unspecified; Z87.891 Personal history of nicotine dependence
CPT/HCPCS: 70496; 70498; 80053; 84145; 85025; 96374; 96375; 99285; J1200; J1720; J8597; Q9967

== ENCOUNTER → 2023-11-21 12:03 | Outpatient (BNVA) | payer MEDICAID, SELFPAY ==
[2023-09-12 12:17] VITALS: BP 119/77; BMI 41.3
== END ==
PROVIDERS: PCP Family Medicine; Visit Provider Specialist
DX: G43.711 Chronic migraine without aura, intractable, with status migrainosus (principal)
CPT/HCPCS: 64615; 99213; J0585

== ENCOUNTER → 2023-12-18 13:09 | Outpatient (BNVA) | payer MEDICAID, SELFPAY ==
[2023-09-12 12:17] VITALS: BP 119/77; BMI 41.3
== END ==
PROVIDERS: PCP Family Medicine; Visit Provider Internal Medicine
DX: R00.2 Palpitations (principal); E78.5 Hyperlipidemia, unspecified
CPT/HCPCS: 99213

== ENCOUNTER 2024-02-11 15:44 | Emergency (ER) | payer MEDICAID, SELFPAY ==
[2023-09-12 12:17] VITALS: BP 119/77; BMI 41.3
[2024-02-11 15:48] VITALS: BP 154/83; PULSE 82; RESP 18; TEMP 36.5; O2SAT 91; BMI 42.0
--- NOTE | 2024-02-11 16:09 | CTR_ITS ---
PROCEDURE INFORMATION: Exam: CT Abdomen And Pelvis Without Contrast Exam date and time: 02/11/2024 4:17 PM Age: 63 years old Clinical indication: Abdominal pain; Generalized; Prior surgery; Surgery date: 6+ months; Surgery type: Gb, appy, tubal; Additional info: Abdominal pain, n/v, constipation; HX of adhesions TECHNIQUE: Imaging protocol: Computed tomography of the abdomen and pelvis without contrast. Radiation optimization: All CT scans at this facility use at least one of these dose optimization techniques: automated exposure control; mA and/or kV adjustment per patient size (includes targeted exams where dose is matched to clinical indication); or iterative reconstruction. COMPARISON: CR XR hip RT 2-3V wo/w pel* [id number] 28/08/2023 11:53 RADIATION DOSE METRICS: Total DLP (mGy-cm): 1182.93 FINDINGS: Lungs: The lung bases are clear. Fat containing hiatal hernia Liver: The liver is normal in appearance. No focal liver mass or intrahepatic biliary dilatation. Gallbladder and bile ducts: Cholecystectomy Pancreas: Diffuse pancreatic atrophy Spleen: The spleen is normal in appearance. Adrenal glands: The adrenal glands are normal in appearance. Kidneys and ureters: No hydronephrosis of either kidney. There are two nonobstructing calculi in the lower pole calyx of the left kidney measuring about 3 and 4 mm each. Stomach and bowel: There is a duodenal diverticulum. The small bowel loops are not thickened and are nondilated. Colonic diverticulosis but no evidence of diverticulitis. Appendix: Appendectomy Intraperitoneal space: Unremarkable. No free air. No significant fluid collection. Vasculature: Unremarkable. No abdominal aortic aneurysm. Lymph nodes: Unremarkable. No enlarged lymph nodes. Urinary bladder: The urinary bladder is normal in appearance. Reproductive: Unremarkable as visualized. Bones/joints: No acute osseous lesions. There are chronic degenerative changes at the lower lumbar spine Soft tissues: Unremarkable. CT/CT abdomen pelvis wo con [id number]: 1[address] No CT evidence of acute intra-abdominal pathology 2. Nonobstructing calculi right kidney 3. Colonic diverticulosis but no evidence of diverticulitis
--- NOTE | 2024-02-11 16:13 | W.ED.ABDPA2 ---
Documented by User: BRANDON Dickey 02/11/24 16:20 HPI - Abdominal Pain General: Chief Complaint: Abdominal Pain Stated Complaint: abd pain Time Seen by Provider: 02/11/24 16:02 Source: patient Mode of arrival: ambulatory Limitations: no limitations History of Present Illness: Patient is a nice 63-year-old female presents to ED today with complaint of abdominal pain, constipation, nausea, vomiting. Patient states she has not had a normal formed stool in over 2 weeks. She feels like she is passing less gas than normal. Patient states she feels nauseous and vomits almost every time after eating or drinking. She has tried [id number] Ex-Lax without much relief. She has had a few watery/diarrhea stools. Previous abdominal surgeries include an appendectomy, cholecystectomy, tubal ligation, and lysis of adhesions. She is not running fevers. MD elicited complaint: abdominal pain Onset (ago): week(s) Pain Consistency: constant Location: Diffuse Severity: moderate Quality: cramping and other (bloating) Radiation: none Migration to: no migration Exacerbating factors: eating Relieving factors: nothing Associated Symptoms: Reports bloating, constipation, GI cramping, diarrhea, nausea and vomiting; Denies chills, dysuria, fever(s), heartburn, hematochezia, hematemesis, melena and syncope Related Data: Patient : No Review of Systems Const: Denies: fever(s) or chills Eyes: Denies: change in vision or blurry vision Card: Denies: chest pain, palpitations, irregular heart rhythm, lightheadedness, syncope or dyspnea on exertion Resp: Denies: dyspnea, productive cough or pain on inspiration GI: Reports: abdominal pain, nausea, vomiting, diarrhea, constipation, bloating and GI cramping; Denies: hematemesis, heartburn, hematochezia or melena : Denies: flank pain or dysuria Musc: Denies: neck pain, back pain or joint pain Skin/Breast: Denies: rash PFSH ED PFSH: Medical History Biceps tendinitis of shoulder Subacromial impingement of left shoulder Tendinitis of left rotator cuff Psychiatric care Chronic migraine without aura, intractable, with status migrainosus -pain control as needed -continue to follow up with Dr. Bennett for Botox injections Panic disorder with agoraphobia Chronic post-traumatic stress disorder Schizoaffective disorder, bipolar type Tarsal tunnel syndrome, left lower limb Hyperlipidemia GERD (gastroesophageal reflux disease) Hypothyroid Borderline personality disorder PTSD (post-traumatic stress disorder) -continue to f/u at [facility] Chronic migraine without aura, intractable, with status migrainosus Surgical History History of bilateral tubal ligation History of appendectomy History of arthroscopy of left shoulder H/O arthroscopic knee surgery Family History Father Bleeding disorder CAD (coronary artery disease) Other Diabetes Hypertension Denies family history of Anesthesia complication Social History Smoking and tobacco/nicotine status: never used tobacco/nicotine Second hand smoke exposure: No (quit smoking 7 years ago) Alcohol intake: never Substance/Drug Use: never Lives independently: Yes Household members: none Current occupational status: disabled Physical Exam Const: COMMON NORMALS: no acute distress, patient oriented x3, no limitations, alert and well nourished GENERAL APPEARANCE: cooperative NUTRITIONAL APPEARANCE: obese morbidly obese (BMI 42.1) ORIENTATION/CONSCIOUSNESS: Yes awake, Yes oriented to person, Yes oriented to place and Yes oriented to time HENMT: COMMON NORMALS: normocephalic and atraumatic HEAD & SCALP: normocephalic and atraumatic Neck/C-Spine: COMMON NORMALS: full ROM, no lymphadenopathy, supple and no meningeal signs Chest: COMMONS NORMALS: normal inspection of the chest Resp: COMMON NORMALS: normal respiratory effort and clear to auscultation bilaterally AUSCULTATION: clear to auscultation bilaterally Cardio: COMMON NORMALS: regular rate and regular rhythm RATE: regular rate RHYTHM: regular rhythm GI: COMMON NORMALS: Soft to palpation, No hepatosplenomegaly present and no masses INSPECTION: Yes normal to inspection AUSCULTATION: Yes Hypoactive bowel sounds present (throughout R side) PALPATION: Yes Soft to palpation, Yes Tenderness to palpation present (GI) (diffusely), No Guarding due to palpation present (GI), No Rigid due to palpation and Yes No hepatosplenomegaly present : COMMON NORMALS: Yes no CVA tenderness BLADDER/KIDNEY EXAM: Yes no CVA tenderness Back/Pelvis: COMMON NORMALS: no CVA tenderness and thoracic and lumbar spine normal to inspection Extremity: COMMON NORMALS: normal to inspection Neuro: COMMON NORMALS: patient oriented x3 SENSORIUM/ORIENTATION: Yes alert, Yes oriented to person, Yes oriented to place and Yes oriented to time MENINGEAL SIGNS: Yes no meningeal signs Skin: COMMON NORMALS: no rashes or lesions noted GENERAL SKIN EXAM: no rashes or lesions noted Course Vital Signs: Vital signs: Vital Signs Temperature 97.7 F 02/11/24 19:15 Pulse Rate 82 02/11/24 19:15 Respiratory Rate 18 02/11/24 19:15 Blood Pressure 154/83 02/11/24 19:15 Pulse Oximetry 91 02/11/24 19:15 Oxygen Delivery Me thod Room Air 02/11/24 15:48 MDM - Abdominal Pain Lab Data 02/11/24 17:11 02/11/24 17:11 Labs/Radiology: Radiology Impressions Abdomen/Pelvis CT 02/11/24 16:09 IMPRESSION: 1. No CT evidence of acute intra-abdominal pathology 2. Nonobstructing calculi right kidney 3. Colonic diverticulosis but no evidence of diverticulitis Laboratory Results WBC 8.18 10^3/uL (3.29-11.43) 02/11/24 17:11 RBC 4.81 10^6/uL (3.85-5.65) 02/11/24 17:11 Hgb 13.90 g/dL (11.27-16.99) 02/11/24 17:11 Hct 43.5 % (36-47) 02/11/24 17:11 MCV 90.4 fl (85-98) 02/11/24 17:11 MCH 28.9 pg (27-33) 02/11/24 17:11 MCHC 32.0 g/dL (30-55) 02/11/24 17:11 RDW 14.1 % (12.1-15.1) 02/11/24 17:11 Plt Count 341 10^3/cmm (157-399) 02/11/24 17:11 MPV 9.2 fL (7.4-10.4) 02/11/24 17:11 Neut % (Auto) 62.8 % 02/11/24 17:11 Lymph % (Auto) 24.3 % 02/11/24 17:11 [place] % (Auto) 7.2 % 02/11/24 17:11 Eos % (Auto) 4.6 % 02/11/24 17:11 Baso % (Auto) 0.9 % 02/11/24 17:11 Neut # (Auto) 5.13 10^3/uL (1.8-7.7) 02/11/24 17:11 Lymph # (Auto) 2.0 10^3/uL (0.8-4.8) 02/11/24 17:11 [place] # (Auto) 0.6 10^3/uL (0.2-0.9) 02/11/24 17:11 Eos # (Auto) 0.4 10^3/uL (0.0-0.8) 02/11/24 17:11 Baso # (Auto) 0.1 10^3/uL (0.0-0.1) 02/11/24 17:11 Nucleated RBC % (auto) 0 % 02/11/24 17:11 Nucleated RBCs # 0.0 /100WBC 02/11/24 17:11 Sodium 141 mmol/L (136-145) 02/11/24 17:11 Potassium 4.0 mmol/L (3.5-5.1) 02/11/24 17:11 Chloride 103 mmol/L (98-107) 02/11/24 17:11 Carbon Dioxide 28 mmol/L (22-29) 02/11/24 17:11 Anion Gap 14.0 (5-19) 02/11/24 17:11 BUN 5 mg/dL (8-23) L 02/11/24 17:11 Creatinine 0.7 mg/dL (0.5-0.9) 02/11/24 17:11 GFR Calculation 84.2 mL/min (90-130) L 02/11/24 17:11 Glucose 113 mg/dL (65-115) 02/11/24 17:11 Calculated Osmolality 290 mOsm/kg (285-295) 02/11/24 17:11 Calcium 9.1 mg/dL (8.5-10.5) 02/11/24 17:11 Total Bilirubin 0.4 mg/dL (0.15-1.2) 02/11/24 17:11 AST 19 U/L (0-32) 02/11/24 17:11 ALT 7 U/L (0-33) 02/11/24 17:11 Alkaline Phosphatase 130 U/L (35-105) H 02/11/24 17:11 Total Protein 7.2 g/dL (6.6-8.7) 02/11/24 17:11 Albumin 4.2 g/dL (3.5-5.2) 02/11/24 17:11 Globulin 3.0 g/dL (1.3-4.6) 02/11/24 17:11 Lipase 15 U/L (13-60) 02/11/24 17:11 Urine Color Yellow (Yellow) 02/11/24 17:58 Urine Appearance Clear (CLEAR) 02/11/24 17:58 Urine pH 6 (5-7) 02/11/24 17:58 Ur Specific [place] 1.015 (1.005-1.030) 02/11/24 17:58 Urine Protein Neg (Negative) 02/11/24 17:58 Urine Glucose (UA) Norm (Normal) 02/11/24 17:58 Urine Ketones Negative (Negative) 02/11/24 17:58 Urine Blood Neg (Negative) 02/11/24 17:58 Urine Nitrate Negative (Negative) 02/11/24 17:58 Urine Bilirubin Neg (Negative) 02/11/24 17:58 Urine Urobilinogen Norm mg/dL (Negative) 02/11/24 17:58 Ur Leukocyte Esterase Negative (Negative) 02/11/24 17:58 Discharge Plan Discharge Patient Disposition: Home Clinical Impression: Constipation Qualifiers: Constipation type: unspecified constipation type Qualified Code(s): K59.00 - Constipation, unspecified Condition: Stable Prescriptions: New Miralax 17 gram/dose powder 4 g PO DAILY Qty: 119 0RF No Action omeprazole 40 mg capsule,delayed release(DR/EC) 40 mg PO DAILY nitroglycerin 0.4 mg tablet, sublingual 0.4 mg SUBLINGUAL Q5M PRN (Reason: Chest Pain) Rx Instructions: as directed upto 3 albuterol sulfate 90 mcg/actuation HFA aerosol inhaler 2 puff inhalation Q6H PRN (Reason: Shortness Of Breath) lamotrigine [Lamictal] 200 mg tablet 200 mg PO BID Qty: 60 6RF Rx Instructions: Take one tablet in am and bedtime Remeron 30 mg tablet 30 mg PO BEDTIME Qty: 30 6RF Invega Sustenna 234 mg/1.5 mL syringe 234 mg IM Q30D Qty: 1.5 6RF propranolol 10 mg tablet 10 mg PO TID Qty: 90 6RF Botox 100 unit recon soln 100 unit intradermal Q90D levocetirizine [Xyzal] 5 mg tablet 5 mg PO DAILY Botox 100 unit recon soln 155 unit SUBCUT ONCE Qty: 2 0RF (DME) Night splint to left See Rx Instructions .Route .MEDSUPPLY Qty: 1 0RF Rx Instructions: As directed aspirin 81 mg tablet,delayed release (DR/EC) See Rx Instructions .ROUTE .COMPLEX Qty: 90 3RF Dose Instruction: TAKE 1 TABLET BY MOUTH EVERY DAY Rx Instructions: TAKE 1 TABLET BY MOUTH EVERY DAY lorazepam [Ativan] 1 mg tablet 1 mg PO BID PRN (Reason: anxiety) Qty: 60 3RF Rx Instructions: May take one tablet twice per day as needed for anxiety benztropine 1 mg tablet 1 mg PO BID Qty: 60 6RF paliperidone [Invega] 6 mg tablet extended release 24hr 12 mg PO DAILY PRN (Reason: psychosis) Qty: 60 3RF carbidopa-levodopa 25-100 mg tablet See Rx Instructions .ROUTE .COMPLEX Qty: 90 5RF Dose Instruction: TAKE 1 TABLET BY MOUTH THREE TIMES DAILY Rx Instructions: TAKE 1 TABLET BY MOUTH THREE TIMES DAILY levothyroxine 125 mcg tablet 125 mcg PO DAILY fluticasone propionate 50 mcg/actuation [place],Suspension 2 spray INTRANASAL DAILY PRN (Reason: Nasal Congestion) Tylenol 325 mg Capsule 650 mg PO QID PRN (Reason: Pain) Anoro Ellipta 62.5-25 mcg/actuation blister with device 1 ea INHALATION DAILY atorvastatin 40 mg tablet 40 mg PO QPM meclizine 25 mg tablet 25 mg PO BID PRN (Reason: dizziness) Qty: 20 0RF Discharge Orders: Discharge ED (Routine); Ordered 02/11/24 Ordered By: Elver Villanueva Referrals: Mark Bennett MD [Primary Care Provider] - Discharge Diet: As Directed Discharge Activity: Increase activity as tolerated Patient Instructions: Constipation (ED) Activity Restrictions/Additional Instructions: Increase your fluid and dietary fiber intake. MiraLAX for constipation. Take constipation cocktail at home as directed. Follow-up with primary care as needed. Return with any new or worsening symptoms you may have. Sign Out Sign Out Data: Patient Sign Out occurred on 02/11/24 at 17:16. Patient's care was discussed, and care was transferred from BRANDON Dickey to BRANDON Renner. Coding Level of Care Code ED Sand Car Worker for Chg Fwd Documented by User: BRANDON Renner 02/11/24 20:26 HPI - Abdominal Pain General: Chief Complaint: Abdominal Pain Stated Complaint: abd pain Time Seen by Provider: 02/11/24 16:02 PFSH ED PFSH: Medical History Biceps tendinitis of shoulder Subacromial impingement of left shoulder Tendinitis of left rotator cuff Psychiatric care Chronic migraine without aura, intractable, with status migrainosus -pain control as needed -continue to follow up with Dr. Bennett for Botox injections Panic disorder with agoraphobia Chronic post-traumatic stress disorder Schizoaffective disorder, bipolar type Tarsal tunnel syndrome, left lower limb Hyperlipidemia GERD (gastroesophageal reflux disease) Hypothyroid Borderline personality disorder PTSD (post-traumatic stress disorder) -continue to f/u at [facility] Chronic migraine without aura, intractable, with status migrainosus Surgical History History of bilateral tubal ligation History of appendectomy History of arthroscopy of left shoulder H/O arthroscopic knee surgery Family History Father Bleeding disorder CAD (coronary artery disease) Other Diabetes Hypertension Denies family history of Anesthesia complication Social History Smoking and tobacco/nicotine status: never used tobacco/nicotine Second hand smoke exposure: No (quit smoking 7 years ago) Alcohol intake: never Substance/Drug Use: never Lives independently: Yes Household members: none Current occupational status: disabled Course Vital Signs: Vital signs: Vital Signs Temperature 97.7 F 02/11/24 19:15 Pulse Rate 82 02/11/24 19:15 Respiratory Rate 18 02/11/24 19:15 Blood Pressure 154/83 02/11/24 19:15 Pulse Oximetry 91 02/11/24 19:15 Oxygen Delivery Fl thod Room Air 02/11/24 15:48 MDM - Abdominal Pain Medical Decision Making Care of patient transferred over to [place] by BRANDON Dickey. Patient had presented for abdominal pain with a significant history of prior abdominal surgeries and adhesions. Her vitals on arrival unremarkable and condition has remained stable throughout the ED course. Abdominal CT failed to demonstrate any signs of acute intra-abdominal pathology, specifically no signs of obstruction. She does note that she has not had a normal bowel movement for the past couple weeks, and had only tried a couple of mdxb-vaa-[id number] medications. Her lab work was unremarkable. Patient likely dealing with a simple constipation, and will send home with a constipation cocktail consisting of milk magnesia, lactulose, and mineral oil. Also sent in prescription for MiraLAX that she can take for maintenance of her constipation. Informed her to increase her fluid and dietary fiber intake, and to return with any new or worsening symptoms. She will follow-up with primary care later this week. Lab Data 02/11/24 17:11 02/11/24 17:11 Labs/Radiology: Radiology Impressions Abdomen/Pelvis CT 02/11/24 16:09 IMPRESSION: 1. No CT evidence of acute intra-abdominal pathology 2. Nonobstructing calculi right kidney 3. Colonic diverticulosis but no evidence of diverticulitis Laboratory Results WBC 8.18 10^3/uL (3.29-11.43) 02/11/24 17:11 RBC 4.81 10^6/uL (3.85-5.65) 02/11/24 17:11 Hgb 13.90 g/dL (11.27-16.99) 02/11/24 17:11 Hct 43.5 % (36-47) 02/11/24 17:11 MCV 90.4 fl (85-98) 02/11/24 17:11 MCH 28.9 pg (27-33) 02/11/24 17:11 MCHC 32.0 g/dL (30-55) 02/11/24 17:11 RDW 14.1 % (12.1-15.1) 02/11/24 17:11 Plt Count 341 10^3/cmm (157-399) 02/11/24 17:11 MPV 9.2 fL (7.4-10.4) 02/11/24 17:11 Neut % (Auto) 62.8 % 02/11/24 17:11 Lymph % (Auto) 24.3 % 02/11/24 17:11 [place] % (Auto) 7.2 % 02/11/24 17:11 Eos % (Auto) 4.6 % 02/11/24 17:11 Baso % (Auto) 0.9 % 02/11/24 17:11 Neut # (Auto) 5.13 10^3/uL (1.8-7.7) 02/11/24 17:11 Lymph # (Auto) 2.0 10^3/uL (0.8-4.8) 02/11/24 17:11 [place] # (Auto) 0.6 10^3/uL (0.2-0.9) 02/11/24 17:11 Eos # (Auto) 0.4 10^3/uL (0.0-0.8) 02/11/24 17:11 Baso # (Auto) 0.1 10^3/uL (0.0-0.1) 02/11/24 17:11 Nucleated RBC % (auto) 0 % 02/11/24 17:11 Nucleated RBCs # 0.0 /100WBC 02/11/24 17:11 Sodium 141 mmol/L (136-145) 02/11/24 17:11 Potassium 4.0 mmol/L (3.5-5.1) 02/11/24 17:11 Chloride 103 mmol/L (98-107) 02/11/24 17:11 Carbon Dioxide 28 mmol/L (22-29) 02/11/24 17:11 Anion Gap 14.0 (5-19) 02/11/24 17:11 BUN 5 mg/dL (8-23) L 02/11/24 17:11 Creatinine 0.7 mg/dL (0.5-0.9) 02/11/24 17:11 GFR Calculation 84.2 mL/min (90-130) L 02/11/24 17:11 Glucose 113 mg/dL (65-115) 02/11/24 17:11 Calculated Osmolality 290 mOsm/kg (285-295) 02/11/24 17:11 Calcium 9.1 mg/dL (8.5-10.5) 02/11/24 17:11 Total Bilirubin 0.4 mg/dL (0.15-1.2) 02/11/24 17:11 AST 19 U/L (0-32) 02/11/24 17:11 ALT 7 U/L (0-33) 02/11/24 17:11 Alkaline Phosphatase 130 U/L (35-105) H 02/11/24 17:11 Total Protein 7.2 g/dL (6.6-8.7) 02/11/24 17:11 Albumin 4.2 g/dL (3.5-5.2) 02/11/24 17:11 Globulin 3.0 g/dL (1.3-4.6) 02/11/24 17:11 Lipase 15 U/L (13-60) 02/11/24 17:11 Urine Color Yellow (Yellow) 02/11/24 17:58 Urine Appearance Clear (CLEAR) 02/11/24 17:58 Urine pH 6 (5-7) 02/11/24 17:58 Ur Specific [place] 1.015 (1.005-1.030) 02/11/24 17:58 Urine Protein Neg (Negative) 02/11/24 17:58 Urine Glucose (UA) Norm (Normal) 02/11/24 17:58 Urine Ketones Negative (Negative) 02/11/24 17:58 Urine Blood Neg (Negative) 02/11/24 17:58 Urine Nitrate Negative (Negative) 02/11/24 17:58 Urine Bilirubin Neg (Negative) 02/11/24 17:58 Urine Urobilinogen Norm mg/dL (Negative) 02/11/24 17:58 Ur Leukocyte Esterase Negative (Negative) 02/11/24 17:58 All radiology interpretation(s) finalized by discharge Discharge Plan Discharge Patient Disposition: Home Clinical Impression: Constipation Qualifiers: Constipation type: unspecified constipation type Qualified Code(s): K59.00 - Constipation, unspecified Condition: Stable Prescriptions: New Miralax 17 gram/dose powder 4 g PO DAILY Qty: 119 0RF No Action omeprazole 40 mg capsule,delayed release(DR/EC) 40 mg PO DAILY nitroglycerin 0.4 mg tablet, sublingual 0.4 mg SUBLINGUAL Q5M PRN (Reason: Chest Pain) Rx Instructions: as directed upto 3 albuterol sulfate 90 mcg/actuation HFA aerosol inhaler 2 puff inhalation Q6H PRN (Reason: Shortness Of Breath) lamotrigine [Lamictal] 200 mg tablet 200 mg PO BID Qty: 60 6RF Rx Instructions: Take one tablet in am and bedtime Remeron 30 mg tablet 30 mg PO BEDTIME Qty: 30 6RF Invega Sustenna 234 mg/1.5 mL syringe 234 mg IM Q30D Qty: 1.5 6RF propranolol 10 mg tablet 10 mg PO TID Qty: 90 6RF Botox 100 unit recon soln 100 unit intradermal Q90D levocetirizine [Xyzal] 5 mg tablet 5 mg PO DAILY Botox 100 unit recon soln 155 unit SUBCUT ONCE Qty: 2 0RF (DME) Night splint to left See Rx Instructions .Route .MEDSUPPLY Qty: 1 0RF Rx Instructions: As directed aspirin 81 mg tablet,delayed release (DR/EC) See Rx Instructions .ROUTE .COMPLEX Qty: 90 3RF Dose Instruction: TAKE 1 TABLET BY MOUTH EVERY DAY Rx Instructions: TAKE 1 TABLET BY MOUTH EVERY DAY lorazepam [Ativan] 1 mg tablet 1 mg PO BID PRN (Reason: anxiety) Qty: 60 3RF Rx Instructions: May take one tablet twice per day as needed for anxiety benztropine 1 mg tablet 1 mg PO BID Qty: 60 6RF paliperidone [Invega] 6 mg tablet extended release 24hr 12 mg PO DAILY PRN (Reason: psychosis) Qty: 60 3RF carbidopa-levodopa 25-100 mg tablet See Rx Instructions .ROUTE .COMPLEX Qty: 90 5RF Dose Instruction: TAKE 1 TABLET BY MOUTH THREE TIMES DAILY Rx Instructions: TAKE 1 TABLET BY MOUTH THREE TIMES DAILY levothyroxine 125 mcg tablet 125 mcg PO DAILY fluticasone propionate 50 mcg/actuation [place],Suspension 2 spray INTRANASAL DAILY PRN (Reason: Nasal Congestion) Tylenol 325 mg Capsule 650 mg PO QID PRN (Reason: Pain) Anoro Ellipta 62.5-25 mcg/actuation blister with device 1 ea INHALATION DAILY atorvastatin 40 mg tablet 40 mg PO QPM meclizine 25 mg tablet 25 mg PO BID PRN (Reason: dizziness) Qty: 20 0RF Discharge Orders: Discharge ED (Routine); Ordered 02/11/24 Ordered By: Elver Villanueva Referrals: Mark Bennett MD [Primary Care Provider] - Discharge Diet: As Directed Discharge Activity: Increase activity as tolerated Patient Instructions: Constipation (ED) Activity Restrictions/Additional Instructions: Increase your fluid and dietary fiber intake. MiraLAX for constipation. Take constipation cocktail at home as directed. Follow-up with primary care as needed. Return with any new or worsening symptoms you may have. Sign Out Sign Out Data: Patient Sign Out occurred on 02/11/24 at 17:16. Patient's care was discussed, and care was transferred from BRANDON Dickey to BRANDON Renner. Coding Level of Care Code ED Sand Car Worker for Samaria Canas
[2024-02-11 17:30] LABS: Basophils # 0.1 10^3/uL (0.0-0.1); Basophils % 0.9 %; Eosinophils # 0.4 10^3/uL (0.0-0.8); Eosinophils % 4.6 %; Hematocrit 43.5 % (36-47); Lymphocytes % 24.3 %; Mean Corpuscular Hemoglobin 28.9 pg (27-33); Mean Corpuscular Volume 90.4 fl (85-98); Mean Platelet Volume 9.2 fL (7.4-10.4); Monocytes # 0.6 10^3/uL (0.2-0.9); Monocytes % 7.2 %; Neutrophils # 5.13 10^3/uL (1.8-7.7); Neutrophils % 62.8 %; Nucleated Red Blood Cells % 0 %; Platelet Count 341 10^3/cmm (157-399); Red Blood Count 4.81 10^6/uL (3.85-5.65); Red Cell Distribution Width 14.1 % (12.1-15.1); White Blood Count 8.18 10^3/uL (3.29-11.43)
[2024-02-11 17:49] LABS: Alanine Aminotransferase 7 U/L (0-33); Albumin Level 4.2 g/dL (3.5-5.2); Alkaline Phosphatase 130 U/L (35-105); Aspartate Amino Transferase 19 U/L (0-32); Blood Urea Nitrogen 5 mg/dL (8-23); Calcium 9.1 mg/dL (8.5-10.5); Carbon Dioxide 28 mmol/L (22-29); Chloride 103 mmol/L (98-107); Creatinine Clr Calc Pharmacy 92.0171; Glomerular Filtration Rate 84.2 mL/min (90-130); Glucose 113 mg/dL (65-115); Lipase 15 U/L (13-60); Osmolality Calculated 290 mOsm/kg (285-295); Sodium 141 mmol/L (136-145); Total Bilirubin 0.4 mg/dL (0.15-1.2); Total Protein 7.2 g/dL (6.6-8.7)
[2024-02-11 18:30] LABS: Add Urine Microscopic? NO; Charge for UA Resulting for Rev
[2024-02-11 18:38] LABS: Bilirubin Urine Neg (Negative); Blood Urine Neg (Negative); Glucose Urine UA Norm (Normal); Ketones Urine Negative (Negative); Leukocyte Esterase Urine Negative (Negative); Nitrate Urine Negative (Negative); Protein Urine Neg (Negative); Specific Gravity, Urine 1.015 (1.005-1.030); Urine Appearance Clear (CLEAR); Urine Color Yellow (Yellow); Urobilinogen Urine Norm (Negative); pH Urine 6 (5-7)
[2024-02-11] MEDS: mineral oil 30 mL UDC PO (19:13)
[2024-02-11] MEDS: magnesium hydroxide 30 mL UDC PO (19:13)
[2024-02-11] MEDS: lactulose oral liq 20 gm/30 mL UDC 30 GM PO (19:13)
[2024-02-11 19:15] VITALS: BP 154/83; PULSE 82; RESP 18; TEMP 36.5; O2SAT 91
== END 2024-02-11 19:16 | disposition home or self-care (01) ==
PROVIDERS: Physician Assistant; Emergency Provider Physician Assistant; PCP Family Medicine
DX: K59.00 Constipation, unspecified (principal); Z79.82 Long term (current) use of aspirin; Z87.891 Personal history of nicotine dependence; E78.5 Hyperlipidemia, unspecified
CPT/HCPCS: 36415; 74176; 80053; 81003; 83690; 85025; 99284

== ENCOUNTER → 2024-02-27 11:14 | Outpatient (BNVA) | payer MEDICAID, SELFPAY ==
[2023-09-12 12:17] VITALS: BP 119/77; BMI 41.3
== END ==
PROVIDERS: PCP Family Medicine; Visit Provider Specialist
DX: G43.711 Chronic migraine without aura, intractable, with status migrainosus (principal); G24.01 Drug induced subacute dyskinesia
CPT/HCPCS: 64615; J0585

== ENCOUNTER 2024-03-28 13:53 | Emergency (ER) | payer MEDICAID, SELFPAY ==
[2023-09-12 12:17] VITALS: BP 119/77; BMI 41.3
--- NOTE | 2024-03-28 13:58 | XRR_ITS ---
PROCEDURE INFORMATION: Exam: XR Left Knee Exam date and time: 03/28/2024 2:30 PM Age: 63 years old Clinical indication: Injury or trauma; Fall; Other: Unknown TECHNIQUE: Imaging protocol: Radiologic exam of the left knee. Views: 3 views. COMPARISON: CR XR knee LT 3V* [id number] 09/27/2021 4:34 PM FINDINGS: Bones/joints: There are small marginal osteophytes across the medial joint compartment. Mild narrowing of the medial joint compartment space. Soft tissues: Normal. 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 No evidence for acute fracture.
[2024-03-28 14:01] VITALS: BP 127/82; PULSE 74; RESP 17; TEMP 36.6; O2SAT 94; BMI 41.1
--- NOTE | 2024-03-28 14:30 | W.ED.EXTPRO ---
HPI - Extremity Problem General: Chief complaint: Extremity Injury, Lower Stated complaint: fall left knee injury Time Seen by Provider: 03/28/24 14:19 Source: patient Mode of arrival: ambulatory Limitations: no limitations History of Present Illness: Patient is a 63-year-old female who presents to the emergency department complaining of left knee pain onset since Saturday. Patient states she fell and primary impact was to her left knee. She notes she has remained ambulatory though it has become increasingly difficult due to the pain. She notes new bruising appearing just below the kneecap, and there is a healing abrasion just over the patella. She notes that there is some numbness and sensory changes to the lateral aspect of the knee joint. She denies any history of surgeries or previous fractures/dislocations to that knee. She denies any calf pain or history of blood clots. She has been taking Tylenol for pain but states this is started to become inefficient. Has also tried elevation and ice every night. No other injuries with the fall and no other concerning symptoms or pertinent historical factors to note at this time. Complaint: joint pain Onset (ago): day(s) Pain Consistency: constant Location: left Severity scale (1-10): 6 Radiation: none Exacerbating factors: range of motion, weight bearing and palpation Associated symptoms: Deny chest pain, fever(s) or rash Review of Systems General: Reports: 10 or more systems reviewed and unremarkable except in HPI and below Const: Denies: fever(s) or chills Card: Denies: chest pain Resp: Denies: dyspnea or productive cough GI: Denies: abdominal pain, nausea, vomiting or diarrhea : Denies: flank pain Musc: Reports: joint pain, limited range of motion and other (Bruising to left knee); Denies: neck pain, back pain, extremity pain, extremity swelling, joint swelling, joint redness, joint warmth or muscle weakness Skin/Breast: Denies: rash Neuro: Reports: numbness in extremities (To left knee joint); Denies: headache(s) or weakness in extremities PFS ED PFSH: Medical History Biceps tendinitis of shoulder Subacromial impingement of left shoulder Tendinitis of left rotator cuff Psychiatric care Chronic migraine without aura, intractable, with status migrainosus -pain control as needed -continue to follow up with Dr. Bennett for Botox injections Panic disorder with agoraphobia Chronic post-traumatic stress disorder Schizoaffective disorder, bipolar type Tarsal tunnel syndrome, left lower limb Hyperlipidemia GERD (gastroesophageal reflux disease) Hypothyroid Borderline personality disorder PTSD (post-traumatic stress disorder) -continue to f/u at [facility] Chronic migraine without aura, intractable, with status migrainosus Surgical History History of bilateral tubal ligation History of appendectomy History of arthroscopy of left shoulder H/O arthroscopic knee surgery Family History Father Bleeding disorder CAD (coronary artery disease) Other Diabetes Hypertension Denies family history of Anesthesia complication Social History Smoking and tobacco/nicotine status: never used tobacco/nicotine Second hand smoke exposure: No (quit smoking 7 years ago) Alcohol intake: never Substance/Drug Use: never Lives independently: Yes Household members: none Current occupational status: disabled Physical Exam Const: COMMON NORMALS: no acute distress, patient oriented x3, no limitations, healthy appearing, alert and well nourished NUTRITIONAL APPEARANCE: obese HENMT: COMMON NORMALS: normocephalic and atraumatic HEAD & SCALP: normocephalic and atraumatic Neck/C-Spine: COMMON NORMALS: full ROM, supple and no meningeal signs Resp: COMMON NORMALS: normal respiratory effort, No use of accessory muscles and clear to auscultation bilaterally AUSCULTATION: clear to auscultation bilaterally Cardio: COMMON NORMALS: regular rate and regular rhythm RATE: regular rate RHYTHM: regular rhythm Extremity: COMMON NORMALS: full ROM, capillary refill normal, no joint enlargement, no clubbing, cyanosis or edema, no calf tenderness and no pedal edema NARRATIVE EXTREMITY EXAM: Large area of ecchymosis just inferior to the patella. Knee joint is diffusely tender to palpation. She is able to flex and extend it, with pain reported. No significant edema of the joint and there is no appreciable joint effusion at this time. No focal sensory deficit is noted. No obvious signs of deformity. Tenderness to the popliteal space. Distal pulses intact. Neuro: COMMON NORMALS: patient oriented x3, moves all extremities, no focal motor deficits and no sensory deficits noted SENSORIUM/ORIENTATION: Yes alert MENINGEAL SIGNS: Yes no meningeal signs Skin: COMMON NORMALS: no rashes or lesions noted GENERAL SKIN EXAM: no rashes or lesions noted Course Vital Signs: Vital signs: Vital Signs Temperature 97.9 F 03/28/24 16:27 Pulse Rate 69 03/28/24 16:27 Respiratory Rate 16 03/28/24 16:27 Blood Pressure 125/79 03/28/24 16:27 Pulse Oximetry 96 03/28/24 16:27 Oxygen Delivery Me thod Room Air 03/28/24 14:01 MDM - Extremity (Nontraumatic) Medical Decision Making Patient presented for left knee pain after falling directly onto Saturday. Pain is only worsened and her bruising has also started to worsen. States walking has become more difficult. Her examination did reveal quite a bit of ecchymosis in addition to some pain with range of motion. X-ray did not demonstrate any acute fractures or dislocations. Due to the increasing of pain despite her doing all of the conservative therapies at home, I do have concern of a potential underlying ligament or tendon injury, and we will put her in immobilizer and refer her to orthopedics. She does note some improvement of pain after receiving Toradol. Reasons to return were discussed and she will follow-up next week. XR interpretation done by ED provider, pending radiology final review Discharge Plan Discharge Patient Disposition: Home Clinical Impression: Left knee sprain Qualifiers: Encounter type: initial encounter Involved ligament of knee: unspecified ligament Qualified Code(s): S83.92XA - Sprain of unspecified site of left knee, initial encounter Condition: Stable Prescriptions: No Action omeprazole 40 mg capsule,delayed release(DR/EC) 40 mg PO DAILY nitroglycerin 0.4 mg tablet, sublingual 0.4 mg SUBLINGUAL Q5M PRN (Reason: Chest Pain) Rx Instructions: as directed upto 3 albuterol sulfate 90 mcg/actuation HFA aerosol inhaler 2 puff inhalation Q6H PRN (Reason: Shortness Of Breath) lamotrigine [Lamictal] 200 mg tablet 200 mg PO BID Qty: 60 6RF Rx Instructions: Take one tablet in am and bedtime Remeron 30 mg tablet 30 mg PO BEDTIME Qty: 30 6RF Invega Sustenna 234 mg/1.5 mL syringe 234 mg IM Q30D Qty: 1.5 6RF propranolol 10 mg tablet 10 mg PO TID Qty: 90 6RF paliperidone [Invega] 6 mg tablet extended release 24 hr 12 mg PO DAILY PRN (Reason: psychosis) Qty: 60 3RF Rx Instructions: May take two tabs daily six days before injection for psychosis Botox 100 unit recon soln 100 unit intradermal Q90D levocetirizine [Xyzal] 5 mg tablet 5 mg PO DAILY Botox 100 unit recon soln 155 unit SUBCUT ONCE Qty: 2 0RF (DME) Night splint to left See Rx Instructions .Route .MEDSUPPLY Qty: 1 0RF Rx Instructions: As directed aspirin 81 mg tablet,delayed release (DR/EC) See Rx Instructions .ROUTE .COMPLEX Qty: 90 3RF Dose Instruction: TAKE 1 TABLET BY MOUTH EVERY DAY Rx Instructions: TAKE 1 TABLET BY MOUTH EVERY DAY lorazepam [Ativan] 1 mg tablet 1 mg PO BID PRN (Reason: anxiety) Qty: 60 3RF Rx Instructions: May take one tablet twice per day as needed for anxiety benztropine 1 mg tablet 1 mg PO BID Qty: 60 6RF carbidopa-levodopa 25-100 mg tablet See Rx Instructions .ROUTE .COMPLEX Qty: 90 5RF Dose Instruction: TAKE 1 TABLET BY MOUTH THREE TIMES DAILY Rx Instructions: TAKE 1 TABLET BY MOUTH THREE TIMES DAILY levothyroxine 125 mcg tablet 125 mcg PO DAILY fluticasone propionate 50 mcg/actuation [place],Suspension 2 spray INTRANASAL DAILY PRN (Reason: Nasal Congestion) Tylenol 325 mg Capsule 650 mg PO QID PRN (Reason: Pain) Anoro Ellipta 62.5-25 mcg/actuation blister with device 1 ea INHALATION DAILY atorvastatin 40 mg tablet 40 mg PO QPM meclizine 25 mg tablet 25 mg PO BID PRN (Reason: dizziness) Qty: 20 0RF Miralax 17 gram/dose powder 4 g PO DAILY Qty: 119 0RF Discharge Orders: Discharge ED (Routine); Ordered 03/28/24 Ordered By: Elver Villanueva Referrals: Mark Bennett MD [Primary Care Provider] - Discharge Diet: Usual diet Discharge Activity: Limit activity as instructed Patient Instructions: Knee Sprain (ED) Activity Restrictions/Additional Instructions: Use knee immobilizer as provided. Take Tylenol and ibuprofen for pain. Please follow-up with orthopedics and/or primary care as discussed. Return with any new or worsening. Coding Level of Care Code ED Operations Management Trainee for Samaria Canas
[2024-03-28] MEDS: ketorolac 60 mg/2 mL INJ IM (15:17)
[2024-03-28 16:27] VITALS: BP 125/79; PULSE 69; RESP 16; TEMP 36.6; O2SAT 96
--- NOTE | 2024-03-30 07:45 | DCPLANNER ---
message sent to ortho for er f/u
== END 2024-03-28 16:28 | disposition home or self-care (01) ==
PROVIDERS: Emergency Provider Physician Assistant; PCP Family Medicine
DX: S83.92XA Sprain of unspecified site of left knee, initial encounter (principal); Z79.82 Long term (current) use of aspirin; E78.5 Hyperlipidemia, unspecified; Z87.891 Personal history of nicotine dependence; W19.XXXA Unspecified fall, initial encounter
CPT/HCPCS: 29530; 73562; 96372; 99284; J1885

== ENCOUNTER → 2024-04-01 13:02 | Outpatient (BNVA) | payer MEDICAID, SELFPAY ==
[2023-09-12 12:17] VITALS: BP 119/77; BMI 41.3
== END ==
PROVIDERS: PCP Family Medicine; Referring Provider Physician Assistant; Visit Provider Physician Assistant
DX: S83.92XA Sprain of unspecified site of left knee, initial encounter (principal); M17.12 Unilateral primary osteoarthritis, left knee; S89.92XA Unspecified injury of left lower leg, initial encounter; W19.XXXA Unspecified fall, initial encounter
CPT/HCPCS: 20610; 73560; 73565; 99213; J3301

== ENCOUNTER → 2024-04-27 09:20 | Outpatient (BNVA) | payer MEDICAID, SELFPAY ==
[2023-09-12 12:17] VITALS: BP 119/77; BMI 41.3
== END ==
PROVIDERS: PCP Family Medicine; Visit Provider Nurse Practitioner Psychiatric/Mental Health
DX: Z79.899 Other long term (current) drug therapy (principal)
CPT/HCPCS: 80061; 83036

== ENCOUNTER → 2024-05-28 07:51 | Outpatient (BNVA) | payer MEDICAID, SELFPAY ==
[2024-04-28 10:41] VITALS: BP 127/80; BMI 40.8
== END ==
PROVIDERS: PCP Family Medicine; Visit Provider Specialist
DX: G43.711 Chronic migraine without aura, intractable, with status migrainosus (principal); G24.01 Drug induced subacute dyskinesia
CPT/HCPCS: 64615; J0585; J9999

== ENCOUNTER → 2024-06-17 13:34 | Outpatient (BNVA) | payer MEDICAID, SELFPAY ==
[2024-04-28 10:41] VITALS: BP 127/80; BMI 40.8
== END ==
PROVIDERS: PCP Family Medicine; Visit Provider Physician Assistant
DX: M17.12 Unilateral primary osteoarthritis, left knee (principal); S89.92XA Unspecified injury of left lower leg, initial encounter; M23.305 Other meniscus derangements, unspecified medial meniscus, unspecified knee; S83.92XA Sprain of unspecified site of left knee, initial encounter; X58.XXXA Exposure to other specified factors, initial encounter
CPT/HCPCS: 99213

== ENCOUNTER 2024-06-24 12:34 | Outpatient (CLI) | payer MEDICAID, SELFPAY ==
[2024-04-28 10:41] VITALS: BP 127/80; BMI 40.8
--- NOTE | 2024-06-24 12:36 | MM_ITS ---
WS: [id number] BILATERAL 3D TOMOSYNTHESIS DIGITAL SCREENING MAMMOGRAPHY WITH CAD CLINICAL INFORMATION: SCREENING HISTORY: Screening mammogram. No current complaints. COMPARISON: 2022 TECHNIQUE: Bilateral CC and MLO views. FINDINGS: The breasts are composed of heterogeneous fibroglandular density tissue, which can limit the detectio n of small underlying mass lesions. No suspicious mass, asymmetry, calcifications, or architectural d istortion. No evidence of malignancy. Punctate and lucent centered calcifications. Vascular calcifica tions. MM/MM [facility] tomosynthesis [id number] IMPRESSION: DENSITY: The breasts are heterogeneously dense, which may obscure small masses. BI-RADS: 2 - Benign FOLLOW UP: 1 Year Follow-up Recommend return to annual screening mammography.
== END 2024-06-24 12:35 | disposition home or self-care (01) ==
LOC: RAD 12:34
PROVIDERS: PCP Family Medicine; Visit Provider Family Medicine
DX: Z12.31 Encounter for screening mammogram for malignant neoplasm of breast (principal)
CPT/HCPCS: 77063; 77067

== ENCOUNTER 2024-07-01 15:53 | Outpatient (CLI) | payer MEDICAID, SELFPAY ==
[2024-04-28 10:41] VITALS: BP 127/80; BMI 40.8
--- NOTE | 2024-07-01 16:15 | MR_ITS ---
WS: [id number] MRI LEFT KNEE NONCONTRAST TECHNIQUE: Axial PD, coronal PD fat sat, coronal PD, sagittal PD, and sagittal PD fat-sat images obta ined. 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 Distal quadriceps and calderon lla tendons are intact. History of prior ACL repair. ACL graft appears intact. Normal PCL. Mild chond romalacia patella. Medial and lateral patellar retinaculum appear intact. Chronic thinning of the med ial and lateral meniscus. Lateral meniscus appears intact. Chronic desiccation of the medial meniscus with intrasubstance signal abnormality in the posterior horn medial meniscus. Medial and lateral col lateral ligaments appear intact. Normal popliteal fossa. Grade IV chondromalacia medial joint compart ment with subchondral edema. MR/MR knee LT wo con* [id number] IMPRESSION: 1. ACL graft appears intact. Normal PCL. 2. Moderate to advanced tricompartment arthritis worse involving the medial maryanne int compartment with grade IV chondromalacia and subchondral edema. 3. Chronic desiccation and thinning of the medial meniscus with increased intr asubstance signal abnormality in the posterior horn. 4. Medial and lateral collateral ligaments appear intact. 5. Mild chondromalacia patella. 6. No other acute findings. Outbridge grading: grade IV: full-thickness cartilage loss with underlying bone reactive changes
== END 2024-07-01 15:54 | disposition home or self-care (01) ==
LOC: RAD 15:53
PROVIDERS: PCP Family Medicine; Visit Provider Physician Assistant
DX: M17.12 Unilateral primary osteoarthritis, left knee (principal); S89.92XA Unspecified injury of left lower leg, initial encounter; X58.XXXA Exposure to other specified factors, initial encounter
CPT/HCPCS: 73721

== ENCOUNTER → 2024-07-07 08:23 | Outpatient (BNVA) | payer MEDICAID, SELFPAY ==
[2024-04-28 10:41] VITALS: BP 127/80; BMI 40.8
== END ==
PROVIDERS: PCP Family Medicine; Visit Provider Student in an Organized Health Care Education/Training Program
DX: M17.12 Unilateral primary osteoarthritis, left knee (principal); M23.302 Other meniscus derangements, unspecified lateral meniscus, unspecified knee; S89.92XA Unspecified injury of left lower leg, initial encounter; S83.92XA Sprain of unspecified site of left knee, initial encounter; X58.XXXA Exposure to other specified factors, initial encounter
CPT/HCPCS: 99213

== ENCOUNTER → 2024-07-08 11:04 | Outpatient (BNVA) | payer MEDICAID, SELFPAY ==
[2024-04-28 10:41] VITALS: BP 127/80; BMI 40.8
== END ==
PROVIDERS: PCP Family Medicine; Visit Provider Surgery
DX: K21.9 Gastro-esophageal reflux disease without esophagitis
CPT/HCPCS: 99204

== ENCOUNTER 2024-07-28 08:06 | Day surgery (SDC) | payer MEDICAID, SELFPAY ==
[2024-04-28 10:41] VITALS: BP 127/80; BMI 40.8
--- OUTSIDE RECORDS SUMMARY | 2024-07-28 08:09 | XMS_ITS | Continuity of Care Document ---
Author Name Unknown Organization [facility] Address [id number] [address] Phone Care Team Providers Care Financial Underwriter Name Role Phone Randy Gramajo DDS Unavailable Unavailable Allergies, Adverse Reactions, Alerts Substance Reaction Status Criticality Tetanus Vaccines and Toxoid Active No Information codeine Active No Information IODINE Active No Information PENICILLIN Active No Information Medications Medication Instructions Dosage Effective Dates (start - stop) Status Comments clindamycin HCl 150 mg capsule take 2 capsules by oral route every 6 hours until gone for dental infection - Active ibuprofen 800 mg tablet take 1 tablet by oral route 3 times every day with food 800 MG - Active Invega Sustenna 234 mg/1.5 mL intramuscular syringe inject 1.5 milliliter by intramuscular route every month 234 MG - Active atorvastatin 40 mg tablet take 1 tablet by oral route every day 40 MG - Active mirtazapine 45 mg tablet take 1 tablet by oral route every day before bedtime 45 MG - Active Lamictal 200 mg tablet take 1 tablet by oral route 2 times every day 200 MG - Active Invega Trinza 273 mg/0.875 mL intramuscular syringe inject 0.87 milliliter by intramuscular route every 3 months 273 MG - Active Invega 3 mg tablet,extended release take 1 tablet by oral route every day in the morning 3 MG - Active Belsomra 10 mg tablet take 1 tablet by o ral route once per night within 30 minutes of bedtime. (Only if at least 7 hrs remain before time of waking) 10 MG - Active Claritin 10 mg tablet take 1 tablet by o ral route every day 10 MG - Active Isordil 40 mg tablet take 1 tablet by or al route 3 times every day on an empty stomach 40 MG - Active Lamictal 100 mg tablet take 1 tablet by oral route every day 100 MG - Active Synthroid 100 mcg tablet take 1 tablet by oral route every day 100 MCG - Active Cogentin 2 mg/2 mL injection solution inject 1 milliliter by intravenous route 2 times every day - Active Prilosec 40 mg capsule,delayed release take 1 capsule by oral route every day before a meal - Active Klonopin 1 mg tablet take 1 tablet by or al route 3 times every day 1 MG - Active Nitrostat 0.[address] 1 tablet by sublingual route at the first sign of an attack; no more than 3 tabs are recommended within a 15 minute period. 0.3 MG - Active Procedures Procedure Date Post Op No Charge EDR Approval Note Treatment Plan Complete Complete Denture ??? Mandibular 020 EDR Approval Note Wax Try-In EDR Approval Note Denture Bites And Records EDR Approval Note EDR Approval Note Denture Impression Secondary EDR Approval Note Denture Impression Primary EDR Approval Note Post Op No Charge EDR Approval Note Surgical Removal Of Erupted Tooth Requir ing Elevat Surgical Removal Of Erupted Tooth Requir ing Elevat EDR Approval Note Extraction, Erupted Tooth Or Exposed Keely t (Elevati Surgical Removal Of Erupted Tooth Requir ing Elevat EDR Approval Note Community Health Worker Patient Face To Face Intraoral ??? Periapical First Film Intraoral ??? Periapical Each Additional Film Periodic Oral Evaluation ??? Established Patient EDR Approval Note Periodic Oral Eval ??? Est Patient - Nathan lt Medicaid EDR Approval Note Resin-Based Composite ??? Three Surfaces , Posterior Resin-Based Composite ??? Two Surfaces, Posterior EDR Approval Note Extraction, Erupted Tooth Or Exposed Keely t (Elevati Extraction, Erupted Tooth Or Exposed Keely t (Elevati EDR Approval Note Intraoral ??? Periapical First Film Intraoral ??? Periapical Each Additional Film Intraoral ??? Periapical Each Additional Film Intraoral ??? Periapical Each Additional Film Panoramic Film Comprehensive Oral Evaluation ??? New Or Established EDR Approval Note Pre-Pay For Services Resin-Based Composite ??? One Surface, P osterior Resin-Based Composite ??? Two Surfaces, Posterior Prophylaxis ??? Adult EDR Approval Note Panoramic Film Extraction, Erupted Tooth Or Exposed Keely t (Elevati Intraoral ??? Periapical First Film Intraoral ??? Periapical Each Additional Film Comprehensive Oral Evaluation ??? New Or Established EDR Approval Note Advance Directives Directive Yes / No Effective Date File Name No Information Encounters Encounter Description Practice Location Reason(s) For Visit Diagnoses Date Provider Providers Copied on Encounter [facility], [id number] [place], [id number], [place] tel:[phone] [facility] Encounter for dental exam and cleaning w/o abnormal findings Avila Padilla. [address] [place], [address], [place]. tel:[phone] Referring Provider: Randy Bowers, [address] [place], [address]. tel:[phone] [facility], [id number] [place], [place], [id number], [place] tel:[phone] [facility] Encounter for dental exam and cleaning w/o abnormal findings Jenifer Monroy. [address] [place], [address], [place]. tel:[phone] Referring Provider: Porfirio Burgess, [address] [place], [address]. tel:[phone] sulting Provider: Juli Lanza, [address] [place], [address] . tel:[phone] [facility], [id number] [id number], [id number], [place] tel:[phone] [facility] Encounter for dental exam and cleaning w/o abnormal findings Avila Padilla. [address] [place], [address], [place]. tel:[phone] Referring Provider: Randy Bowers, [address] [place], [address]. tel:[phone] sulting Provider: Juli Lanza, [address] [place], [address] . tel:[phone] [facility], [id number] [place], [id number], [place] tel:[phone] [facility] Encounter for dental exam and cleaning w/o abnormal findings Debby Vick. [address], [place], [id number], [place]. tel:[phone] Referring Provider: Nicanor Guardado, [address] [place], [address] . tel:[phone] sulting Provider: Juli Lanza, [address] [place], [address] . tel:[phone] [facility], [id number], [id number], [place] tel:[phone] [facility] Encounter for dental exam and cleaning w/o abnormal findings Avila Padilla. [address] [place], [address], [place]. tel:[phone] Referring Provider: Randy Bowers, [address] [place], [address]. tel:[phone] [facility], [id number], [id number], [place] tel:[phone] [facility] Encounter for dental exam and cleaning w/o abnormal findings Avila Padilla. [address] [place], [address], [place]. tel:[phone] Referring Provider: Randy Bowers, [address] [place], [address]. tel:[phone] [facility], [id number] [id number], [id number], [place] tel:[phone] [facility] Encounter for dental exam and cleaning w/o abnormal findings Jenifer Monroy. [address] [place], [address], [place]. tel:[phone] Referring Provider: Porfirio Burgess, [address] [place], [address]. tel:[phone] sulting Provider: Juli Lanza, [address] [place], [address] . tel:[phone] [facility], [id number] [id number][place], [id number], [place] tel:[phone] [facility] Encounter for dental exam and cleaning w/o abnormal findings Avila Padilla. [address] [place], [address], [place]. tel:[phone] Referring Provider: Randy Bowers, [address] [place], [address]. tel:[phone] sulting Provider: Juli Lanza, [address] [place], [address] . tel:[phone] [facility], [id number] [id number], [id number], [place] tel:[phone] [facility] Encounter for dental exam and cleaning w/o abnormal findings Avila Padilla. [address] [place], [address], [place]. tel:[phone] Referring Provider: Randy Bowers, [address] [place], [address]. tel:[phone] [facility], [id number], [id number], [place] tel:[phone] Family Medicine Low income Coordinator Courtney. [address], [place], [id number], [place]. tel:[phone] Referring Provider: Courtney carlin, [address] [place], [address] . tel:[phone] [facility], [id number] [id number], [id number], [place] tel:[phone] [facility] Encounter for dental exam and cleaning w/o abnormal findings Jenifer Monroy. [address] [place], [address], [place]. tel:[phone] Referring Provider: Porfirio Burgess, [address] [place], [address]. tel:[phone] [facility], [id number] [id number][place], [id number], [place] tel:[phone] [facility] Encounter for dental exam and cleaning w/o abnormal findings Libertad Tong. [address] [place], [place], [id number], [place]. tel:[phone] Referring Provider: Ran Maurer, [address] [place], [address] . tel:[phone] [facility], [id number] [id number], [id number], [place] tel:[phone] [facility] Encounter for dental exam and cleaning w/o abnormal findings Libertad Tong. [address] [place], [place], [address], [place]. tel:[phone] Referring Provider: Ran Maurer, [address] [place], [address] . tel:[phone] [facility], [id number][place], [address], [place] tel:[phone] [facility] Encounter for dental exam and cleaning w/o abnormal findings Libertad Tong. [address] [place], [place], [address], [place]. tel:[phone] Referring Provider: Ran Maurer, [address] [place], [address] . tel:[phone] [facility], [id number] [id number][place], [id number], [place] tel:[phone] [facility] Encounter for dental exam and cleaning w/o abnormal findings Jenifer Monroy. [address] [place], [address], [place]. tel:[phone] Referring Provider: Porfirio Burgess, [address] [place], [address]. tel:[phone] [facility], [id number]t [facility], [place], [place], [id number], [place] tel:[phone] [facility] Encounter for dental exam and cleaning w/o abnormal findings Jenifer Monroy. [address] [place], [address], [place]. tel:[phone] Referring Provider: Porfirio Burgess, [address] [place], [address]. tel:[phone] Family History Family Member Type Diagnosis Age At Onset Daughter Problem (finding) Payers Payer name Insurance type Covered libertarian ID Daren tatum(s) D Medicaid [id number] Social History Type Description Quantity Date Captured Comments Sex Female Smoking Status No Information Chief Complaint And Reason For Visit No Information Reason For Referral Reason For Referral No Information Plan Of Treatment Date Type Action Status Referral Ordered: Referrals: Referrals: Location: [facility] Location: [facility] ordered History Of Present Illness Encounter Date Complaint History Of Prese nt Illness No Information Functional Status Date Functional Assessmen t No Information Instructions Date Instruction Additional Infor mation No Information Assessments Type Assessment Date No Information Patient Care Teams Name Effective Dates (start - stop) Status Members No Information
[2024-07-28 08:32] VITALS: BP 112/71; PULSE 78; RESP 18; TEMP 36.3; O2SAT 93; BMI 42.0
--- NOTE | 2024-07-28 08:46 | W.PM.OPSUD ---
Surgery/Procedure H&P Update DATE OF PROCEDURE: July 28, 2024 DATE H&P PERFORMED: 07/08/24 H&P UPDATE INFORMATION: I have reviewed H&P completed within last 30 days, I have examined patient prior to procedure, No changes to prior documentation and H&P is in [facility] EMR on date indicated PLANNED PROCEDURE: Operation Date: 07/28/24 09:40 Proposed Procedures p EGD Dilation W/ Balloon 23121, R13.10, K21.9(Not Applicable) - Elver Smith MD
[2024-07-28] MEDS: sodium chloride 0.9% 1,000 ML 30 ML IV (08:55)
--- NOTE | 2024-07-28 09:17 | ANES.PREANE2 ---
Pre-Anesthetic Assessment Height/Weight: Height 1.57 m Weight 104.326 kg Temp Pulse Resp BP Pulse Ox O2 Del Method 97.4 F L 78 18 112/71 93 Room Air 07/28/24 08:32 07/28/24 08:32 07/28/24 08:32 07/28/24 08:32 07/28/24 08:32 07/28/24 08:32 Preop Diagnosis: dysphagia Operation Date: 07/28/24 09:40 Proposed Procedures p EGD Dilation W/ Balloon 62278, R13.10, K21.9(Not Applicable) - Elver Smith MD Was Beta Estefania taken within 24 hours: N/A Was Clonidine taken within 24 hours: N/A Last intake: Intake Last Liquid Date 07/27/24 Last Liquid Time 23:00 Last Solid Date 07/27/24 Last Solid Time 18:30 Social No alcohol and No tobacco Exam alert and oriented x 3 Airway Submandibular: within normal limits Cervical ROM: within normal limits Mallampati: Class II Dentition: false History/ROS No significant history except as noted Pulmonary Asthma and Sleep Apnea uses 2 L O2 at night - does not use CPAP anymore CV/HEM Stable Angina (feels like its anxiety related- hasn't taken a NTG in months), Arrythmia and Myocardial Infarction (does not know when; was told she had a cardiac episode) None reported Hepatic None reported GI Gastroesophageal Reflux Disease Metabolic Hyperlipidemia and Thyroid Disease [facility] [place] Osteoarthritis/DJD Neuropsych Anxiety, Bipolar and Seizure (no seizure history on meds for Park[place] ) Anesthetic Plan ASA status: 3 Anesthesia: MAC Risk of > 500 ml blood loss (7ml/kg in children): No Medications/Allergies Home Medications Medication Instructions Recorded Confirmed Last Taken Type nitroglycerin 0.4 mg sublingual 0.4 mg sublingual Q5M PRN Chest 10/20/19 07/28/24 2 Months Ago History tablet Pain ~05/28/24 omeprazole 40 mg capsule,delayed 40 mg PO DAILY 10/20/19 07/22/24 07/27/24 History release levothyroxine 125 mcg tablet 125 mcg PO DAILY 02/22/21 07/22/24 07/27/24 History albuterol sulfate 90 mcg/actuation 2 puff inhalation Q6H PRN 05/17/21 07/22/24 07/26/24 History aerosol inhaler Shortness Of Breath onabotulinumtoxinA 100 unit 100 unit intradermal Q90D 12/27/21 07/28/24 06/01/24 History solution for injection (Botox) fluticasone propionate 50 2 spray intranasal DAILY PRN Nasal 08/07/22 07/22/24 07/25/24 History mcg/actuation nasal Congestion spray,suspension levocetirizine 5 mg tablet (Xyzal) 5 mg PO DAILY 01/14/23 07/22/24 07/27/24 History Night splint to left #1 ea 07/24/23 07/22/24 07/22/24 Rx acetaminophen 325 mg capsule 650 mg PO QID PRN Pain 10/19/23 07/28/24 1 Month Ago History (Tylenol) ~06/27/24 atorvastatin 40 mg tablet 40 mg PO QPM 10/19/23 07/22/24 07/27/24 History meclizine 25 mg tablet 25 mg PO BID PRN dizziness #20 tabs 10/19/23 07/28/24 1 Week Ago Rx ~07/21/24 umeclidinium 62.5 mcg-vilanterol 1 ea inhalation DAILY 10/19/23 07/22/24 07/27/24 History 25 mcg/actuation powdr for inhalation (Anoro Ellipta) paliperidone 6 mg tablet,extended 12 mg (2 x 6 mg) PO DAILY PRN 03/27/24 07/28/24 07/13/24 Rx release 24 hr (Invega) psychosis #60 tabs Left Knee [employer] Consultant Brace #1 ea 04/01/24 07/22/24 07/22/24 Rx lamotrigine 200 mg tablet 200 mg PO BID #60 tabs 04/24/24 07/22/24 07/27/24 Rx (Lamictal) propranolol 10 mg tablet 10 mg PO TID #90 tabs 04/24/24 07/22/24 07/27/24 Rx benztropine 1 mg tablet 1 mg PO BID #60 tabs 05/22/24 07/22/24 07/27/24 Rx paliperidone palmitate 234 mg/1.5 234 mg (1.5 mL) IM Q30D #1.5 mL 05/22/24 07/28/24 07/17/24 Rx mL intramuscular syringe (Invega Sustenna) lorazepam 1 mg tablet (Ativan) 1 mg PO BID PRN anxiety #60 tabs 06/05/24 07/28/24 07/24/24 Rx Left Knee Hinged Brace #1 ea 07/07/24 07/22/24 07/22/24 Rx aspirin 81 mg tablet,delayed 81 mg PO DAILY 07/22/24 07/22/24 07/27/24 History release polyethylene glycol 3350 17 4 g PO DAILY PRN Constipation 07/22/24 07/28/24 07/25/24 History gram/dose oral powder (Miralax) trazodone 50 mg tablet 25 - 50 mg PO BEDTIME PRN sleep 07/22/24 07/22/24 07/27/24 History carbidopa 25 mg-levodopa 100 mg See Rx Instructions .Route 07/24/24 07/28/24 07/27/24 Rx tablet .COMPLEX #90 tabs Allergies Allergy/AdvReac Type Severity Reaction Status Date / Time codeine Allergy Intermediate rash Verified 07/17/24 10:40 gabapentin [From Neurontin] Allergy Intermediate dizziness Verified 07/17/24 10:40 Penicillins Allergy Intermediate rash Verified 07/17/24 10:40 Tetanus Vaccines and Toxoid Allergy Intermediate rash Verified 07/17/24 10:40 Iodinated Contrast Media Allergy ALGY-Anaphy Verified 07/17/24 10:40 laxis Seafood Allergy Severe Anaphylaxis Uncoded 07/17/24 10:40 Current Medications Generic Name Dose Route Start Last Admin Trade Name Freq PRN Reason Stop Dose Admin Sodium Chloride 1,000 mls @ 30 mls/hr 07/28/24 08:15 07/28/24 08:55 Sodium Chloride 0.9% IV 30 mls/hr .Q24H DELPHINE Administration PFSH Anesthesia Medical History Biceps tendinitis of shoulder Subacromial impingement of left shoulder Tendinitis of left rotator cuff Psychiatric care Chronic migraine without aura, intractable, with status migrainosus -pain control as needed -continue to follow up with Dr. Bennett for Botox injections Panic disorder with agoraphobia Chronic post-traumatic stress disorder Schizoaffective disorder, bipolar type Tarsal tunnel syndrome, left lower limb Hyperlipidemia GERD (gastroesophageal reflux disease) Hypothyroid Borderline personality disorder PTSD (post-traumatic stress disorder) -continue to f/u at [facility] Chronic migraine without aura, intractable, with status migrainosus Surgical History History of bilateral tubal ligation History of appendectomy History of arthroscopy of left shoulder H/O arthroscopic knee surgery Family History Father Bleeding disorder CAD (coronary artery disease) Other Diabetes Hypertension Denies family history of Anesthesia complication Social History Smoking and tobacco/nicotine status: former use of tobacco/nicotine Second hand smoke exposure: No (quit smoking 7 years ago) Alcohol intake: never Substance/Drug Use: never Lives independently: Yes Household members: none Current occupational status: disabled Data Anesthesia Cardiac Studies: Echocardiogram 11/16/21 Echocardiogram Ultrasound 05/16/20 Sestamibi Stress Test (Cardiology) 12/05/21 Cardiac Event Monitor 09/28/21
[2024-07-28 09:40] VITALS: BP 96/60; PULSE 86; RESP 16; TEMP 36.4; O2SAT 92
[2024-07-28 09:50] VITALS: BP 96/67; PULSE 76; RESP 16; O2SAT 93
--- NOTE | 2024-07-28 10:20 | ANE.PACU2 ---
Inpatient post-anesthesia follow up: Airway intact: Yes Vital signs: Temperature 97.6 F Pulse Rate 76 Respiratory Rate 16 Blood Pressure 96/67 Pulse Oximetry 93 Oxygen Delivery Me thod Room Air Oxygen Flow Rate 2 Fraction of Inspir ed Oxygen Hydration adequate: Yes Nausea and vomiting: No Pain level: 1 Mental status: Baseline
== END 2024-07-28 10:12 | disposition home or self-care (01) ==
PROVIDERS: PCP Family Medicine; Visit Provider Surgery
DX: R13.10 Dysphagia, unspecified (principal); K29.70 Gastritis, unspecified, without bleeding; K21.9 Gastro-esophageal reflux disease without esophagitis; J45.909 Unspecified asthma, uncomplicated; Z99.81 Dependence on supplemental oxygen; E78.5 Hyperlipidemia, unspecified; I25.2 Old myocardial infarction; Z87.891 Personal history of nicotine dependence
CPT/HCPCS: 43239; 88305; J2704; J7030

== ENCOUNTER → 2024-08-04 12:53 | Outpatient (BNVA) | payer MEDICAID, SELFPAY ==
[2024-04-28 10:41] VITALS: BP 127/80; BMI 40.8
== END ==
PROVIDERS: PCP Family Medicine; Visit Provider Student in an Organized Health Care Education/Training Program
DX: Z01.818 Encounter for other preprocedural examination (principal); M17.12 Unilateral primary osteoarthritis, left knee; S89.92XA Unspecified injury of left lower leg, initial encounter; M25.569 Pain in unspecified knee; M23.305 Other meniscus derangements, unspecified medial meniscus, unspecified knee; X58.XXXA Exposure to other specified factors, initial encounter
CPT/HCPCS: 36415; 80053; 81001; 85025; 87086; 99214

== ENCOUNTER 2024-08-11 13:11 | Outpatient (CLI) | payer MEDICAID, SELFPAY ==
[2024-04-28 10:41] VITALS: BP 127/80; BMI 40.8
--- NOTE | 2024-08-11 13:30 | CT_ITS ---
WS: [id number] CT LEFT KNEE, NONCONTRAST [facility] TECHNIQUE: Noncontrast CT of the LEFT knee to include the LEFT hip and ankle. CLINICAL INFORMATION: LEFT TOTAL KNEE ARTHROPLASTY COMPARISON: None. DLP: 950.[address] scans at [facility] use at least one of these dose optimization techniques: automated e xposure control; mA and/or kV adjustment per patient size (includes targeted exams where dose is matc hed to clinical indication); or iterative reconstruction. FINDINGS: Moderate degenerative narrowing both hips. Moderate to advanced tricompartment arthritis LEFT knee. H ypertrophic patella. Sigmoid diverticulosis. CT/CT knee LT ISELA [id number] IMPRESSION: Images obtained for preoperative purposes.
== END 2024-08-11 13:12 | disposition home or self-care (01) ==
LOC: RAD 13:11
PROVIDERS: PCP Family Medicine; Visit Provider Student in an Organized Health Care Education/Training Program
DX: Z01.818 Encounter for other preprocedural examination (principal); M17.12 Unilateral primary osteoarthritis, left knee; S89.92XA Unspecified injury of left lower leg, initial encounter; M79.4 Hypertrophy of (infrapatellar) fat pad; K57.90 Diverticulosis of intestine, part unspecified, without perforation or abscess without bleeding; X58.XXXA Exposure to other specified factors, initial encounter
CPT/HCPCS: 73700

== ENCOUNTER 2024-08-11 13:36 | Emergency (ER) | payer MEDICAID, SELFPAY ==
[2024-04-28 10:41] VITALS: BP 127/80; BMI 40.8
[2024-08-11 13:46] VITALS: BP 107/72; PULSE 73; RESP 22; TEMP 36.7; O2SAT 93; BMI 42.0
--- NOTE | 2024-08-11 14:00 | XRR_ITS ---
PROCEDURE INFORMATION: Exam: XR Left Ribs with PA Chest Exam date and time: 08/11/2024 2:04 PM Age: 63 years old Clinical indication: Injury or trauma; Fall; Rib area, left side; Blunt trauma; Injury details: Hurt lt ribs 4 days ago; Additional info: Injury/pain TECHNIQUE: Imaging protocol: Radiologic exam of the left ribs with PA chest. Views: 3 views COMPARISON: CR XR chest 1V portable [id number] 10/18/2023 6:53 PM FINDINGS: Lungs: No consolidation. Pleural spaces: No sizable pleural effusion or pneumothorax. Heart/Mediastinum: No cardiomegaly. Bones/joints: No displaced rib fracture is visualized. XR/XR ribs LT mn 3V w CXR1V [id number] IMPRESSION: No displaced rib fracture is visualized.
--- NOTE | 2024-08-11 14:03 | ED_ITS ---
HPI - General Adult General: Chief complaint: General Medical Stated complaint: left side rib pain Time Seen by Provider: 08/11/24 13:48 Source: patient Mode of arrival: ambulatory Limitations: no limitations History of Present Illness: Patient is a nice 63-year-old female who presents to the ED today for evaluation of left rib pain. Patient states 3 days ago she was bending over for her deep freeze when she felt and heard a pop to her left ribs. She states she did not have pain immediately but several minutes later began developing pain that has not went away since onset. Pain is directly reproducible with palpation as well as coughing, sneezing, deep inhalation, and movement. She has been trying [id number]-wei-[id number] analgesics of Ibuprofen and Tylenol without much relief. She denies any shortness of breath or difficulty breathing. Onset (ago): day(s) Location: chest Radiation: non-radiation Severity: moderate Pain Consistency: constant Relieving factors: none Exacerbating factors: other (see HPI) Associated symptoms: Reports no associated symptoms and chest pain (L rib/chest wall pain); Deny dyspnea, palpitations or syncope Related Data Home Medications Medication Instructions Recorded Confirmed nitroglycerin 0.4 mg sublingual 0.4 mg sublingual Q5M PRN Chest 10/20/19 08/04/24 tablet Pain levothyroxine 125 mcg tablet 125 mcg PO DAILY 02/22/21 08/04/24 albuterol sulfate 90 mcg/actuation 2 puff inhalation Q6H PRN 05/17/21 08/04/24 aerosol inhaler Shortness Of Breath onabotulinumtoxinA 100 unit 100 unit intradermal Q90D 12/27/21 08/04/24 solution for injection (Botox) fluticasone propionate 50 2 spray intranasal DAILY PRN Nasal 08/07/22 08/04/24 mcg/actuation nasal Congestion spray,suspension levocetirizine 5 mg tablet (Xyzal) 5 mg PO DAILY 01/14/23 08/04/24 acetaminophen 325 mg capsule 650 mg PO QID PRN Pain 10/19/23 08/04/24 (Tylenol) atorvastatin 40 mg tablet 40 mg PO QPM 10/19/23 08/04/24 umeclidinium 62.5 mcg-vilanterol 1 ea inhalation DAILY 10/19/23 08/04/24 25 mcg/actuation powdr for inhalation (Anoro Ellipta) aspirin 81 mg tablet,delayed 81 mg PO DAILY 07/22/24 08/04/24 release polyethylene glycol 3350 17 4 g PO DAILY PRN Constipation 07/22/24 08/04/24 gram/dose oral powder (Miralax) trazodone 50 mg tablet 25 - 50 mg PO BEDTIME PRN sleep 07/22/24 08/04/24 Previous Rx's Medication Instructions Recorded Night splint to left #1 ea 07/24/23 meclizine 25 mg tablet 25 mg PO BID PRN dizziness #20 tabs 10/19/23 paliperidone 6 mg tablet,extended 12 mg (2 x 6 mg) PO DAILY PRN 03/27/24 release 24 hr (Invega) psychosis #60 tabs Left Knee Medial Disulfurizer Tender Brace #1 ea 04/01/24 lamotrigine 200 mg tablet 200 mg PO BID #60 tabs 04/24/24 (Lamictal) propranolol 10 mg tablet 10 mg PO TID #90 tabs 04/24/24 benztropine 1 mg tablet 1 mg PO BID #60 tabs 05/22/24 paliperidone palmitate 234 mg/1.5 234 mg (1.5 mL) IM Q30D #1.5 mL 05/22/24 mL intramuscular syringe (Invega Sustenna) Left Knee Hinged Brace #1 ea 07/07/24 carbidopa 25 mg-levodopa 100 mg See Rx Instructions .Route 07/24/24 tablet .COMPLEX #90 tabs pantoprazole 40 mg tablet,delayed 40 mg PO BID #60 tabs 07/28/24 release sucralfate 100 mg/mL oral 1 g (10 mL) PO BID 4 weeks #560 mL 07/28/24 suspension esomeprazole magnesium 20 mg 20 mg PO BID 30 days #60 caps 07/30/24 capsule,delayed release lorazepam 1 mg tablet (Ativan) 1 mg PO BID PRN anxiety #60 tabs 08/06/24 Allergies Allergy/AdvReac Type Severity Reaction Status Date / Time codeine Allergy Intermediate rash Verified 08/11/24 13:53 gabapentin [From Neurontin] Allergy Intermediate dizziness Verified 08/11/24 13:53 Penicillins Allergy Intermediate rash Verified 08/11/24 13:53 Tetanus Vaccines and Toxoid Allergy Intermediate rash Verified 08/11/24 13:53 Iodinated Contrast Media Allergy ALGY-Anaphy Verified 08/11/24 13:53 laxis Seafood Allergy Severe Anaphylaxis Uncoded 08/11/24 13:53 Review of Systems Const: Denies: fever(s) Card: Reports: chest pain (L rib/chest wall pain); Denies: palpitations, irregular heart rhythm, edema, swelling of feet/ankles, lightheadedness, syncope, pre-syncope, dyspnea on exertion, orthopnea, leg pain with exertion or acrocyanosis Resp: Reports: pain on inspiration; Denies: dyspnea, productive cough, non-productive cough or chest congestion GI: Denies: abdominal pain : Denies: flank pain Musc: Denies: back pain Neuro: Denies: dizziness PFSH ED PFSH: Medical History Biceps tendinitis of shoulder Subacromial impingement of left shoulder Tendinitis of left rotator cuff Psychiatric care Chronic migraine without aura, intractable, with status migrainosus -pain control as needed -continue to follow up with Dr. Bennett for Botox injections Panic disorder with agoraphobia Chronic post-traumatic stress disorder Schizoaffective disorder, bipolar type Tarsal tunnel syndrome, left lower limb Hyperlipidemia GERD (gastroesophageal reflux disease) Hypothyroid Borderline personality disorder PTSD (post-traumatic stress disorder) -continue to f/u at [facility] Chronic migraine without aura, intractable, with status migrainosus Surgical History History of bilateral tubal ligation History of appendectomy History of arthroscopy of left shoulder H/O arthroscopic knee surgery Family History Father Bleeding disorder CAD (coronary artery disease) Other Diabetes Hypertension Denies family history of Anesthesia complication Social History Smoking and tobacco/nicotine status: former use of tobacco/nicotine Second hand smoke exposure: No (quit smoking 7 years ago) Alcohol intake: never Substance/Drug Use: never Lives independently: Yes Household members: none Current occupational status: disabled Physical Exam Const: COMMON NORMALS: no acute distress, no limitations, alert and well nourished GENERAL APPEARANCE: cooperative NUTRITIONAL APPEARANCE: obese morbidly obese (BMI 42.1) Chest: COMMONS NORMALS: normal inspection of the chest OTHER: pt directly tender to L ribs under L breast; palpation reproduces pain; no ecchymosis or edema noted Resp: COMMON NORMALS: normal respiratory effort and clear to auscultation bilaterally AUSCULTATION: clear to auscultation bilaterally Cardio: COMMON NORMALS: regular rate and regular rhythm RATE: regular rate RHYTHM: regular rhythm GI: COMMON NORMALS: Normal to inspection, nondistended, normoactive bowel sounds present, Soft to palpation, non-tender, No hepatosplenomegaly present and no masses PALPATION: Yes Soft to palpation and Yes No hepatosplenomegaly present : COMMON NORMALS: Yes no CVA tenderness BLADDER/KIDNEY EXAM: Yes no CVA tenderness Back/Pelvis: COMMON NORMALS: no CVA tenderness and thoracic and lumbar spine normal to inspection Extremity: GENERAL: Yes normal exam except as noted Neuro: SENSORIUM/ORIENTATION: Yes alert Course Vital Signs: Vital signs: Vital Signs Temperature 98.1 F 08/11/24 13:46 Pulse Rate 70 08/11/24 14:31 Respiratory Rate 16 08/11/24 14:31 Blood Pressure 125/73 08/11/24 14:31 Pulse Oximetry 91 08/11/24 14:31 Oxygen Delivery Me thod Room Air 08/11/24 14:31 MDM - General Adult Medical Decision Making XR unremarkable. Pain is directly reproducible. Based on history and physical examination I have no concern for cardiac etiology. EKG obtained and shows no acute changes from previous. She was offered prescription pain medication but declines. She feels comfortable continuing to treat conservatively. Return to ED precautions discussed. Medical Records I reviewed the patient's medical records. Lab Data Radiology Impressions Ribs X-Ray 08/11/24 14:00 IMPRESSION: No displaced rib fracture is visualized. All radiology interpretation(s) finalized by discharge Discharge Plan Discharge Patient Disposition: Home Clinical Impression: Rib pain on left side Condition: Stable Prescriptions: No Action nitroglycerin 0.4 mg tablet, sublingual 0.4 mg SUBLINGUAL Q5M PRN (Reason: Chest Pain) Rx Instructions: as directed upto 3 albuterol sulfate 90 mcg/actuation HFA aerosol inhaler 2 puff inhalation Q6H PRN (Reason: Shortness Of Breath) paliperidone [Invega] 6 mg tablet extended release 24 hr 12 mg PO DAILY PRN (Reason: psychosis) Qty: 60 3RF Rx Instructions: May take two tabs daily six days before injection for psychosis benztropine 1 mg tablet 1 mg PO BID Qty: 60 6RF Invega Sustenna 234 mg/1.5 mL syringe 234 mg IM Q30D Qty: 1.5 6RF (DME) Left Knee Medial Disulfurizer Tender Brace See Rx Instructions .Route .MEDSUPPLY Qty: 1 0RF Rx Instructions: As directed Botox 100 unit recon soln 100 unit intradermal Q90D levocetirizine [Xyzal] 5 mg tablet 5 mg PO DAILY (DME) Night splint to left See Rx Instructions .Route .MEDSUPPLY Qty: 1 0RF Rx Instructions: As directed propranolol 10 mg tablet 10 mg PO TID Qty: 90 6RF lamotrigine [Lamictal] 200 mg tablet 200 mg PO BID Qty: 60 6RF Rx Instructions: Take one tablet in am and bedtime (DME) Left Knee Hinged Brace See Rx Instructions .Route .MEDSUPPLY Qty: 1 0RF Rx Instructions: As directed carbidopa-levodopa 25-100 mg tablet See Rx Instructions .ROUTE .COMPLEX Qty: 90 5RF Dose Instruction: TAKE 1 TABLET BY MOUTH THREE TIMES DAILY Rx Instructions: TAKE 1 TABLET BY MOUTH THREE TIMES DAILY esomeprazole magnesium 20 mg capsule,delayed release(DR/EC) 20 mg PO BID 30 Days Qty: 60 2RF lorazepam [Ativan] 1 mg tablet 1 mg PO BID PRN (Reason: anxiety) Qty: 60 3RF Rx Instructions: May take one tablet twice per day as needed for anxiety levothyroxine 125 mcg tablet 125 mcg PO DAILY fluticasone propionate 50 mcg/actuation [place],Suspension 2 spray INTRANASAL DAILY PRN (Reason: Nasal Congestion) acetaminophen [Tylenol] 325 mg Capsule 650 mg PO QID PRN (Reason: Pain) Anoro Ellipta 62.5-25 mcg/actuation blister with device 1 ea INHALATION DAILY atorvastatin 40 mg tablet 40 mg PO QPM meclizine 25 mg tablet 25 mg PO BID PRN (Reason: dizziness) Qty: 20 0RF trazodone 50 mg tablet 25 - 50 mg PO BEDTIME PRN (Reason: sleep) Rx Instructions: May take half to one tablet at bedtime as needed for sleep polyethylene glycol 3350 [Miralax] 17 gram/dose powder 4 g PO DAILY PRN (Reason: Constipation) aspirin 81 mg tablet,delayed release (DR/EC) 81 mg PO DAILY Rx Instructions: TAKE 1 TABLET BY MOUTH EVERY DAY sucralfate 100 mg/mL suspension 1 g PO BID 28 Days Qty: 560 0RF pantoprazole 40 mg tablet,delayed release (DR/EC) 40 mg PO BID Qty: 60 2RF Discharge Orders: Discharge ED (Routine); Ordered 08/11/24 Ordered By: Angle Monreal Referrals: Mark Bennett MD [Primary Care Provider] - Patient Instructions: Rib Contusion (ED) Activity Restrictions/Additional Instructions: You may continue treating with ice/heat as well as kyxd-iha-fiqrjmo analgesics. You may follow-up with primary care later this week/early next week for reevaluation. You may return to the emergency department for worsening pain, severe chest pain, shortness of breath, difficulty breathing, or any other concerns you may have. Hope you begin to feel better soon. Coding Level of Care Code ED Property Field Inspector for Samaria Canas
[2024-08-11 14:31] VITALS: BP 125/73; PULSE 70; RESP 16; O2SAT 91
--- NOTE | 2024-08-11 15:10 | ECG_ITS ---
[facility] Test Date: 2024-08-11 Pat Name: Elaine Montano Department: Room: Gender: Female [employer]: : 1960 Requested By: Angle Monreal Order Number: [id number] Ariza MD: Estefania Garcia M.D. Measurements Intervals [place] Rate: 67 P: 36 CT: 164 QRS: 22 QRSD: 86 T: 8 QT: 391 QTc: 414 Interpretive Statements SINUS RHYTHM NONSPECIFIC ST & T-WAVE ABNORMALITY Compared to ECG 10/18/2023 18:47:20 No significant changes Electronically Signed On 08-12-2024 19:16:06 [employer] by Estefania Garcia M.D. [email or web address]
[2024-08-11 15:25] VITALS: BP 104/58; PULSE 71; RESP 20; O2SAT 92
== END 2024-08-11 15:29 | disposition home or self-care (01) ==
PROVIDERS: Emergency Provider Physician Assistant; PCP Family Medicine
DX: R07.81 Pleurodynia (principal); Z79.82 Long term (current) use of aspirin; Z87.891 Personal history of nicotine dependence
CPT/HCPCS: 71101; 93005; 99284

== ENCOUNTER → 2024-08-20 13:00 | Outpatient (BNVA) | payer MEDICAID, SELFPAY ==
[2024-04-28 10:41] VITALS: BP 127/80; BMI 40.8
== END ==
PROVIDERS: PCP Family Medicine; Visit Provider Surgery
DX: R13.10 Dysphagia, unspecified (principal)
CPT/HCPCS: 99213

== ENCOUNTER 2024-08-31 10:13 | Observation (INO) | payer MEDICAID, SELFPAY ==
[2024-04-28 10:41] VITALS: BP 127/80; BMI 40.8
--- OUTSIDE RECORDS SUMMARY | 2024-08-11 12:24 | XMS_ITS | Continuity of Care Document ---
Author Name Unknown Organization [facility] Address [address] [id number] [address] Phone Care Team Providers Care Missile Tracking Technician Name Role Phone Randy Gramajo DDS Unavailable [...] Diagnoses Date Provider Providers Copied on Encounter [facility], [id number] [place], [place], [id number], [place] tel:[phone] [facility] Encounter for dental exam and cleaning w/o abnormal findings Avila Padilla. [address] [place], [address], [place]. tel:[phone] Referring Provider: Randy Bowers, [address] [place], [address]. tel:[phone] [facility], [id number] [place], [place], [id number], [place] tel:[phone] [facility] Encounter for dental exam and cleaning w/o abnormal findings Jenifer Monroy. [address] [place], [address], [place]. tel:[phone] Referring Provider: Porfirio Burgess, [address] [place], [address]. tel:[phone] sulting Provider: Juli Lanza, [address] [place], [address] . tel:[phone] [facility], [id number] [place], [id number], [place] tel:[phone] [facility] Encounter for dental exam and cleaning w/o abnormal findings Avila Padilla. [address] [place], [address], [place]. tel:[phone] Referring Provider: Randy Bowers, [address] [place], [address]. tel:[phone] sulting Provider: Juli Lanza, [address] [place], [address] . tel:[phone] [facility], [id number] 7530[address]RZ[place], [id number], [place] tel:[phone] [facility] Encounter for dental exam and cleaning w/o abnormal findings Debby Vick. [address] [place], [place], [address], [place]. tel:[phone] Referring Provider: Nicanor Guardado, [address] [place], [address] . tel:[phone] sulting Provider: Juli Lanza, [address] [place], [address] . tel:[phone] [facility], [id number] 302431[place], [id number], [place] tel:[phone] [facility] Encounter for dental exam and cleaning w/o abnormal findings Avila Padilla. [address] [place], [address], [place]. tel:[phone] Referring Provider: Randy Bowers, [address] [place], [address]. tel:[phone] [facility], [id number], [address], [place] tel:[phone] [facility] Encounter for dental exam and cleaning w/o abnormal findings Avila Padilla. [address] [place], [address], [place]. tel:[phone] Referring Provider: Randy Bowers, [address] [place], [address]. tel:[phone] [facility], [id number] 395542YS[place], [id number], [place] tel:[phone] [facility] Encounter for dental exam and cleaning w/o abnormal findings Jenifer Monroy. [address] [place], [address], [place]. tel:[phone] Referring Provider: Porfirio Burgess, [address] [place], [address]. tel:[phone] sulting Provider: Juli Lanza, [address] [place], [address] . tel:[phone] [facility], [id number] 067954UD[place], [id number], [place] tel:[phone] [facility] Encounter for dental exam and cleaning w/o abnormal findings Avila Padilla. [address] [place], [address], [place]. tel:[phone] Referring Provider: Randy Bowers, [address] [place], [address]. tel:[phone] sulting Provider: Juli Lanza, [address] [place], [address] . tel:[phone] [facility], [id number] [id number][place], [id number], [place] tel:[phone] [facility] Encounter for dental exam and cleaning w/o abnormal findings Avila Padilla. [address] [place], [address], [place]. tel:[phone] Referring Provider: Randy Bowers, [address] [place], [address]. tel:[phone] [facility], [id number] 698092KK-[place], [id number], [place] tel:[phone] Family Medicine Low income Coordinator Courtney. [address] [place], [place], [address], [place]. tel:[phone] Referring Provider: Courtney carlin, [address] [place], [address] . tel:[phone] [facility], [id number] 213190MN[place], [id number], [place] tel:[phone] [facility] Encounter for dental exam and cleaning w/o abnormal findings Jenifer Monroy. [address] [place], [address], [place]. tel:[phone] Referring Provider: Porfirio Burgess, [address] [place], [address]. tel:[phone] [facility], [address] [id number] 844519KT-[place], [id number], [place] tel:[phone] [facility] Encounter for dental exam and cleaning w/o abnormal findings Libertad Tong. [address] [place], [place], [address], [place]. tel:[phone] Referring Provider: Ran Maurer, [address] [place], [address] . tel:[phone] [facility], [address] [id number] [id number][place], [address], [place] tel:[phone] [facility] Encounter for dental exam and cleaning w/o abnormal findings Libertad Tong. [address] [place], [place], [address], [place]. tel:[phone] Referring Provider: Ran Maurer, [address] [place], [address] . tel:[phone] [facility], [address] [id number] 752040GI-QuEast [place], [address], [place] tel:[phone] [facility] Encounter for dental exam and cleaning w/o abnormal findings Libertad Tong. [address] [place], [place], [address], [place]. tel:[phone] Referring Provider: Ran Maurer, [address] [place], [address] . tel:[phone] [facility], [address] [id number] 599797OW-[place]dEast [place], [id number], [place] tel:[phone] [facility] Encounter for dental exam and cleaning w/o abnormal findings Jenifer Monroy. [address] [place], [address], [place]. tel:[phone] Referring Provider: Porfirio Burgess, [address] [place], [address]. tel:[phone] [facility], [id number] 629480EE-Tb [facility], [place], [place], [address], [place] tel:[phone] [facility] Encounter for dental exam and cleaning w/o abnormal findings Jenifer Monroy. [address] [place], [address], [place]. tel:[phone] Referring Provider: Porfirio Burgess, [address] [place], [address]. tel:[phone] Family History Family Member Type Diagnosis Age At Onset Daughter Problem (finding) Payers Payer name Insurance type Covered libertarian ID Daren tatum(s) D Medicaid [id number] Social History Type Description Quantity Date Captured Comments Sex Female Smoking Status No Information Chief Complaint And Reason For Visit No Information Reason For Referral Reason For Referral No Information Plan Of Treatment Date Type Action Status Referral Ordered: Referrals: Referrals: Location: [facility] Location: [facility] ordered History Of Present Illness Encounter Date Complaint History Of Prese nt Illness No Information Functional Status Date Functional Assessmen t No Information Instructions Date Instruction Additional Infor mation No Information Assessments Type Assessment Date No Information Patient Care Teams Name Effective Dates (start - stop) Status Members No Information
[2024-08-31] VITALS (20 sets, daily range): BP systolic 103–145; BP diastolic 60–91; PULSE 76–96; RESP 16–35; TEMP 36.6–37.4; O2SAT 92–97; BMI 42.0
[2024-08-31] MEDS: scopolamine 1.5 Patch 1 PATCH TRANSDERMA (06:53)
[2024-08-31] MEDS: sodium chloride 0.9% 1,000 ML 30 ML IV (06:54)
[2024-08-31] MEDS: ketorolac 30 mg/mL INJ IVP (06:56)
[2024-08-31] MEDS: acetaminophen 1,000 MG/100 ML PIGGYBACK 400 MG IV ×3 (06:56→23:02)
[2024-08-31 06:58] LABS: Basophils # 0.1 10^3/uL (0.0-0.1); Basophils % 1.1 %; Eosinophils # 0.3 10^3/uL (0.0-0.8); Eosinophils % 4.4 %; Hematocrit 44.5 % (36-47); Lymphocytes # 1.9 10^3/uL (0.8-4.8); Lymphocytes % 29.8 %; Mean Corpuscular HGB Conc 32.1 g/dL (30-55); Mean Corpuscular Hemoglobin 29.2 pg (27-33); Mean Corpuscular Volume 90.8 fl (85-98); Mean Platelet Volume 9.5 fL (7.4-10.4); Monocytes # 0.6 10^3/uL (0.2-0.9); Monocytes % 9.1 %; Neutrophils # 3.52 10^3/uL (1.8-7.7); Neutrophils % 55.4 %; Nucleated Red Blood Cells % 0 %; Platelet Count 318 10^3/cmm (157-399); Red Cell Distribution Width 13.9 % (12.1-15.1); White Blood Count 6.35 10^3/uL (3.29-11.43)
--- NOTE | 2024-08-31 07:07 | P.ANESASSM_ITS ---
Pre-Anesthetic Assessment Height/Weight: Height 1.57 m Weight 104.326 kg Temp Pulse Resp BP Pulse Ox O2 Del Method 97.9 F 81 18 111/83 97 Room Air 08/31/24 06:21 08/31/24 06:21 08/31/24 06:21 08/31/24 06:53 08/31/24 06:21 08/31/24 06:21 Operation Date: 08/31/24 07:45 Proposed Procedures p Chema Robot Total Knee Arthroplasty(Left) - DO Amisha Song anesthetic complications: None Was Beta Estefania taken within 24 hours: N/A Was Clonidine taken within 24 hours: N/A Last intake: Intake Last Liquid Date 08/30/24 Last Liquid Time 23:00 Last Solid Date 08/30/24 Last Solid Time 19:00 Social No alcohol and No tobacco Pulmonary Asthma and Chronic Obstructive Pulmonary Disease 2 L O2 at night CV/HEM Hypertension and Myocardial Infarction 01/16/22 Cardiac Cath Conclusions ? 1. No significant disease noted in the Left Main, Left Anterior Descending, Right, or Circumflex coronary arteries. Recommendations ? * Aggressive risk factor modification. ? * Outpatient cardiology follow up in 4 weeks. 12/05/21 Myocardial Perfusion ?IMPRESSIONS ?1. Abnormal myocardial perfusion imaging with small sized infarct with ?significant tamar-infarct ischemia seen in the apical, apical lateral and apical ?inferior mcclendon. ?2. LV systolic function is normal 12/05/21 Sestamibi Stress Test Conclusion: 1.? Normal EKG response to Lexiscan infusion 2.? No Lexiscan induced chest pain or cardiac arrhythmia. 3.? Normal blood pressure and heart rate response. 4.? Sestamibi/sestamibi perfusion scan pending; see separate report. 11/16/21 ECHO CONCLUSIONS ?LV systolic function is normal with EF of 50-55% ?Normal diastolic function ?Mild tricuspid regurgitation ?Mild pulmonic regurgitation ?Compared to prior echocardiogram from 05/16/2020, no significant ?changes are noted 05/16/20 ECHO CONCLUSIONS 1. Normal left ventricular size, systolic function and wall thickness, with no regional wall motion abnormalities. Left ventricular ejection fraction is estimated at 60 %. Normal diastolic function. 2. Normal right ventricular size and systolic function. 3. No significant valvular abnormality. 4. Pulmonary artery pressure estimated at 28 mm Hg. 5. No prior similar studies to compare. GI Gastroesophageal Reflux Disease Metabolic Hyperlipidemia and Morbid Obesity Anesthetic Plan ASA status: 3 Anesthesia: Regional (specify below) (Spinal + Adductor Canal) Risk of > 500 ml blood loss (7ml/kg in children): No Medications/Allergies Home Medications Medication Instructions Recorded Confirmed Last Taken Type nitroglycerin 0.4 mg sublingual 0.4 mg sublingual Q5M PRN Chest 10/20/19 08/27/24 1 Week Ago History tablet Pain ~08/20/24 levothyroxine 125 mcg tablet 125 mcg PO DAILY 02/22/21 08/27/24 08/30/24 History albuterol sulfate 90 mcg/actuation 2 puff inhalation Q6H PRN 05/17/21 08/27/24 2 Weeks Ago History aerosol inhaler Shortness Of Breath ~08/13/24 onabotulinumtoxinA 100 unit 100 unit intradermal Q90D 12/27/21 08/27/24 06/05/24 History solution for injection (Botox) fluticasone propionate 50 2 spray intranasal DAILY PRN Nasal 08/07/22 08/27/24 08/30/24 History mcg/actuation nasal Congestion spray,suspension levocetirizine 5 mg tablet (Xyzal) 5 mg PO DAILY 01/14/23 08/27/24 08/30/24 History Night splint to left #1 ea 07/24/23 08/20/24 07/22/24 Rx atorvastatin 40 mg tablet 40 mg PO QPM 10/19/23 08/27/24 08/30/24 History meclizine 25 mg tablet 25 mg PO BID PRN dizziness #20 tabs 10/19/23 08/27/24 08/24/24 Rx umeclidinium 62.5 mcg-vilanterol 1 ea inhalation DAILY 10/19/23 08/27/24 08/30/24 History 25 mcg/actuation powdr for inhalation (Anoro Ellipta) paliperidone 6 mg tablet,extended 12 mg (2 x 6 mg) PO DAILY PRN 03/27/24 08/27/24 08/30/24 Rx release 24 hr (Invega) psychosis #60 tabs paliperidone palmitate 234 mg/1.5 234 mg (1.5 mL) IM Q30D #1.5 mL 05/22/24 08/27/24 08/18/24 Rx mL intramuscular syringe (Invega Sustenna) Left Knee Hinged Brace #1 ea 07/07/24 08/20/24 07/22/24 Rx aspirin 81 mg tablet,delayed 81 mg PO DAILY 07/22/24 08/27/24 08/25/24 History release polyethylene glycol 3350 17 4 g PO DAILY PRN Constipation 07/22/24 08/27/24 3 Weeks Ago History gram/dose oral powder (Miralax) ~08/06/24 carbidopa 25 mg-levodopa 100 mg See Rx Instructions .Route 07/24/24 08/27/24 08/30/24 Rx tablet .COMPLEX #90 tabs pantoprazole 40 mg tablet,delayed 40 mg PO BID #60 tabs 07/28/24 08/27/24 08/30/24 Rx release lorazepam 1 mg tablet (Ativan) 1 mg PO BID PRN anxiety #60 tabs 08/06/24 08/27/24 08/24/24 Rx acetaminophen 325 mg tablet 325 mg PO QID PRN Pain 08/11/24 08/27/24 08/25/24 History (Tylenol) benztropine 1 mg tablet 1 mg PO BID #60 tabs 08/17/24 08/27/24 08/30/24 Rx lamotrigine 200 mg tablet 200 mg PO BID #60 tabs 08/17/24 08/27/24 08/30/24 Rx (Lamictal) propranolol 10 mg tablet 10 mg PO TID #90 tabs 08/17/24 08/27/24 08/30/24 12:00 Rx trazodone 50 mg tablet 50 mg PO BEDTIME PRN sleep #30 tabs 08/17/24 08/27/24 08/26/24 Rx Allergies Allergy/AdvReac Type Severity Reaction Status Date / Time codeine Allergy Intermediate rash Verified 08/27/24 11:31 gabapentin [From Neurontin] Allergy Intermediate dizziness Verified 08/27/24 11:31 Penicillins Allergy Intermediate rash Verified 08/27/24 11:31 Tetanus Vaccines and Toxoid Allergy Intermediate rash Verified 08/27/24 11:31 Iodinated Contrast Media Allergy ALGY-Anaphy Verified 08/27/24 11:31 laxis Seafood Allergy Severe Anaphylaxis Uncoded 08/27/24 11:31 Current Medications Generic Name Dose Route Start Last Admin Trade Name Freq PRN Reason Stop Dose Admin Sodium Chloride 1,000 mls @ 30 mls/hr 08/31/24 06:15 08/31/24 06:54 Sodium Chloride 0.9% IV 09/01/24 06:14 30 mls/hr .Q24H DELPHINE Administration PFSH Anesthesia Medical History Biceps tendinitis of shoulder Subacromial impingement of left shoulder Tendinitis of left rotator cuff Psychiatric care Chronic migraine without aura, intractable, with status migrainosus -pain control as needed -continue to follow up with Dr. Bennett for Botox injections Panic disorder with agoraphobia Chronic post-traumatic stress disorder Schizoaffective disorder, bipolar type Tarsal tunnel syndrome, left lower limb Hyperlipidemia GERD (gastroesophageal reflux disease) Hypothyroid Borderline personality disorder PTSD (post-traumatic stress disorder) -continue to f/u at [facility] [place] Chronic migraine without aura, intractable, with status migrainosus Surgical History History of bilateral tubal ligation History of appendectomy History of arthroscopy of left shoulder H/O arthroscopic knee surgery Family History Father Bleeding disorder CAD (coronary artery disease) Other Diabetes Hypertension Denies family history of Anesthesia complication Social History Smoking and tobacco/nicotine status: former use of tobacco/nicotine Second hand smoke exposure: No (quit smoking 7 years ago) Alcohol intake: never Substance/Drug Use: never Lives independently: Yes Household members: none Current occupational status: disabled Data Anesthesia 08/31/24 06:45 08/31/24 06:35 Short CBC 08/31/24 Range/Units 06:45 WBC 6.35 (3.29-11.43) 10^3/uL Hgb 14.30 (11.27-16.99) g/dL Hct 44.5 (36-47) % MCV 90.8 (85-98) fl Plt Count 318 (157-399) 10^3/cmm Neut % (Auto) 55.4 % Neut # (Auto) 3.52 (1.8-7.7) 10^3/uL Urine 08/31/24 Range/Units 06:50 Urine Color Cancelled Urine Appearance Cancelled Urine pH Cancelled Ur Specific [place] Cancelled Urine Protein Cancelled Urine Glucose (UA) Cancelled Urine Ketones Cancelled Urine Nitrate Cancelled Urine Bilirubin Cancelled Ur Leukocyte Esterase Cancelled Urine RBC Cancelled Urine WBC Cancelled Ur Renal Epithelial Cell Cancelled Cardiac Studies: 2 Echocardiogram 11/16/21 Echocardiogram Ultrasound 05/16/20 Sestamibi Stress Test (Cardiology) 12/05 Cardiac Event Monitor 09/28/21
--- NOTE | 2024-08-31 07:09 | W.PM.OPSUD ---
Surgery/Procedure H&P Update DATE OF PROCEDURE: August 31, 2024 DATE H&P PERFORMED: 08/04/24 H&P UPDATE INFORMATION: I have reviewed H&P completed within last 30 days, I have examined patient prior to procedure and No changes to prior documentation CHANGES TO PREVIOUS DOCUMENTATION: No change in her health since her prior visit she has been cleared by Dr. Hernandez to proceed with surgery through her preoperative clearance. She has no urinary symptoms I did check with Dr. Hernandez the urine that was checked culture was negative and no indications for any recheck today as she is having no symptoms. Patient at this point time and is ready to proceed with a left total knee arthroplasty she understands the ins and outs of procedure the risk benefits complication alternatives surgery through shared decision-making elects proceed with surgical invention. All questions answered at this time. PREOP DIAGNOSIS: Left knee DJD PRIMARY INDICATION FOR PROCEDURE: Left knee DJD PLANNED PROCEDURE: Operation Date: 08/31/24 07:45 Proposed Procedures p Chema Robot Total Knee Arthroplasty(Left) - Isai Rico DO
[2024-08-31 07:12] LABS: Anion Gap 16.1 (5-19); Blood Urea Nitrogen 8 mg/dL (8-23); Calcium 9.3 mg/dL (8.5-10.5); Carbon Dioxide 27 mmol/L (22-29); Chloride 102 mmol/L (98-107); Creatinine Clr Calc Pharmacy 80.5149; Glomerular Filtration Rate 72.2 mL/min (90-130); Glucose 125 mg/dL (65-115); Osmolality Calculated 292 mOsm/kg (285-295); Potassium 4.1 mmol/L (3.5-5.1); Sodium 141 mmol/L (136-145)
--- NOTE | 2024-08-31 07:44 | ANES.PROC ---
Anesthesia Procedures Procedure/Date: 08/31/24 Nerve Block ^: Nerve Block 1: Main Anesthesia: spinal anesthesia block Time Out Performed: Yes Consent: requested by attending/covering physician, from patient, from other, risks and benefits reviewed and patient agrees to proceed Nerve block location: adductor canal (L) Anesthesia monitors applied: pulse oximetry, EKG, BP cuff and oxygen Nerve block position: supine Anesthetic Used: ropivicaine 0.5% (30 ml) and with decadron (4 mg) Ultrasound used to: recognize landmarks and visualize and ID femerol nerve Nerve Stimulator Used?: No Interscalene/Femoral BLK: 4 stimuplex 21 g needle used for position and inplane approach, visualize local anesthetic spread and no vascular puncture identified Injection: neg aspiration of heme Patient Tolerated Procedure: well Complications: none
[2024-08-31] MEDS: ceFAZolin 2,000 mg SDV 2000 MG IVP ×2 (08:09→16:05)
[2024-08-31] MEDS: tranexamic acid 1,000 mg/10mL SDV 1000 MG IV (08:39)
[2024-08-31] MEDS: tranexamic acid 1,000 mg/10mL SDV 1000 MG XX (09:26)
[2024-08-31] MEDS: ROPivacaine 0.2% Premix 100 mL 200 MG INTRA-ARTI (09:26)
[2024-08-31] MEDS: ketorolac 30 mg/mL INJ XX (09:26)
[2024-08-31] MEDS: EPINEPHrine 1 mg/mL INJ XX (09:26)
[2024-08-31] MEDS: VANCOMYCIN ADD-Vantage 1,000 MG VIAL 1000 MG XX (09:29)
--- NOTE | 2024-08-31 10:14 | PM.OP ---
Operative Report Date of procedure: August 31, 2024 Surgeon: Isai Rico DO Engineering Job Titles: Yovanny Rico PA-C: PA was necessary for assistance in this case with leg positioning retraction and protection of neurovascular structures as well as assistance in implantation wound closure and dressing application. Procedure: Preoperative diagnosis: Left knee degenerative joint disease Post-op diagnosis: Same Procedure done: Left total knee arthroplasty, cemented?robotic assisted Chema Implants: [place] triathlon size 4 femur CR cemented?left [place] triathlon size? 3 tibia universal baseplate cemented [place] triathlon symmetric patella size 31 mm Jaclyn triathlon polyethylene 9mm Surgeon: Isai Rico DO Estimated blood?loss: 25 mL Tourniquet 58minutes IV fluids: 800 mL Urine output: 350 mL Complications: None Condition: stable Disposition: floor Brief History: Patient is a 63-year-old female with with chronic?left knee degenerative joint disease.? Patient has been worked up in the outpatient setting in the orthopedic office at this point time through shared decision making given? verc-ce-bouf arthritis as well as failed conservative treatment, and pt would?like to proceed with a?left total knee arthroplasty.? Through shared decision making elected to proceed with surgical intervention for?left total knee arthroplasty.? We talked about continued conservative treatment and surgical intervention as far as the risk benefits complications alternatives surgical and nonsurgical treatment options.? At this point time understanding patient risks with surgery patient agrees to proceed with surgical intervention.? Once again? risk with surgery include but are not?limited to make it better make it worse blood clot, heart attack, stroke, on the table, infection, injury to nerves or vessels, persistent pain, arthrofibrosis, implant failure.? Understanding these risks patient agrees to proceed with surgical intervention consent was obtained in the preoperative holding area..? All questions answered. Procedure: Patient was seen and evaluated in the preoperative holding area.? Consent was reviewed and signed with patient with plan for?left total knee arthroplasty.? All questions answered.? Correct extremity marked.? Patient seen and evaluated by the anesthesia department and once cleared for surgery was taken back to the operative suite.? Patient was placed into a supine position on the OR table.? All bony prominences were well-padded.? Patient was appropriately secured to the bed.? Patient underwent anesthesia per the anesthesia department.? Patient received spinal anesthesia and? Gonzalez catheter was placed.? A nonsterile tourniquet was applied to the?left thigh.? At this point in time a final timeout performed.? Patient received appropriate preoperative antibiotics and TXA. Next the?left?lower extremity was then prepped and draped in standard orthopedic fashion. Esmarch tourniquet was used exsanguinate the?left?lower extremity.? Tourniquet was insufflated to 250 mmHg. A standard anterior incision was made over midline of the knee.? Sharp scalpel excision through skin and subcutaneous tissue full-thickness skin flaps were made.? Fascia was elevated off of the extensor retinaculum was stable with medial parapatellar arthrotomy was then made.? The performed standard sequential releases.? Immediately on entry into the joint patient was found to have severe eburnated bone and tricompartmental arthritic changes noted.? With significant osteophyte formation.? Next the the patella was then stuffed and the knee was then flexed.?? Vee was placed superiorly around the anterior aspect of the femur this was freed of synovium and I subsequently then placed by 2 femur pins to establish my femur arrays for the Chema robot.? These were then placed bicortically and? femur array was then appropriately secured with appropriate visualization.? Next attention was turned towards the tibial rays.? These were then drilled sequentially bicortically in parallel fashion and intraincisional.? I then placed my guide as well as my tibial array on in place.? This was appropriately secured and had excellent visualization with the Chema robot.? Next the tibial checkpoint as well as femur checkpoint were then placed.? At this point time I then subsequently established my head center as well as my medial?lateral malleoli as well as my checkpoints.? Next utilizing standard Chema technology I then mapped out the appropriate points and confirmation points around the femur as well as the tibia in standard fashion.? Once this was then done I then removed all osteophytes in preparation for dynamic testing.? All osteophytes were removed as well as I removed the ACL and the PCL was excised due to its significant tearing and degeneration noted.? At this point time the knee was brought into full extension and we performed our standard evaluation of our gap balancing stressing his?ligaments and extension as well as flexion appropriate adjustments were made to have appropriate gap balancing in both flexion and extension.? This plan for final cuts. Patient had a varus deformity and we made corrections with the preoperative plan to correct patient's deformity to what patient's ligamentous balance would allow. We get a preoperative plan evaluating our implants which was a size 4 femur and a size 3 tibia.? Next we brought in the Chema robot and sequentially made our femur cuts.? All excess bony cuts were then removed.? Finally we made our tibial cut.? Once this was done a standard PCL retractor was then placed into this position I excised the medial and?lateral meniscus.? The tibial cut was then subsequently removed all excess bony debris was removed.? I then utilized a?lamina automotive consultant and remove the posterior osteophytes.? At this point time sized the tibia and confirmed this was a size 3.? I utilized our blunt probe to establish rotation of tibial implant.? Once this was done I then placed my tibia size 3 trial in appropriate position and then subsequently placed tibial pins to hold this into place placed a size 9 mm poly as well as a size 4 femur which was appropriately impacted in place knee was then subsequently brought into extension. Trials were then assessed,? this was stable with varus valgus stress in extension as well as had symmetrical translation when brought into flexion demonstrating symmetrical gaps. I had excellent balance gaps in flexion and extension with varus and valgus stresses.? At this point I was satisfied with these implants these were then verified and opened on the back table size 3 tibia, size 4 femur,? size 9 mm polythickness.? We did confirm appropriate gap balancing and stresses as well as alignment utilizing? Chema and were satisfied with this plan.? ?At this point time with my trials in place I then towel clip the patella everted this made appropriate measurements subsequently utilizing freehand technique performed by patellar resurfacing this was confirmed to be appropriate resection and subsequently sized to be a 31 mm symmetric.? My drill peg guides were then clamped and appropriate position and appropriate position in the patella for appropriate tracking and parallel with the joint.? Pegs were drilled trial implant was placed and the knee was then subsequently ranged and found to have excellent patellar tracking.? Femur pegs were then drilled.? All checkpoints as well as guidepins and arrays were removed and appropriate counts made.? Satisfied with our tibial placement rotation I then utilized the keel punch and prepped the tibia.? At this point time all of our trial implants were removed.? The wound bed? was thoroughly irrigated and dried and prepped for cementation.? Cement was mixed on the back table.? Once cement was ready this was then covered onto the tibia and the tibial baseplate was then impacted and all excess cement was removed.? Next the polyethylene was then impacted into place on the tibial baseplate.? Next cement was placed onto the femur as well as under the femur implants and impacted in to place and all excess cement was extruded and removed.? Knee was taken into full extension? to clear all excess cement was removed.? Warm saline was placed over the joint.? I then towel clip patella and dried for cementation. cemented the patella into place.? This was all clamped and the cement was allowed to cure.? Thorough irrigation performed with pulse?lavage.? I then placed my periarticular injection while the cement was curing.? Once cured the knee was taken through range of motion and had excellent stability and gaps were balanced in flexion and extension.? Tourniquet was then deflated. hemostasis satisfactory with electrocautery.? Vancomycin powder was placed in wound bed for antibiotic infection prophylaxis. Next I then subsequently closed the capsule with Ethibond suture as well as a running strata fix suture.? Knee was then taken through range of motion 30 times.? Next the skin was then closed in?layered fashion of running stratifix sutures of deep and subcutenous tissue and skin.? ?closed in flexion and Prineo glue was then placed over the incision this allowed to cure.? Incision was covered with lilia, with ABDs soft roll and Michael wrap.? Patient was then awakened from anesthesia and taken to PACU in stable condition. Disposition: Patient taken to PACU in stable condition will be admitted to the floor for pain control PT/OT weight-bear as tolerated?left?lower extremity dressing changes as needed, DVT prophylaxis. Pain control. Patient will receive appropriate postoperative antibiotics. patient will be seen today by the internal medicine team for medical management.? Patient will follow up with the office in 2 weeks.? Patient understands agrees with current plan.? All questions answered.
--- NOTE | 2024-08-31 10:18 | XRR_ITS ---
PROCEDURE INFORMATION: Exam: XR Left Knee Exam date and time: 08/31/2024 10:45 AM Age: 63 years old Clinical indication: Device placement; Joint replacement hardware; Prior surgery; Surgery date: Post-operative (0-2 days); Surgery type: Left tka; Additional info: Post L tka, do in pacu TECHNIQUE: Imaging protocol: Radiologic exam of the left knee. Views: 1 or 2 views. COMPARISON: CT knee LT [facility] [id number] 08/11/2024 1:15 PM FINDINGS: Bones/joints: There are postoperative changes status post left knee replacement. Components appear to be in anatomic alignment. No fracture or dislocation is noted. There is air within the joint from recent surgery. Soft tissues: Normal. XR/XR knee LT 1-2V [id number] IMPRESSION: 1. Postoperative changes status post left knee replacement.
--- NOTE | 2024-08-31 10:27 | W.PM.BPON ---
Date of Procedure: [August 31, 2024] Surgeon: [Dr. Trisha DO] Outreach Professional(s): [Yovanny sellers PA-C] Procedure(s) performed: [Left knee total arthroplasty with Chema robotic assist.] Findings of the procedure(s): [Left knee degenerative joint disease. Procedure went well and as planned.] Estimated blood loss: [25 ml] Specimen(s) removed: [n/a] Post-operative diagnosis: [Left knee degenerative joint disease. ]
--- NOTE | 2024-08-31 10:29 | PM.PACU ---
PACU note Narrative: Patient is a 63-year-old female just underwent a left total knee arthroplasty. Pt transferred to PACU in stable condition. Dressing is dry. pt is awake and alert. exam limited due to residual spinal block. unable to assess motor or sensation due to spinal. Pain is controlled. Exam: awake Disposition: admitted
--- NOTE | 2024-08-31 10:53 | P.CONIM_ITS ---
Providers/Reason For Consult 2 Consulting Physician/Specialty*: Wili Freire MD, hospitalist Reason for Consult*: Medical management Requesting Physician: Dr. Rico Attending Physician: Isai Rico DO Primary Care Provider: Mark Bennett MD History of Present Illness History of Present Illness Elaine Montano is a 63 year old female who underwent a left total knee arthroplasty today. There were no complications with surgery, estimated blood loss around 25 cc. She is awake, alert and reporting no complaints currently. Review of Systems 2 General: Reports: 10 or more systems reviewed and unremarkable except in HPI and below Medications/Allergies Home Medications Medication Instructions Recorded Confirmed Last Taken Type nitroglycerin 0.4 mg sublingual 0.4 mg sublingual Q5M PRN Chest 10/20/19 08/27/24 1 Week Ago History tablet Pain ~08/20/24 levothyroxine 125 mcg tablet 125 mcg PO DAILY 02/22/21 08/27/24 08/30/24 History albuterol sulfate 90 mcg/actuation 2 puff inhalation Q6H PRN 05/17/21 08/27/24 2 Weeks Ago History aerosol inhaler Shortness Of Breath ~08/13/24 onabotulinumtoxinA 100 unit 100 unit intradermal Q90D 12/27/21 08/27/24 06/05/24 History solution for injection (Botox) fluticasone propionate 50 2 spray intranasal DAILY PRN Nasal 08/07/22 08/27/24 08/30/24 History mcg/actuation nasal Congestion spray,suspension levocetirizine 5 mg tablet (Xyzal) 5 mg PO DAILY 01/14/23 08/27/24 08/30/24 History Night splint to left #1 ea 07/24/23 08/20/24 07/22/24 Rx atorvastatin 40 mg tablet 40 mg PO QPM 10/19/23 08/27/24 08/30/24 History meclizine 25 mg tablet 25 mg PO BID PRN dizziness #20 tabs 10/19/23 08/27/24 08/24/24 Rx umeclidinium 62.5 mcg-vilanterol 1 ea inhalation DAILY 10/19/23 08/27/24 08/30/24 History 25 mcg/actuation powdr for inhalation (Anoro Ellipta) paliperidone 6 mg tablet,extended 12 mg (2 x 6 mg) PO DAILY PRN 03/27/24 08/27/24 08/30/24 Rx release 24 hr (Invega) psychosis #60 tabs paliperidone palmitate 234 mg/1.5 234 mg (1.5 mL) IM Q30D #1.5 mL 05/22/24 08/27/24 08/18/24 Rx mL intramuscular syringe (Invega Sustenna) Left Knee Hinged Brace #1 ea 07/07/24 08/20/24 07/22/24 Rx aspirin 81 mg tablet,delayed 81 mg PO DAILY 07/22/24 08/27/24 08/25/24 History release polyethylene glycol 3350 17 4 g PO DAILY PRN Constipation 07/22/24 08/27/24 3 Weeks Ago History gram/dose oral powder (Miralax) ~08/06/24 carbidopa 25 mg-levodopa 100 mg See Rx Instructions .Route 07/24/24 08/27/24 08/30/24 Rx tablet .COMPLEX #90 tabs pantoprazole 40 mg tablet,delayed 40 mg PO BID #60 tabs 07/28/24 08/27/24 08/30/24 Rx release lorazepam 1 mg tablet (Ativan) 1 mg PO BID PRN anxiety #60 tabs 08/06/24 08/27/24 08/24/24 Rx acetaminophen 325 mg tablet 325 mg PO QID PRN Pain 08/11/24 08/27/24 08/25/24 History (Tylenol) benztropine 1 mg tablet 1 mg PO BID #60 tabs 08/17/24 08/27/24 08/30/24 Rx lamotrigine 200 mg tablet 200 mg PO BID #60 tabs 08/17/24 08/27/24 08/30/24 Rx (Lamictal) propranolol 10 mg tablet 10 mg PO TID #90 tabs 08/17/24 08/27/24 08/30/24 12:00 Rx trazodone 50 mg tablet 50 mg PO BEDTIME PRN sleep #30 tabs 08/17/24 08/27/24 08/26/24 Rx Allergies Allergy/AdvReac Type Severity Reaction Status Date / Time codeine Allergy Intermediate rash Verified 08/27/24 11:31 gabapentin [From Neurontin] Allergy Intermediate dizziness Verified 08/27/24 11:31 Penicillins Allergy Intermediate rash Verified 08/27/24 11:31 Tetanus Vaccines and Toxoid Allergy Intermediate rash Verified 08/27/24 11:31 Iodinated Contrast Media Allergy ALGY-Anaphy Verified 08/27/24 11:31 laxis Seafood Allergy Severe Anaphylaxis Uncoded 08/27/24 11:31 Current Medications Generic Name Dose Route Start Last Admin Trade Name Ahsanq PRN Reason Stop Dose Admin Sodium Chloride 1,000 mls @ 30 mls/hr 08/31/24 06:15 08/31/24 06:54 Sodium Chloride 0.9% IV 09/01/24 06:14 30 mls/hr .Q24H DELPHINE Administration PFSH Acute 2 PFSH: Medical History Biceps tendinitis of shoulder Subacromial impingement of left shoulder Tendinitis of left rotator cuff Psychiatric care Chronic migraine without aura, intractable, with status migrainosus -pain control as needed -continue to follow up with Dr. Bennett for Botox injections Panic disorder with agoraphobia Chronic post-traumatic stress disorder Schizoaffective disorder, bipolar type Tarsal tunnel syndrome, left lower limb Hyperlipidemia GERD (gastroesophageal reflux disease) Hypothyroid Borderline personality disorder PTSD (post-traumatic stress disorder) -continue to f/u at [facility] Chronic migraine without aura, intractable, with status migrainosus Surgical History History of bilateral tubal ligation History of appendectomy History of arthroscopy of left shoulder H/O arthroscopic knee surgery Family History Father Bleeding disorder CAD (coronary artery disease) Other Diabetes Hypertension Denies family history of Anesthesia complication Social History Smoking and tobacco/nicotine status: former use of tobacco/nicotine Second hand smoke exposure: No (quit smoking 7 years ago) Alcohol intake: never Substance/Drug Use: never Lives independently: Yes Household members: none Current occupational status: disabled Vitals/I&O/Wt Last Vital Signs Temp 99.2 F 08/31/24 10:24 Pulse 85 08/31/24 10:44 Resp 25 H 08/31/24 10:44 BP 123/76 12/16/24 10:44 Pulse Ox 95 08/31/24 10:44 O2 Del Method Nasal Cannula 08/31/24 10:44 O2 Flow Rate 3 08/31/24 10:44 08/30/24 08/31/24 08/31/24 22:59 06:59 14:59 Intake Total 150 / 150 Output Total 375 / 375 Balance -225 / -225 Weight last 48 hrs Weight 104.326 kg Physical Exam 2 Narrative: General Exam no distress HEENT Oropharynx clear Neck supple no lymphadenopathy thyromegaly Cardiovascular regular rate and rhythm, no murmur Lungs clear Abdomen is soft, obese nontender positive bowel sounds exam is deferred Extremities no cyanosis clubbing edema, dressing left knee Cap refill distally less than 2 seconds Skin no rash Neuro no obvious focal deficits Data 08/31/24 06:45 08/31/24 06:35 A&P Assessment and plan (1) Osteoarthritis of left knee: Directly postoperative left total knee arthroplasty Management per surgery Eliquis will be used for DVT prophylaxis CBC tomorrow to check for any postoperative anemia. (2) Schizoaffective disorder, bipolar type: Resume her home medication (3) Seizure: There is past note of seizure, she is on Lamictal. I am not for sure if this is pseudoseizures or not. Either way we will place her on seizure precautions. Plan History of COPD. Budesonide twice daily, DuoNeb as needed other medical problems as outlined in past medical history Thank you for this consult, we will continue to follow Consult Attestations 2 Medical Necessity Statement: As per primary Diagnoses Osteoarthritis of left knee M17.12 Schizoaffective disorder, bipolar type F25.0 Seizure R56.9 Time Spent (min) 35
--- NOTE | 2024-08-31 10:55 | ANE.PACU2 ---
Inpatient post-anesthesia follow up: Airway intact: Yes Vital signs: Temperature 97.8 F Pulse Rate 96 Respiratory Rate 18 Blood Pressure 108/75 Pulse Oximetry 93 Oxygen Delivery Me thod Nasal Cannula Oxygen Flow Rate 3 Fraction of Inspir ed Oxygen Hydration adequate: Yes Nausea and vomiting: No Pain level: 1 Mental status: Baseline
--- NOTE | 2024-08-31 11:08 | PC.NURSE ---
1102 - pt accepted into ob 12 by Estela - BP 108/75 - pilse 96 - 02 2LNC 93% - temp 97.6
[2024-08-31] MEDS: lactated ringers 1,000 ML 75 ML IV (12:06)
[2024-08-31] MEDS: chlorhexidine gluconate 0.12% Btl 473 mL 30 ML MUCOUS MEM ×3 (12:06→20:20)
[2024-08-31] MEDS: ketorolac 30 mg/mL INJ 15 MG IVP ×2 (12:15→20:21)
[2024-08-31] MEDS: oxyCODONE 5 mg IR Tab/Cap PO ×2 (13:11→23:01)
[2024-08-31] MEDS: carbidopa-levodopa 25-100mg Tablet 1 EACH PO ×2 (14:58→21:18)
[2024-08-31] MEDS: propranolol 20 mg Tablet 10 MG PO ×2 (14:58→20:21)
[2024-08-31] MEDS: tranexamic acid 1,000 MG/100 ML PREMIX 600 MG IV (17:12)
[2024-08-31] MEDS: calcium carb-vit d 600mg/400unit 1 Tablet 1 EACH PO (17:52)
[2024-08-31] MEDS: pantoprazole DR 40 mg Tablet PO (17:52)
[2024-08-31] MEDS: atorvastatin 40 mg Tablet PO (17:53)
[2024-08-31] MEDS: iron polysaccharide complex 150 mg Capsule PO (17:53)
[2024-08-31] MEDS: benztropine 1 mg Tablet PO (17:54)
[2024-08-31] MEDS: docusate sodium 100 mg Capsule PO (17:54)
[2024-08-31] MEDS: lamoTRIgine 100 mg Tablet 200 MG PO (17:55)
[2024-08-31] MEDS: mupirocin oint 22 gm 1 APPLIC NASAL (17:56)
[2024-09-01] MEDS: ceFAZolin 2,000 mg SDV 2000 MG IVP ×2 (00:28→10:01)
[2024-09-01 04:33] LABS: Basophils # 0.1 10^3/uL (0.0-0.1); Basophils % 0.4 %; Eosinophils % 0.1 %; Hematocrit 38.3 % (36-47); Lymphocytes % 16.6 %; Mean Corpuscular HGB Conc 32.4 g/dL (30-55); Mean Corpuscular Hemoglobin 29.6 pg (27-33); Mean Corpuscular Volume 91.4 fl (85-98); Mean Platelet Volume 9.4 fL (7.4-10.4); Monocytes % 8.3 %; Neutrophils % 74.3 %; Nucleated Red Blood Cells % 0 %; Platelet Count 295 10^3/cmm (157-399); Red Blood Count 4.19 10^6/uL (3.85-5.65); White Blood Count 11.99 10^3/uL (3.29-11.43)
[2024-09-01 04:34] VITALS: BP 119/66; PULSE 80; RESP 20; TEMP 36.6; O2SAT 95
[2024-09-01 04:49] LABS: Anion Gap 11.4 (5-19); Blood Urea Nitrogen 8 mg/dL (8-23); Calcium 9.6 mg/dL (8.5-10.5); Carbon Dioxide 28 mmol/L (22-29); Chloride 104 mmol/L (98-107); Creatinine Clr Calc Pharmacy 92.0171; Glomerular Filtration Rate 84.2 mL/min (90-130); Glucose 124 mg/dL (65-115); Osmolality Calculated 288 mOsm/kg (285-295); Potassium 4.4 mmol/L (3.5-5.1); Sodium 139 mmol/L (136-145)
[2024-09-01 06:00] VITALS: BMI 42.0
[2024-09-01] MEDS: acetaminophen 1,000 MG/100 ML PIGGYBACK 400 MG IV (07:45)
[2024-09-01] MEDS: TRAMadol 50 mg Tablet PO (07:45)
[2024-09-01] MEDS: lactated ringers 1,000 ML 75 ML IV (07:46)
[2024-09-01] MEDS: ondansetron 2 mg/ML SDV 2 mL 4 MG IVP (07:47)
[2024-09-01] MEDS: iron polysaccharide complex 150 mg Capsule PO (09:58)
[2024-09-01] MEDS: docusate sodium 100 mg Capsule PO (09:58)
[2024-09-01] MEDS: cetirizine 10 mg Tablet 5 MG PO (09:58)
--- NOTE | 2024-09-01 09:58 | P.PN_ITS ---
Subjective 2 Subjective: [place] a little dizzy getting up, but now doing well. No other complaints. Pain under fair control. Medications: Reviewed: Yes Vitals/I&O/Wt Last Vital Signs Temp 97.8 F 09/01/24 04:34 Pulse 80 09/01/24 04:34 Resp 20 H 09/01/24 04:34 BP 119/66 09/01/24 04:34 Pulse Ox 95 09/01/24 04:34 O2 Del Method Nasal Cannula 09/01/24 04:34 O2 Flow Rate 2 09/01/24 04:34 08/31/24 09/01/24 09/01/24 22:59 06:59 14:59 Intake Total 100 / 250 1100 / 1350 Output Total 1000 / 1575 750 / 2325 Balance -900 / -1325 350 / -975 Weight last 48 hrs Weight 104.326 kg Weight 104.326 kg Weight 104.326 kg Physical Exam 2 Narrative: General Exam no distress Neck supple no lymphadenopathy thyromegaly Cardiovascular regular rate and rhythm, no murmur Lungs clear Extremities no cyanosis clubbing edema, dressing left knee Data 09/01/24 04:18 09/01/24 04:18 A&P Assessment and plan (1) Osteoarthritis of left knee: Postoperative day #1 left total knee arthroplasty Management per surgery Eliquis will be used for DVT prophylaxis. I discussed precautions, risks and benefits of this medication with the patient. No evidence of postoperative anemia that is significant. (2) Schizoaffective disorder, bipolar type: Resume her home medication (3) Seizure: There is past note of seizure, she is on Lamictal. I am not for sure if this is pseudoseizures or not. Either way we will place her on seizure precautions. Plan History of COPD. Budesonide twice daily, DuoNeb as needed other medical problems as outlined in past medical history Thank you for this consult, we will continue to follow Attestations 2 Medical Necessity Statement*: As per primary. Possible discharge today. Diagnoses Osteoarthritis of left knee M17.12 Schizoaffective disorder, bipolar type F25.0 Seizure R56.9 Time Spent (min) 21
[2024-09-01] MEDS: apixaban 5 mg Tablet 2.5 MG PO (09:59)
[2024-09-01] MEDS: levothyroxine 125 mcg Tablet PO (09:59)
[2024-09-01] MEDS: pantoprazole DR 40 mg Tablet PO (10:00)
[2024-09-01] MEDS: multivitamin therapeutic Tablet 1 TAB PO (10:00)
[2024-09-01] MEDS: calcium carb-vit d 600mg/400unit 1 Tablet 1 EACH PO (10:00)
[2024-09-01] MEDS: propranolol 20 mg Tablet 10 MG PO (10:00)
[2024-09-01] MEDS: aspirin 81 mg EC Tablet PO (10:00)
[2024-09-01] MEDS: chlorhexidine gluconate 0.12% Btl 473 mL 30 ML MUCOUS MEM (10:01)
[2024-09-01] MEDS: mupirocin oint 22 gm 1 APPLIC NASAL (10:01)
[2024-09-01] MEDS: carbidopa-levodopa 25-100mg Tablet 1 EACH PO (10:21)
[2024-09-01] MEDS: benztropine 1 mg Tablet PO (10:21)
[2024-09-01] MEDS: lamoTRIgine 100 mg Tablet 200 MG PO (10:21)
[2024-09-01 10:30] VITALS: BP 122/79; PULSE 63; RESP 16; TEMP 36.6; O2SAT 93
[2024-09-01 12:04] VITALS: RESP 16
[2024-09-01] MEDS: oxyCODONE 5 mg IR Tab/Cap PO (12:04)
--- NOTE | 2024-09-01 12:06 | P.DS_ITS ---
Discharge Providers Date of Admission: 08/31/24 10:13 Date of Discharge: September 01, 2024 Attending Provider at Admission: Isai Rico DO Attending Provider at Discharge: Isai Rico DO Consults: Dr Freire-hospitalist Primary Care Provider: Mark Bennett MD Diagnoses at Discharge Discharge Diagnosis (1) Osteoarthritis of left knee: Status: Resolved (2) Schizoaffective disorder, bipolar type: Status: Chronic (3) Seizure: Status: Acute Reason for Visit Reason for Visit: M17.12 Brief History: s/p L TKA Hospital Course Hospital Course Patient presented to the preoperative holding area with plan for [ left] total knee arthroplasty after patient has been worked up in the outpatient setting for failed conservative treatment of [ left] knee degenerative joint disease. Once cleared by anesthesia for surgery patient subsequently was taken back to the operative suite underwent anesthesia per anesthesia department and then subsequently underwent a [left ] total knee arthroplasty. Procedure was performed without any complications patient was taken to PACU in stable condition patient recovered well in PACU and then was admitted to the floor postoperatively internal medicine was consulted and on board for medical man agement and assistance with care. Patient received appropriate PT/OT, postoperative antibiotics, postoperative TXA, pain control, postoperative DVT prophylaxis. Elevation and ice. Patient encouraged for knee range of motion allowed weightbearing as tolerated to the operative lower extremity. Dressing was changed as needed, labs were monitored daily. Patient recovered well postoperatively and worked well and progressed well with therapy. It was determined on postoperative day [ 1] the patient was stable for discharge from an orthopedic standpoint and medicine. Patient was comfortable with discharge and plan was discharged home. Patient received appropriate discharge instructions as well as pain medication and DVT prophylaxis postoperatively. Given appropriate instructions for dressing management. Patient will follow-up with Dr. Rico/orthopedics in the office in 2 weeks. All questions answered. Understand if there is any issues questions or concerns and contact the office. Physical Exam Narrative: left knee examination: Dressings on in place is clean dry and intact, calf soft nontender compartment soft compressible normal postoperative swelling and tenderness palpation about the left knee patient is able to plantarflex and dorsiflex ankle sensation intact light touch distally. Distal pulses palpable. Discharge Data Studies Completed and Pending Completed Studies During Hospitalization Category Date Time Status XR knee LT 1-2V 46600 Routine Exams 08/31/24 10:18 Completed Pending at discharge Category Date Time Status Basic Metabolic Panel AM LABS Lab 09/02/24 04:00 Ordered Basic Metabolic Panel AM LABS Lab 09/03/24 04:00 Ordered Complete Blood Count w/Auto AM LABS Lab 09/02/24 04:00 Ordered Complete Blood Count w/Auto AM LABS Lab 09/03/24 04:00 Ordered Radiology Impressions Knee X-Ray 08/31/24 10:18 IMPRESSION: 1. Postoperative changes status post left knee replacement. Laboratory Results WBC 11.99 10^3/uL (3.29-11.43) H 09/01/24 04:18 RBC 4.19 10^6/uL (3.85-5.65) 09/01/24 04:18 Hgb 12.40 g/dL (11.27-16.99) 09/01/24 04:18 Hct 38.3 % (36-47) 09/01/24 04:18 MCV 91.4 fl (85-98) 09/01/24 04:18 MCH 29.6 pg (27-33) 09/01/24 04:18 MCHC 32.4 g/dL (30-55) 09/01/24 04:18 RDW 14.0 % (12.1-15.1) 09/01/24 04:18 Plt Count 295 10^3/cmm (157-399) 09/01/24 04:18 MPV 9.4 fL (7.4-10.4) 09/01/24 04:18 Neut % (Auto) 74.3 % 09/01/24 04:18 Lymph % (Auto) 16.6 % 09/01/24 04:18 [place] % (Auto) 8.3 % 09/01/24 04:18 Eos % (Auto) 0.1 % 09/01/24 04:18 Baso % (Auto) 0.4 % 09/01/24 04:18 Neut # (Auto) 8.90 10^3/uL (1.8-7.7) H 09/01/24 04:18 Lymph # (Auto) 2.0 10^3/uL (0.8-4.8) 09/01/24 04:18 [place] # (Auto) 1.0 10^3/uL (0.2-0.9) H 09/01/24 04:18 Eos # (Auto) 0.0 10^3/uL (0.0-0.8) 09/01/24 04:18 Baso # (Auto) 0.1 10^3/uL (0.0-0.1) 09/01/24 04:18 Nucleated RBC % (auto) 0 % 09/01/24 04:18 Nucleated RBCs # 0.0 /100WBC 09/01/24 04:18 Sodium 139 mmol/L (136-145) 09/01/24 04:18 Potassium 4.4 mmol/L (3.5-5.1) 09/01/24 04:18 Chloride 104 mmol/L (98-107) 09/01/24 04:18 Carbon Dioxide 28 mmol/L (22-29) 09/01/24 04:18 Anion Gap 11.4 (5-19) 09/01/24 04:18 BUN 8 mg/dL (8-23) 09/01/24 04:18 Creatinine 0.7 mg/dL (0.5-0.9) 09/01/24 04:18 GFR Calculation 84.2 mL/min (90-130) L 09/01/24 04:18 Glucose 124 mg/dL (65-115) H 09/01/24 04:18 Calculated Osmolality 288 mOsm/kg (285-295) 09/01/24 04:18 Calcium 9.6 mg/dL (8.5-10.5) 09/01/24 04:18 Urine Color Cancelled 08/31/24 06:50 Urine Appearance Cancelled 08/31/24 06:50 Urine pH Cancelled 08/31/24 06:50 Ur Specific [place] Cancelled 08/31/24 06:50 Urine Protein Cancelled 08/31/24 06:50 Urine Glucose (UA) Cancelled 08/31/24 06:50 Urine Ketones Cancelled 08/31/24 06:50 Urine Blood Cancelled 08/31/24 06:50 Urine Nitrate Cancelled 08/31/24 06:50 Urine Bilirubin Cancelled 08/31/24 06:50 Prot Sulfosalicylic Acd Cancelled 08/31/24 06:50 Urine Urobilinogen Cancelled 08/31/24 06:50 Ur Leukocyte Esterase Cancelled 08/31/24 06:50 Urine RBC Cancelled 08/31/24 06:50 Urine WBC Cancelled 08/31/24 06:50 Ur Squamous Epith Cells Cancelled 08/31/24 06:50 Ur Transition Epith Cell Cancelled 08/31/24 06:50 Ur Renal Epithelial Cell Cancelled 08/31/24 06:50 Calcium Oxalate Crystal Cancelled 08/31/24 06:50 Uric Acid Crystals Cancelled 08/31/24 06:50 Triple Phos Crystals Cancelled 08/31/24 06:50 Other Crystals Cancelled 08/31/24 06:50 Amorphous Sediment Cancelled 08/31/24 06:50 Urine Bacteria Cancelled 08/31/24 06:50 Hyaline Casts Cancelled 08/31/24 06:50 Fine Granular Casts Cancelled 08/31/24 06:50 Coarse Granular Casts Cancelled 08/31/24 06:50 RBC Casts Cancelled 08/31/24 06:50 Other Casts Cancelled 08/31/24 06:50 Urine Mucus Cancelled 08/31/24 06:50 Urine Trichomonas Cancelled 08/31/24 06:50 Urine Yeast Cancelled 08/31/24 06:50 Urine Sperm Cancelled 08/31/24 06:50 Ur Oval Fat Bodies Cancelled 08/31/24 06:50 Blood Type B Positive 08/31/24 06:35 Rho(D) Type Rh positive 08/31/24 06:35 Antibody Screen Negative 08/31/24 06:35 Vitals Last Vital Signs Temp 97.8 F 09/01/24 10:30 Pulse 63 09/01/24 10:30 Resp 16 09/01/24 12:04 BP 122/79 09/01/24 10:30 Pulse Ox 93 09/01/24 10:30 O2 Del Method Room Air 09/01/24 10:30 O2 Flow Rate 2 09/01/24 04:34 Discharge Plan Discharge Patient Disposition: Home Condition: Stable Prescriptions: New calcium carbonate-vitamin D3 [Calcium 600 + D(3)] 600 mg-10 mcg (400 unit) tablet 1 tab PO DAILY 30 Days Qty: 30 0RF Continued nitroglycerin 0.4 mg tablet, sublingual 0.4 mg SUBLINGUAL Q5M PRN (Reason: Chest Pain) Rx Instructions: as directed upto 3 albuterol sulfate 90 mcg/actuation HFA aerosol inhaler 2 puff inhalation Q6H PRN (Reason: Shortness Of Breath) paliperidone [Invega] 6 mg tablet extended release 24 hr 12 mg PO DAILY PRN (Reason: psychosis) Qty: 60 3RF Rx Instructions: May take two tabs daily six days before injection for psychosis Invega Sustenna 234 mg/1.5 mL syringe 234 mg IM Q30D Qty: 1.5 6RF Botox 100 unit recon soln 100 unit intradermal Q90D levocetirizine [Xyzal] 5 mg tablet 5 mg PO DAILY (DME) Night splint to left See Rx Instructions .Route .MEDSUPPLY Qty: 1 0RF Rx Instructions: As directed lamotrigine [Lamictal] 200 mg tablet 200 mg PO BID Qty: 60 6RF Rx Instructions: Take one tablet in am and bedtime benztropine 1 mg tablet 1 mg PO BID Qty: 60 6RF trazodone 50 mg tablet 50 mg PO BEDTIME PRN (Reason: sleep) Qty: 30 4RF Rx Instructions: May take one tablet at bedtime as needed for sleep propranolol 10 mg tablet 10 mg PO TID Qty: 90 6RF (DME) Left Knee Hinged Brace See Rx Instructions .Route .MEDSUPPLY Qty: 1 0RF Rx Instructions: As directed carbidopa-levodopa 25-100 mg tablet See Rx Instructions .ROUTE .COMPLEX Qty: 90 5RF Dose Instruction: TAKE 1 TABLET BY MOUTH THREE TIMES DAILY Rx Instructions: TAKE 1 TABLET BY MOUTH THREE TIMES DAILY lorazepam [Ativan] 1 mg tablet 1 mg PO BID PRN (Reason: anxiety) Qty: 60 3RF Rx Instructions: May take one tablet twice per day as needed for anxiety levothyroxine 125 mcg tablet 125 mcg PO DAILY fluticasone propionate 50 mcg/actuation [place],Suspension 2 spray INTRANASAL DAILY PRN (Reason: Nasal Congestion) acetaminophen [Tylenol] 325 mg Tablet 325 mg PO QID PRN (Reason: Pain) Anoro Ellipta 62.5-25 mcg/actuation blister with device 1 ea INHALATION DAILY atorvastatin 40 mg tablet 40 mg PO QPM meclizine 25 mg tablet 25 mg PO BID PRN (Reason: dizziness) Qty: 20 0RF polyethylene glycol 3350 [Miralax] 17 gram/dose powder 4 g PO DAILY PRN (Reason: Constipation) aspirin 81 mg tablet,delayed release (DR/EC) 81 mg PO DAILY Rx Instructions: TAKE 1 TABLET BY MOUTH EVERY DAY pantoprazole 40 mg tablet,delayed release (DR/EC) 40 mg PO BID Qty: 60 2RF No Action oxycodone 5 mg tablet 5 mg PO Q6H PRN (Reason: pain) Discharge Orders: Discharge Order (Routine); Ordered 09/01/24 Ordered By: Isai Rico Other Ambulatory Orders: DME: Walker (Order) Location: None Selected Ordered By: Isai Rico Referrals: Yovanny Rico PA [Physician Animation Producer] - 09/22/24 9:30 am Discharge Diet: Regular Discharge Activity: Limit activity as instructed Patient Instructions: Acute Wound Care (DC), Precautions after Total Joint Replacement Surgery (DC), Opioid Safety (DC), Total Knee Replacement (DC), OB Discharge Report, OB Food/Drug Interaction Guide, Post Anesthesia Care Activity Restrictions/Additional Instructions: Orthopedic discharge instructions: Andrea Dressing--Keep dressing on and dry. After 3 days you can remove some of the dressing and shower. disconnect battery pack when showering. Andrea dressing will stay on until follow up appt in 2 weeks. The battery pack for the dressing will at 5-7 days. Battery pack can be removed and discarded once batteries . Patient may weight-bear as tolerate to the operative extremity Utilize walker as needed Encourage knee range of motion Ice and elevate as needed for pain and swelling Take pain medication as prescribed Take antinausea medication as needed Supplement with calcium vitamin D for bone health and healing Pain medication can cause constipation. take [id number] stool softeners and or MiraLAX. Take prescribed Eliquis twice daily for the next 14 days for blood clot prevention May supplement for pain with Tylenol [id number] as needed No baths or soaks Follow-up in the orthopedic office in 2 weeks Contact the office for any questions or concerns Discharge Attestations Time Spent in Discharge Care*: less than 30 min Status at Discharge: Cognitive status at discharge: cognitively intact , Behavioral status at discharge: cooperative , Quality Metrics Clinical Quality Measures [ No reported AMI, CVA or VTE this stay] Coding Level of Care Code Acute Code for Chg Fwd Diagnoses Osteoarthritis of left knee M17.12 Schizoaffective disorder, bipolar type F25.0 Seizure R56.9
[2024-09-01 14:10] VITALS: BP 129/74; PULSE 65; RESP 15; TEMP 36.6; O2SAT 93
== END 2024-09-01 14:15 | disposition home or self-care (01) ==
LOC: OBGYN 10:18
PROVIDERS: Physician Assistant; Admitting Provider Student in an Organized Health Care Education/Training Program; PCP Family Medicine; Visit Provider Student in an Organized Health Care Education/Training Program
PROC: 8E0Y0CZ Robotic Assisted Procedure of Lower Extremity, Open Approach (ICD-10-PCS; CPT 27447; principal; 2024-08-31 07:45)
DX: M17.12 Unilateral primary osteoarthritis, left knee (principal); F25.0 Schizoaffective disorder, bipolar type; R56.9 Unspecified convulsions; J44.9 Chronic obstructive pulmonary disease, unspecified; Z99.81 Dependence on supplemental oxygen; I10 Essential (primary) hypertension; I25.2 Old myocardial infarction; K21.9 Gastro-esophageal reflux disease without esophagitis; E78.5 Hyperlipidemia, unspecified; E66.01 Morbid (severe) obesity due to excess calories; Z68.41 Body mass index [BMI] 40.0-44.9, adult; E03.9 Hypothyroidism, unspecified; Z87.891 Personal history of nicotine dependence
CPT/HCPCS: 27447; 20985; 36415; 73560; 80048; 85025; 86850; 86900; 96374; 97110; 97116; 97161; 97165; C1776; G0378; J0131; J0171; J0690; J1100; J1885; J2250; J2371; J2405; J2704; J2795; J3370; J7030; J7120

== ENCOUNTER → 2024-09-04 08:15 | Outpatient (BNVA) | payer MEDICAID, SELFPAY ==
[2024-04-28 10:41] VITALS: BP 127/80; BMI 40.8
== END ==
PROVIDERS: PCP Family Medicine; Visit Provider Specialist
DX: G43.711 Chronic migraine without aura, intractable, with status migrainosus (principal); G24.01 Drug induced subacute dyskinesia
CPT/HCPCS: 64615; J0585

== ENCOUNTER → 2024-09-22 09:16 | Outpatient (BNVA) | payer MEDICAID, SELFPAY ==
[2024-04-28 10:41] VITALS: BP 127/80; BMI 40.8
== END ==
PROVIDERS: PCP Family Medicine; Visit Provider Physician Assistant
DX: Z98.890 Other specified postprocedural states (principal); Z96.652 Presence of left artificial knee joint
CPT/HCPCS: 73560; 73565; 99024

== ENCOUNTER 2024-10-27 10:24 | Outpatient (CLI) | payer MEDICAID, SELFPAY ==
[2024-04-28 10:41] VITALS: BP 127/80; BMI 40.8
--- NOTE | 2024-10-27 11:00 | FL_ITS ---
WS: [id number] FL barium swallow modifd [id number] REASON FOR EXAM: Sensation of food sticking in the mid chest. FLUOROSCOPY TIME: 1min [id number] # OF SPOT FILMS: 0 FINDINGS: Examination was supervised by the speech therapy department. The patient was examined in the sitting upright lateral projection. The swallowing of varying consistencies of barium was monitored fluoroscopically and video recorded. No aspiration identified. No obstruction to the passage of the barium tablet. FL/FL barium swallow modifd [id number] IMPRESSION: A detailed report of the swallowing will be rendered by the speech therapy depa rtment.
== END 2024-10-27 10:25 | disposition home or self-care (01) ==
PROVIDERS: PCP Family Medicine; Visit Provider Surgery
DX: R13.10 Dysphagia, unspecified (principal); R93.89 Abnormal findings on diagnostic imaging of other specified body structures
CPT/HCPCS: 74230; 92611

== ENCOUNTER → 2024-11-11 14:15 | Outpatient (BNVA) | payer MEDICAID, SELFPAY ==
[2024-04-28 10:41] VITALS: BP 127/80; BMI 40.8
== END ==
PROVIDERS: PCP Family Medicine; Visit Provider Physician Assistant
DX: Z96.652 Presence of left artificial knee joint (principal)
CPT/HCPCS: 73560; 73565; 99213

== ENCOUNTER → 2024-12-04 08:11 | Outpatient (BNVA) | payer MEDICAID, SELFPAY ==
[2024-04-28 10:41] VITALS: BP 127/80; BMI 40.8
== END ==
PROVIDERS: PCP Family Medicine; Visit Provider Specialist
DX: G43.711 Chronic migraine without aura, intractable, with status migrainosus (principal)
CPT/HCPCS: 64615; J0585; J9999

== ENCOUNTER 2025-01-04 17:03 | Emergency (ER) | payer MEDICARE, MEDICAID, SELFPAY ==
[2024-04-28 10:41] VITALS: BP 127/80; BMI 40.8
[2025-01-04 17:10] VITALS: BP 120/68; PULSE 85; TEMP 36.6; O2SAT 93
--- NOTE | 2025-01-04 18:07 | XRR_ITS ---
PROCEDURE INFORMATION: Exam: XR Right Knee Exam date and time: 01/04/2025 6:21 PM Age: 64 years old Clinical indication: Injury or trauma; Fall; Blunt trauma; Knee; Right TECHNIQUE: Imaging protocol: Radiologic exam of the right knee. Views: 3 views. COMPARISON: No relevant prior studies available. FINDINGS: Bones/joints: Chondrocalcinosis is noted. No fracture or joint effusion. Soft tissues: Normal. XR/XR knee RT 3V* [id number] IMPRESSION: No acute findings.
--- NOTE | 2025-01-04 18:07 | XRR_ITS ---
PROCEDURE INFORMATION: Exam: XR Left Knee Exam date and time: 01/04/2025 6:19 PM Age: 64 years old Clinical indication: Injury or trauma; Fall; Blunt trauma; Knee; Left TECHNIQUE: Imaging protocol: Radiologic exam of the left knee. Views: 3 views. COMPARISON: CR XR knees AP WB w LT lmt ORTH 11/11/2024 2:17 PM FINDINGS: Bones/joints: A knee prosthesis is well seated and well aligned. I see no fracture. Soft tissues: Normal. XR/XR knee LT 3V* [id number] IMPRESSION: No acute findings.
--- NOTE | 2025-01-04 18:20 | XRR_ITS ---
PROCEDURE INFORMATION: Exam: XR Left Foot Exam date and time: 01/04/2025 6:24 PM Age: 64 years old Clinical indication: Injury or trauma; Fall; Blunt trauma; Foot; Left; Additional info: Fall, pain TECHNIQUE: Imaging protocol: Radiologic exam of the left foot. Views: 3 or more views. COMPARISON: CR (LOW EXM, ) 01/04/2025 6:19 PM FINDINGS: Bones/joints: Calcaneal spurring is noted. No acute fracture noted. Soft tissues: Normal. XR/XR foot LT min 3V* [id number] IMPRESSION: No acute findings.
[2025-01-04] MEDS: naproxen 500 mg Tablet PO (18:44)
--- NOTE | 2025-01-04 18:45 | W.ED.EXTPRO ---
HPI - Extremity Problem General: Chief complaint: Extremity Problem,Nontraumatic Stated complaint: Fall, both knee's hurting Time Seen by Provider: 01/04/25 18:19 Source: patient Mode of arrival: ambulatory Limitations: no limitations History of Present Illness: Patient is a 64-year-old female who presents the emergency department due to a fall that occurred at 1100 this morning. 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 Ultimately states that she does not remember exactly what happened, but is reporting bilateral knee pain as well as pain to her left foot and left great toe. Denies hitting her head or losing consciousness. States that it all happened so fast and this is why she cannot remember, she is using a walker as she is 5 months status post left knee arthroplasty. States she is primarily concerned of the integrity of the hardware in her knee, no other injuries reported at this time. She has not taken anything for pain. MD Complaint: extremity pain (Left foot and great toe) and joint pain (Bilateral knee joint) Radiation: none Exacerbating factors: weight bearing, walking and palpation Associated symptoms: Deny chest pain, fever(s) or rash Related Data Home Medications ?Medication ?Instructions ?Recorded ?Confirmed nitroglycerin 0.4 mg sublingual 0.4 mg sublingual Q5M PRN Chest 10/20/19 12/18/24 tablet Pain levothyroxine 125 mcg tablet 125 mcg PO DAILY 02/22/21 12/18/24 albuterol sulfate 90 mcg/actuation 2 puff inhalation Q6H PRN 05/17/21 12/18/24 aerosol inhaler Shortness Of Breath onabotulinumtoxinA 100 unit 100 unit intradermal Q90D 12/27/21 12/18/24 solution for injection (Botox) fluticasone propionate 50 2 spray intranasal DAILY PRN Nasal 08/07/22 12/18/24 mcg/actuation nasal Congestion spray,suspension levocetirizine 5 mg tablet (Xyzal) 5 mg PO DAILY 01/14/23 12/18/24 atorvastatin 40 mg tablet 40 mg PO QPM 10/19/23 12/18/24 umeclidinium 62.5 mcg-vilanterol 1 ea inhalation DAILY 10/19/23 12/18/24 25 mcg/actuation powdr for inhalation (Anoro Ellipta) polyethylene glycol 3350 17 4 g PO DAILY PRN Constipation 07/22/24 12/18/24 gram/dose oral powder (Miralax) acetaminophen 325 mg tablet 325 mg PO QID PRN Pain 08/11/24 12/18/24 (Tylenol) omeprazole 40 mg capsule,delayed 40 mg PO DAILY 11/11/24 12/18/24 release Previous Rx's ?Medication ?Instructions ?Recorded Night splint to left #1 ea 07/24/23 meclizine 25 mg tablet 25 mg PO BID PRN dizziness #20 tabs 10/19/23 Left Knee Hinged Brace #1 ea 07/07/24 benztropine 1 mg tablet 1 mg PO BID #60 tabs 08/17/24 lamotrigine 200 mg tablet 200 mg PO BID #60 tabs 08/17/24 (Lamictal) aspirin 81 mg tablet,delayed 81 mg PO DAILY #90 tabs 12/17/24 release carbidopa 25 mg-levodopa 100 mg See Rx Instructions .Route 12/17/24 tablet .COMPLEX #90 tabs lorazepam 1 mg tablet (Ativan) 1 mg PO BID PRN anxiety #60 tabs 12/18/24 paliperidone 6 mg tablet,extended 12 mg (2 x 6 mg) PO DAILY PRN 12/18/24 release 24 hr (Invega) psychosis #60 tabs paliperidone palmitate 234 mg/1.5 234 mg (1.5 mL) IM Q30D #1.5 mL 12/18/24 mL intramuscular syringe (Invega Sustenna) propranolol 10 mg tablet 10 mg PO BID #60 tabs 12/18/24 trazodone 50 mg tablet 50 mg PO BEDTIME PRN sleep #60 tabs 12/18/24 Allergies Allergy/AdvReac Type Severity Reaction Status Date / Time codeine Allergy Intermediate rash Verified 01/04/25 17:15 gabapentin (From Neurontin) Allergy Intermediate dizziness Verified 01/04/25 17:15 Penicillins Allergy Intermediate rash Verified 01/04/25 17:15 Tetanus Vaccines and Toxoid Allergy Intermediate rash Verified 01/04/25 17:15 Iodinated Contrast Media Allergy ALGY-Anaphy Verified 01/04/25 17:15 laxis Seafood Allergy Severe Anaphylaxis Uncoded 01/04/25 17:15 Review of Systems General: Reports: 10 or more systems reviewed and unremarkable except in HPI and below Const: Denies: fever(s) or chills Card: Denies: chest pain Resp: Denies: dyspnea or productive cough GI: Denies: abdominal pain, nausea, vomiting or diarrhea : Denies: flank pain Musc: Reports: extremity pain and joint pain; Denies: neck pain, back pain, extremity swelling, joint swelling, joint redness, joint warmth, limited range of motion or muscle weakness Skin/Breast: Denies: rash Neuro: Denies: headache(s), numbness in extremities or weakness in extremities PFSH ED PFSH: Medical History Biceps tendinitis of shoulder Subacromial impingement of left shoulder Tendinitis of left rotator cuff Psychiatric care Chronic migraine without aura, intractable, with status migrainosus -pain control as needed -continue to follow up with Dr. Bennett for Botox injections Panic disorder with agoraphobia Chronic post-traumatic stress disorder Schizoaffective disorder, bipolar type Tarsal tunnel syndrome, left lower limb Hyperlipidemia GERD (gastroesophageal reflux disease) Hypothyroid Borderline personality disorder PTSD (post-traumatic stress disorder) -continue to f/u at [facility] Chronic migraine without aura, intractable, with status migrainosus Surgical History History of bilateral tubal ligation History of appendectomy History of arthroscopy of left shoulder H/O arthroscopic knee surgery Family History Father Bleeding disorder CAD (coronary artery disease) Other Diabetes Hypertension Denies family history of Anesthesia complication Social History Smoking and tobacco/nicotine status: former use of tobacco/nicotine Second hand smoke exposure: No (quit smoking 7 years ago) Alcohol intake: never Substance/Drug Use: never Lives independently: Yes Household members: none Current occupational status: disabled Physical Exam Const: COMMON NORMALS: no acute distress, patient oriented x3, no limitations, healthy appearing, alert and well nourished HENMT: COMMON NORMALS: normocephalic and atraumatic HEAD & SCALP: normocephalic and atraumatic Neck/C-Spine: COMMON NORMALS: full ROM, supple and no meningeal signs Resp: COMMON NORMALS: normal respiratory effort, No use of accessory muscles and clear to auscultation bilaterally AUSCULTATION: clear to auscultation bilaterally Cardio: COMMON NORMALS: regular rate and regular rhythm RATE: regular rate RHYTHM: regular rhythm Extremity: COMMON NORMALS: full ROM, capillary refill normal, no joint enlargement and no clubbing, cyanosis or edema NARRATIVE EXTREMITY EXAM: Postoperative scar to anterior left knee. Tender to palpation diffusely of the bilateral knees, there are no signs of trauma, bruising, or edema. To the left foot, there is tender to palpation of the dorsum as well as to the first MTP joint. Distal strength intact, distal neurovascular exam also intact. 2+ DP/PT pulses. No obvious joint deformity. Full range of motion with flexion and extension at the bilateral knees. Neuro: COMMON NORMALS: patient oriented x3, moves all extremities, no focal motor deficits and no sensory deficits noted SENSORIUM/ORIENTATION: Yes alert MENINGEAL SIGNS: Yes no meningeal signs Skin: COMMON NORMALS: no rashes or lesions noted GENERAL SKIN EXAM: no rashes or lesions noted Course Vital Signs: Vital signs: Vital Signs Temperature 97.9 F 01/04/25 17:10 Pulse Rate 85 01/04/25 17:10 Blood Pressure 120/68 01/04/25 17:10 Pulse Oximetry 93 01/04/25 17:10 Oxygen Delivery Me thod Room Air 01/04/25 17:10 MDM - Extremity (Nontraumatic) Medical Decision Making Patient presenting after a fall occurred this morning. Injuring both of her knees and her left ankle. No obvious signs of trauma on exam, she is status post left total knee arthroplasty 5 months ago and was mainly concerned of the integrity of this. X-rays were all normal, we discussed conservative therapy that she is to do at home and reasons to return were discussed. Discharged in stable condition. Lab Data Radiology Impressions Knee X-Ray 01/04/25 18:07 IMPRESSION: No acute findings. Foot X-Ray 01/04/25 18:20 IMPRESSION: No acute findings. All radiology interpretation(s) finalized by discharge Discharge Plan Discharge Patient Disposition: Home Clinical Impression: Fall, Contusion of knee, right, Contusion of knee, left, Sprain of foot, left Condition: Stable Prescriptions: No Action nitroglycerin 0.4 mg tablet, sublingual 0.4 mg SUBLINGUAL Q5M PRN (Reason: Chest Pain) Rx Instructions: as directed upto 3 albuterol sulfate 90 mcg/actuation HFA aerosol inhaler 2 puff inhalation Q6H PRN (Reason: Shortness Of Breath) omeprazole 40 mg capsule,delayed release(DR/EC) 40 mg PO DAILY Botox 100 unit recon soln 100 unit intradermal Q90D levocetirizine [Xyzal] 5 mg tablet 5 mg PO DAILY (DME) Night splint to left See Rx Instructions .Route .MEDSUPPLY Qty: 1 0RF Rx Instructions: As directed lamotrigine [Lamictal] 200 mg tablet 200 mg PO BID Qty: 60 6RF Rx Instructions: Take one tablet in am and bedtime benztropine 1 mg tablet 1 mg PO BID Qty: 60 6RF (DME) Left Knee Hinged Brace See Rx Instructions .Route .MEDSUPPLY Qty: 1 0RF Rx Instructions: As directed trazodone 50 mg tablet 50 mg PO BEDTIME PRN (Reason: sleep) Qty: 60 4RF Rx Instructions: May take one tablet at bedtime as needed for sleep, may repeat dose if needed prior to 2 am propranolol 10 mg tablet 10 mg PO BID Qty: 60 6RF Rx Instructions: Take one tablet twice per day paliperidone [Invega] 6 mg tablet extended release 24hr 12 mg PO DAILY PRN (Reason: psychosis) Qty: 60 3RF Rx Instructions: May take two tabs daily six days before injection for psychosis Invega Sustenna 234 mg/1.5 mL syringe 234 mg IM Q30D Qty: 1.5 6RF lorazepam [Ativan] 1 mg tablet 1 mg PO BID PRN (Reason: anxiety) Qty: 60 3RF Rx Instructions: May take one tablet twice per day as needed for anxiety carbidopa-levodopa 25-100 mg tablet See Rx Instructions .ROUTE .COMPLEX Qty: 90 5RF Dose Instruction: TAKE 1 TABLET BY MOUTH THREE TIMES DAILY Rx Instructions: TAKE 1 TABLET BY MOUTH THREE TIMES DAILY aspirin 81 mg tablet,delayed release (DR/EC) 81 mg PO DAILY Qty: 90 3RF Rx Instructions: TAKE 1 TABLET BY MOUTH EVERY DAY levothyroxine 125 mcg tablet 125 mcg PO DAILY fluticasone propionate 50 mcg/actuation [place],Suspension 2 spray INTRANASAL DAILY PRN (Reason: Nasal Congestion) acetaminophen [Tylenol] 325 mg Tablet 325 mg PO QID PRN (Reason: Pain) Anoro Ellipta 62.5-25 mcg/actuation blister with device 1 ea INHALATION DAILY atorvastatin 40 mg tablet 40 mg PO QPM meclizine 25 mg tablet 25 mg PO BID PRN (Reason: dizziness) Qty: 20 0RF polyethylene glycol 3350 [Miralax] 17 gram/dose powder 4 g PO DAILY PRN (Reason: Constipation) Discharge Orders: Discharge ED (Routine); Ordered 01/04/25 Ordered By: Elver Villanueva Referrals: Mark Bennett MD [Primary Care Provider] - Patient Instructions: Sprain (ED), Contusion in Adults (ED) Activity Restrictions/Additional Instructions: Rest, ice, compression, and elevation. Ibuprofen and Tylenol. Weightbearing and range of motion as tolerated. See your regular doctor in the next few days. Return with any new or worsening. Print Language: Macedonian Coding Level of Care Code ED Piano Accompanist for Samaria Canas
[2025-01-04 19:47] VITALS: BP 122/76; PULSE 72; O2SAT 92
== END 2025-01-04 19:49 | disposition home or self-care (01) ==
PROVIDERS: Emergency Provider Physician Assistant; PCP Family Medicine
DX: S80.02XA Contusion of left knee, initial encounter (principal); S80.01XA Contusion of right knee, initial encounter; S93.602A Unspecified sprain of left foot, initial encounter; Z79.82 Long term (current) use of aspirin; Z87.891 Personal history of nicotine dependence; E78.5 Hyperlipidemia, unspecified; W19.XXXA Unspecified fall, initial encounter
CPT/HCPCS: 73562; 73630; 99284; J9999

== ENCOUNTER → 2025-02-10 13:47 | Outpatient (BNVA) | payer MEDICARE, SELFPAY ==
[2024-04-28 10:41] VITALS: BP 127/80; BMI 40.8
== END ==
PROVIDERS: PCP Family Medicine; Visit Provider Physician Assistant
DX: Z96.652 Presence of left artificial knee joint (principal)
CPT/HCPCS: 73560; 73565; 99213

== ENCOUNTER → 2025-03-12 14:47 | Outpatient (BNVA) | payer MEDICARE, MEDICAID, SELFPAY ==
[2024-04-28 10:41] VITALS: BP 127/80; BMI 40.8
== END ==
PROVIDERS: PCP Family Medicine; Visit Provider Specialist
DX: G43.711 Chronic migraine without aura, intractable, with status migrainosus (principal)
CPT/HCPCS: 64615; J0585; J9999

== ENCOUNTER → 2025-03-31 10:56 | Outpatient (BNVA) | payer OTHER, SELFPAY ==
[2024-04-28 10:41] VITALS: BP 127/80; BMI 40.8
== END ==
PROVIDERS: PCP Family Medicine; Visit Provider Nurse Practitioner Psychiatric/Mental Health
DX: Z79.899 Other long term (current) drug therapy (principal); F40.01 Agoraphobia with panic disorder; F60.3 Borderline personality disorder; F43.12 Post-traumatic stress disorder, chronic; F25.0 Schizoaffective disorder, bipolar type
CPT/HCPCS: 80061; 83036

== ENCOUNTER → 2025-07-01 13:33 | Outpatient (BNVA) | payer MEDICARE, MEDICAID, SELFPAY ==
[2025-04-21 09:17] VITALS: BP 147/80; BMI 36.2
== END ==
PROVIDERS: PCP Family Medicine; Visit Provider Specialist
DX: G43.711 Chronic migraine without aura, intractable, with status migrainosus (principal); G24.01 Drug induced subacute dyskinesia; R03.0 Elevated blood-pressure reading, without diagnosis of hypertension
CPT/HCPCS: 64615; J0585; J9999

== ENCOUNTER 2025-07-07 12:40 | Outpatient (CLI) | payer MEDICARE, MEDICAID, SELFPAY ==
[2025-04-21 09:17] VITALS: BP 147/80; BMI 36.2
--- NOTE | 2025-07-07 12:47 | MM_ITS ---
WS: [id number] BILATERAL 3D TOMOSYNTHESIS DIGITAL SCREENING MAMMOGRAPHY WITH CAD CLINICAL INFORMATION: SCREENING HISTORY: Screening mammogram. No current complaints. COMPARISON: 2023 TECHNIQUE: Bilateral CC and MLO views. FINDINGS: The breasts are composed of heterogeneous fibroglandular density tissue, which can limit the detection of small underlying mass lesions. No suspicious mass, asymmetry, calcifications, or architectural distortion. No evidence of malignancy. Vascular calcification. Incidental punctate and lucent centered calcifications. MM/MM [facility] tomosynthesis [id number] IMPRESSION: DENSITY: The breasts are heterogeneously dense, which may obscure small masses. BI-RADS: 2 - Benign FOLLOW UP: 1 Year Follow-up Recommend return to annual screening mammography.
== END 2025-07-07 12:41 | disposition home or self-care (01) ==
LOC: RAD 12:44
PROVIDERS: PCP Family Medicine; Visit Provider Family Medicine
DX: Z12.31 Encounter for screening mammogram for malignant neoplasm of breast (principal); R92.323 Mammographic fibroglandular density, bilateral breasts; R92.333 Mammographic heterogeneous density, bilateral breasts; R92.1 Mammographic calcification found on diagnostic imaging of breast
CPT/HCPCS: 77063; 77067

== ENCOUNTER 2025-08-18 20:28 | Emergency (ER) | payer MEDICARE, MEDICAID, SELFPAY ==
[2025-04-21 09:17] VITALS: BP 147/80; BMI 36.2
[2025-08-18 20:35] VITALS: BP 125/57; PULSE 103; TEMP 36.7; O2SAT 95
--- NOTE | 2025-08-19 01:59 | XRR_ITS ---
PROCEDURE INFORMATION: Exam: XR Chest Exam date and time: 08/19/2025 2:07 AM Age: 64 years old Clinical indication: Shortness of breath; Additional info: R flank pain, hypoxia TECHNIQUE: Imaging protocol: Radiologic exam of the chest. Views: 1 view. COMPARISON: CR XR ribs LT mn 3V w CXR1V [id number] 08/11/2024 2:04 PM FINDINGS: Lungs: Unremarkable. No consolidation. Pleural spaces: Unremarkable. No pleural effusion. No pneumothorax. Heart/Mediastinum: Unremarkable. No cardiomegaly. Bones/joints: Unremarkable. XR/XR chest 1V portable [id number] IMPRESSION: No acute findings.
--- NOTE | 2025-08-19 02:03 | CTR_ITS ---
PROCEDURE INFORMATION: Exam: CT Abdomen And Pelvis Without Contrast Exam date and time: 08/19/2025 2:32 AM Age: 64 years old Clinical indication: Abdominal pain; Prior surgery; Surgery date: 6+ months; Surgery type: Aida, appy; Additional info: R flank pain, vomiting TECHNIQUE: Imaging protocol: Computed tomography of the abdomen and pelvis without contrast. Radiation optimization: All CT scans at this facility use at least one of these dose optimization techniques: automated exposure control; mA and/or kV adjustment per patient size (includes targeted exams where dose is matched to clinical indication); or iterative reconstruction. COMPARISON: CT abdomen pelvis con [id number] 02/11/2024 4:17 PM RADIATION DOSE METRICS: Total DLP (mGy-cm): 994.06 FINDINGS: Liver: Normal. No mass. Gallbladder and biliary ducts: Status-post cholecystectomy. Pancreas: Normal. No ductal dilation. Spleen: Normal. No splenomegaly. Adrenal glands: Normal. No mass. Kidneys and ureters: Nonobstructing 7 mm right lower pole renal stone. Stomach and bowel: Positive for diverticulitis moderate circumferential wall thickening of the sigmoid colon with moderate pericolonic fat stranding, consistent with colitis. Diverticulosis, without acute diverticulitis. No small bowel obstruction. No free air. Appendix: No evidence of appendicitis. Intraperitoneal space: See Stomach and bowel finding. Vasculature: Atherosclerotic changes of the aorta. Lymph nodes: Unremarkable. No enlarged lymph nodes. Urinary bladder: Inflammation is extending to the urinary bladder however, no fistula at this time. Reproductive: Unremarkable as visualized. Bones/joints: Degenerative changes of the spine. Soft tissues: Unremarkable. CT/CT abdomen pelvis [facility] [id number] IMPRESSION: 1. Positive for diverticulitis moderate circumferential wall thickening of the sigmoid colon with moderate pericolonic fat stranding, consistent with colitis. 2. Diverticulosis, without acute diverticulitis. No small bowel obstruction. No free air. 3. Nonobstructing 7 mm right lower pole renal stone. 4. Status-post cholecystectomy.
[2025-08-19 02:11] VITALS: BP 103/66; PULSE 96; O2SAT 93
[2025-08-19 02:12] LABS: Glucose Urine UA Negative (Normal); Nitrate Urine Negative (Negative); Specific Gravity, Urine 1.019 (1.005-1.030)
[2025-08-19] MEDS: ondansetron 2 mg/ML SDV 2 mL 4 MG IVP (02:24)
--- NOTE | 2025-08-19 02:26 | ECG_ITS ---
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 Measurements Intervals [place] Rate: 92 P: 15 WI: 157 QRS: -1 QRSD: 82 T: -17 QT: 344 QTc: 427 Interpretive Statements SINUS RHYTHM ST DEVIATION AND MODERATE T-WAVE ABNORMALITY, CONSIDER ANTERIOR ISCHEMIA [-0.1+ mV T-WAVE IN V3/V4] Compared to ECG 08/11/2024 15:10:25 Possible ischemia now present T-wave abnormality still present Electronically Signed On 08-20-2025 18:48:26 [employer] by Estefania Garcia M.[email or web address]
--- NOTE | 2025-08-19 02:27 | W.ED.FEMALGU ---
HPI - Female Genitourinary General: Chief complaint: Urogenital-Female Stated complaint: RT side back pain and abd pain Time Seen by Provider: 08/19/25 01:53 History of Present Illness: 64-year-old female with a past medical history significant for diverticulosis, hyperlipidemia, schizoaffective disorder, past surgical history significant for appendectomy and cholecystectomy in the past, presenting to the emergency department with approximately 1 day history of right sided flank pain constant in nature that radiates to the right low back and right lower abdomen with associated dark urine and burning on urination, no fevers, no history of kidney stones, no visible bleeding, no diarrhea, 1 episode of vomiting, no falls or trauma, no chest pain cough or shortness of breath. Related Data Home Medications ?Medication ?Instructions ?Recorded ?Confirmed nitroglycerin 0.4 mg sublingual 0.4 mg sublingual Q5M PRN Chest 10/20/19 08/09/25 tablet Pain levothyroxine 125 mcg tablet 125 mcg PO DAILY 02/22/21 08/09/25 albuterol sulfate 90 mcg/actuation 2 puff inhalation Q6H PRN 05/17/21 08/09/25 aerosol inhaler Shortness Of Breath onabotulinumtoxinA 100 unit 100 unit intradermal Q90D 12/27/21 08/09/25 solution for injection (Botox) fluticasone propionate 50 2 spray intranasal DAILY PRN Nasal 08/07/22 08/09/25 mcg/actuation nasal Congestion spray,suspension levocetirizine 5 mg tablet (Xyzal) 5 mg PO DAILY 01/14/23 08/09/25 atorvastatin 40 mg tablet 40 mg PO QPM 10/19/23 08/09/25 umeclidinium 62.5 mcg-vilanterol 1 ea inhalation DAILY 10/19/23 08/09/25 25 mcg/actuation powdr for inhalation (Anoro Ellipta) polyethylene glycol 3350 17 4 g PO DAILY PRN Constipation 07/22/24 08/09/25 gram/dose oral powder (Miralax) acetaminophen 325 mg tablet 325 mg PO QID PRN Pain 08/11/24 08/09/25 (Tylenol) omeprazole 40 mg capsule,delayed 40 mg PO DAILY 11/11/24 08/09/25 release Previous Rx's ?Medication ?Instructions ?Recorded meclizine 25 mg tablet 25 mg PO BID PRN dizziness #20 tabs 10/19/23 aspirin 81 mg tablet,delayed See Rx Instructions .Route 01/22/25 release .COMPLEX #90 tabs benztropine 1 mg tablet 1 mg PO BID #60 tabs 06/04/25 lamotrigine 200 mg tablet 200 mg PO BID #60 tabs 06/04/25 (Lamictal) paliperidone palmitate 234 mg/1.5 234 mg (1.5 mL) IM Q30D #1.5 mL 06/04/25 mL intramuscular syringe (Invega Sustenna) propranolol 10 mg tablet 10 mg PO BID #60 tabs 06/04/25 carbidopa 25 mg-levodopa 100 mg See Rx Instructions .Route 06/28/25 tablet .COMPLEX #270 tabs lorazepam 1 mg tablet (Ativan) 1 mg PO DAILY PRN anxiety #30 tabs 07/13/25 mirtazapine 15 mg tablet (Remeron) 15 mg PO .bedtime #30 tabs 07/13/25 ziprasidone HCl 40 mg capsule 40 mg PO .1 pm #30 caps 08/09/25 (Geodon) ciprofloxacin HCl 500 mg tablet 500 mg PO Q12H 7 days #14 tabs 08/19/25 metronidazole 500 mg tablet 500 mg PO Q8H 7 days #21 tabs 08/19/25 Allergies Allergy/AdvReac Type Severity Reaction Status Date / Time codeine Allergy Intermediate rash Verified 08/18/25 20:40 gabapentin (From Neurontin) Allergy Intermediate dizziness Verified 08/18/25 20:40 Penicillins Allergy Intermediate rash Verified 08/18/25 20:40 Tetanus Vaccines and Toxoid Allergy Intermediate rash Verified 08/18/25 20:40 Iodinated Contrast Media Allergy ALGY-Anaphy Verified 08/18/25 20:40 laxis Seafood Allergy Severe Anaphylaxis Uncoded 08/18/25 20:40 [facility] PFSH: Medical History Biceps tendinitis of shoulder Subacromial impingement of left shoulder Tendinitis of left rotator cuff Psychiatric care Chronic migraine without aura, intractable, with status migrainosus -pain control as needed -continue to follow up with Dr. Bennett for Botox injections Panic disorder with agoraphobia Chronic post-traumatic stress disorder Schizoaffective disorder, bipolar type Tarsal tunnel syndrome, left lower limb Hyperlipidemia GERD (gastroesophageal reflux disease) Hypothyroid Borderline personality disorder PTSD (post-traumatic stress disorder) -continue to f/u at [facility] Chronic migraine without aura, intractable, with status migrainosus Surgical History History of bilateral tubal ligation History of appendectomy History of arthroscopy of left shoulder H/O arthroscopic knee surgery Family History Father Bleeding disorder CAD (coronary artery disease) Other Diabetes Hypertension Denies family history of Anesthesia complication Social History Smoking and tobacco/nicotine status: former use of tobacco/nicotine Second hand smoke exposure: No (quit smoking 7 years ago) Alcohol intake: never Substance/Drug Use: never Lives independently: Yes Household members: none Current occupational status: disabled Physical Exam Narrative: EXAM NARRATIVE: Gen: A&Ox4, no acute distress, nontoxic appearing HEENT: Normocephalic, atraumatic, no scleral icterus, external ears normal, moist mucous membranes Neck: Supple, full range of motion, no observable masses Lungs: No Respiratory distress, Lungs clear to auscultation bilaterally no rales, rhonchi, wheezing, speaking in full sentences, saturating at 88 to 89% on room air CV: Regular rate and rhythm, no murmur, no pitting edema to lower extremities bilaterally Abdomen: Soft, nondistended, tender to palpation to the right hemiabdomen, right CVA/low back region and right lower quadrant, no overlying skin changes or rashes MSK: No joint swelling, FROM all 4 extremities Skin: No rashes, petechiae, lesions. Normal color per patient. Neuro: Alert and oriented, no slurred speech, sensation and strength grossly intact all 4 extremities Psych: Appropriate for situation. Course Reevaluation(s): Reevaluation #1: Patient reevaluated this time, symptoms of pain to the abdomen markedly improved, she is currently saturating 92% on 1 L nasal cannula, she reports that she does have oxygen at home and uses 2 L at night but is unsure of the exact reason why I suspect a component of obesity hypoventilation/obstructive sleep apnea contributing, her chest x-ray is negative her cardiac workup is unremarkable, she does have evidence of diverticulitis on CT scan without any other significant abnormalities found, will start treatment with ciprofloxacin/Flagyl given penicillin allergy, return precautions discussed prior to discharge. Follow-up with PCP recommended to consider repeat colonoscopy given last colonoscopy 5 years ago. Time: 04:23 Vital Signs: Vital signs: Vital Signs Temperature 98.0 F 08/18/25 20:35 Pulse Rate 94 08/19/25 03:30 Blood Pressure 100/71 08/19/25 03:30 Pulse Oximetry 97 08/19/25 03:30 Oxygen Delivery Me thod Nasal Cannula 08/19/25 03:30 Oxygen Flow Rate 3 08/19/25 03:30 MDM - Female Medical Decision Making 64-year-old female presenting to the emergency department with right-sided abdominal pain x 1 day with associated vomiting, remote history of cholecystectomy and appendectomy in the past, on examination patient is tender throughout the entire right side of the abdomen without overlying skin changes, she does have hypoxia to the upper 80s without any objective pulmonary abnormalities on exam, she does not appear hypervolemic, she does not feel subjectively dyspneic, will do cardiac screen with EKG labs and chest x-ray, CT of the abdomen without contrast given anaphylactic allergy to iodine to assess for obstructing kidney stone and rule out other intra-abdominal surgical pathology, pain control, reassess for disposition. Anticipate initiation of antibiotics for possible pyelonephritis. Lab Data Labs showing mild leukocytosis 11.8, no RASHMI, no UTI 08/19/25 03:23 08/19/25 03:23 Radiology Impressions Chest X-Ray 08/19/25 01:59 IMPRESSION: No acute findings. Abdomen/Pelvis CT 08/19/25 02:03 IMPRESSION: 1. Positive for diverticulitis moderate circumferential wall thickening of the sigmoid colon with moderate pericolonic fat stranding, consistent with colitis. 2. Diverticulosis, without acute diverticulitis. No small bowel obstruction. No free air. 3. Nonobstructing 7 mm right lower pole renal stone. 4. Status-post cholecystectomy. Laboratory Results WBC 11.82 10^3/uL (3.29-11.43) H 08/19/25 03:23 RBC 4.16 10^6/uL (3.85-5.65) 08/19/25 03:23 Hgb 11.90 g/dL (11.27-16.99) 08/19/25 03:23 Hct 38.0 % (36-47) 08/19/25 03:23 MCV 91.3 fl (85-98) 08/19/25 03:23 MCH 28.6 pg (27-33) 08/19/25 03:23 MCHC 31.3 g/dL (30-55) 08/19/25 03:23 RDW 13.9 % (12.1-15.1) 08/19/25 03:23 Plt Count 300 10^3/cmm (157-399) 08/19/25 03:23 MPV 8.9 fL (7.4-10.4) 08/19/25 03:23 Neut % (Auto) 70.9 % 08/19/25 03:23 Lymph % (Auto) 17.6 % 08/19/25 03:23 [place] % (Auto) 9.7 % 08/19/25 03:23 Eos % (Auto) 0.9 % 08/19/25 03:23 Baso % (Auto) 0.6 % 08/19/25 03:23 Neut # (Auto) 8.38 10^3/uL (1.8-7.7) H 08/19/25 03:23 Lymph # (Auto) 2.1 10^3/uL (0.8-4.8) 08/19/25 03:23 [place] # (Auto) 1.2 10^3/uL (0.2-0.9) H 08/19/25 03:23 Eos # (Auto) 0.1 10^3/uL (0.0-0.8) 08/19/25 03:23 Baso # (Auto) 0.1 10^3/uL (0.0-0.1) 08/19/25 03:23 Nucleated RBC % (auto) 0 % 08/19/25 03:23 Nucleated RBCs # 0.0 /100WBC 08/19/25 03:23 Sodium 137 mmol/L (136-145) 08/19/25 03:23 Potassium 3.8 mmol/L (3.5-5.1) 08/19/25 03:23 Chloride 102 mmol/L (98-107) 08/19/25 03:23 Carbon Dioxide 26 mmol/L (22-29) 08/19/25 03:23 Anion Gap 12.8 (5-19) 08/19/25 03:23 BUN 10 mg/dL (8-23) 08/19/25 03:23 Creatinine 0.5 mg/dL (0.5-0.9) 08/19/25 03:23 GFR Calculation 123.8 mL/min (90-130) 08/19/25 03:23 Calcium 8.8 mg/dL (8.5-10.5) 08/19/25 03:23 Total Bilirubin 0.5 mg/dL (0.15-1.2) 08/19/25 03:23 AST 7 U/L (0-32) 08/19/25 03:23 ALT 7 U/L (0-33) 08/19/25 03:23 Troponin T Baseline 7 ng/L (0-10) 08/19/25 03:23 Globulin 2.7 g/dL (1.3-4.6) 08/19/25 03:23 Urine Color Yellow (Yellow) 08/19/25 01:55 Urine Appearance Cloudy (CLEAR) A 08/19/25 01:55 Urine pH 7.0 (5-7) 08/19/25 01:55 Ur Specific [place] 1.019 (1.005-1.030) 08/19/25 01:55 Urine Protein Negative (Negative) 08/19/25 01:55 Urine Glucose (UA) Negative (Normal) 08/19/25 01:55 Urine Ketones Negative (Negative) 08/19/25 01:55 Urine Blood Negative (Negative) 08/19/25 01:55 Urine Nitrate Negative (Negative) 08/19/25 01:55 Urine Bilirubin Negative (Negative) 08/19/25 01:55 Urine Urobilinogen 1.0 mg/dL (Negative) 08/19/25 01:55 Ur Leukocyte Esterase Trace (Negative) A 08/19/25 01:55 Urine RBC 3-5 /hpf (0-2) 08/19/25 01:55 Urine WBC 0-5 /hpf (0-5) 08/19/25 01:55 Ur Squamous Epith Cells 6-10 /hpf (0-5) 08/19/25 01:55 Amorphous Sediment Not Reportable 08/19/25 01:55 Urine Bacteria 1+ /hpf (NONE) H 08/19/25 01:55 Hyaline Casts 0.81 /lpf 08/19/25 01:55 All radiology interpretation(s) finalized by discharge ED provider radiology interpretation(s): CT abdomen pelvis showing sigmoid diverticulitis with colitis, nonobstructing right renal stone EKG Data EKG 1: I personally reviewed and interpreted this EKG as follows: EKG Data: 08/19/25 EKG interpretation time: 02:52 Interpretation: Sinus rhythm at 92 bpm, no STEMI, no ectopy, QTc 394 ms, anterior and inferior T wave inversions Discharge Plan Discharge Patient Disposition: Home Clinical Impression: Diverticulitis Condition: Stable Prescriptions: New ciprofloxacin HCl 500 mg tablet 500 mg PO Q12H 7 Days Qty: 14 0RF metronidazole 500 mg tablet 500 mg PO Q8H 7 Days Qty: 21 0RF No Action nitroglycerin 0.4 mg tablet, sublingual 0.4 mg SUBLINGUAL Q5M PRN (Reason: Chest Pain) Rx Instructions: as directed upto 3 albuterol sulfate 90 mcg/actuation HFA aerosol inhaler 2 puff inhalation Q6H PRN (Reason: Shortness Of Breath) omeprazole 40 mg capsule,delayed release(DR/EC) 40 mg PO DAILY lorazepam [Ativan] 1 mg tablet 1 mg PO DAILY PRN (Reason: anxiety) Qty: 30 1RF Rx Instructions: May take one tablet daily as needed for anxiety mirtazapine [Remeron] 15 mg tablet 15 mg PO .bedtime Qty: 30 3RF Rx Instructions: Take one tablet at bedtime ziprasidone HCl [Geodon] 40 mg capsule 40 mg PO .1 pm Qty: 30 3RF Rx Instructions: Take one capsule at 1 pm with 500 calorie meal. Botox 100 unit recon soln 100 unit intradermal Q90D levocetirizine [Xyzal] 5 mg tablet 5 mg PO DAILY aspirin 81 mg tablet,delayed release (DR/EC) See Rx Instructions .ROUTE .COMPLEX Qty: 90 3RF Dose Instruction: TAKE 1 TABLET BY MOUTH EVERY DAY Rx Instructions: TAKE 1 TABLET BY MOUTH EVERY DAY Invega Sustenna 234 mg/1.5 mL syringe 234 mg IM Q30D Qty: 1.5 6RF lamotrigine [Lamictal] 200 mg tablet 200 mg PO BID Qty: 60 6RF Rx Instructions: Take one tablet in am and bedtime benztropine 1 mg tablet 1 mg PO BID Qty: 60 6RF propranolol 10 mg tablet 10 mg PO BID Qty: 60 6RF Rx Instructions: Take one tablet twice per day carbidopa-levodopa 25-100 mg tablet See Rx Instructions .ROUTE .COMPLEX Qty: 270 3RF Dose Instruction: TAKE 1 TABLET BY MOUTH THREE TIMES DAILY Rx Instructions: TAKE 1 TABLET BY MOUTH THREE TIMES DAILY levothyroxine 125 mcg tablet 125 mcg PO DAILY fluticasone propionate 50 mcg/actuation [place],Suspension 2 spray INTRANASAL DAILY PRN (Reason: Nasal Congestion) acetaminophen [Tylenol] 325 mg Tablet 325 mg PO QID PRN (Reason: Pain) Anoro Ellipta 62.5-25 mcg/actuation blister with device 1 ea INHALATION DAILY atorvastatin 40 mg tablet 40 mg PO QPM meclizine 25 mg tablet 25 mg PO BID PRN (Reason: dizziness) Qty: 20 0RF polyethylene glycol 3350 [Miralax] 17 gram/dose powder 4 g PO DAILY PRN (Reason: Constipation) Discharge Orders: Discharge ED (Routine); Ordered 08/19/25 Ordered By: Efraín Lowery Referrals: Mark Bennett MD [Primary Care Provider, Family Practice] Patient Instructions: Patient Portal & Angelica Instructions, Diverticulitis (DC) Print Language: Turkish Coding Level of Care Code ED [facility] Specialist for [facility]
[2025-08-19 03:00] VITALS: BP 138/73; PULSE 95; O2SAT 94
[2025-08-19 03:30] VITALS: BP 100/71; PULSE 94; O2SAT 97
[2025-08-19] MEDS: cefTRIAXone 1,000 mg SDV 1000 MG IVP (03:44)
[2025-08-19 03:52] LABS: Hematocrit 38.0 % (36-47); Hemoglobin 11.90 g/dL (11.27-16.99); Mean Corpuscular HGB Conc 31.3 g/dL (30-55); Mean Corpuscular Hemoglobin 28.6 pg (27-33); Mean Corpuscular Volume 91.3 fl (85-98); Nucleated Red Blood Cells % 0 %; Platelet Count 300 10^3/cmm (157-399); Red Blood Count 4.16 10^6/uL (3.85-5.65); White Blood Count 11.82 10^3/uL (3.29-11.43)
[2025-08-19 04:13] LABS: Troponin(5th) Baseline 7 ng/L (0-10)
[2025-08-19 04:22] LABS: Alanine Aminotransferase 7 U/L (0-33); Albumin Level 3.4 g/dL (3.5-5.2); Alkaline Phosphatase 119 U/L (35-105); Anion Gap 12.8 (5-19); Aspartate Amino Transferase 7 U/L (0-32); Blood Urea Nitrogen 10 mg/dL (8-23); Calcium 8.8 mg/dL (8.5-10.5); Carbon Dioxide 26 mmol/L (22-29); Chloride 102 mmol/L (98-107); Globulin 2.7 g/dL (1.3-4.6); Glucose 116 mg/dL (65-115); Lipase 9 U/L (13-60); NT Pro B Type Natriuretic Pept 179 pg/mL (0-125); Osmolality Calculated 284 mOsm/kg (285-295); Potassium 3.8 mmol/L (3.5-5.1); Sodium 137 mmol/L (136-145); Total Protein 6.1 g/dL (6.6-8.7)
[2025-08-19 04:28] VITALS: BP 103/54; PULSE 90; O2SAT 91
== END 2025-08-19 05:02 | disposition home or self-care (01) ==
PROVIDERS: Emergency Provider Student in an Organized Health Care Education/Training Program; PCP Family Medicine
DX: K57.92 Diverticulitis of intestine, part unspecified, without perforation or abscess without bleeding (principal); Z79.82 Long term (current) use of aspirin; Z87.891 Personal history of nicotine dependence; E78.5 Hyperlipidemia, unspecified
CPT/HCPCS: 36415; 71045; 74176; 80053; 81001; 83690; 83880; 84484; 85025; 93005; 96361; 96374; 96375; 99285; J0696; J1885; J2405; J7030

== ENCOUNTER → 2025-08-31 13:19 | Outpatient (BNVA) | payer MEDICARE, MEDICAID, SELFPAY ==
[2025-04-21 09:17] VITALS: BP 147/80; BMI 36.2
== END ==
PROVIDERS: PCP Family Medicine; Visit Provider Physician Assistant
DX: Z47.89 Encounter for other orthopedic aftercare (principal); Z96.652 Presence of left artificial knee joint
CPT/HCPCS: 73560; 73565; 99213